=== PATIENT | male | born 1950 | race Caucasian/White ===

== ENCOUNTER → 2018-11-27 10:07 | Outpatient (CLI) | payer MEDICARE, SELFPAY ==
--- NOTE | 2018-11-27 10:26 | RAD_ITS ---
STUDY: X-RAY - PELVIS REASON FOR EXAM: Male, 68 years old. Bilateral hip pain. Arthritis. TECHNIQUE: One view of the pelvis was obtained. COMPARISON: None. FINDINGS: There is a non-specific bowel gas pattern. Normal visualized soft tissue structures. Normal bilateral iliac wings, sacroiliac joints and visualized sacrum. Normal visualized bilateral superior and inferior pubic rami. Normal pubic symphysis. Normal ischial tuberosities. Normal visualized right femoral head. There is osteoarthritic spur formation of the right acetabular rim. Normal right hip joint. Normal visualized left femoral head. There is osteoarthritic spur formation of the left acetabular rim. Normal left hip joint. RAD/Pelvis 1 or 2 Views IMPRESSION: Normal x-ray examination of the pelvis. Mild degenerative arthrosis of both hips. Electronically Signed: Alber Barbour MD at 5:39 EDT , Service support ,
--- NOTE | 2018-11-27 10:26 | RAD_ITS ---
STUDY: X-RAY - RIGHT SHOULDER REASON FOR EXAM: Male, 68 years old. Pain. No recent injury. TECHNIQUE: 4 view(s) of the shoulder. COMPARISON: None. FINDINGS: Normal glenohumeral articulation. Normal acromioclavicular joint. Normal acromion. There are 3 metallic anchors in the humeral head, probably related to prior rotator cuff repair. Hardware appears to be intact with no evidence for loosening. The soft tissue structures are unremarkable. Normal visualized pulmonary apex. RAD/Shoulder min 2 Views IMPRESSION: Postsurgical changes. No demonstrated fracture, subluxation, or significant degenerative changes. Electronically Signed: Alber Barbour MD at 5:41 EDT , Service support ,
[2018-11-27 12:37] LABS: Erythrocyte Sedimentation Rate 8 mm/hr (0-20)
[2018-11-27 12:38] LABS: Absolute Lymphocyte Count 1.55 X10^3/ul (0.83-4.51); Absolute Neutrophil Count 4.2 X10^3/uL (2.0-7.7); Basophil# 0.04 X10^3/uL; Basophil% 0.6 % (0-1); Eosinophil# 0.29 X10^3/uL; Eosinophils% 4.4 % (0-5); Hematocrit 44.2 % (40-54); Hemoglobin 15.3 g/dl (13.0-16.5); Lymphocyte # 1.55 X10^3/ul (4.0); Lymphocyte % 23.6 % (19-41); Mean Corp Hgb Conc 34.6 g/gl (32-36); Mean Corpuscular Volume 89.5 fL (80-94); Mean Platelet Vol. 9.5 fl (6.2-12.0); Monocyte# 0.45 X10^3/uL; Monocyte% 6.8 % (0-10); Neutrophil # 4.22 X10^3/uL (2.7-7.7); Neutrophil % 64.1 % (47-70); Platelet Count 234 K/mm3 (150-450); RBC Distribution Width CV 12.6 % (11.6-14.6); RBC Distribution Width SD 40.9 fl (35.1-43.9); Red Blood Count 4.94 M/mm3 (4.6-6.2); White Blood Count 6.6 K/mm3 (4.4-11.0)
[2018-11-27 12:41] LABS: POSITIVE COUNT NO; POSITIVE DIFFERENTIAL NO; POSITIVE MORPHOLOGY NO
[2018-11-27 12:49] LABS: ALB/GLOB Ratio 1.1 RATIO (0.9-2.4); AST(SGOT) 22 U/L (15-37); Alanine Aminotransfer ALT/SGPT 40 U/L (16-61); Albumin, Serum 3.9 g/dL (3.2-5.0); Alkaline Phosphatase 67 U/L (45-117); Anion Gap 6 (5-15); BUN 17 mg/dL (7-18); BUN/Creat Ratio 18.6 RATIO (10-20); CRP < 2.90 mg/L (0.0-3.0); Calcium,Total 9.6 mg/dL (8.5-10.1); Chloride 108 mmol/L (98-107); Creatinine, Serum 0.92 mg/dL (0.70-1.30); EST Glomerular Filtration Rate 88 mL/min (>60); Est Glom Filt Rate - Afr Amer 106 mL/min (>60); Globulin 3.5 g/dL (2.2-4.2); Glucose 119 mg/dL (74-106); Potassium 4.4 mmol/L (3.5-5.1); Protein, Total 7.4 g/dL (6.4-8.2); Rheumatoid Factor < 10.0 IU/mL (<15); Sodium Level 140 mmol/L (136-145)
[2018-11-29 12:05] LABS: ANTINUCLEAR ANTIBODIES DIRECT Negative (Negative)
[2018-12-01 13:50] LABS: HEPATITIS B SURFACE AG Negative (Negative); HLA B27 Negative (.); Hep B Surface Antibodies Non Reactive (.); Hep C Antibodies <0.1 s/co ratio (0.0-0.9)
[2018-12-01 13:51] LABS: CCP IgG Antibodies 6 units (0-19)
== END ==
PROVIDERS: Family Provider Family Medicine; PCP Family Medicine; Referring Provider Internal Medicine Rheumatology; Visit Provider Internal Medicine Rheumatology
DX: M06.4 Inflammatory polyarthropathy (principal); M17.0 Bilateral primary osteoarthritis of knee; M21.40 Flat foot [pes planus] (acquired), unspecified foot; K21.9 Gastro-esophageal reflux disease without esophagitis; R51 Headache; E78.5 Hyperlipidemia, unspecified; M51.37 Other intervertebral disc degeneration, lumbosacral region; M47.897 Other spondylosis, lumbosacral region; L30.9 Dermatitis, unspecified; J30.9 Allergic rhinitis, unspecified
CPT/HCPCS: 36415; 72170; 73030; 80053; 81374; 85025; 85652; 86038; 86140; 86200; 86431; 86706; 86803; 87340

== ENCOUNTER → 2019-10-02 16:58 | Outpatient (CLI) | payer MEDICARE, SELFPAY ==
--- NOTE | 2019-10-02 17:10 | MRI_ITS ---
STUDY: MRI LEFT MIDFOOT REASON FOR EXAM: Chronic pain for several years in the fourth metatarsal area, no specific injury. TECHNIQUE: Standardized fat and water weighted pulse sequences were obtained in all 3 orthogonal planes. COMPARISON: None. FINDINGS: Normal talonavicular articulation. Normal calcaneocuboid articulation. Normal navicular-cuneiform articulations. Normal intercuneiform articulations. Normal first tarsometatarsal articulation. Normal Lisfranc ligament. Normal second and third tarsometatarsal articulations. Normal cuboid fourth and cuboid fifth tarsometatarsal articulation. Normal first through fifth metatarsi. There is arthrosis of the first metatarsophalangeal joint with small marginal osteophytes and chondral thinning (T1 sagittal images 23, 24). There is mild cystic change of the fibular sesamoid (inversion recovery sagittal image 21) suggestive of mild sesamoiditis. Normal tibial sesamoid. Normal tibialis anterior tendon. Normal extensor hallucis longus tendon. Normal extensor digitorum longus tendons. There is mild thickening and increased intrasubstance signal of the peroneus longus tendon proximal to the os peroneum (T2 series 6 images 4-6) without discrete tendon tear. There is no bone edema of the os peroneum. Normal visualized distal peroneus brevis tendon and distal insertion. Normal intrinsic muscles of the mid and forefoot region. Normal extensor digitorum brevis muscle. There is soft tissue fullness at the plantar aspect of the third webspace (T1 series 5 image 33) measuring 0.3 cm in transverse dimension. There is a lobulated ganglion cyst dorsal to the distal talus (inversion recovery sagittal images 21-23) measuring 1.7 cm in length with a small extension into the dorsal aspect of the sinus tarsi (inversion recovery sagittal image 20). 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 Small intermetatarsal neuroma of the third webspace Arthrosis of the first metatarsophalangeal joint. Mild fibular sesamoiditis. Ganglion cyst dorsal to the distal talus and extending into the sinus tarsi. Electronically Signed: Alexander Fernandes MD at 9:17 EST Tel , Service support ,
== END ==
PROVIDERS: PCP Family Medicine; Referring Provider Podiatrist; Visit Provider Podiatrist
DX: S93.692D Other sprain of left foot, subsequent encounter (principal); M76.72 Peroneal tendinitis, left leg; M79.672 Pain in left foot; M19.272 Secondary osteoarthritis, left ankle and foot
CPT/HCPCS: 73718

== ENCOUNTER → 2019-10-24 | Outpatient (CLI) | payer MEDICARE, SELFPAY ==
[2015-08-16 15:21] VITALS: BMI 33.7
== END | disposition home or self-care (01) ==
LOC: LABSPEC 17:20
PROVIDERS: PCP Family Medicine; Referring Provider Otolaryngology; Visit Provider Otolaryngology
DX: J32.9 Chronic sinusitis, unspecified (principal)
CPT/HCPCS: 87070; 87205

== ENCOUNTER → 2021-07-07 14:13 | Outpatient (CLI) | payer MEDICARE, SELFPAY ==
--- NOTE | 2021-07-07 14:20 | CT_ITS ---
INDICATION: SINUSITIS. History of headache, pain and pressure on the LEFT. Nasal congestion. History of seminal plasty. Deviated septum repair. EXAMINATION: CT SINUSES - CT Sinuses W/O Contrast Injection TECHNIQUE: Helically acquired images were obtained of the paranasal sinuses. A radiation dose optimization technique was used for this scan. IV Contrast dosage and agent: No contrast administered. Radiation Dose (provided by facility) CTDIvol (33.1 ) mGy, DLP ( 730.55) mGy-cm COMPARISON: 11/21/2015 FINDINGS: POSTOPERATIVE CHANGES: Postoperative changes of bilateral internal ethmoidectomy defects greater on the RIGHT than LEFT. Partial RIGHT middle turbinectomy defect is noted Paranasal sinuses- MAXILLARY SINUSES: 1. Polypoid mucosal thickening noted in the alveolar recess of the RIGHT maxillary antrum. Soft tissue within the region of the mucosal thickening appears to be continuous with the periabdominal erosion of a RIGHT maxillary molar. Findings are stable. 2. No significant mucosal thickening on the LEFT. 3. 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 ETHMOID SINUSES: Mild chronic appearing mucosal thickening in ethmoid complexes. There are findings suspicious bilateral internal ethmoidectomy defects greater on the RIGHT than LEFT. No evidence of ethmoid sinus opacification. FRONTAL SINUSES: Mild mucosal thickening within the frontal recess on the LEFT. Frontal sinuses are hypoplastic. SPHENOID SINUSES: Sphenoid sinuses are clear, sphenoid ostia are patent. Nasal passages- NASAL SEPTUM: There is mild leftward deviation of nasal septum. No septal spurs noted. TURBINATES: Prominent inferior turbinate hypertrophy bilaterally, mild middle turbinate hypertrophy also noted.. CRIBRIFORM PLATE AND FOVEA ETHMOIDALIS: Normal Facial skeleton- FACIAL SKELETON AND ORBITS: Within normal limits. CT/Sinus/Facial Bone IMPRESSION: 1. Postop changes including sequelae of internal ethmoidectomy defects bilaterally greater on the RIGHT than LEFT.. Partial middle turbinectomy defect is also noted on the RIGHT without change. 2. Mucosal thickening present within the alveolar recess of the RIGHT maxillary antrum. This appears to communicate with a prominent periodontal erosion associated with a RIGHT maxillary molar. There has been negligible change. 3. Narrow but patent the bilateral OMCs, and a patent accessory ostia associated with both maxillary antra. 4. Chronic appearing mucosal thickening in the ethmoid complexes and the LEFT frontal recess without evidence of aline sinus opacification or obstruction of drainage pathway. 5. Incidental note of hypoplastic frontal sinuses. 6. Leftward deviation of nasal septum without change. No bony spurs noted. 7. Interval development of significant inferior turbinate hypertrophy bilaterally, there also is mild middle turbinate hypertrophy. Electronically Signed: Reid Aguirre MD at 15:06 EST Tel , Service support ,
== END ==
LOC: CT 14:19
PROVIDERS: PCP Family Medicine; Referring Provider Otolaryngology; Visit Provider Otolaryngology
DX: J32.9 Chronic sinusitis, unspecified (principal)
CPT/HCPCS: 70486

== ENCOUNTER → 2023-06-02 | Outpatient (CLI) | payer MEDICARE, SELFPAY ==
--- NOTE | 2023-06-02 08:46 | VDLE_ITS ---
Reason For Study: Hx EVLA GSV, SSV and ASV RIGHT LEFT CFV is compressible, spontaneous, phasic, CFV is compressible, spontaneous, phasic, competent and demonstrates normal competent, and demonstrates normal augmentation. augmentation. FV is compressible, spontaneous, phasic, competent and demonstrates normal augmentation. POP V is compressible, spontaneous, phasic, competent and demonstrates normal augmentation. T/P Trunk is compressible. PTV is compressible. RT PerV is compressible. GSV and SSV junction to mid calf is absent s/p EVLA. Remaining SSV measures 0.22 x 0.24 cm and is Competent. ASV mid calf from SSV is INCOMPETENT for greater than 0.5 seconds and measures 0.37 x 0.38 cm. Procedure This is a venous duplex using B-mode, color flow and spectral Doppler. Exam performed in department. VL/Venous Duplex US, Unilateral Interpretation Summary Deep veins of the right lower extremity are patent and compressible segmentally . There is no evidence of right lower extremity deep vein thrombosis. Valvular competence александр ears intact within the proximal deep venous system on the right . The right great saphenous vein a nd small saphenous vein are absent down to mid-calf, consistent with a prior endothermal venous ab lation procedure. An accessory saphenous vein emanating from the right small saphenous vein in the m id-calf is incompetent. Ordering Physician: Say Suazo Referring Physician: Abad Cotter MD Performed By: Alie Boyd RVT
== END | disposition home or self-care (01) ==
PROVIDERS: PCP Family Medicine; Referring Provider Surgery; Visit Provider Surgery
DX: M71.21 Synovial cyst of popliteal space [Baker], right knee (principal); I83.11 Varicose veins of right lower extremity with inflammation
CPT/HCPCS: 93971

== ENCOUNTER → 2024-06-01 | Outpatient (CLI) | payer MEDICARE, SELFPAY ==
--- NOTE | 2024-06-01 07:52 | CT_ITS ---
EXAM: CT MAXILLOFACIAL WITHOUT INTRAVENOUS CONTRAST CLINICAL INDICATION: CHRONIC SINUSITIS TECHNIQUE: Helically acquired images were obtained of the face without intravenous contrast. This CT exam was performed using one or more of the following dose reduction techniques: automated exposure control, adjustment of the mA and/or kV according to patient size, and/or use of iterative reconstruction technique. COMPARISON: CT sinus, 07/07/2021 FINDINGS: BONES/JOINTS: Mild bidirectional nasal septal deviation without significant spurring. Status post right middle turbinoplasty. Degenerative changes in the cervical spine. SOFT TISSUES: No significant abnormality. No focal subcutaneous swelling. No discrete fluid collections. VASCULATURE: Vascular calcifications. ORBITS: No acute findings. SINUSES: Status post right partial ethmoidectomy. Mild mucosal thickening in the residual ethmoid air cells. Trace mucosal thickening in the bilateral maxillary sinuses, right greater than left. The ostiomeatal units are patent. The frontal sinuses are hypoplastic with minimal mucosal thickening. The frontal recesses are clear. MASTOID AIR CELLS: Normal as visualized. Clear. DENTAL: No significant findings. No periodontal osseous erosion. CT/Sinus/Facial Bone IMPRESSION: 1. Status post right middle turbinoplasty. 2. Status post right partial ethmoidectomy. Mild mucosal thickening in the residual ethmoid air cells. 3. No sinus outflow pathway obstruction. Electronically Signed: Alfredo Madrid DO at 21:06 EDT ,
== END | disposition home or self-care (01) ==
PROVIDERS: PCP Family Medicine; Referring Provider Otolaryngology; Visit Provider Otolaryngology
DX: J32.8 Other chronic sinusitis (principal); J32.4 Chronic pansinusitis
CPT/HCPCS: 70486

== ENCOUNTER → 2024-11-12 | Outpatient (CLI) | payer MEDICARE, SELFPAY ==
--- NOTE | 2024-11-12 08:59 | EKG12_ITS ---
Test Reason : PRE OP Blood Pressure : */* mmHG Vent. Rate : 63 BPM Atrial Rate : 63 BPM P-R Int : 158 ms QRS Dur : 88 ms QT Int : 372 ms P-R-T Axes : 43 -9 45 degrees QTcB Int : 380 ms Normal sinus rhythm Septal infarct , age undetermined Abnormal ECG Confirmed by ANJALI DAVID, KWASI ([id number]), research editor KIM PLEITEZ ([id number]) on 11/12/2024 11:42:42 AM Referred By: Broderick Merino Confirmed By: KWASI ALBA MD
[2024-11-12 10:40] LABS: Absolute Lymphocyte Count 1.74 X10^3/uL (0.83-4.51); Absolute Neutrophil Count 4.6 X10^3/uL (2.0-7.7); Basophil# 0.05 X10^3/uL; Basophil% 0.7 % (0-1); Eosinophil# 0.27 X10^3/uL; Eosinophils% 3.8 % (0-5); Hematocrit 41.3 % (40-54); Hemoglobin 14.4 g/dL (13.0-16.5); Lymphocyte # 1.74 X10^3/ul (0.83-4.51); Lymphocyte % 24.3 % (19-41); Mean Corp Hgb Conc 34.9 g/dL (32-36); Mean Corpuscular Hgb 31.4 pg (27.0-32.0); Mean Corpuscular Volume 90.2 fL (80-94); Mean Platelet Vol. 9.3 fl (6.2-12.0); NRBC Flagged by Analyzer 0 % (0-5); Neutrophil # 4.57 X10^3/uL (2.7-7.7); Neutrophil % 63.8 % (47-70); Platelet Count 219 K/mm3 (150-450); RBC Distribution Width CV 12.4 % (11.6-14.6); RBC Distribution Width SD 40.6 fl (35.1-43.9); Red Blood Count 4.58 M/mm3 (4.6-6.2); White Blood Count 7.2 K/mm3 (4.4-11.0)
[2024-11-12 11:22] LABS: Anion Gap 13 (5-15); BUN 16 mg/dL (4-19); Calcium,Total 10.1 mg/dL (7.6-11.0); Carbon Dioxide 21.8 mmol/L (21.0-32.0); Chloride 102 mmol/L (98-108); Creatinine, Serum 0.96 mg/dL (0.70-1.20); EST Glomerular Filtration Rate 84 (>60); Glucose 133 mg/dL (70-99); Potassium 4.4 mmol/L (3.3-5.1); Sodium Level 136 mmol/L (133-145)
== END | disposition home or self-care (01) ==
PROVIDERS: PCP Family Medicine; Referring Provider Student in an Organized Health Care Education/Training Program; Visit Provider Student in an Organized Health Care Education/Training Program
DX: Z01.818 Encounter for other preprocedural examination (principal)
CPT/HCPCS: 36415; 80048; 85025; 93005

== ENCOUNTER → 2024-12-31 | Outpatient (CLI) | payer MEDICARE, SELFPAY ==
--- NOTE | 2024-12-31 13:38 | STEWCON_ITS ---
Reason For Study Reason For Study: abnormal EKG Stress Results Protocol: Stress Echocardiogram Yogn Protocol with Definity Maximum Predicted HR: 147 bpm Target HR: 125 bpm % Maximum Predicted HR: 105 % DurationHeart Rate Stage (mm:ss) (bpm) BP Comment Baseline 86 150/89Patient denies chest pain Stage 1 3:00 123 166/98Patient denies chest pain Stage 2 3:00 155 174/100Patient complains of shortness of breath. Denies chest pain. 2ml total Definity used per protocol. Patient denies chest pain or shortness of Recovery 84 156/80breath. Stress Duration: 6:00 mm:ss Maximum Stress HR: 155 bpm Baseline Echocardiogram Findings Stress Echo Wall motion Data Resting WM Intermediate WM Stress WM ECHO/Stress Test Echo W/Contrast Interpretation Summary Exercise stress echo. 74-year-old man with a history of abnormal EKG. The resting electrocardiogram demonstrates normal sinus rhythm with a rate of 7 5 bpm normal intervals are noted resting blood pressure is 150/89 mmHg. The patient exercised according to regular Yong protocol for total duration of 6 minutes with a maximum heart rate of 160 bpm 108% of maximum predicted heart rate and a workload of 7 metabolic equivalents. At rest there were no ST or T wave changes noted suggest ischemia and at peak exer cise 1.[address] depression were noted in lead II, 1.[address] depression were noted in lead II I and aVF not suggestive of ischemia. The peak blood pressure was 174/100 mmHg which was a mildly hypertensive response t o exercise. Test was terminated due to shortness of breath. No chest pain was noted. Stress echocardiogram. The resting echocardiogram demonstrated preserved left ventricular systolic fun ction estimated at 65%. At peak exercise there was thickening of all ham[place] except for the mid anterior wall with reduced thickening and contractility suggesting anterior ischemia present. Images were obtained with Definity enhancement. Conclusion: Exercise stress echocardiogram with probable mild mid anterior ischemia at a mo derate workload. Ordering Physician: Briana Harris Referring Physician: Briana Harris Performed By: Kathrine Angel RDCS
== END | disposition home or self-care (01) ==
LOC: CVS 13:33
PROVIDERS: PCP Family Medicine; Referring Provider Nurse Practitioner Primary Care; Visit Provider Nurse Practitioner Primary Care
DX: R94.31 Abnormal electrocardiogram [ECG] [EKG] (principal); R01.1 Cardiac murmur, unspecified
CPT/HCPCS: 93017; 93350; Q9957; A4216; C8928

== ENCOUNTER → 2025-01-10 | Outpatient (CLI) | payer MEDICARE, SELFPAY ==
--- NOTE | 2025-01-10 08:00 | CT_ITS ---
PROCEDURE: SOFT TISSUE NECK WITH CONTRAST 01/10/2025 REASON FOR EXAM: RETROPHARYNGEAL ABSCESS, GERD TECHNIQUE: CT of the soft tissues of the neck from the orbits to the upper mediastinum with intravenous contrast. CONTRAST: 100 cc Isovue 370 One or more dose reduction techniques were used (e.g., Automated exposure control, adjustment of the mA and/or kV according to patient size, use of iterative reconstruction technique). RADIATION DOSE SUMMARY: CTDlvol: ? MGy DLP: ? MGycm FINDINGS: Normal orbits. Normal nasopharynx. Normal parotid glands. Normal oral cavity. Normal submandibular glands. Minor asymmetry of the vallecula which may be secondary to prominent lymphoid tissue. Symmetric vocal folds. Normal thyroid. No subglottic masses. No prevertebral or retropharyngeal abscess. Lung apices are clear CT/Soft Tissue Neck WITH Contrast IMPRESSION: No acute abnormality Reading [facility]
== END | disposition home or self-care (01) ==
LOC: CT 07:56
PROVIDERS: PCP Family Medicine; Referring Provider Otolaryngology; Visit Provider Otolaryngology
DX: J39.0 Retropharyngeal and parapharyngeal abscess (principal); K21.9 Gastro-esophageal reflux disease without esophagitis
CPT/HCPCS: 70491; Q9967

== ENCOUNTER → 2025-03-13 | Outpatient (CLI) | payer MEDICARE, SELFPAY ==
--- NOTE | 2025-03-13 10:35 | RAD_ITS ---
PROCEDURE: CHEST PA AND LATERAL 03/13/2025 REASON FOR EXAM: PREOP TECHNIQUE: CHEST PA AND LATERAL COMPARISON: none FINDINGS: No focal consolidation. Bibasilar subsegmental atelectasis. No pleural effusion or pneumothorax. Cardiac silhouette is within normal limits. No acute fractures. RAD/Chest PA and Lateral IMPRESSION: No focal consolidation. Reading Location: [facility]
[2025-03-13 12:03] LABS: Hematocrit 43.4 % (40-54); Hemoglobin 14.6 g/dL (13.0-16.5); Immature Granulocytes Count 0.060 X10^3/uL (0.0-0.0); Mean Corp Hgb Conc 33.6 g/dL (32-36); Mean Corpuscular Volume 91.2 fL (80-94); Mean Platelet Vol. 9.6 fl (6.2-12.0); NRBC Flagged by Analyzer 0 % (0-5); Platelet Count 231 K/mm3 (150-450); RBC Distribution Width CV 12.3 % (11.6-14.6); RBC Distribution Width SD 41.1 fl (35.1-43.9); Red Blood Count 4.76 M/mm3 (4.6-6.2); White Blood Count 7.2 K/mm3 (4.4-11.0)
[2025-03-13 13:27] LABS: Anion Gap 11 (5-15); BUN 18 mg/dL (4-19); BUN/Creat Ratio 21.0 RATIO (10-20); Calcium,Total 10.4 mg/dL (7.6-11.0); Carbon Dioxide 25.1 mmol/L (21.0-32.0); Chloride 103 mmol/L (98-108); Glucose 121 mg/dL (70-99); Potassium 4.6 mmol/L (3.3-5.1)
--- OUTSIDE RECORDS SUMMARY | 2025-03-13 19:21 | XMS RPT_ITS | CCD ---
Author Organization [facility] Care Team Providers Care Press Manager Name Role Phone Selena Gonsalves MD Unavailable Preeti Marquis MD Primary Care Provider Preeti Marquis MD Primary Care Provider Preeti Marquis MD Primary Care Provider Preeti Marquis MD Primary Care Provider Podlogar MAT MAKING MACHINE TENDER.Briana RESENDEZ Unavailable Ronn MAT MAKING MACHINE TENDER.Betty RESENDEZ Unavailable Dr. Gary Marquis MD Primary Care Provider Dr. Broderick Merino DO Attending Provider Dr. Broderick Merino DO Referring Provider Dr. Howard Liz MD Attending Provider Podlogar APPLICATIONS SUPPORT SPECIALIST-CBriana Attending Provider Podlogar APPLICATIONS SUPPORT SPECIALIST-CBriana Referring Provider PODLOGAR, BRIANA Attending Unavailable PREETI MARQUIS Referring Unavailab le PREETI MARQUIS Primary Care Unavailab le PODLOGARBRIANA Referring Unavailable PREETI MARQUIS Primary Care Unavailab le PREETI MARQUIS Referring Unavailab le PREETI MARQUIS Primary Care Unavailab le PODLOGAR, BRIANA Attending Unavailable PREETI MARQUIS Primary Care Unavailab le PODLOGAR, BRIANA Attending Unavailable SELF Referring Unavailable PREETI MARQUIS Primary Care Unavailab le [place] MAT MAKING MACHINE TENDER.CROWNING INSPECTOR, Betty Unavailable Tania DAVID, Dr. Melgoza Attending Provider Tania DAVID, Dr. Melgoza Referring Provider LEBRON MILLER Attending Unavailable PODLOGAR, BRIANA Referring Unavailable BURSLEY, CHRISTOPHER B Primary Care Unavailab le Tania, Preeti Attending Unavailabl e Wartmann, Christwesleyer Referring Unavailabl e Bursley, Gary Primary Care Unavailable Spittle, Broderick Attending Unavailable Spittle, Broderick Referring Unavailable Bursley, Gary Primary Care Unavailable Podlogar, Briana Attending Unavailable Podlogar, Briana Referring Unavailable Bursley, Gary Primary Care Unavailable Wartmann, Preeti Attending Unavailabl e Wartmann, Preeti Referring Unavailabl e Bursley, Gary Primary Care Unavailable Agusto, Howard Attending Unavailable Bursley, Gary Referring Unavailable Bursley, Gary Primary Care Unavailable Agusto, Howard Attending Unavailable Spittle, Broderick Referring Unavailable Bursley, Gary Primary Care Unavailable Agusto, [place] Attending Unavailable Bursley, Gary Primary Care Unavailable Agusto, Howard Attending Unavailable Bursley, Gary Primary Care Unavailable Benitez DAVID, Dr. Vega Primary Care Provider Agusto DAVID, Dr. Lawrence Attending Provider [phone] Benitez DAVID, Dr. Vega Referring Provider Allergies Allergy Classification Reported Allergen(s) Allergy Type Date of Onset Reaction(s) Facility NSAIDs (2 sources) Piroxicam Drug Allergy 06-30-20 07 GI Upset, Rash [facility] Work Phone: Pollen (1 source) Grass pollen Substance Allergy 09-26-19 24 Other: See Comments [facility] (1 source) House dust mite; Translations: [DUST MITES] allergy to substance 02-28-20 [facility] Work Phone: (20 sources) Ibuprofen; Translations: [IBUPROFEN] Drug Allergy 08-21-19 11 Rash [facility] Work Phone: (1 source) Ibuprofen Drug Allergy 02-28-20 [facility] Work Phone: (1 source) Kingdom Animalia; Translations: [ANIMALS] allergy to substance 02-28-20 [facility] Work Phone: (1 source) Mold Extract; Translations: [MOLD] Drug Allergy 02-28-20 [facility] Work Phone: (1 source) PLANT POLLENS drug allergy 02-28-20 [facility] Work Phone: (6 sources) Griseofulvin Drug Allergy 06-11-20 05 Unknown [facility] Work Phone: (20 sources) Piroxicam; Translations: [PIROXICAM] Drug Allergy 06-30-20 07 GI Upset [facility] Work Phone: (15 sources) Environmental [Other] Propensity to adverse reactions 06-11-20 05 Unknown [facility] (20 sources) Grass pollen; Translations: [GRASS POLLEN] Drug Allergy 09-26-19 24 Other: See Comments [facility] Work Phone: (1 source) Griseofulvin Drug Allergy 02-01-20 25 [facility] (1 source) Ibuprofen Drug Allergy 02-01-20 25 [facility] (1 source) Piroxicam Drug Allergy 02-23-20 25 [facility] Medications Current Medications Medication Drug Class(es) Dates Sig (Normalized) Sig (Original) acetaminophen 500 mg oral tablet (20 sources) Start: 01-31-2025 take 2 tablets by mouth once daily Acetaminophen 500 mg tablet Active 1000 mg PO DAILY January 31, 2025 12:00am Start: 02-28-2020 ACETAMINOPHEN 500 MG TABS as directed as needed ACETAMINOPHEN [id number] Rosemary Bazan LPN take 2 capsules by m outh once daily Acetaminophen 500 mg cap Take 1,000 mg by mouth once daily. Active Comment on above: Take 1,000 mg by dexter th once daily. atorvastatin 10 mg oral tablet (20 sources) HMG-CoA Reductase Inhibitor Start: End: take 1 tablet by mouth at bedtime Atorvastatin 10 mg tablet Active 10 mg PO AT BEDTIME January 31, 2025 2:13pm Start: 08-16-2015 take 1 mg by mouth at bedtime Atorvastatin Active MG PO AT BEDTIME August 16, 2015 1:00am Comment on above: [facility]ib 200 mg oral capsule (20 sources) Nonsteroidal Anti-inflammatory Drug Start: 01-31-2025 End: 03-13-2025 take 1 capsule by mouth once daily Celecoxib 200 mg capsule Active 200 mg PO daily March 13, 2025 9:38am Start: 12-06-2022 take 1 capsule by mo [facility] once daily as needed for pain celecoxib (CELEBREX) 200 mg capsule Indications: DDD (degenerative disc disease), lumbar Take 1 capsule by mouth once daily as needed for pain. 90 capsule 12/06/2022 Active Start: 09-15-2022 End: 12-04-2022 take 1 capsule by mouth once daily as needed for pain celecoxib (CELEBREX) 200 mg capsule Indications: DDD (degenerative disc disease), lumbar Take 1 capsule by mouth once daily as needed for pain. 90 capsule 0 09/15/2022 12/04/2022 Discontinued Start: 08-17-2021 End: 07-04-2022 take 1 capsule by mouth once daily celecoxib (CELEBREX) 200 mg capsule Indications: DDD (degenerative disc disease), lumbar Take 1 capsule by mouth once daily. 90 capsule 0 07/05/2022 Active Start: 02-28-2020 CELEBREX 200 M G CAPS 1 capsule daily CELECOXIB [id number] Rosemary Bazan LPN Start: 08-16-2015 End: 01-31-2025 take 1 capsule by mouth once daily Celecoxib 100 MG capsule Discontinued 100 mg PO DAILY August 16, 2015 1:00am January 31, 2025 2:15pm Comment on above: Take 1 capsule by mo [facility] once daily. Take 1 capsule by mo [facility] once daily as needed for pain. diclofenac sodium 0.01 mg/mg topical gel (20 sources) Nonsteroidal Anti-inflammatory Drug Start: apply 2 g topically three times daily as needed Diclofenac Sodium 1 % gel Active 2 g TOPICAL THREE TIMES A DAY as needed January 31, 2025 12:00am Start: 03-09-2024 End: 03-26-2024 apply 300 g topically three times daily as needed diclofenac (VOLTAREN) 1 % topical gel Indications: Primary osteoarthritis of both knees Apply moderate amount to painful areas on hands (2g) & knees (4g) up to three times daily as needed. Don't exceed a total of 32g daily. 300 g 5 03/26/2024 Active Start: 07-09-2023 End: 03-07-2024 apply 300 g topically three times daily as needed diclofenac (VOLTAREN) 1 % topical gel Apply moderate amount to painful areas on hands (2g) & knees (4g) up to three times daily as needed. Don't exceed a total of 32g daily. 300 g 0 01/13/2024 03/07/2024 Discontinued Start: 05-07-2023 apply 300 g topicall y three times daily as needed diclofenac (VOLTAREN) 1 % topical gel Apply moderate amount to painful areas on hands (2g) & knees (4g) up to three times daily as needed. Don't exceed a total of 32g daily. 300 g 0 05/07/2023 Active Start: 12-06-2022 End: 05-05-2023 apply 300 g topically three times daily as needed diclofenac (VOLTAREN) 1 % topical gel Apply moderate amount to painful areas on hands (2g) & knees (4g) up to three times daily as needed. Don't exceed a total of 32g daily. 300 g 03/15/2023 05/05/2023 Discontinued Start: 09-15-2022 End: 12-04-2022 apply 300 g topically three times daily as needed diclofenac (VOLTAREN) 1 % topical gel Apply moderate amount to painful areas on hands (2g) & knees (4g) up to three times daily as needed. Don't exceed a total of 32g daily. 300 g 0 09/15/2022 12/04/2022 Discontinued Start: 10-29-2021 End: 04-26-2022 apply 300 g topically three times daily as needed diclofenac (VOLTAREN) 1 % topical gel Apply moderate amount to painful areas on hands (2g) & knees (4g) up to three times daily as needed. Don't exceed a total of 32g daily. 300 g 1 04/27/2022 Active Comment on above: Apply moderate amoun t to painful areas on hands (2g) & knees (4g) up to three times daily as needed. Don't exceed a total of 32g daily. fexofenadine hydrochloride 180 mg oral tablet (20 sources) Histamine-1 Receptor Antagonist Start: End: take 1 tablet by mouth once daily as needed Fexofenadine 180 mg tablet Active 180 mg PO daily as needed March 13, 2025 9:39am fexofenadine HCl (MUCINEX ALLERGY ORAL) Take by mouth once daily. Active fexofenadine HCl (MUCINEX ALLERGY ORAL) Take by mouth. Active fexofenadine HCl (MUCINEX ALLERGY ORAL) Take by mouth. 0 Active Comment on above: Take by mouth. gabapentin 100 mg oral capsule (20 sources) Anti-epileptic Agent Start: 01-31-2025 take 2 capsules by mouth three times daily Gabapentin 100 mg capsule Active 200 mg PO THREE TIMES A DAY January 31, 2025 2:14pm Start: 05-12-2023 take 2 capsules by m outh three times daily gabapentin (NEURONTIN) 100 mg capsule Take 200 mg by mouth three times a day. 05/12/2023 Active Start: 08-16-2015 End: 01-31-2025 take 1 capsule by mouth three times daily at mealtime Gabapentin 100 MG capsule Discontinued 100 mg PO 3 TIMES DAILY WITH MEALS August 16, 2015 1:00am January 31, 2025 2:19pm Comment on above: Take 100 mg by mouth three times a day. 12 hr guaiFENesin 600 mg extended release oral tablet (2 sources) Start: 03-13-2025 take 1 tablet by mouth once daily, then take 1 tablet by mouth every twelve hours Guaifenesin (Mucinex) 600 mg tablet extended release 12hr Active 600 mg PO DAILY March 13, 2025 12:00am Start: 02-28-2020 MUCINEX 600 MG [id number] 1 tablet daily GUAIFENESIN [id number] Rosemary Bazan LPN Hydrocortisone (20 sources) Corticosteroid Start: 01-31-2025 Hydrocortisone Acetate 1 % cream Active 1 NMA RC TWICE A DAY as needed January 31, 2025 12:00am Start: 02-05-2021 End: 04-26-2022 hydrocortisone (ANUSOL-HC) 2 .5 % rectal cream 1 application by RECTAL route twice daily as needed. 28 g 2 04/27/2022 Active Start: 02-28-2020 HYDROCORTISONE 1 % CREA daily as directed HYDROCORTISONE [id number] Rosemarydeep Bazan LPN Comment on above: 1 application by REC RICHARD route twice daily as needed. Multivitamin (Daily Multiple Vitamin) 1 EACH tablet (5 sources) Start: 6 take 1 tablet by mouth once daily Multivitamin (Daily Multiple Vitamin) 1 EACH tablet Active 1 NMA PO DAILY August 16, 2015 1:00am Start: 08-16-2015 take 1 tablet by dexter th once daily Multivitamin (Daily Multiple Vitamin) 1 EACH tablet Active 1 EACH PO DAILY August 16, 2015 1:00am MULTIVITAMIN TAB (20 sources) Start: 06-11-2005 MULTIVITAMIN T AB Take one(1) tablet daily. 0 06/11/2005 Active Comment on above: Take one(1) tablet d aily. omeprazole 40 mg delayed release oral capsule (20 sources) Proton Pump Inhibitor Start: 01-31-2025 take 1 capsule by mouth once daily Omeprazole 40 mg capsule,delayed release(DR/EC) Active 40 mg PO daily January 31, 2025 12:00am take 1 capsule by mouth once pedro ly omeprazole (PRILOSEC) 40 mg capsule Take 40 mg by mouth once daily. Active Comment on above: Take 40 mg by mouth once daily. Turmeric Root Extract 500 mg capsule (1 source) Start: 01-31-2025 take 1 capsule by mouth twice daily Turmeric Root Extract 500 mg capsule Active 500 mg PO TWICE A DAY January 31, 2025 12:00am turmeric/turmeric ext/pepr ext (TURMERIC-TURMERIC EXT-PEPPER) 500-3 mg cap (20 sources) take 1 capsule by mouth twice daily turmeric/turmeric ext/pepr ext (TURMERIC-TURMERIC EXT-PEPPER) 500-3 mg cap Take 1 capsule by mouth twice daily. Active take 1 capsule by mouth twice da rosita turmeric/turmeric ext/pepr ext (TURMERIC-TURMERIC EXT-PEPPER) 500-3 mg cap Take 1 capsule by mouth twice daily. 0 Active Comment on above: Take 1 capsule by mo uth twice daily. Completed/Discontinued Medications Medication Drug Class(es) Dates Sig (Normalized) Sig (Original) 1 ml abatacept 125 mg/ml prefilled syringe (5 sources) Selective T Cell Costimulation Modulator Start: 08-16-2015 End: 01-31-2025 take 125 mg by mouth once daily Abatacept (Orencia) 125 MG/ML syringe Discontinued 1 {tbl} PO DAILY August 16, 2015 1:00am January 31, 2025 2:18pm acetaminophen 325 mg / oxyCODONE hydrochloride 5 mg oral tablet (5 sources) Opioid Agonist Start: 08-16-2015 End: 01-31-2025 Oxycodone-Acetamin ophen 1 TABLET tablet Discontinued 1 - 2 {tbl} PO EVERY 4 HOURS NEEDED as needed for Pain August 16, 2015 1:00am January 31, 2025 2:18pm Start: 08-16-2015 take 1 tablet by dexter every four hours as needed Oxycodone-Acetaminophen Active 1 - 2 TABLET PO EVERY 4 HOURS NEEDED August 16, 2015 1:00am amoxicillin 500 mg oral tablet (2 sources) Penicillin-class Antibacterial Start: 09-07-2021 End: 03-16-2022 take 1 tablet by mouth three times daily Amoxicillin 500 mg tablet take 1 tablet by mouth three times a day until finished 0 09/07/2021 03/16/2022 Discontinued Comment on above: take 1 tablet by dexter three times a day until finished benzonatate 100 mg oral capsule (8 sources) Non-narcotic Antitussive Start: 03-22-2023 End: 09-26-2023 take 1 capsule by mouth every eight hours as needed benzonatate (TESSALON PERLES) 100 mg capsule Take 1 capsule by mouth three times daily as needed for cough. 18 capsule 0 03/22/2023 09/26/2023 Discontinued (Course of therapy completed) Comment on above: Take 1 capsule by [facility] three times daily as needed for cough. diphenhydrAMINE hydrochloride 25 mg oral tablet (1 source) Histamine-1 Receptor Antagonist Start: 02-28-2020 DIPHENHYDRAMINE HCL 25 MG TABS as directed as needed DIPHENHYDRAMINE HCL [id number] Rosemary Bazan SPIRAL GEAR GENERATOR MULTIPLE VITAMINS-MINERALS (1 source) Start: 02-28-2020 MULTIVITAMIN ADULT TABS 1 tablet daily MULTIPLE VITAMINS-MINERALS [id number] Rosemary Bazan LPN polyethylene glycol 3350 398274 mg / potassium chloride 2970 mg / sodium bicarbonate 6740 mg / sodium chloride 5860 mg / sodium sulfate 93490 mg powder for oral solution (7 sources) Osmotic Laxative Start: 09-15-2021 End: 03-15-2023 peg 3350-Electrolytes (GOLYTELY) 236-22.74-6.74 -5.86 gram suspension Indications: Screening for colon cancer Refer to printed prep instructions from your provider. 4000 mL 0 09/15/2021 03/15/2023 Discontinued (Course of therapy completed) Comment on above: Refer to printed pre p instructions from your provider. Turmeric extract (1 source) Start: 02-28-2020 TURMERIC 500 MG TABS 1 tablet twice daily TURMERIC [id number] Rosemary Bazan LPN Problems Active Problems Problem Classification Problem Date Documented Date Episodic/Chronic Administrative/socia l admission (1 source) Advance directive discussed with patient; Translations: [Other specified counseling] Episodic Allergic reactions (20 sources) Eczema; Translations: [Dermatitis, unspecified] Onset: 09-16-2005 Resolved: 02-03-2015 08-30-2016 Episodic Diabetes mellitus without complication (20 sources) Hyperglycemia; Translations: [Hyperglycemia, unspecified] Onset: 02-03-2015 Resolved: 09-05-2019 Episodic Disorders of lipid metabolism (20 sources) Hyperlipidemia; Translations: [Other hyperlipidemia] Onset: 08-31-2017 08-31-2017 Chronic Esophageal disorders (20 sources) Gastroesophageal reflux disease; Translations: [Gastro-esophageal reflux disease without esophagitis] Onset: 09-08-2007 11-06-2007 Chronic Heart valve disorders (3 sources) Systolic murmur; Translations: [Cardiac murmur, unspecified] Onset: 11-14-2024 11-14-2024 Episodic Occlusion or stenosis of precerebral arteries (2 sources) Bilateral stenosis of carotid arteries; Translations: [Occlusion and stenosis of bilateral carotid arteries] 09-26-2023 Chronic Osteoarthritis (20 sources) Primary osteoarthritis, left hand; Translations: [Primary osteoarthritis, right hand] Onset: 09-09-2008 Resolved: 08-05-2015 03-05-2020 Chronic Other connective tissue disease (1 source) Flexor tenosynovitis of finger; Translations: [Synovitis and tenosynovitis, unspecified] Onset: 03-05-2020 03-05-2020 Episodic Other connective tissue disease (3 sources) Pain in right foot; Translations: [Pain in right foot] 05-24-2023 Episodic Other endocrine disorders (1 source) Male hypogonadism; Translations: [Testicular hypofunction] 02-22-2025 Chronic Other lower respiratory disease (1 source) Cough; Translations: [Acute cough] 03-22-2023 Episodic Other male genital disorders (20 sources) Male erectile dysfunction, unspecified; Translations: [Impotence of organic origin] 08-30-2016 Chronic Other nervous system disorders (20 sources) Carpal tunnel syndrome; Translations: [Carpal tunnel syndrome, unspecified upper limb] Onset: 03-26-2009 03-26-2009 Chronic Other nutritional; endocrine; and metabolic disorders (13 sources) Obese class I; Translations: [Obesity, unspecified] Onset: 03-26-2024 03-26-2024 Chronic Other nutritional; endocrine; and metabolic disorders (1 source) Obesity, unspecified; Translations: [Obesity, Class I, BMI 30-34.9] Onset: 03-26-2024 Chronic Other screening for suspected conditions (not mental disorders or infectious disease) (20 sources) Liver function tests abnormal; Translations: [Abnormal results of liver function studies] Onset: 10-15-2005 Resolved: 02-03-2015 08-02-2006 Episodic Other upper respiratory disease (20 sources) Chronic rhinitis; Translations: [Chronic rhinitis] 01-18-2006 Chronic Other upper respiratory disease (1 source) Retropharyngeal and parapharyngeal abscess; Translations: [Retropharyngeal and parapharyngeal abscess] Onset: 01-15-2025 Episodic Other upper respiratory infections (17 sources) Recurrent sinusitis; Translations: [Chronic sinusitis, unspecified] Onset: 07-25-2009 Resolved: 02-03-2015 02-03-2015 Chronic Residual codes; unclassified (2 sources) Pain; Translations: [Pain, unspecified] 05-09-2023 Episodic Screening and history of mental health and substance abuse codes (6 sources) Patient encounter status; Translations: [Encounter for screening for depression] Onset: 03-26-2024 03-26-2024 Episodic Spondylosis; intervertebral disc disorders; other back problems (20 sources) Degeneration of lumbar intervertebral disc; Translations: [Other intervertebral disc degeneration, lumbar region] Onset: 08-05-2015 08-05-2015 Chronic Spondylosis; intervertebral disc disorders; other back problems (20 sources) Chronic low back pain; Translations: [Chronic lower back pain] 08-30-2016 Episodic Unclassified (20 sources) Hypogonadism; Translations: [Hypogonadism] Onset: 01-08-2010 01-08-2010 Unclassified (1 source) Degeneration of intervertebral disc of lumbar region, unspecified whether pain present; Translations: [Degeneration of intervertebral disc of lumbar region, unspecified whether pain present] Onset: 08-05-2015 Past or Other Problems Problem Classification Problem Date Documented Da te Episodic/Chronic Abdominal pain (16 sources) Epigastric pain; Translations: [Epigastric pain] Onset: 09-08-2007 Resolved: 02-03-2015 02-03-2015 Episodic Allergic reactions (20 sources) Atopic dermatitis; Translations: [Other atopic dermatitis] Onset: 08-10-2007 Resolved: 02-03-2015 05-25-2013 Chronic Gastrointestinal hemorrhage (16 sources) Hematochezia; Translations: [Melena] Onset: 01-18-2006 Resolved: 02-03-2015 02-03-2015 Episodic Hemorrhoids (17 sources) External hemorrhoids; Translations: [Residual hemorrhoidal skin tags] Onset: 12-23-2008 Resolved: 02-03-2015 Episodic Other circulatory disease (16 sources) Telangiectasia disorder; Translations: [Nevus, non-neoplastic] Onset: 08-31-2010 Resolved: 02-03-2015 02-03-2015 Episodic Other connective tissue disease (16 sources) Calcaneal spur; Translations: [Calcaneal spur, unspecified foot] Onset: 05-19-2007 Resolved: 02-03-2015 02-03-2015 Episodic Other connective tissue disease (16 sources) Pain in limb; Translations: [Pain in unspecified limb] Onset: 04-19-2008 Resolved: 02-03-2015 02-03-2015 Episodic Other connective tissue disease (16 sources) Enthesopathy; Translations: [Enthesopathy, unspecified] Onset: 11-08-2011 Resolved: 02-03-2015 02-03-2015 Episodic Other connective tissue disease (16 sources) Foot pain; Translations: [Pain in unspecified foot] Onset: 11-08-2011 Resolved: 02-03-2015 02-03-2015 Episodic Other inflammatory condition of skin (16 sources) Psoriasis; Translations: [Other psoriasis] Onset: 04-04-2007 Resolved: 05-25-2013 05-25-2013 Chronic Other inflammatory condition of skin (16 sources) Parapsoriasis; 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, unspecified] Onset: 04-04-2007 Resolved: 11-30-2010 11-30-2010 Chronic Other inflammatory condition of skin (16 sources) Rosacea; Translations: [Rosacea, unspecified] Onset: 08-31-2010 Resolved: 02-03-2015 02-03-2015 Chronic Other inflammatory condition of skin (16 sources) Granulomatous rosacea; Translations: [Other rosacea] Onset: 08-31-2010 Resolved: 11-30-2010 11-30-2010 Chronic Other inflammatory condition of skin (16 sources) Seborrheic psoriasis; Translations: [Other psoriasis] Onset: 05-25-2013 Resolved: 02-03-2015 02-03-2015 Chronic Other inflammatory condition of skin (20 sources) Seborrheic dermatitis; Translations: [Seborrheic dermatitis, unspecified] Onset: 09-16-2005 Resolved: 02-03-2015 05-25-2013 Episodic Other inflammatory condition of skin (16 sources) Pruritus of skin; Translations: [Pruritus, unspecified] Onset: 08-10-2007 Resolved: 05-25-2013 05-25-2013 Episodic Other injuries and conditions due to external causes (16 sources) Excoriation of skin; Translations: [Other injury of unspecified body region, initial encounter] Onset: 08-31-2010 Resolved: 02-03-2015 02-03-2015 Episodic Other male genital disorders (16 sources) Secondary erectile dysfunction; Translations: [Male erectile dysfunction, unspecified] Onset: 07-02-2005 Resolved: 09-05-2019 09-05-2019 Chronic Other male genital disorders (16 sources) Disorder of penis; Translations: [Other specified disorders of penis] Onset: 08-03-2005 Resolved: 02-03-2015 02-03-2015 Chronic Other male genital disorders (16 sources) Disorder of prostate; Translations: [Disorder of prostate, unspecified] Onset: 08-02-2006 Resolved: 02-03-2015 02-03-2015 Episodic Other nervous system disorders (16 sources) Meralgia paresthetica; Translations: [Meralgia paresthetica, unspecified lower limb] Onset: 03-23-2012 Resolved: 02-03-2015 02-03-2015 Chronic Other nervous system disorders (16 sources) Skin sensation disturbance; Translations: [Unspecified disturbances of skin sensation] Onset: 12-26-2007 Resolved: 05-25-2013 05-25-2013 Episodic Other non-traumatic joint disorders (16 sources) Multiple joint pain; Translations: [Pain in unspecified joint] Onset: 12-23-2008 Resolved: 02-03-2015 02-03-2015 Episodic Other nutritional; endocrine; and metabolic disorders (16 sources) Obesity; Translations: [Obesity, unspecified] Onset: 05-10-2008 Resolved: 02-03-2015 02-03-2015 Chronic Other skin disorders (16 sources) Disorder of sebaceous gland; Translations: [Other specified follicular disorders] Onset: 09-16-2005 Resolved: 11-30-2010 11-30-2010 Episodic Other skin disorders (16 sources) Actinic keratosis; Translations: [Actinic keratosis] Onset: 04-04-2007 Resolved: 11-30-2010 11-30-2010 Episodic Other skin disorders (20 sources) Disorder of skin pigmentation; Translations: [Disorder of pigmentation, unspecified] Onset: 04-04-2007 Resolved: 05-25-2013 11-30-2010 Episodic Other skin disorders (16 sources) Inflamed seborrheic keratosis; Translations: [Inflamed seborrheic keratosis] Onset: 04-04-2007 Resolved: 11-30-2010 11-30-2010 Episodic Other skin disorders (16 sources) Folliculitis; Translations: [Follicular disorder, unspecified] Onset: 08-31-2010 Resolved: 02-03-2015 02-03-2015 Episodic Other skin disorders (20 sources) Disorder of skin appendage; Translations: [Other hair color and hair shaft abnormalities] Onset: 11-30-2010 Resolved: 05-25-2013 11-30-2010 Episodic Other skin disorders (16 sources) Solar lentigo; Translations: [Other melanin hyperpigmentation] Onset: 11-30-2010 Resolved: 02-03-2015 02-03-2015 Episodic Other skin disorders (16 sources) Vesicular eczema; Translations: [Dyshidrosis [pompholyx]] Onset: 12-29-2011 Resolved: 02-03-2015 02-03-2015 Episodic Other skin disorders (16 sources) Acne; Translations: [Other acne] Onset: 05-25-2013 Resolved: 02-03-2015 02-03-2015 Episodic Other skin disorders (16 sources) Seborrheic keratosis; Translations: [Other seborrheic keratosis] Onset: 05-25-2013 Resolved: 02-03-2015 02-03-2015 Episodic Residual codes; unclassified (20 sources) Family history of diabetes mellitus; Translations: [Family history of diabetes mellitus] Onset: 11-06-2007 11-06-2007 Episodic Unclassified (1 source) Problem Results Test Name Value Interpretation Reference Range Facility [facility] 01-24-2025 CNOV Office Visit (CINDINDO ) FRANK MCKEON ([id number]) 1950 M Date Time Provider Department 01/24/25 11:30 AM LEBRON MILLER During your visit today, we recorded the following information about you: Pulse Blood pressure Weight Height 71/minute 174/92 89.3 kg 1.727 m Lebron Miller MD 01/24/2025 12:33 PM Signed Referring Provider: Briana Harris APRN.C* Date: January 24, 2025 Chief Complaint: New Cardiac Patient (Abnormal stress/echo) HISTORY OF PRESENT ILLNESS: Frank Mckeon presents for New Cardiac Patient (Abnormal stress/echo). 74-year-old gentleman with history of dyslipidemia, prior tobacco abuse, and abnormal electrocardiogram, and a positive stress echo referred for cardiac evaluation and clearance prior to planned left shoulder surgery. Without antecedent cardiac history he was found to have an abnormal electrocardiogram prompting a stress echo. At that time he demonstrated -[address] segment depression, no anginal cyst symptoms and failure of the anterior wall to thicken coupled with anterior hypokinesis poststress. Looking closely at his risk factors he smoked 1/2-1 pack of cigarettes a day for approximately 17 years having stopped in 1988. He has been on a statin for elevated lipids with September values LDL 103 HDL 47, triglycerides 80. He has dyspnea on exertion but denies chest discomfort 1 might interpret his angina. The baseline EKG abnormalities consists of A pretransitional Q wave and delayed R wave progression. ALLERGIES Allergen Reactions Ibuprofen Rash lips swell and rash all over body Grass Pollen Other: See Comments Allergy symptoms Feldene [Piroxicam] GI Upset PAST MEDICAL HISTORY: PAST MEDICAL HISTORY Diagnosis Date Abdominal pain, epigastric Abnormal stress test Arthritis Chronic lower back pain Has had epidural injections Chronic rhinitis DDD (degenerative disc disease), lumbar Dr. Nam Eczema Encounter for screening for stenosis of carotid artery 09/21/2021 Bilaterally 20-39% stenosis. Encounter for screening for stenosis of carotid artery 10/01/2022 Bilaterally 20-39% stenosis. Encounter for screening for stenosis of carotid artery 10/06/2023 Bilaterally 20-39% stenosis. Erectile dysfunction Esophageal reflux External hemorrhoids History of stress test 09/18/2018 EF 61%. Normal scan Hypogonadism in male Osteoarthritis generalized, Dr. Toribio Other and unspecified hyperlipidemia PMH - PAST MEDICAL HISTORY OF gall bladder malfunction Prediabetes Trigger middle finger of right hand 02/2020 Varicose veins of right lower extremity Dr. Suazo PAST SURGICAL HISTORY Procedure Laterality Date ABDOMINAL SURGERY HX APPENDECTOMY APPENDECTOMY HX ARTHROSCOPY KNEE DIAGNOSTIC W/WO SYNOVIAL BX SPX 05/19/2004 Arthroscopy, knee right x2 CATARACT EXTRACTION HX Bilateral 01/2016 COLONOSCOPY 09/24/2021 repeat in 10 years COLONOSCOPY FLX DX W/COLLJ SPEC WHEN PFRMD 09/08/2001 Colonoscopy COLONOSCOPY FLX DX W/COLLJ SPEC WHEN PFRMD 08/19/2011 Colonoscopy EGD TRANSORAL BIOPSY SINGLE/MULTIPLE 09/08/2007 EYE SURGERY HX HERNIA REPAIR HX LAPS SURG CHOLECYSTECTOMY W/CHOLANGIOGRAPHY 01/11/2008 OPEN REPAIR OF ROTATOR CUFF ACUTE Right 08/21/2012 Rotator cuff repair - right - bone spur and torn bicep tendon - Dr Denis PAST SURGICAL HISTORY OF Sinus surgery December 2006. PAST SURGICAL HISTORY OF Left quadriceps repair PAST SURGICAL HISTORY OF Bilateral 10/2015 sinuplasty PAST SURGICAL HISTORY OF Right 06/2019 laser surgery for varicose veins TONSILLECTOMY HX TONSILLECTOMY PRIMARY/SECONDARY VASCULAR SURGERY PROCEDURE FAMILY HISTORY Problem Relation Age of Onset Heart Mother Arthritis Mother Diabetes Mother other (PVD) Mother Alzheimer's Disease Father Prostate Cancer Father Diabetes Father other (Parkinsons Dz) Father other (Bladder Cancer) Father Diabetes Maternal Grandmother Heart Maternal Grandmother Stroke Paternal Grandmother SOCIAL HISTORY: Tobacco Use: Types: Cigarettes Alcohol Use: Approximately 8.4 oz/week [which includes 14 Standard drinks or equivalent per week] (daily - max 2 per day ) Drug Use: No Employer And Job Title: No employer specified (Retired) Years Of Education Completed: Not specified Marital Status: to goran MEDICATIONS: Current Outpatient Medications Medication Sig atorvastatin (LIPITOR) 10 mg tablet Take 1 tablet by mouth once daily. diclofenac (VOLTAREN) 1 % topical gel Apply moderate amount to painful areas on hands (2g) AND knees (4g) up to three times daily as needed. Don't exceed a total of 32g daily. gabapentin (NEURONTIN) 100 mg capsule Take 200 mg by mouth three times a day. omeprazole (PRILOSEC) 40 mg capsule Take 40 mg by mouth once daily. celecoxib (CELEBREX) 200 mg capsule Take 1 capsule by mouth once daily as needed for brandon (more content not included)... Normal [facility] ECG COMPLETEon 01-24-2025 ECG COMPLETE Ventricular Rate : 7 1 BPM Atrial Rate : 71 BPM P-R Interval : 154 ms QRS Duration : 84 ms Q-T Interval : 368 ms QTC Calculation(Bazett) : 399 ms Calculated P Martin : 73 degrees Calculated R Martin : 63 degrees Calculated T Martin : 34 degrees Normal sinus rhythm with sinus arrhythmia Confirmed by HANNAH BARNES DO ([id number]) on 02/03/2025 7:04:17 AM NAME : FRANK MCKEON PID : [id number] : 1950 Gender : Male Race : ORD : [id number] Procedure Date : Jan 24 2025 11:41:12 Edit Date : Feb 03 2025 07:04:19 Diagnosis: Normal sinus rhythm with sinus arrhythmia Confirmed by HANNAH BARNES DO ([id number]) on 02/03/2025 7:04:17 AM Test Reason : HCS Location : 2 : [place] Overread By : HANNAH BARNES DO Edited By : HANNAH BARNES DO Referred By : BRIANA HARRIS Acquired by : , [facility] Soft Tissue Neck WITH Contra ston 01-10-2025 Soft Tissue Neck WITH Contrast [facility] Services [address] [place], [place] [address] Soft Tissue Neck WITH Contrast MR#: [id number] Acct: [id number] Name: FRANK MCKEON Rep #: [id number] : 1950 M 74 From: John Marc MD PCP: Dr. Gary Marquis MD Status: REG CLI Study: Soft Tissue Neck WITH Contrast Date of Exam: 0 01/10/25 Exam# [id number] Ordering Dr: Preeti Marin MD PROCEDURE: SOFT TISSUE NECK WITH CONTRAST 01/10/2025 REASON FOR EXAM: RETROPHARYNGEAL ABSCESS, GERD TECHNIQUE: CT of the soft tissues of the neck from the orbits to the upper mediastinum with intravenous contrast. CONTRAST: 100 cc Isovue 370 One or more dose reduction techniques were used (e.g., Automated exposure control, adjustment of the mA and/or kV according to patient size, use of iterative reconstruction technique). RADIATION DOSE SUMMARY: CTDlvol: ? MGy DLP: ? MGycm FINDINGS: Normal orbits. Normal nasopharynx. Normal parotid glands. Normal oral cavity. Normal submandibular glands. Minor asymmetry of the vallecula which may be secondary to prominent lymphoid tissue. Symmetric vocal folds. Normal thyroid. No subglottic masses. No prevertebral or retropharyngeal abscess. Lung apices are clear CT/Soft Tissue Neck WITH Contrast IMPRESSION: No acute abnormality Reading [facility] CC: Dr. Gary Marquis MD; Dr. 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 He states he will request [facility] to send Briana the results. Patient would like Briana to review results once received, and advise him. Janine Rivas, Lynn Singh RN 01/09/2025 3:51 PM Signed Patient calling in again on status of stress test report from [facility]. States he just spoke with someone from [facility] medical records and they were faxing over. Per Obdulia in Briana Harris's office, no fax received yet. [facility] Pt wants to be notified when we have the report for Briana to review. Informed him that we are having phone issues and that we will send him a [employer] msg. Pt verbalizes understanding. Obdulia Murphy LPN 01/09/2025 4:16 PM Signed Stress test printed from [facility] and given to ordering provider for review. RADHA Richardson Julie, APRN.CNP 01/09/2025 4:23 PM Signed Stress test shows probable mild mid anterior ischemia with moderate workload. Will need to follow-up with cardiology for further evaluation and cardiac clearance. TRAMAINE Saravia Sherrie, RN 01/10/2025 3:37 PM Signed Patient calling with the followin) States he was able to get a Cardiology appt made with [facility] for 02/20/[address] Tellez. 2) [facility] requesting Stress test results (and any other pertinent info) be faxed to them. (Stress Test not seen in pt record-if office would please fax to heart group). ADI Bull Michelle, LPN 01/15/2025 8:00 AM Signed Stress test, EKG and recent labs faxed to the [facility] for upcoming appointment. Obdulia Murphy LPN Allergies As of Date: 01/09/2025 Noted Allergy Reaction IBUPROFEN 08/21/2010 2 - Rash Comments: lips swell and rash all over body GRASS POLLEN 09/26/2023 14 - Other: See Comments Comments: Allergy symptoms FELDENE (PIROXICAM) 06/30/2007 8 - GI Upset Date Reviewed: 12/10/2024 Reviewed by: Obdulia Murphy LPN - Fully Assessed Reason for Visit: Results [95] Patient request for Briana to review Stress test done at [facility] [Other] Primary Visit Diagnosis:Abnormal stress test [R94.39] Order(s):CONSULT TO CARDIOLOGY [9004] Order #: [id number]: 1 FUTURE Prescriptions as of 01/15/2025 - atorvastatin (LIPITOR) 10 mg tablet Take 1 tablet by mouth once daily. - diclofenac (VOLTAREN) 1 % topical gel Apply moderate amount to painful areas on hands (2g) AND knees (4g) up to three times daily as needed. Don't exceed a total of 32g daily. - gabapentin (NEURONTIN) 100 mg capsule Take 100 mg by mouth three times a day. - omeprazole (PRILOSEC) 40 mg capsule Take 40 mg by mouth once daily. - celecoxib (CELEBREX) 200 mg capsule Take 1 capsule by mouth once daily as needed for pain. - hydrocortisone (ANUSOL-HC) 2.5 % rectal cream 1 application by RECTAL route twice daily as needed. - turmeric/turmeric ext/pepr ext (TURMERIC-TURMERIC EXT-PEPPER) 500-3 mg cap Take 1 capsule by mouth twice daily. - Acetaminophen 500 mg cap Take 1,000 mg by mouth once daily. - fexofenadine HCl (MUCINEX ALLERGY ORAL) Take by mouth. - MULTIVITAMIN TAB Take one(1) tablet daily. Problem List As Of Date 01/09/2025 Noted Resolved Other hyperlipidemia [E78.49] CHRONIC RHINITIS [J31.0] ERECTILE DYSFUNCTION [N52.9] 07/02/2005 09/05/2019 Other specified disorder of penis [N48.89] 08/03/2005 02/03/2015 Contact dermatitis and other eczema, due to uns*09/16/2005 05/25/2013 Seborrheic dermatitis, unspecified [L21.9] 09/16/2005 05/25/2013 Xerosis/SEBACEOUS GLAND DIS NEC [L73.8] 09/16/2005 11/30/2010 HYPERGLYCEMIA [R79.89] 10/15/2005 02/03/2015 HEMATOCHEZIA [K92.1] 01/18/2006 02/03/2015 Unspecified disorder of prostate [N42.9] 08/02/2006 02/03/2015 ABNORMAL LIVER FUNCTION STUDY [R94.5] 08/02/2006 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] 04/04/2007 11/30/2010 SOLAR LENTIGINES///DYSCHROMIA OTHER [L81.9] 04/04/2007 11/30/2010 SEBORRHEIC KERATOSIS: IRRITATED//INFLAMED [L82.*04/04/2007 11/30/2010 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 radiation*04/04/2007 11/30/2010 Other psoriasis [L40.8] 04/04/2007 05/25/2013 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 Normal [facility] Stress Test Echo W/Contrasto n 12-31-2024 Stress Test Echo W/Contrast [facility] [address] [place] [address] Stress Test Echo W/Contrast MR#: [id number] Acct: [id number] Name: FRANK MCKEON Rep #: [id number] : 1950 74 From: Howard Liz MD Primary Care: Dr. Gary Marquis MD Status: REG CLI Ordering Dr: Briana Harris NP APPLICATIONS SUPPORT SPECIALIST-C Sex: M C Reason For Study Reason For Study: abnormal EKG Stress Results Protocol: Stress Echocardiogram Yong Protocol with Definity Maximum Predicted HR: 147 bpm Target HR: 125 bpm % Maximum Predicted HR: 105 % DurationHeart Rate Stage (mm:ss) (bpm) BP Comment Baseline 86 150/89Patient denies chest pain Stage 1 3:00 123 166/98Patient denies chest pain Stage 2 3:00 155 174/100Patient complains of shortness of breath. Denies chest pain. 2ml total Definity used per protocol. Patient denies chest pain or shortness of Recovery 84 156/80breath. Stress Duration: 6:00 mm:ss Maximum Stress HR: 155 bpm Baseline Echocardiogram Findings Stress Echo Wall motion Data Resting WM Intermediate WM Stress WM ECHO/Stress Test Echo W/Contrast Interpretation Summary Exercise stress echo. 74-year-old man with a history of abnormal EKG. The resting electrocardiogram demonstrates normal sinus rhythm with a rate of 75 bpm normal intervals are noted resting blood pressure is 150/89 mmHg. The patient exercised according to regular Yong protocol for total duration of 6 minutes with a maximum heart rate of 160 bpm 108% of maximum predicted heart rate and a workload of 7 metabolic equivalents. At rest there were no ST or T wave changes noted suggest ischemia and at peak exercise 1.[address] depression were noted in lead II, 1.[address] depression were noted in lead III and aVF not suggestive of ischemia. The peak blood pressure was 174/100 mmHg which was a mildly hypertensive response to exercise. Test was terminated due to shortness of breath. No chest pain was noted. Stress echocardiogram. The resting echocardiogram demonstrated preserved left ventricular systolic function estimated at 65%. At peak exercise there was thickening of all hamilton except for the mid anterior wall with reduced thickening and contractility suggesting anterior ischemia present. Images were obtained with Definity enhancement. Conclusion: Exercise stress echocardiogram with probable mild mid anterior ischemia at a moderate workload. Ordering Physician: Briana Harris Referring Physician: Briana Harris Performed By: Kathrine Angel, ADRIÁN 12/31/24 1530 Date Howard Lzi MD CC: APPLICATIONS SUPPORT SPECIALIST-C Briana Harris; Dr. Gary Marquis MD Date Dictated: 12/31/24 1409 Date Transcribed: 12/31/24 153 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: Signed Normal [facility] Stress echocardiogram study reportOrdered By: Howard Liz on 12-31-2024 Stress cardiac echo study report [facility] [address] [place] [address] Stress Test Echo W/Contrast MR#: [id number] Acct: [id number] Name: FRANK MCKEON Rep #: [id number] : 1950 74 From: Howard Liz MD Primary Care: Dr. Gary Marquis MD Status: REG CLI Ordering Dr: Briana Harris APPLICATIONS SUPPORT SPECIALIST APPLICATIONS SUPPORT SPECIALIST-C Sex: M C Reason For Study Reason For Study: abnormal EKG Stress Results Protocol: Stress Echocardiogram Yong Protocol with Definity Maximum Predicted HR: 147 bpm Target HR: 125 bpm %Maximum Predicted HR: 105 % DurationHeart Rate Stage (mm:ss) (bpm) BP Comment Baseline 86 150/89Patient denies chest pain Stage 1 3:00 123 166/98Patient denies chest pain Stage 2 3:00 155 174/100Patient complains of shortness of breath. Denies chest pain. 2ml total Definity used per protocol. Patient denies chest pain or shortness of Recovery 84 156/80breath. Stress Duration: 6:00 mm:ss Maximum Stress HR: 155 bpm Baseline Echocardiogram Findings Stress Echo Wall motion Data Resting WM Intermediate WM Stress WM ECHO/Stress Test Echo W/Contrast Interpretation Summary Exercise stress echo. 74-year-old man with a history of abnormal EKG. The resting electrocardiogram demonstrates normal sinus rhythm with a rate of 75bpm normal intervals are noted resting blood pressure is 150/89 mmHg. The patient exercised according to regular Yong protocol for total duration of 6 minutes with a maximum heart rate of 160 bpm 108% of maximum predicted heart rate and a workload of 7 metabolic equivalents. At rest there were no ST or T wave changes noted suggest ischemia and at peak exercise 1.[address] depression were noted in lead II, 1.[address] depression were noted in lead IIIand aVF not suggestive of ischemia. The peak blood pressure was 174/100 mmHg which was a mildly hypertensive response toexercise. Test was terminated due to shortness of breath. No chest pain was noted. Stress echocardiogram. The resting echocardiogram demonstrated preserved left ventricular systolic function estimated at 65%. At peak exercise there was thickening of all hamilton except for the mid anterior wall with reduced thickening and contractility suggesting anterior ischemia present. Images were obtained with Definity enhancement. Conclusion: Exercise stress echocardiogram with probable mild mid anterior ischemia at a moderate workload. Ordering Physician: Briana Harris Referring Physician: Briana Harris Performed By: Kathrine Angel, AIXA 12/31/24 1530 Date _ Howard Liz MD CC: APPLICATIONS SUPPORT SPECIALIST-C Briana Sheikhlogibeth; Dr. Gary Marquis MD ~ Date Dictated: 12/31/24 1409 Date Transcribed: 12/31/24 1530 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: Signed [facility] Work Phone: Radha 12-11-2024 [facility] Telephone ([place]) FRANK MCKEON ([id number]) 1950 M Date Time Provider Department 12/11/24 BRIANA HARRIS During your visit today, we recorded the following information about you: Briana Harris APRN.MAL 12/11/2024 8:17 AM Signed Let patient know I just received email approving appeal for the stress ECHO. I know he said he has already received approval so he may reschedule testing if he has not already. Briana Harris APRN.JULI BENJAMIN 12/11/2024 10:37 AM Signed Spoke with patient at this time and notified of below. Verbalized understanding. He will contact scheduling today to make appt. Juli So LPN Allergies As of Date: 12/11/2024 Noted Allergy Reaction IBUPROFEN 08/21/2010 2 - Rash Comments: lips swell and rash all over body GRASS POLLEN 09/26/2023 14 - Other: See Comments Comments: Allergy symptoms FELDENE (PIROXICAM) 06/30/2007 8 - GI Upset Date Reviewed: 12/10/2024 Reviewed by: Obdulia Murphy LPN - Fully Assessed Reason for Visit: Insurance Authorization [[id number]] Cmt: Stress Echo Prescriptions as of 12/11/2024 - atorvastatin (LIPITOR) 10 mg tablet Take 1 tablet by mouth once daily. - diclofenac (VOLTAREN) 1 % topical gel Apply moderate amount to painful areas on hands (2g) AND knees (4g) up to three times daily as needed. Don't exceed a total of 32g daily. - gabapentin (NEURONTIN) 100 mg capsule Take 100 mg by mouth three times a day. - omeprazole (PRILOSEC) 40 mg capsule Take 40 mg by mouth once daily. - celecoxib (CELEBREX) 200 mg capsule Take 1 capsule by mouth once daily as needed for pain. - hydrocortisone (ANUSOL-HC) 2.5 % rectal cream 1 application by RECTAL route twice daily as needed. - turmeric/turmeric ext/pepr ext (TURMERIC-TURMERIC EXT-PEPPER) 500-3 mg cap Take 1 capsule by mouth twice daily. - Acetaminophen 500 mg cap Take 1,000 mg by mouth once daily. - fexofenadine HCl (MUCINEX ALLERGY ORAL) Take by mouth. - MULTIVITAMIN TAB Take one(1) tablet daily. Problem List As Of Date 12/11/2024 Noted Resolved Other hyperlipidemia [E78.49] CHRONIC RHINITIS [J31.0] ERECTILE DYSFUNCTION [N52.9] 07/02/2005 09/05/2019 Other specified disorder of penis [N48.89] 08/03/2005 02/03/2015 Contact dermatitis and other eczema, due to uns*09/16/2005 05/25/2013 Seborrheic dermatitis, unspecified [L21.9] 09/16/2005 05/25/2013 Xerosis/SEBACEOUS GLAND DIS NEC [L73.8] 09/16/2005 11/30/2010 HYPERGLYCEMIA [R79.89] 10/15/2005 02/03/2015 HEMATOCHEZIA [K92.1] 01/18/2006 02/03/2015 Unspecified disorder of prostate [N42.9] 08/02/2006 02/03/2015 ABNORMAL LIVER FUNCTION STUDY [R94.5] 08/02/2006 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] 04/04/2007 11/30/2010 SOLAR LENTIGINES///DYSCHROMIA OTHER [L81.9] 04/04/2007 11/30/2010 SEBORRHEIC KERATOSIS: IRRITATED//INFLAMED [L82.*04/04/2007 11/30/2010 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 radiation*04/04/2007 11/30/2010 Other psoriasis [L40.8] 04/04/2007 05/25/2013 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] 04/04/2007 11/30/2010 Calcaneal spur [M77.30] 05/19/2007 02/03/2015 Other atopic dermatitis and related conditions *08/10/2007 05/25/2013 Unspecified pruritic disorder [L29.9] 08/10/2007 05/25/2013 Abdominal pain, epigastric [R10.13] 09/08/2007 02/03/2015 ESOPHAGEAL REFLUX [K21.9] 09/08/2007 FAMILY HX DIABETES MELLITUS [Z83.3] 11/06/2007 Disturbance of skin sensation [R20.9] 12/26/2007 05/25/2013 Pain in limb [M79.609] 04/19/2008 02/03/2015 OVERWEIGHT [E66.9] 05/10/2008 02/03/2015 GENERAL OSTEOARTHROSIS [M15.9] 09/09/2008 Pain in joint, multiple sites [M25.50] 12/23/2008 02/03/2015 Unspecified hemorrhoids without mention of comp*12/23/2008 02/03/2015 CARPAL TUNNEL SYNDROME [G56.00] 03/26/2009 Recurrent sinusitis [J32.9] 07/25/2009 02/03/2015 Hypogonadism 01/08/2010 Acne rosacea [L71.9] 08/31/2010 02/03/2015 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] 08/31/2010 11/30/2010 Folliculitis [L73.9] 08/31/2010 02/03/2015 Excoriation [T14.8XXA] 08/31/2010 02/03/2015 Telangiectasia [I78.1] 08/31/2010 02/03/2015 FOLLICULITIS///HAIR DISEASES NEC [L67.8, L73.8] 11/30/2010 11/30/2010 Solar Lentigines [L81.4] 11/30/2010 02/03/2015 Actinic skin damage [L57.8] 11/30/2010 02/03/2015 Enthesopathy of unspecified site [M77.9] 11/08/2011 02/03/2015 Foot pain [M79.673] 11/08/2011 02/03/2015 SOLAR LENTIGINES///DYSCHROMIA OTHER [L81.9] 12/29/2011 05/25/2013 FOLLICULITIS///HAIR DISEASES NEC [L67.8, L73.8] 12/29/2011 05/25/2013 Pompholyx eczema [L30.1] 12/29/2011 02/03/2015 Eczematous dermatitis [L30.9] 12/29/2011 02/03/2015 Meralgia paresthetica [G57.10] 03/23/2012 02/03/2015 DJD (degenerative joint disease) [M19.90] 04/25/2012 08/05/2015 Other acne [L70.8] 05/25/2013 02/03/2015 Seborrheic Keratoses [L82.1] 05/25/2013 02/03/2015 Other seborrheic dermatitis [L21.8] 05/25/2013 02/03/2015 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 [facility] CNOVon 12-10-2024 CNOV Office Visit ([place] ) FRANK MCKEON ([id number]) 1950 M Date Time Provider Department 12/10/24 9:20 AM BRIANA HARRIS During your visit today, we recorded the following information about you: Pulse Respiration Blood pressure Weight 83/minute 18/minute 145/82 87.6 kg Height 1.67 m Briana Harris APRN.CNP 12/10/2024 10:36 AM Signed 12/06/2024 Patient presents with: Yearly Exam SUBJECTIVE: This is a 74 year old that is here today for Above Complaints. When on his way to [facility] developed a sore throat which progressed to infection for which he needed to be hospitalized for. Since his return he did follow-up with ENT and he reports he has a follow-up CT scheduled HYPERLIPIDEMIA: Patient is taking medications: Yes. Patient is watching diet: Yes. Patient denies myalgias: Yes. Patient denies gi upset: Yes OA: takes Celebrex daily for hx of OA of knees. GERD: taking Omeprazole as prescribed. Works well to control his coughing Prediabetes: reports he outs a lot. Denies visual changes, polyuri or polydipsia Seeing Dr. Nam, pain management, for back pain. Has been epidural injections. Taking Gabapentin as prescribed without side effects Awaiting stress testing to clear for left shoulder surgery. PAST MEDICAL HISTORY Diagnosis Date Abdominal pain, epigastric Arthritis Chronic lower back pain Has had epidural injections Chronic rhinitis DDD (degenerative disc disease), lumbar Dr. Nam Eczema Erectile dysfunction Esophageal reflux External hemorrhoids Hypogonadism in male Osteoarthritis generalized, Dr. Toribio Other and unspecified hyperlipidemia PMH - PAST MEDICAL HISTORY OF gall bladder malfunction Prediabetes Trigger middle finger of right hand 02/2020 Varicose veins of right lower extremity Dr. Suazo ALLERGIES Ibuprofen, Grass Pollen, and Feldene [Piroxicam] MEDICATIONS Current Outpatient Medications Medication Sig atorvastatin (LIPITOR) 10 mg tablet Take 1 tablet by mouth once daily. diclofenac (VOLTAREN) 1 % topical gel Apply moderate amount to painful areas on hands (2g) AND knees (4g) up to three times daily as needed. Don't exceed a total of 32g daily. gabapentin (NEURONTIN) 100 mg capsule Take 100 mg by mouth three times a day. (Patient taking differently: Take 200 mg by mouth three times a day.) omeprazole (PRILOSEC) 40 mg capsule Take 40 mg by mouth once daily. celecoxib (CELEBREX) 200 mg capsule Take 1 capsule by mouth once daily as needed for pain. hydrocortisone (ANUSOL-HC) 2.5 % rectal cream 1 application by RECTAL route twice daily as needed. turmeric/turmeric ext/pepr ext (TURMERIC-TURMERIC EXT-PEPPER) 500-3 mg cap Take 1 capsule by mouth twice daily. Acetaminophen 500 mg cap Take 1,000 mg by mouth once daily. fexofenadine HCl (MUCINEX ALLERGY ORAL) Take by mouth. MULTIVITAMIN TAB Take one(1) tablet daily. No current facility-administered medications for this visit. Medications and allergies reviewed by this provider. SOCIAL HISTORY Social History Tobacco Use Smoking status: Former Current packs/day: 0.00 Average packs/day: 1 pack/day for 17.0 years (17.0 ttl pk-yrs) Types: Cigarettes Start date: 08/15/1969 Quit date: 08/15/1986 Years since quittin.3 Smokeless tobacco: Never Tobacco comments: Quit 1986.No one in the household smokes. Vaping Use Vaping status: Never Used Substance Use Topics Alcohol use: Yes Alcohol/week: 14.0 standard drinks of alcohol Types: 14 Standard drinks or equivalent per week Comment: daily - max 2 per day Drug use: No REVIEW OF SYSTEMS GENERAL: No weight loss, malaise or fevers HEENT: Negative for frequent or significant headaches, No changes in hearing or vision, no nose bleeds or other nasal problems NECK: Negative for lumps, goiter, pain and significant neck swelling RESPIRATORY: Negative for cough, hemoptysis, wheezing, COPD, dyspnea or shortness of breath CARDIOVASCULAR: Negative for chest pain, hypertension, CHF or palpitations GI: No nausea, vomiting, or diarrhea : No history of dysuria, frequency or incontinence MUSCULOSKELETAL: Hx of left shoulder pain, knee pain and back pain- under control with medications SKIN: Negative for lesions, rash, and itching PSYCH: Negative for sleep disturbance, mood disorder and recent psychosocial stressors HEMATOLOGY/LYMPHOLOGY: Negative for prolonged bleeding, bruising easily or swollen nodes ENDOCRINE: Negative for cold or heat intolerance, polyuria, polydipsia and goiter NEURO: No history of headaches, syncope, paralysis, seizures or tremors All other reviewed and negative other than HPI. OBJECTIVE: BP 145/82 Pulse 83 Resp 18 Ht 167 cm (5' 5.75) Wt 87.6 kg (193 lb 3.2 oz) SpO2 98% BMI 31.42 kg/m? . Vital signs reviewed by this provider. APPEARANCE Well appearing, alert, in no acute distr (more content not included)... [facility] 12-05-2024 MAL Telephone ([place]) FRANK MCKEON ([id number]) 1950 M Date Time Provider Department 12/05/24 AGUILARLOGBRIANA KAM During your visit today, we recorded the following information about you: Joelle Lagunas LPN 12/05/2024 9:14 AM Signed Patient calling he had gotten word from his [employer] insurance that the stress test scheduled at [facility] for 12/06 was denied, he was told no diagnosis for why scheduled. [facility] called him and cancelled the stress test, said next available was on December 21, his surgery is scheduled for 12/12/2024. Patient said his insurance was faxing denial to the office. Not sure if appeal can be done? Please advise Briana Harris APRN.MAL 12/05/2024 9:19 AM Signed Can we get his EKG that was completed at [facility]? Briana Harris APRN.Obdulia Ochoa LPN 12/05/2024 1:05 PM Signed EKG placed in inbox for review. RADHA Richardson Julie, APRN.CNP 12/05/2024 1:19 PM Signed Have we received denial letter? Briana Harris APRN.Obdulia Ochoa LPN 12/05/2024 2:03 PM Signed Nothing received at this time. RADHA Richardson Julie, APRN.CNP 12/05/2024 3:34 PM Signed Please fax last office note and EKGs I have in my out box to [phone]. Please let patient know I filed and expedited appeal. Briana Harris APRN.Obdulia Ochoa LPN 12/05/2024 5:11 PM Signed Paperwork faxed to [phone]. Patient telephoned and made aware. Obdulia Murphy LPN Allergies As of Date: 12/05/2024 Noted Allergy Reaction IBUPROFEN 08/21/2010 2 - Rash Comments: lips swell and rash all over body GRASS POLLEN 09/26/2023 14 - Other: See Comments Comments: Allergy symptoms FELDENE (PIROXICAM) 06/30/2007 8 - GI Upset Date Reviewed: 11/14/2024 Reviewed by: Obdulia Murphy LPN - Fully Assessed Reason for Visit: stress test scheduled at [facility] was denied [Other] Prescriptions as of 12/05/2024 - atorvastatin (LIPITOR) 10 mg tablet Take 1 tablet by mouth once daily. - diclofenac (VOLTAREN) 1 % topical gel Apply moderate amount to painful areas on hands (2g) AND knees (4g) up to three times daily as needed. Don't exceed a total of 32g daily. - gabapentin (NEURONTIN) 100 mg capsule Take 100 mg by mouth three times a day. - omeprazole (PRILOSEC) 40 mg capsule Take 40 mg by mouth once daily. - celecoxib (CELEBREX) 200 mg capsule Take 1 capsule by mouth once daily as needed for pain. - hydrocortisone (ANUSOL-HC) 2.5 % rectal cream 1 application by RECTAL route twice daily as needed. - turmeric/turmeric ext/pepr ext (TURMERIC-TURMERIC EXT-PEPPER) 500-3 mg cap Take 1 capsule by mouth twice daily. - Acetaminophen 500 mg cap Take 1,000 mg by mouth once daily. - fexofenadine HCl (MUCINEX ALLERGY ORAL) Take by mouth. - MULTIVITAMIN TAB Take one(1) tablet daily. Problem List As Of Date 12/05/2024 Noted Resolved Other hyperlipidemia [E78.49] CHRONIC RHINITIS [J31.0] ERECTILE DYSFUNCTION [N52.9] 07/02/2005 09/05/2019 Other specified disorder of penis [N48.89] 08/03/2005 02/03/2015 Contact dermatitis and other eczema, due to uns*09/16/2005 05/25/2013 Seborrheic dermatitis, unspecified [L21.9] 09/16/2005 05/25/2013 Xerosis/SEBACEOUS GLAND DIS NEC [L73.8] 09/16/2005 11/30/2010 HYPERGLYCEMIA [R79.89] 10/15/2005 02/03/2015 HEMATOCHEZIA [K92.1] 01/18/2006 02/03/2015 Unspecified disorder of prostate [N42.9] 08/02/2006 02/03/2015 ABNORMAL LIVER FUNCTION STUDY [R94.5] 08/02/2006 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] 04/04/2007 11/30/2010 SOLAR LENTIGINES///DYSCHROMIA OTHER [L81.9] 04/04/2007 11/30/2010 SEBORRHEIC KERATOSIS: IRRITATED//INFLAMED [L82.*04/04/2007 11/30/2010 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 radiation*04/04/2007 11/30/2010 Other psoriasis [L40.8] 04/04/2007 05/25/2013 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] 04/04/2007 11/30/2010 Calcaneal spur [M77.30] 05/19/2007 02/03/2015 Other atopic dermatitis and related conditions *08/10/2007 05/25/2013 Unspecified pruritic disorder [L29.9] 08/10/2007 05/25/2013 Abdominal pain, epigastric [R10.13] 09/08/2007 02/03/2015 ESOPHAGEAL REFLUX [K21.9] 09/08/2007 FAMILY HX DIABETES MELLITUS [Z83.3] 11/06/2007 Disturbance of skin sensation [R20.9] 12/26/2007 05/25/2013 Pain in limb [M79.609] 04/19/2008 02/03/2015 OVERWEIGHT [E66.9] 05/10/2008 02/03/2015 GENERAL OSTEOARTHROSIS [M15.9] 09/09/2008 Pain in joint, multiple sites [M25.50] 12/23/2008 02/03/2015 Unspecified hemorrhoids without mention of comp*12/23/2008 02/03/2015 CARPAL TUNNEL SYNDROME [G56.00] 03/26/2009 Recurrent sinusitis [J32.9] 07/25/2009 02/03/2015 Hypogonadism 01/08/2010 Acne rosacea [L71.9] 08/31/2010 02/03/2015 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 [facility] CNPBarb 12-03-2024 CNPN Telephone (FAMPWS) FRANK MCKEON ([id number]) 1950 M Date Time Provider Department 12/03/24 PREETI MARQUIS During your visit today, we recorded the following information about you: Brian Orozco RN 12/03/2024 2:33 PM Signed Pt reports he flew to [facility] the day he had an appt with Hoist Operator, 11/14/24, then flew to [place], and ended up in [facility] on November 17,,AND , with a bacterial infection in his blood- from an abscess in his throat. He is better now. His leukocytes are normal now. His CRP is 33 and [facility] recommend he get a blood test when returns to [place] on 12/05/24. Pt will arrive to [place] that afternoon. Pt is currently in [place], and the phone connection was difficult communicating as words faded in and out. Pt is scheduled for a stress echo at [facility] on 12/06/24 and will need to be NPO for 6 hours prior to this test. Reports his appt with Briana is 12/10/24, and his surgery is scheduled for 12/12/24. Pt is wondering if Briana will order the CRP and when should he complete it. Pt has copies of [facility]'s records written in [place], he is bringing home with him. Pt can be reached on his mobile: [phone] Briana Harris APRN.MAL 12/03/2024 2:39 PM Signed A CRP is a non-specific inflammatory marker. If he had an infection this is likely why it was elevated. I don't think we need to repeat it, however I prefer to look at the hospital paperwork before making any decisions. Briana Harris APRN.Lidia Bowman, ADI 12/03/2024 4:44 PM Signed Called and left a voicemail for the Patient to call back and ask for a nurse to receive the providers message. ADI Hannah Amanda, ADI 12/03/2024 5:11 PM Signed Pt called and is notified of providers message and instructions. Pt voices understanding. He states he will make a copy of the files and bring it to provider office later in the week once they get home. ADI Hannah Christopher B, MD 12/04/2024 7:46 AM Signed Reviewed. Allergies As of Date: 12/03/2024 Noted Allergy Reaction IBUPROFEN 08/21/2010 2 - Rash Comments: lips swell and rash all over body GRASS POLLEN 09/26/2023 14 - Other: See Comments Comments: Allergy symptoms FELDENE (PIROXICAM) 06/30/2007 8 - GI Upset Date Reviewed: 11/14/2024 Reviewed by: Obdulia Murphy LPN - Fully Assessed Reason for Visit: [facility] visit [Other] Prescriptions as of 12/04/2024 - atorvastatin (LIPITOR) 10 mg tablet Take 1 tablet by mouth once daily. - diclofenac (VOLTAREN) 1 % topical gel Apply moderate amount to painful areas on hands (2g) AND knees (4g) up to three times daily as needed. Don't exceed a total of 32g daily. - gabapentin (NEURONTIN) 100 mg capsule Take 100 mg by mouth three times a day. - omeprazole (PRILOSEC) 40 mg capsule Take 40 mg by mouth once daily. - celecoxib (CELEBREX) 200 mg capsule Take 1 capsule by mouth once daily as needed for pain. - hydrocortisone (ANUSOL-HC) 2.5 % rectal cream 1 application by RECTAL route twice daily as needed. - turmeric/turmeric ext/pepr ext (TURMERIC-TURMERIC EXT-PEPPER) 500-3 mg cap Take 1 capsule by mouth twice daily. - Acetaminophen 500 mg cap Take 1,000 mg by mouth once daily. - fexofenadine HCl (MUCINEX ALLERGY ORAL) Take by mouth. - MULTIVITAMIN TAB Take one(1) tablet daily. Problem List As Of Date 12/03/2024 Noted Resolved Other hyperlipidemia [E78.49] CHRONIC RHINITIS [J31.0] ERECTILE DYSFUNCTION [N52.9] 07/02/2005 09/05/2019 Other specified disorder of penis [N48.89] 08/03/2005 02/03/2015 Contact dermatitis and other eczema, due to uns*09/16/2005 05/25/2013 Seborrheic dermatitis, unspecified [L21.9] 09/16/2005 05/25/2013 Xerosis/SEBACEOUS GLAND DIS NEC [L73.8] 09/16/2005 11/30/2010 HYPERGLYCEMIA [R79.89] 10/15/2005 02/03/2015 HEMATOCHEZIA [K92.1] 01/18/2006 02/03/2015 Unspecified disorder of prostate [N42.9] 08/02/2006 02/03/2015 ABNORMAL LIVER FUNCTION STUDY [R94.5] 08/02/2006 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] 04/04/2007 11/30/2010 SOLAR LENTIGINES///DYSCHROMIA OTHER [L81.9] 04/04/2007 11/30/2010 SEBORRHEIC KERATOSIS: IRRITATED//INFLAMED [L82.*04/04/2007 11/30/2010 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 radiation*04/04/2007 11/30/2010 Other psoriasis [L40.8] 04/04/2007 05/25/2013 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 [facility] Radha 11-22-2024 CNPN Telephone (FAMPWS) FRANK MCKEON ([id number]) 1950 M Date Time Provider Department 11/22/24 PREETI MARQUIS During your visit today, we recorded the following information about you: Malena Watson RN 11/22/2024 12:24 PM Signed [facility] calls to request pre-certification be submitted for Stress ECHO with Dobutamine that patient plans to have completed with them. Submitted information to pre-access and Julianne as requested. ADI Hinojosa Stephanie, RN 12/04/2024 12:19 PM Signed Patient calls and states that ECHO was cancelled at [facility] because insurance did not approve procedure. Referral is still pending on procedure. Forwarded referral to [facility]. Leeann Ceja RN Allergies As of Date: 11/22/2024 Noted Allergy Reaction IBUPROFEN 08/21/2010 2 - Rash Comments: lips swell and rash all over body GRASS POLLEN 09/26/2023 14 - Other: See Comments Comments: Allergy symptoms FELDENE (PIROXICAM) 06/30/2007 8 - GI Upset Date Reviewed: 11/14/2024 Reviewed by: Obdulia Murphy LPN - Fully Assessed Reason for Visit: Pre-Certification [Other] Prescriptions as of 12/04/2024 - atorvastatin (LIPITOR) 10 mg tablet Take 1 tablet by mouth once daily. - diclofenac (VOLTAREN) 1 % topical gel Apply moderate amount to painful areas on hands (2g) AND knees (4g) up to three times daily as needed. Don't exceed a total of 32g daily. - gabapentin (NEURONTIN) 100 mg capsule Take 100 mg by mouth three times a day. - omeprazole (PRILOSEC) 40 mg capsule Take 40 mg by mouth once daily. - celecoxib (CELEBREX) 200 mg capsule Take 1 capsule by mouth once daily as needed for pain. - hydrocortisone (ANUSOL-HC) 2.5 % rectal cream 1 application by RECTAL route twice daily as needed. - turmeric/turmeric ext/pepr ext (TURMERIC-TURMERIC EXT-PEPPER) 500-3 mg cap Take 1 capsule by mouth twice daily. - Acetaminophen 500 mg cap Take 1,000 mg by mouth once daily. - fexofenadine HCl (MUCINEX ALLERGY ORAL) Take by mouth. - MULTIVITAMIN TAB Take one(1) tablet daily. Problem List As Of Date 11/22/2024 Noted Resolved Other hyperlipidemia [E78.49] CHRONIC RHINITIS [J31.0] ERECTILE DYSFUNCTION [N52.9] 07/02/2005 09/05/2019 Other specified disorder of penis [N48.89] 08/03/2005 02/03/2015 Contact dermatitis and other eczema, due to uns*09/16/2005 05/25/2013 Seborrheic dermatitis, unspecified [L21.9] 09/16/2005 05/25/2013 Xerosis/SEBACEOUS GLAND DIS NEC [L73.8] 09/16/2005 11/30/2010 HYPERGLYCEMIA [R79.89] 10/15/2005 02/03/2015 HEMATOCHEZIA [K92.1] 01/18/2006 02/03/2015 Unspecified disorder of prostate [N42.9] 08/02/2006 02/03/2015 ABNORMAL LIVER FUNCTION STUDY [R94.5] 08/02/2006 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] 04/04/2007 11/30/2010 SOLAR LENTIGINES///DYSCHROMIA OTHER [L81.9] 04/04/2007 11/30/2010 SEBORRHEIC KERATOSIS: IRRITATED//INFLAMED [L82.*04/04/2007 11/30/2010 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 radiation*04/04/2007 11/30/2010 Other psoriasis [L40.8] 04/04/2007 05/25/2013 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] 04/04/2007 11/30/2010 Calcaneal spur [M77.30] 05/19/2007 02/03/2015 Other atopic dermatitis and related conditions *08/10/2007 05/25/2013 Unspecified pruritic disorder [L29.9] 08/10/2007 05/25/2013 Abdominal pain, epigastric [R10.13] 09/08/2007 02/03/2015 ESOPHAGEAL REFLUX [K21.9] 09/08/2007 FAMILY HX DIABETES MELLITUS [Z83.3] 11/06/2007 Disturbance of skin sensation [R20.9] 12/26/2007 05/25/2013 Pain in limb [M79.609] 04/19/2008 02/03/2015 OVERWEIGHT [E66.9] 05/10/2008 02/03/2015 GENERAL OSTEOARTHROSIS [M15.9] 09/09/2008 Pain in joint, multiple sites [M25.50] 12/23/2008 02/03/2015 Unspecified hemorrhoids without mention of comp*12/23/2008 02/03/2015 CARPAL TUNNEL SYNDROME [G56.00] 03/26/2009 Recurrent sinusitis [J32.9] 07/25/2009 02/03/2015 Hypogonadism 01/08/2010 Acne rosacea [L71.9] 08/31/2010 02/03/2015 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] 08/31/2010 11/30/2010 Folliculitis [L73.9] 08/31/2010 02/03/2015 Excoriation [T14.8XXA] 08/31/2010 02/03/2015 Telangiectasia [I78.1] 08/31/2010 02/03/2015 FOLLICULITIS///HAIR DISEASES NEC [L67.8, L73.8] 11/30/2010 11/30/2010 Solar Lentigines [L81.4] 11/30/2010 02/03/2015 Actinic skin damage [L57.8] 11/30/2010 02/03/2015 Enthesopathy of unspecified site [M77.9] 11/08/2011 02/03/2015 Foot pain [M79.673] 11/08/2011 02/03/2015 SOLAR LENTIGINES///DYSCHROMIA OTHER [L81.9] 12/29/2011 05/25/2013 FOLLICULITIS///HAIR DISEASES NEC [L67.8, L73.8] 12/29/2011 05/25/2013 Pompholyx eczema [L30.1] 12/29/2011 02/03/2015 Eczematous dermatitis [L30.9] 12/29/2011 02/03/2015 Meralgia paresthetica [G57.10] 03/23/2012 02/03/2015 DJD (degenerative joint disease) [M19.90] 04/25/2012 08/05/2015 Other acne [L70.8] 05/25/2013 02/03/2015 Seborrheic Keratoses [L82.1] 05/25/2013 02/03/2015 Other seborrheic dermatitis [L21.8] 05/25/2013 02/03/2015 (more content not included)... [facility] CNOVon 11-14-2024 CNOV Office Visit (FAMWS ) FRANK MCKEON ([id number]) 1950 M Date Time Provider Department 11/14/24 8:20 AM BRIANA HARRIS During your visit today, we recorded the following information about you: Pulse Respiration Blood pressure Weight 70/minute 16/minute 132/80 91.3 kg Briana Harris APRN.CROWNING INSPECTOR 12/05/2024 3:10 PM Addendum CC: Patient presents with: Pre-Op Exam: Left shoulder 12/12 [facility] Frank Mckeon is a 73 year old male who presents today for pre-op evaluation. Surgical Procedure: left shoulder arthroscopic rotator cuff repair, distal clavicle excision, subacromial decompression, mini open bicep tenodesis Date of Procedure: 12/12/2024 Surgeon: Dr. Broderick LLOYD date: completed on 11/12/2024 [place] on cruise today and will be gone for three weeks Diabetes No Hypertension requiring medication No Congestive Heart Failure No Current Smoker within 1 Year No COPD/asthma No PEG No Dialysis No Acute renal failure No Steroid use for chronic condition No Disseminated cancer No Patient's with estimated risk of 1 percent or higher may need additional cardiac testing unless METS > or = to 4 METS: Walk indoors, such as around the house (1.75 METs): YES Do light work around the house, such as dusting or washing dishes (2.70 METs): YES Take care of self; that is eating, dressing, bathing, using the toilet (2.75 METs): YES Walk a block or two on level ground (2.75 METs): YES Do moderate work around the house such as vacuuming, sweeping floors, or carrying in groceries (3.50 METs): YES Do yardwork, such as raking leaves, weeding,or pushing a power mower (4.50 METs): limited due to chronic back pain Climb a flight of stairs or walk up a hill (5.50 METs): YES Participate in moderate recreational activities, such as golf, bowling, dancing, doubles tennis, or throwing a baseball or football (6.00 METs): unable due to chronic back pain Participate in strenuous sport, such as swimming, singles tennis, football, basketball, or skiing (7.50 METs): unable to due to chronic back pain Do heavy work around the house, such as scrubbing floors, lifting or moving heavy furniture (8.00 METs): limited due to chronic back pain Run a short distance (8.00 METs): unable due to chronic back pain Patient denies any chest pain or undue shortness of breath with the above physical activity. REVIEW OF SYSTEMS GENERAL: No weight loss, malaise or fevers RESPIRATORY: Negative for cough, hemoptysis, wheezing, COPD, dyspnea or shortness of breath CARDIOVASCULAR: Negative for chest pain, leg swelling, hypertension, CHF or palpitations SKIN: Negative for lesions, rash, and itching PAST MEDICAL HISTORY Diagnosis Date Abdominal pain, epigastric Arthritis Chronic lower back pain Has had epidural injections Chronic rhinitis DDD (degenerative disc disease), lumbar Dr. Nam Eczema Erectile dysfunction Esophageal reflux External hemorrhoids Hypogonadism in male Osteoarthritis generalized, Dr. Toribio Other and unspecified hyperlipidemia PMH - PAST MEDICAL HISTORY OF gall bladder malfunction Prediabetes Trigger middle finger of right hand 02/2020 Varicose veins of right lower extremity Dr. Suazo PAST SURGICAL HISTORY Procedure Laterality Date ABDOMINAL SURGERY HX APPENDECTOMY APPENDECTOMY HX ARTHROSCOPY KNEE DIAGNOSTIC W/WO SYNOVIAL BX SPX 05/19/2004 Arthroscopy, knee right x2 CATARACT EXTRACTION HX Bilateral 01/2016 COLONOSCOPY 09/24/2021 repeat in 10 years COLONOSCOPY FLX DX W/COLLJ SPEC WHEN PFRMD 09/08/2001 Colonoscopy COLONOSCOPY FLX DX W/COLLJ SPEC WHEN PFRMD 08/19/2011 Colonoscopy EGD TRANSORAL BIOPSY SINGLE/MULTIPLE 09/08/2007 EYE SURGERY HX HERNIA REPAIR HX LAPS SURG CHOLECYSTECTOMY W/CHOLANGIOGRAPHY 01/11/2008 OPEN REPAIR OF ROTATOR CUFF ACUTE Right 08/21/2012 Rotator cuff repair - right - bone spur and torn bicep tendon - Dr Denis PAST SURGICAL HISTORY OF Sinus surgery December 2006. PAST SURGICAL HISTORY OF Left quadriceps repair PAST SURGICAL HISTORY OF Bilateral 10/2015 sinuplasty PAST SURGICAL HISTORY OF Right 06/2019 laser surgery for varicose veins TONSILLECTOMY HX TONSILLECTOMY PRIMARY/SECONDARY VASCULAR SURGERY PROCEDURE ALLERGIES Ibuprofen, Grass Pollen, and Feldene [Piroxicam] MEDICATIONS atorvastatin (LIPITOR) 10 mg tablet Take 1 tablet by mouth once daily. diclofenac (VOLTAREN) 1 % topical gel Apply moderate amount to painful areas on hands (2g) AND knees (4g) up to three times daily as needed. Don't exceed a total of 32g daily. gabapentin (NEURONTIN) 100 mg capsule Take 100 mg by mouth three times a day. omeprazole (PRILOSEC) 40 mg capsule Take 40 mg by mouth once daily. celecoxib (CELEBREX) 200 mg capsule Take 1 capsule by mouth once daily as needed for pain. hydrocortisone (ANUSOL-HC) (more content not included)... [facility] ([id number]) 1950 M Date Time Provider Department 11/14/24 BRIANA HARRIS During your visit today, we recorded the following information about you: Briana Harris APRN.[facility] 11/14/2024 8:43 AM Signed Please let patient know I spoke with Dr. Marquis and he will need further testing. I have ordered this and he may schedule Briana Harris APRN.Obdulia Ochoa LPN 11/14/2024 12:18 PM Signed Telephone call placed to patient. Message left to call office back for update. RADHA Richardson Stephanie, RN 11/14/2024 12:21 PM Signed Patient calls back and notified of below. Patient voices understanding. Patient transferred to scheduled to scheduled testing. ADI [place] Sherrie, RN 11/14/2024 3:29 PM Signed Patient calling in and states he has communicated with [facility] and is requesting his order for Stress Echo Dobutamine be faxed to them, as he would like to have test completed there. Order and facesheet faxed as requested to [facility]- Central Scheduling Dept. Patient aware that [facility] will contact him with next steps, or he may contact them if he does not receive call from them in next 24 hours. Janine Rivas RN Allergies As of Date: 11/14/2024 Noted Allergy Reaction IBUPROFEN 08/21/2010 2 - Rash Comments: lips swell and rash all over body GRASS POLLEN 09/26/2023 14 - Other: See Comments Comments: Allergy symptoms FELDENE (PIROXICAM) 06/30/2007 8 - GI Upset Date Reviewed: 11/14/2024 Reviewed by: Obdulia Murphy LPN - Fully Assessed Prescriptions as of 11/14/2024 - atorvastatin (LIPITOR) 10 mg tablet Take 1 tablet by mouth once daily. - diclofenac (VOLTAREN) 1 % topical gel Apply moderate amount to painful areas on hands (2g) AND knees (4g) up to three times daily as needed. Don't exceed a total of 32g daily. - gabapentin (NEURONTIN) 100 mg capsule Take 100 mg by mouth three times a day. - omeprazole (PRILOSEC) 40 mg capsule Take 40 mg by mouth once daily. - celecoxib (CELEBREX) 200 mg capsule Take 1 capsule by mouth once daily as needed for pain. - hydrocortisone (ANUSOL-HC) 2.5 % rectal cream 1 application by RECTAL route twice daily as needed. - turmeric/turmeric ext/pepr ext (TURMERIC-TURMERIC EXT-PEPPER) 500-3 mg cap Take 1 capsule by mouth twice daily. - Acetaminophen 500 mg cap Take 1,000 mg by mouth once daily. - fexofenadine HCl (MUCINEX ALLERGY ORAL) Take by mouth. - MULTIVITAMIN TAB Take one(1) tablet daily. Problem List As Of Date 11/14/2024 Noted Resolved Other hyperlipidemia [E78.49] CHRONIC RHINITIS [J31.0] ERECTILE DYSFUNCTION [N52.9] 07/02/2005 09/05/2019 Other specified disorder of penis [N48.89] 08/03/2005 02/03/2015 Contact dermatitis and other eczema, due to uns*09/16/2005 05/25/2013 Seborrheic dermatitis, unspecified [L21.9] 09/16/2005 05/25/2013 Xerosis/SEBACEOUS GLAND DIS NEC [L73.8] 09/16/2005 11/30/2010 HYPERGLYCEMIA [R79.89] 10/15/2005 02/03/2015 HEMATOCHEZIA [K92.1] 01/18/2006 02/03/2015 Unspecified disorder of prostate [N42.9] 08/02/2006 02/03/2015 ABNORMAL LIVER FUNCTION STUDY [R94.5] 08/02/2006 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] 04/04/2007 11/30/2010 SOLAR LENTIGINES///DYSCHROMIA OTHER [L81.9] 04/04/2007 11/30/2010 SEBORRHEIC KERATOSIS: IRRITATED//INFLAMED [L82.*04/04/2007 11/30/2010 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 radiation*04/04/2007 11/30/2010 Other psoriasis [L40.8] 04/04/2007 05/25/2013 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] 04/04/2007 11/30/2010 Calcaneal spur [M77.30] 05/19/2007 02/03/2015 Other atopic dermatitis and related conditions *08/10/2007 05/25/2013 Unspecified pruritic disorder [L29.9] 08/10/2007 05/25/2013 Abdominal pain, epigastric [R10.13] 09/08/2007 02/03/2015 ESOPHAGEAL REFLUX [K21.9] 09/08/2007 FAMILY HX DIABETES MELLITUS [Z83.3] 11/06/2007 Disturbance of skin sensation [R20.9] 12/26/2007 05/25/2013 Pain in limb [M79.609] 04/19/2008 02/03/2015 OVERWEIGHT [E66.9] 05/10/2008 02/03/2015 GENERAL OSTEOARTHROSIS [M15.9] 09/09/2008 Pain in joint, multiple sites [M25.50] 12/23/2008 02/03/2015 Unspecified hemorrhoids without mention of comp*12/23/2008 02/03/2015 CARPAL TUNNEL SYNDROME [G56.00] 03/26/2009 Recurrent sinusitis [J32.9] 07/25/2009 02/03/2015 Hypogonadism 01/08/2010 Acne rosacea [L71.9] 08/31/2010 02/03/2015 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 Normal [facility] 12 Lead EKGon 11-12-2024 12 Lead EKG [facility] Cardiovascular Services [address] [place] [address] 12 Lead EKG 11/12/24 0905 MR#: [id number] Acct: [id number] Name: FRANK MCKEON Rep #: [id number] : 1950 73 From: Howard Liz MD Attending Dr: Dr. Broderick Merino DO Status: REG CLI Ordering Dr: Broderick Merino DO Date: 11/12/24 Location: [facility] Sex: M C Admitted: Test Reason : PRE OP Blood Pressure : */* mmHG Vent. Rate : 63 BPM Atrial Rate : 63 BPM P-R Int : 158 ms QRS Dur : 88 ms QT Int : 372 ms P-R-T Axes : 43 -9 45 degrees QTcB Int : 380 ms Normal sinus rhythm Septal infarct , age undetermined Abnormal ECG Confirmed by HOWARD LIZ MD ([id number]), communications editor KIM PLEITEZ ([id number]) on 11/12/2024 11:42:42 AM Referred By: Broderick Merino Confirmed By: HOWARD LIZ MD 11/12/24 1142 Date Howard Liz MD CC: Dr. Gary Marquis MD; Dr. Broderick Merino DO Signed Normal [facility] Absolute lymphocyte countOrd ered By: Broderick Merino on 11-12-2024 Lymphocytes Auto (Unsp spec) [#/Vol] 1.74 10*3/uL 0.83-4.51 [facility] Absolute neutrophil countOrd ered By: Broderick Merino on 11-12-2024 Neutrophils (Bld) [#/Vol] 4.6 10*3/uL 2.0-7.7 [facility] Anion gap in Serum or Plasma Ordered By: Broderick Merino on 11-12-2024 Anion gap [Moles/Vol] 13 mmol/L 5-15 [facility] Automated lymphocyte count a s percentage of total leukocytesOrdered By: Broderick Merino on 11-12-2024 Lymphocytes/100 WBC Auto (Unsp spec) 24.3 % 19-41 [facility] BUN/creatinine ratioOrdered By: Broderick Merino on 11-12-2024 Urea nitrogen/Creatinine [Mass ratio] 17.0 mg/mg 10-20 [facility] Basic Metabolic Profile (BMP )on 11-12-2024 BUN/CRE 17.0 RATIO Normal -20 [facility] Comment on above: Performed By: #### L 100.0100, L500.2500 #### [facility] [address] [place], [address] Calcium [Mass/Vol] 10.1 mg/dL Normal 7.6-11.0 [facility] Comment on above: Performed By: #### L 100.0100, L500.2500 #### [facility] [address] [place], [address] Chloride [Moles/Vol] 102 mmol/L Normal 98-108 [facility] Comment on above: Performed By: #### L 100.0100, L500.2500 #### [facility] [address] [place], [address] CO2 [Moles/Vol] 21.8 mmol/L Normal 21.0-32.0 [facility] Comment on above: Performed By: #### L 100.0100, L500.2500 #### [facility] [address] [place], [address] Creatinine [Mass/Vol] 0.96 mg/dL Normal 0.70-1.20 [facility] Comment on above: Performed By: #### L 100.0100, L500.2500 #### [facility] [address] [place], [address] GAP 13 Normal 5-15 [facility] Comment on above: Performed By: #### L 100.0100, L500.2500 #### [facility] [address] [place], [address] GFR/1.73 sq M.predicted among non-blacks MDRD (S/P/Bld) [Vol rate/Area] 84 mL/min/{1.73_m2} Normal >60 [facility] Comment on above: Result Comment: mL/m in/1.73m2 CKD-EPI Creatinine Equation (2020) Performed By: #### L 100.0100, L500.2500 #### [facility] [address] [place], [address] Glucose [Mass/Vol] 133 mg/dL High 70-99 [facility] Comment on above: Performed By: #### L 100.0100, L500.2500 #### [facility] [address] [place], [address] Potassium [Moles/Vol] 4.4 mmol/L Normal 3.3-5.1 [facility] Comment on above: Performed By: #### L 100.0100, L500.2500 #### [facility] [address] [place], [address] Sodium [Moles/Vol] 136 mmol/L Normal 133-145 [facility] Comment on above: Performed By: #### L 100.0100, L500.2500 #### [facility] [address] [place], [address] Urea nitrogen [Mass/Vol] 16 mg/dL Normal 4-19 [facility] Comment on above: Performed By: #### L 100.0100, L500.2500 #### [facility] [address] [place], [address] Basophil percentageOrdered B y: Broderick Fengalen on 11-12-2024 Basophils/100 WBC (Bld) 0.7 % 0-1 [facility] CBC W/Diff, Automatedon 10-15 Absolute Lymph 1.74 X10 3/uL Normal 0.83-4.51 [facility] Comment on above: Performed By: #### L 100.0100, L500.2500 #### [facility] [address] [place], [address] Absolute Neut 4.6 X10 3/uL Normal 2.0-7.7 [facility] Comment on above: Performed By: #### L 100.0100, L500.2500 #### [facility] [address] [place], [address] Basophils/100 WBC (Bld) 0.7 % Normal 0-1 [facility] Comment on above: Performed By: #### L 100.0100, L500.2500 #### [facility] [address] [place], [address] Eosinophils/100 WBC (Bld) 3.8 % Normal 0-5 [facility] Comment on above: Performed By: #### L 100.0100, L500.2500 #### [facility] [address] [place], [address] Erythrocyte distribution width (RBC) [Ratio] 12.4 % Normal 11.6-14.6 [facility] Comment on above: Performed By: #### L 100.0100, L500.2500 #### [facility] [address] [place], [address] Hematocrit (Bld) [Volume fraction] 41.3 % Normal 40-54 [facility] Comment on above: Performed By: #### L 100.0100, L500.2500 #### [facility] [address] [place], [address] Hemoglobin (Bld) [Mass/Vol] 14.4 g/dL Normal 13.0-16.5 [facility] Comment on above: Performed By: #### L 100.0100, L500.2500 #### [facility] [address] [place], [address] IG% 0.400 Normal 0.0-0.9 [facility] Comment on above: Result Comment: IG% - Immature Granulocytes (promyelocytes, myelocytes and metamyelocytes) > 1% indicates that a LEFT SHIFT is Present. Performed By: #### L 100.0100, L500.2500 #### [facility] [address] [place], [address] Lymphocytes/100 WBC (Bld) 24.3 % Normal 19-41 [facility] Comment on above: Performed By: #### L 100.0100, L500.2500 #### [facility] [address] [place], [address] MCH (RBC) [Entitic mass] 31.4 pg Normal 27.0-32.0 [facility] Comment on above: Performed By: #### L 100.0100, L500.2500 #### [facility] [address] [place], [address] MCHC (RBC) [Mass/Vol] 34.9 g/dL Normal 32-36 [facility] Comment on above: Performed By: #### L 100.0100, L500.2500 #### [facility] [address] [place], [address] MCV (RBC) [Entitic vol] 90.2 fL Normal 80-94 [facility] Comment on above: Performed By: #### L 100.0100, L500.2500 #### [facility] [address] [place], [address] Monocytes/100 WBC (Bld) 7.0 % Normal 0-10 [facility] Comment on above: Performed By: #### L 100.0100, L500.2500 #### [facility] [address] [place], [address] Neutrophils/100 WBC (Bld) 63.8 % Normal 47-70 [facility] Comment on above: Performed By: #### L 100.0100, L500.2500 #### [facility] [address] [place], [address] Nucleated RBC (Bld) [#/Vol] 0 10*3/uL Normal 0-5 [facility] Comment on above: Performed By: #### L 100.0100, L500.2500 #### [facility] [address] [place], [address] Platelet mean volume (Bld) [Entitic vol] 9.3 fL Normal 6.2-12.0 [facility] Comment on above: Performed By: #### L 100.0100, L500.2500 #### [facility] [address] [place], [address] Platelets (Bld) [#/Vol] 219 10*3/uL Normal 150-450 [facility] Comment on above: Performed By: #### L 100.0100, L500.2500 #### [facility] [address] [place], [address] RBC (Bld) [#/Vol] 4.58 10*6/uL Low 4.6-6.2 [facility] Comment on above: Performed By: #### L 100.0100, L500.2500 #### [facility] [address] [place], [address] RDW SD 40.6 fl Normal 35.1-43.9 [facility] Comment on above: Performed By: #### L 100.0100, L500.2500 #### [facility] [address] [place], [address] WBC (Bld) [#/Vol] 7.2 10*3/uL Normal 4.4-11.0 [facility] Comment on above: Performed By: #### L 100.0100, L500.2500 #### [facility] [address] [place], [address] Carbon dioxide, total [Moles /volume] in Central venous bloodOrdered By: Broderick Merino on 11-12-2024 CO2 [Moles/Vol] 21.8 mmol/L 21.0-32.0 [facility] Chloride assayOrdered By: Layla Merino on 11-12-2024 Chloride [Moles/Vol] 102 mmol/L 98-108 [facility] Electrocardiogram reportOrde red By: Howard Liz on 11-12-2024 EKG study [facility] Cardiovascular Services [address] [place] [address] 12 Lead EKG 11/12/24 0905 MR#: [id number] Acct: [id number] Name: FRANK MCKEON Rep #:[id number] : 1950 73 From: Howard Liz MD Attending Dr: Dr. Broderick Merino DO Status: REG CLI Ordering Dr: Broderick Merino DO Date: 11/12/24 Location: [facility] Sex: M C Admitted: Test Reason : PRE OP Blood Pressure : */* mmHG Vent. Rate : 63 BPM Atrial Rate : 63 BPM P-R Int : 158 ms QRS Dur : 88 ms QT Int : 372 ms P-R-T Axes : 43 -9 45 degrees QTcB Int : 380 ms Normal sinus rhythm Septal infarct , age undetermined Abnormal ECG Confirmed by AGUSTO DAVID, HOWARD ([id number]), communications editor KIM PLEITEZ ([id number]) on 11/12/2024 11:42:42 AM Referred By: Broderick Merino Confirmed By: HOWARD LIZ MD 11/12/24 1142 Date _ Howard Liz MD CC: Dr. Gary Marquis MD; Dr. Broderick Merino, DO ~ Signed [facility] Work Phone: Eosinophil percentageOrdered By: Broderick Merino on 11-12-2024 Eosinophils/100 WBC (Bld) 3.8 % 0-5 [facility] Erythrocyte distribution wid th (RBC) [Ratio]Ordered By: Broderick Merino on 11-12-2024 Erythrocyte distribution width (RBC) [Entitic vol] 40.6 fL 35.1-43.9 [facility] Erythrocyte distribution wid th ratioOrdered By: Broderick Merino on 11-12-2024 Erythrocyte distribution width (RBC) [Ratio] 12.4 % 11.6-14.6 [facility] Erythrocyte distribution wid th standard deviationOrdered By: Broderick Merino on 11-12-2024 Erythrocyte distribution width (RBC) [Ratio] 40.6 fl 35.1-43.9 [facility] GFR/1.73 sq M.predicted saira g non-blacks MDRD (S/P/Bld) [Vol rate/Area]Ordered By: Broderick Merino on 11-12-2024 Estimated GFR (MDRD) Non-Af Amer 84 >60 [facility] Comment on above: mL/min/1.73m2 CKD-EP I Creatinine Equation (2020) Glomerular filtration rate ( GFR) estimation/1.73 sq m using serum, plasma, or whole bOrdered By: Broderick Merino on 11-12-2024 GFR/1.73 sq M.predicted among non-blacks MDRD (S/P/Bld) [Vol rate/Area] 84 mL/min/{1.73_m2} >60 [facility] Comment on above: mL/min/1.73m2 CKD-EP I Creatinine Equation (2020) Hematocrit Auto (Bld) [Volum e fraction]Ordered By: Broderick Merino on 11-12-2024 Hematocrit (Bld) [Volume fraction] 41.3 % 40-54 [facility] Hemoglobin measurementOrdere d By: Broderick Merino on 11-12-2024 Hemoglobin (Bld) [Mass/Vol] 14.4 g/dL 13.0-16.5 [facility] Immature granulocytes/100 WB C Auto (Bld)Ordered By: Broderick Merino on 11-12-2024 Immature granulocytes/100 WBC (Bld) 0.400 % 0.0-0.9 [facility] Comment on above: IG% - Immature Granu locytes (promyelocytes, myelocytes and metamyelocytes) > 1% indicates that a LEFT SHIFT is Present. Lymphocytes Auto (Unsp spec) [#/Vol]Ordered By: Broderick Merino on 11-12-2024 Lymphocytes (Bld) [#/Vol] 1.74 10*3/uL 0.83-4.51 [facility] Lymphocytes/100 WBC Auto (Un sp spec)Ordered By: Broderick Merino on 11-12-2024 Lymphocytes/100 WBC (Bld) 24.3 % 19-41 [facility] MCV (mean corpuscular volume ) determinationOrdered By: Broderick Merino on 11-12-2024 MCV (RBC) [Entitic vol] 90.2 fL 80-94 [facility] Mean corpuscular hemoglobin (MCH) determinationOrdered By: Broderick Merino on 11-12-2024 MCH (RBC) [Entitic mass] 31.4 pg 27.0-32.0 [facility] Mean corpuscular hemoglobin concentration (MCHC) determinationOrdered By: Broderick Merino on 11-12-2024 MCHC (RBC) [Mass/Vol] 34.9 g/dL 32-36 [facility] Mean platelet volume determi nationOrdered By: Broderick Merino on 11-12-2024 Platelet mean volume (Bld) [Entitic vol] 9.3 fL 6.2-12.0 [facility] Monocyte percentageOrdered B y: Broderick Merino on 11-12-2024 Monocytes/100 WBC (Bld) 7.0 % 0-10 [facility] Neutrophil percentageOrdered By: Broderick Merino on 11-12-2024 Neutrophils/100 WBC (Bld) 63.8 % 47-70 [facility] Nucleated red blood cell per centageOrdered By: Broderick Merino on 11-12-2024 Nucleated RBC/100 WBC (Bld) [Ratio] 0 % 0-5 [facility] Platelet countOrdered By: Layla Merino on 11-12-2024 Platelets (Bld) [#/Vol] 219 10*3/uL 150-450 [facility] Potassium (Unsp spec) [Mass/ Vol]Ordered By: Broderick Merino on 11-12-2024 Potassium [Moles/Vol] 4.4 mmol/L 3.3-5.1 [facility] Potassium measurement (mass/ volume)Ordered By: Broderick Merino on 11-12-2024 Potassium (Unsp spec) [Mass/Vol] 4.4 mmol/L 3.3-5.1 [facility] RBC Auto (Bld) [#/Vol]Ordere d By: Broderick Merino on 11-12-2024 RBC (Bld) [#/Vol] 4.58 10*6/uL Low 4.6-6.2 [facility] Serum creatinine measurement (mass/volume)Ordered By: Broderick Merino on 11-12-2024 Creatinine [Mass/Vol] 0.96 mg/dL 0.70-1.20 [facility] Serum glucose measurement (m ass/volume)Ordered By: Broderick Merino on 11-12-2024 Glucose [Mass/Vol] 133 mg/dL High 70-99 [facility] Serum or plasma calcium galen urement (mass/volume)Ordered By: Broderick Merino on 11-12-2024 Calcium [Mass/Vol] 10.1 mg/dL 7.6-11.0 [facility] Serum or plasma urea nitroge n measurement (mass/volume)Ordered By: Brodercik Merino on 11-12-2024 Urea nitrogen [Mass/Vol] 16 mg/dL 4-19 [facility] Sodium levelOrdered By: Caesar Merino on 11-12-2024 Sodium [Moles/Vol] 136 mmol/L 133-145 [facility] White blood cell (WBC) count Ordered By: Broderick Merino on 11-12-2024 WBC (Bld) [#/Vol] 7.2 10*3/uL 4.4-11.0 [facility] CBC W Auto Differential pane l (Bld)on 09-22-2024 Basophils (Bld) [#/Vol] 0.06 10*3/uL Normal <0.11 [facility] Comment on above: Order Comment: Speci men Type: BLOOD SPECIMENOrdering Facility: [facility] Address: [address] [place] [address] Performed By: #### 5 7021-8 ####[facility] LABCLIA [id number] [place] [address] [place] Basophils/100 WBC (Bld) 1.0 % Normal [facility] Comment on above: Order Comment: Speci men Type: BLOOD SPECIMENOrdering Facility: [facility] Address: [address] [place] [address] Performed By: #### 5 7021-8 ####[facility]CLIA [id number] [place] [address] [place] Differential cell count method Nom (Bld) Auto Normal [facility] Comment on above: Order Comment: Speci men Type: BLOOD SPECIMENOrdering Facility: [facility] Address: [address] [place] [address] Performed By: #### 5 7021-8 ####[facility]CLIA [id number] [place] [address] [place] Eosinophils (Bld) [#/Vol] 0.49 10*3/uL High <0.46 [facility] Comment on above: Order Comment: Speci men Type: BLOOD SPECIMENOrdering Facility: [facility] Address: [address] [place] [address] Performed By: #### 5 7021-8 ####[facility] LABCLIA [id number] [place] [address] [place] Eosinophils/100 WBC (Bld) 8.2 % Normal [facility] Comment on above: Order Comment: Speci men Type: BLOOD SPECIMENOrdering Facility: [facility] Address: [address] [place] [address] Performed By: #### 5 7021-8 ####[facility]CL[facility] [id number] [place] [address] [place] Erythrocyte distribution width (RBC) [Ratio] 12.8 % Normal 11.5-15.0 [facility] Comment on above: Order Comment: Speci men Type: BLOOD SPECIMENOrdering Facility: [facility] Address: [address] [place] [address] Performed By: #### 5 7021-8 ####[facility]CLIA [id number] [place] [address] [place] Hematocrit (Bld) [Volume fraction] 45.2 % Normal 39.0-51.0 [facility] Comment on above: Order Comment: Speci men Type: BLOOD SPECIMENOrdering Facility: [facility] Address: [address] [place] [address] Performed By: #### 5 7021-8 ####[facility] LABIA [id number] [place] [address] [place] Hemoglobin (Bld) [Mass/Vol] 14.9 g/dL Normal 13.0-17.0 [facility] Comment on above: Order Comment: Speci men Type: BLOOD SPECIMENOrdering Facility: [facility] Address: [address] [place] [address] Performed By: #### 5 7021-8 ####[facility] LABIA [id number] [place] [address] [place] Immature granulocytes (Bld) [#/Vol] 10*3/uL Normal <0.10 [facility] Comment on above: Order Comment: Speci men Type: BLOOD SPECIMENOrdering Facility: [facility] Address: [address] [place] [address] Performed By: #### 5 7021-8 ####[facility] LABCLIA [id number] [place] [address] [place] Immature granulocytes/100 WBC (Bld) 0.3 % Normal [facility] Comment on above: Order Comment: Speci men Type: BLOOD SPECIMENOrdering Facility: [facility] Address: [address] [place] [address] Performed By: #### 5 7021-8 ####[facility] LABCLIA [id number] [id number] [address] [place] Lymphocytes (Bld) [#/Vol] 1.64 10*3/uL Normal 1.00-4.00 [facility] Comment on above: Order Comment: Speci men Type: BLOOD SPECIMENOrdering Facility: [facility] Address: [address] [place] [address] Performed By: #### 5 7021-8 ####[facility] LABCLIA [id number] [place] [address] [place] Lymphocytes/100 WBC (Bld) 27.4 % Normal [facility] Comment on above: Order Comment: Speci men Type: BLOOD SPECIMENOrdering Facility: [facility] Address: [address] [place] [address] Performed By: #### 5 7021-8 ####[facility] LABCLIA [id number] [place] [address] [place] MCH (RBC) [Entitic mass] 30.7 pg Normal 26.0-34.0 [facility] Comment on above: Order Comment: Speci men Type: BLOOD SPECIMENOrdering Facility: [facility] Address: [address] [place] [address] Performed By: #### 5 7021-8 ####[facility] LABCLIA [id number] [place] [address] [place] MCHC (RBC) [Mass/Vol] 33.0 g/dL Normal 30.5-36.0 [facility] Comment on above: Order Comment: Speci men Type: BLOOD SPECIMENOrdering Facility: [facility] Address: [address] [place] [address] Performed By: #### 5 7021-8 ####[facility] LABCLIA [id number] [place] [address] [place] MCV (RBC) [Entitic vol] 93.2 fL Normal 80.0-100.0 [facility] Comment on above: Order Comment: Speci men Type: BLOOD SPECIMENOrdering Facility: [facility] Address: [address] [place] [address] Performed By: #### 5 7021-8 ####[facility] LABCLIA [id number] [place] [address] [place] Monocytes (Bld) [#/Vol] 0.48 10*3/uL Normal <0.87 [facility] Comment on above: Order Comment: Speci men Type: BLOOD SPECIMENOrdering Facility: [facility] Address: [address] [place] [address] Performed By: #### 5 7021-8 ####[facility] LABCLIA [id number] [place] [address] [place] Monocytes/100 WBC (Bld) 8.0 % Normal [facility] Comment on above: Order Comment: Speci men Type: BLOOD SPECIMENOrdering Facility: [facility] Address: [address] [place] [address] Performed By: #### 5 7021-8 ####[facility] LABCLIA [id number] [place] [address] [place] Neutrophils (Bld) [#/Vol] 3.29 10*3/uL Normal 1.45-7.50 [facility] Comment on above: Order Comment: Speci men Type: BLOOD SPECIMENOrdering Facility: [facility] Address: [address] [place] [address] Performed By: #### 5 7021-8 ####[facility] LABCLIA [id number] [place] [address] [place] Neutrophils/100 WBC (Bld) 55.1 % Normal [facility] Comment on above: Order Comment: Speci men Type: BLOOD SPECIMENOrdering Facility: [facility] Address: [address] [place] [address] Performed By: #### 5 7021-8 ####[facility] LABCLIA [id number] [place] [address] [place] Nucleated RBC (Bld) [#/Vol] 10*3/uL Normal <0.01 [facility] Comment on above: Order Comment: Speci men Type: BLOOD SPECIMENOrdering Facility: [facility] Address: [address] [place] [address] Performed By: #### 5 7021-8 ####[facility] LABIA [id number] [place] [address] [place] Nucleated RBC/100 WBC (Bld) [Ratio] 0.0 /100 WBC Normal [facility] Comment on above: Order Comment: Speci men Type: BLOOD SPECIMENOrdering Facility: [facility] Address: [address] [place] [address] Performed By: #### 5 7021-8 ####[facility] LABCLIA [id number] [place] [address] [place] Platelet mean volume (Bld) [Entitic vol] 10.1 fL Normal 9.0-12.7 [facility] Comment on above: Order Comment: Speci men Type: BLOOD SPECIMENOrdering Facility: [facility] Address: [address] [place] [address] Performed By: #### 5 7021-8 ####[facility] LABIA [id number] [place] [address] [place] Platelets (Bld) [#/Vol] 247 10*3/uL Normal 150-400 [facility] Comment on above: Order Comment: Speci men Type: BLOOD SPECIMENOrdering Facility: [facility] Address: [address] [place] [address] Performed By: #### 5 7021-8 ####[facility] LABCLIA [id number] [place] [address] [place] RBC (Bld) [#/Vol] 4.85 10*6/uL Normal 4.20-6.00 [facility] Comment on above: Order Comment: Speci men Type: BLOOD SPECIMENOrdering Facility: [facility] Address: [address] [place] [address] Performed By: #### 5 7021-8 ####[facility] LABCLIA [id number] [address] [address] [place] WBC (Bld) [#/Vol] 5.98 10*3/uL Normal 3.70-11.00 [facility] Comment on above: Order Comment: Speci men Type: BLOOD SPECIMENOrdering Facility: [facility] Address: [address] [place], [place] [address] Performed By: #### 5 7021-8 ####[facility] LABCLIA [id number] [place] [id number] [place] [facility] Comprehensive metabolic 2000 panelon 09-22-2024 Albumin [Mass/Vol] 4.5 g/dL Normal 3.9-4.9 [facility] Comment on above: Order Comment: Speci men Type: BLOOD SPECIMENOrdering Facility: [facility] Address: [address] [place], [place] [address] Performed By: #### 2 4323-8, 53718-1 ####[facility] LABCLIA [id number] [place] [address] [place] ALP [Catalytic activity/Vol] 58 U/L Normal 38-113 [facility] Comment on above: Order Comment: Speci men Type: BLOOD SPECIMENOrdering Facility: [facility] Address: [address] [place] [address] Performed By: #### 2 4323-8, 88960-1 ####[facility] LABCLIA [id number] [place] [id number] [place] ALT [Catalytic activity/Vol] 21 U/L Normal 10-54 [facility] Comment on above: Order Comment: Speci men Type: BLOOD SPECIMENOrdering Facility: [facility] Address: [address] [place] [address] Performed By: #### 2 4323-8, 95429-5 ####[facility] LABCLIA [id number] [place] [address] [place] Anion gap [Moles/Vol] 11 mmol/L Normal 8-15 [facility] Comment on above: Order Comment: Speci men Type: BLOOD SPECIMENOrdering Facility: [facility] Address: [address] [place] [address] Performed By: #### 2 4323-8, 68224-5 ####[facility] LABCLIA [id number] [place] [address] [place] AST [Catalytic activity/Vol] 20 U/L Normal 14-40 [facility] Comment on above: Order Comment: Speci men Type: BLOOD SPECIMENOrdering Facility: [facility] Address: [address] [place] [address] Performed By: #### 2 4323-8, 37960-3 ####[facility] LABCLIA [id number] [place] [address] [place] Bilirubin [Mass/Vol] 0.6 mg/dL Normal 0.2-1.3 [facility] Comment on above: Order Comment: Speci men Type: BLOOD SPECIMENOrdering Facility: [facility] Address: [address] [place] [address] Performed By: #### 2 4323-8, 61851-4 ####[facility] LABCLIA [id number] [place] [address] [place] Calcium [Mass/Vol] 9.8 mg/dL Normal 8.5-10.2 [facility] Comment on above: Order Comment: Speci men Type: BLOOD SPECIMENOrdering Facility: [facility] Address: [address] [place] [address] Performed By: #### 2 4323-8, 51516-5 ####[facility] LABCLIA [id number] [place] [address] [place] Chloride [Moles/Vol] 105 mmol/L Normal 98-107 [facility] Comment on above: Order Comment: Speci men Type: BLOOD SPECIMENOrdering Facility: [facility] Address: [address] [place] [address] Performed By: #### 2 4323-8, 24935-1 ####[facility] LABIA [id number] [place] [address] [place] CO2 [Moles/Vol] 25 mmol/L Normal 22-30 [facility] Comment on above: Order Comment: Speci men Type: BLOOD SPECIMENOrdering Facility: [facility] Address: [address] [place] [address] Performed By: #### 2 4323-8, 99283-4 ####[facility] LABIA [id number] [address] STATES OF [facility] Creatinine [Mass/Vol] 0.89 mg/dL Normal 0.73-1.22 [facility] Comment on above: Order Comment: Speci men Type: BLOOD SPECIMENOrdering Facility: [facility] Address: [address] [place] [address] Performed By: #### 2 4323-8, 92881-3 ####[facility] LABIA [id number] [place] [address] [place] [facility] Creatinine and Glomerular filtration rate.predicted panel (S/P/Bld) 91 mL/min/1.73m??? Normal >=60 [facility] Comment on above: Order Comment: Speci men Type: BLOOD SPECIMENOrdering Facility: [facility] Address: [address] [place] [address] Result Comment: Katy mated Glomerular Filtration Rate (eGFR) is calculated using the 2020 CKD-EPI creatinine equation. This equation utilizes serum creatinine, sex, and age as parameters. The creatinine assay has traceable calibration to isotope dilution-mass spectrometry. Refer to KDIGO guidelines for clinical interpretation. In patients with unstable renal function, e.g. those with acute kidney injury, the eGFR may not accurately reflect actual GFR. Performed By: #### 2 4323-8, 07945-0 ####[facility] LABCLIA [id number] [address] [address] [place] Glucose [Mass/Vol] 116 mg/dL High 74-99 [facility] Comment on above: Order Comment: Speci men Type: BLOOD SPECIMENOrdering Facility: [facility] Address: [address] [place] [address] Result Comment: The [place] Diabetes Association (ADA) provides guidance for cutoff values for fasting glucose and random glucose. The ADA defines fasting as no caloric intake for at least 8 hours. Fasting plasma glucose results between 100 to 125 mg/dL indicate increased risk for diabetes (prediabetes). Fasting plasma glucose results greater than or equal to 126 mg/dL meet the criteria for diagnosis of diabetes. In the absence of unequivocal hyperglycemia, results should be confirmed by repeat testing. In a patient with classic symptoms of hyperglycemia or hyperglycemic crisis, random plasma glucose results greater than or equal to 200 mg/dL meet the criteria for diagnosis of diabetes. Reference: Standards of Medical Care in Diabetes 2016, [place] Diabetes Association. Diabetes Care. 2016.39(Suppl 1). Performed By: #### 2 4323-8, 22155-3 ####[facility] LABCLIA [id number] [address] [address] [place] Potassium [Moles/Vol] 4.6 mmol/L Normal 3.7-5.1 [facility] Comment on above: Order Comment: Speci men Type: BLOOD SPECIMENOrdering Facility: [facility] Address: [address] [place] [address] Performed By: #### 2 4323-8, 36849-2 ####[facility] LABIA [id number] [address] [address] [place] Protein [Mass/Vol] 7.0 g/dL Normal 6.3-8.0 [facility] Comment on above: Order Comment: Speci men Type: BLOOD SPECIMENOrdering Facility: [facility] Address: [address] [place] [address] Performed By: #### 2 4323-8, 33222-4 ####[facility] LABCLIA [id number] [place] [address] [place] Sodium [Moles/Vol] 141 mmol/L Normal 136-144 [facility] Comment on above: Order Comment: Speci men Type: BLOOD SPECIMENOrdering Facility: [facility] Address: [address] [place] [address] Performed By: #### 2 4323-8, 31393-3 ####[facility] LABIA [id number] [place] [address] [place] Urea nitrogen [Mass/Vol] 17 mg/dL Normal 9-24 [facility] Comment on above: Order Comment: Speci men Type: BLOOD SPECIMENOrdering Facility: [facility] Address: [address] [place] [address] Performed By: #### 2 4323-8, 73586-4 ####[facility] LABIA [id number] [place] [address] [place] HbA1c (Bld)on 09-22-2024 Average glucose Estimated from glycated hemoglobin (Bld) [Mass/Vol] 111 mg/dL Normal [facility] Comment on above: Order Comment: Speci men Type: BLOOD SPECIMENOrdering Facility: [facility] Address: [address] [place] [address] Result Comment: eAG: (Estimated average glucose) is a calculated value from HgbA1c and is provider relations representative of the average blood glucose level in the last 2-3 month period. Performed By: #### 5 5454-3 ####[facility] LABIA [id number] [place] [address] [place] HbA1c (Bld) [Mass fraction] 5.5 % Normal 4.3-5.6 [facility] Comment on above: Order Comment: Speci men Type: BLOOD SPECIMENOrdering Facility: [facility] Address: [address] [place] [address] Result Comment: Amer [place] Diabetes Association guidelines indicate that patients with HgbA1c in the range 5.7-6.4% are at increased risk for development of diabetes, and intervention by lifestyle modification may be beneficial. HgbA1c greater or equal to 6.5% is considered diagnostic of diabetes. Performed By: #### 5 5454-3 ####[facility] LABCLIA [id number] [place] [address] [place] Lipid 1996 panelon 5 Cholesterol [Mass/Vol] 166 mg/dL Normal <200 [facility] Comment on above: Order Comment: Kathi men Type: BLOOD SPECIMENOrdering Facility: [facility] Address: [address] [place] [address] Result Comment: <200 mg/dL, Desirable 200-239 mg/dL, Borderline high >239 mg/dL, High Performed By: #### 2 4323-8, 93403-2 ####[facility] LABCLIA [id number] [address] [place] Cholesterol in HDL [Mass/Vol] 47 mg/dL Normal >39 [facility] Comment on above: Order Comment: Kathi men Type: BLOOD SPECIMENOrdering Facility: [facility] Address: [address] [place] [address] Result Comment: 40-5 9 mg/dL, Acceptable >59 mg/dL, High: Negative risk factor for coronary heart disease <40 mg/dL, Low: Positive risk factor for coronary heart disease Performed By: #### 2 4323-8, 83561-3 ####[facility] LABCLIA [id number] [address] [place] Cholesterol in LDL [Mass/Vol] 103 mg/dL High <100 [facility] Comment on above: Order Comment: Speci men Type: BLOOD SPECIMENOrdering Facility: [facility] Address: [address] [place] [address] Result Comment: <100 mg/dL, Optimal 100-129 mg/dL, Near optimal/above optimal 130-159 mg/dL, Borderline high 160-189 mg/dL, High >189 mg/dL, Very high Secondary prevention optimal LDL Cholesterol levels are recommended to be < 70 mg/dL Performed By: #### 2 4323-8, 00511-6 ####[facility] LABCLIA [id number] [place] [address] [place] Cholesterol in LDL/Cholesterol in HDL [Mass ratio] 2.19 {ratio} Normal <2.54 [facility] Comment on above: Order Comment: Speci men Type: BLOOD SPECIMENOrdering Facility: [facility] Address: [address] [place] [address] Result Comment: Refe mgadace: 1. National Cholesterol Education Program ATP III Guideline At-A-Glance Quick Desk Reference: National Heart, Lung, and Blood [place]. National Institutes of Health. 2001: NIH Publication No. 01-3305. 2. An International Atherosclerosis Society position paper: global recommendations for the management of dyslipidemia: executive summary, Atherosclerosis. 2014: 232(2):410-413. Performed By: #### 2 4323-8, 72760-7 ####[facility] LABCLIA [id number] [place] [address] [place] Cholesterol in VLDL [Mass/Vol] 16 mg/dL Normal <30 [facility] Comment on above: Order Comment: Marileei men Type: BLOOD SPECIMENOrdering Facility: [facility] Address: [address] [place] [address] Performed By: #### 2 4323-8, 90475-0 ####[facility] LABCLIA [id number] [place] [address] [place] Cholesterol non HDL [Mass/Vol] 119 mg/dL Normal <130 [facility] Comment on above: Order Comment: Marileei men Type: BLOOD SPECIMENOrdering Facility: [facility] Address: [address] [place] [address] Result Comment: <130 mg/dL, Optimal 130-159 mg/dL, Near optimal/above optimal 160-189 mg/dL, Borderline high 190-219 mg/dL, High >219 mg/dL, Very high Secondary prevention optimal non HDL Cholesterol levels are recommended to be <100 mg/dL Performed By: #### 2 4323-8, 63913-1 ####[facility] LABCLIA [id number] [place] [address] [place] Cholesterol.total/Cho lesterol in HDL [Mass ratio] 3.53 {ratio} Normal <5.10 [facility] Comment on above: Order Comment: Speci men Type: BLOOD SPECIMENOrdering Facility: [facility] Address: [address] [place] [address] Performed By: #### 2 4323-8, ####[facility] LABCLIA [id number] [place] [address] [place] FASTING TIME 12 hrs Normal [facility] Comment on above: Order Comment: Speci men Type: BLOOD SPECIMENOrdering Facility: [facility] Address: [address] [place] [address] Performed By: #### 2 4323-8, ####[facility] LABCLIA [id number] [place] [address] [place] Triglyceride [Mass/Vol] 80 mg/dL Normal <150 [facility] Comment on above: Order Comment: Speci men Type: BLOOD SPECIMENOrdering Facility: [facility] Address: [address] [place] [address] Result Comment: <150 mg/dL, Normal 150-199 mg/dL, Borderline high 200-499 mg/dL, High >499 mg/dL, Very high Performed By: #### 2 4323-8, ####[facility] LABCLIA [id number] [address] [address] [place] Sinus/Facial Boneon 06-01-20 Sinus/Facial Bone [facility] Imaging Services [address] [place] [address] Sinus/Facial Bone MR#: [id number] Acct: [id number] Name: FRANK MCKEON Rep #: [id number] : 1950 M 73 From: Alfredo escobar DO PCP: Dr. Gary Marquis MD Status: REG CLI Study: Sinus/Facial Bone Date of Exam: 06/01/24 Exam# [id number] Ordering Dr: Preeti Marin MD [id number] EXAM: CT MAXILLOFACIAL WITHOUT INTRAVENOUS CONTRAST CLINICAL INDICATION: CHRONIC SINUSITIS TECHNIQUE: Helically acquired images were obtained of the face without intravenous contrast. This CT exam was performed using one or more of the following dose reduction techniques: automated exposure control, adjustment of the mA and/or kV according to patient size, and/or use of iterative reconstruction technique. COMPARISON: CT sinus, 07/07/2021 FINDINGS: BONES/JOINTS: Mild bidirectional nasal septal deviation without significant spurring. Status post right middle turbinoplasty. Degenerative changes in the cervical spine. SOFT TISSUES: No significant abnormality. No focal subcutaneous swelling. No discrete fluid collections. VASCULATURE: Vascular calcifications. ORBITS: No acute findings. SINUSES: Status post right partial ethmoidectomy. Mild mucosal thickening in the residual ethmoid air cells. Trace mucosal thickening in the bilateral maxillary sinuses, right greater than left. The ostiomeatal units are patent. The frontal sinuses are hypoplastic with minimal mucosal thickening. The frontal recesses are clear. MASTOID AIR CELLS: Normal as visualized. Clear. DENTAL: No significant findings. No periodontal osseous erosion. CT/Sinus/Facial Bone IMPRESSION: 1. Status post right middle turbinoplasty. 2. Status post right partial ethmoidectomy. Mild mucosal thickening in the residual ethmoid air cells. 3. No sinus outflow pathway obstruction. Electronically Signed: Alfredo Madrid DO at 21:06 EDT , CC: Dr. Gary Marquis MD; Dr. Preeti Marin MD 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: Signed Normal [facility] HIP, UNI W/ Pelvis 2-3 Views on 04-19-2024 HIP, UNI W/ Pelvis 2-3 Views [facility] [address] [place] [address] HIP, UNI W/ Pelvis 2-3 Views MR#: [id number] Acct: [id number] Name: FRANK MCKEON Rep #: [id number] : 1950 M 73 From: Lonnie hammer MD PCP: Dr. Gary Marquis MD Status: DEP AMB Study: HIP, UNI W/ Pelvis 2-3 Views Date of Exam: 01/05 Exam# [id number] Ordering Dr: Moody Patricia MD [id number] STUDY: X-RAY - PELVIS AND RIGHT HIP REASON FOR EXAM: Male, 73 years old. RIGHT GROIN PAIN TECHNIQUE: 3 views of the pelvis and hip. COMPARISON: None. FINDINGS: There is a non-specific bowel gas pattern. Normal visualized soft tissue structures. Normal bilateral iliac wings, sacroiliac joints and visualized sacrum. Normal bilateral superior and inferior pubic rami. There are degenerative changes of the pubic symphysis with articular narrowing and sclerosis. Normal bilateral ischial tuberosities. Normal visualized femoral head. There is osteoarthritic spur formation of the acetabular rim. There is moderate articular joint space narrowing of the hip. Degenerative changes of the visualized lower lumbar spine. RAD/HIP, UNI W/ Pelvis 2-3 Views IMPRESSION: Moderate degree of osteoarthritis of the hip joints bilaterally slightly more prominent on the right side. Electronically Signed: Lonnie Fisher MD at 8:07 EDT , CC: Dr. Gary Marquis MD; Dr. Moody Patricia MD 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: Signed [facility] CNOVon 03-26-2024 CNOV Office Visit (FAMPWS ) MIKEFRANK L ([id number]) 1950 M Date Time Provider Department 03/26/24 9:00 AM BRIANA HARIRS During your visit today, we recorded the following information about you: Pulse Respiration Blood pressure Weight 64/minute 18/minute 134/82 90.9 kg Briana Harris APRN.CROWNING INSPECTOR 03/26/2024 9:17 AM Signed 03/20/2024 Patient presents with: F/U 6 months SUBJECTIVE: This is a 73 year old that is here today for Above Complaints. Since last office appointment has been in good health without ER visits or hospitalizations. HYPERLIPIDEMIA: Patient is taking medications: Yes. Patient is watching diet: reports he eats out a lot . Patient denies myalgias: Yes. Patient denies gi upset: Yes OA: Celebrex daily for OA in knees. Uses Voltaren on knees daily. Is following with ortho and they are ordering his Celebrex GERD: taking Omeprazole as prescribed. Works well to control his coughing Prediabetes: reports he outs a lot. Denies visual changes, polyuri or polydipsia Seeing Dr. Nam, pain management, for back pain. Has been epidural injections. Taking Gabapentin as prescribed without side effects PAST MEDICAL HISTORY No date: Abdominal pain, epigastric No date: Arthritis No date: Chronic lower back pain Comment: Has had epidural injections No date: Chronic rhinitis No date: DDD (degenerative disc disease), lumbar Comment: Dr. Cyril No date: Eczema No date: Erectile dysfunction No date: Esophageal reflux No date: External hemorrhoids No date: Hypogonadism in male No date: Osteoarthritis Comment: generalized, Dr. Toribio No date: Other and unspecified hyperlipidemia No date: PMH - PAST MEDICAL HISTORY OF Comment: gall bladder malfunction No date: Prediabetes 02/2020: Trigger middle finger of right hand No date: Varicose veins of right lower extremity Comment: Dr. Suazo ALLERGIES Ibuprofen, Grass Pollen, and Feldene [Piroxicam] MEDICATIONS Current Outpatient Medications Medication Sig diclofenac (VOLTAREN) 1 % topical gel Apply moderate amount to painful areas on hands (2g) AND knees (4g) up to three times daily as needed. Don't exceed a total of 32g daily. atorvastatin (LIPITOR) 10 mg tablet Take 1 tablet by mouth once daily. gabapentin (NEURONTIN) 100 mg capsule Take 100 mg by mouth three times a day. omeprazole (PRILOSEC) 40 mg capsule Take 40 mg by mouth once daily. celecoxib (CELEBREX) 200 mg capsule Take 1 capsule by mouth once daily as needed for pain. hydrocortisone (ANUSOL-HC) 2.5 % rectal cream 1 application by RECTAL route twice daily as needed. turmeric/turmeric ext/pepr ext (TURMERIC-TURMERIC EXT-PEPPER) 500-3 mg cap Take 1 capsule by mouth twice daily. Acetaminophen 500 mg cap Take 1,000 mg by mouth once daily. fexofenadine HCl (MUCINEX ALLERGY ORAL) Take by mouth. MULTIVITAMIN TAB Take one(1) tablet daily. No current facility-administered medications for this visit. Medications and allergies reviewed by this provider. SOCIAL HISTORY Social History Tobacco Use Smoking status: Former Packs/day: 1.00 Years: 17.00 Additional pack years: 0.00 Total pack years: 17.00 Types: Cigarettes Quit date: 08/15/1986 Years since quittin.6 Smokeless tobacco: Never Tobacco comments: Quit 1986.No one in the household smokes. Vaping Use Vaping Use: Never used Substance Use Topics Alcohol use: Yes Alcohol/week: 14.0 standard drinks of alcohol Types: 14 Standard drinks or equivalent per week Comment: daily - max 2 per day Drug use: No REVIEW OF SYSTEMS All other reviewed and negative other than HPI. OBJECTIVE: BP 134/82 Pulse 64 Resp 18 Wt 90.9 kg (200 lb 6.4 oz) SpO2 96% BMI 32.44 kg/m? . Vital signs reviewed by this provider. APPEARANCE Well appearing, alert, in no acute distress, well-hydrated, well nourished. EYES conjunctiva and sclera normal. HEART RRR with normal S1 and S2, no murmurs, no gallops, no JVD appreciated LUNG clear to auscultation. No wheezes, rhonchi or rales EXTREMITIES Extremities normal, No deformities, No skin discoloration. Mild edema to RLE. LLE WNL SKIN Skin color, texture, turgor normal, no suspicious rashes or lesions to exposed skin Latest Ref Rng 03/21/2024 Protein, Total 6.3 - 8.0 g/dL 6.8 Albumin 3.9 - 4.9 g/dL 4.3 Calcium 8.5 - 10.2 mg/dL 9.9 Bilirubin, Total 0.2 - 1.3 mg/dL 0.6 Alkaline Phosphatase 38 - 113 U/L 59 AST 14 - 40 U/L 20 ALT 10 - 54 U/L 18 Glucose 74 - 99 mg/dL 135 (H) BUN 9 - 24 mg/dL 16 Creatinine 0.73 - 1.22 mg/dL 1.05 Sodium 136 - 144 mmol/L 139 Potassium 3.7 - 5.1 mmol/L 4.4 Chloride 98 - 107 mmol/L 105 CO2 22 - 30 mmol/L 23 Anion Gap 8 - 15 mmol/L 11 eGFR >=60 mL/min/1.73m? 75 Hemoglobin A1C 4.3 - 5.6 % 5.3 Estimated Average Glucose mg/dL 105 Latest Ref Rng 09/21/2023 WBC 3.70 - 11.00 k/uL 6.97 RBC 4.20 - 6.00 m/uL 5.06 (more content not included)... Normal [facility] Comprehensive metabolic 2000 panelon 03-21-2024 Albumin [Mass/Vol] 4.3 g/dL Normal 3.9-4.9 [facility] [facility] Comment on above: Order Comment: Speci men Type: BLOOD SPECIMENOrdering Facility: [facility] Address: [address] [place], [place] [address] [address] Performed By: #### 2 4323-8 ####[facility] LABCLIA [id number] [place] [address] [place] ALP [Catalytic activity/Vol] 59 U/L Normal 38-113 [facility] Comment on above: Order Comment: Speci men Type: BLOOD SPECIMENOrdering Facility: [facility] Address: [address] [place] [address] Performed By: #### 2 4323-8 ####[facility] LABCLIA [id number] [place] [address] [place] ALT [Catalytic activity/Vol] 18 U/L Normal 10-54 [facility] Comment on above: Order Comment: Speci men Type: BLOOD SPECIMENOrdering Facility: [facility] Address: [address] [place] [address] Performed By: #### 2 4323-8 ####[facility] LABCLIA [id number] [place] [address] [place] Anion gap [Moles/Vol] 11 mmol/L Normal 8-15 [facility] Comment on above: Order Comment: Speci men Type: BLOOD SPECIMENOrdering Facility: [facility] Address: [address] [place] [address] Performed By: #### 2 4323-8 ####[facility] LABCLIA [id number] [place] [address] [place] AST [Catalytic activity/Vol] 20 U/L Normal 14-40 [facility] Comment on above: Order Comment: Speci men Type: BLOOD SPECIMENOrdering Facility: [facility] Address: [address] [place] [address] Performed By: #### 2 4323-8 ####[facility] LABCLIA [id number] [place] [address] [place] Bilirubin [Mass/Vol] 0.6 mg/dL Normal 0.2-1.3 [facility] Comment on above: Order Comment: Speci men Type: BLOOD SPECIMENOrdering Facility: [facility] Address: [address] [id number] Performed By: #### 2 4323-8 ####[facility] LABCLIA [id number] [place] [id number] [place] Calcium [Mass/Vol] 9.9 mg/dL Normal 8.5-10.2 [facility] Comment on above: Order Comment: Speci men Type: BLOOD SPECIMENOrdering Facility: [facility] Address: [address] [place], [place] [address] Performed By: #### 2 4323-8 ####[facility] LABCLIA [id number] [place] [address] [place] Chloride [Moles/Vol] 105 mmol/L Normal 98-107 [facility] Comment on above: Order Comment: Speci men Type: BLOOD SPECIMENOrdering Facility: [facility] Address: [address] [place], [place] [address] Performed By: #### 2 4323-8 ####[facility] LABCLIA [id number] [place] [address] [place] CO2 [Moles/Vol] 23 mmol/L Normal 22-30 [facility] Comment on above: Order Comment: Speci men Type: BLOOD SPECIMENOrdering Facility: [facility] Address: [address] [place], [place] [address] Performed By: #### 2 4323-8 ####[facility] LABCLIA [id number] [place] [id number] [place] Creatinine [Mass/Vol] 1.05 mg/dL Normal 0.73-1.22 [facility] Comment on above: Order Comment: Speci men Type: BLOOD SPECIMENOrdering Facility: [facility] Address: [address] [place], [place] [address] Performed By: #### 2 4323-8 ####[facility] LABCLIA [id number] [place] [id number] [place] Creatinine and Glomerular filtration rate.predicted panel (S/P/Bld) 75 mL/min/1.73m??? Normal >=60 [facility] Comment on above: Order Comment: Kathi knight Type: BLOOD SPECIMENOrdering Facility: [facility] Address: [address] [place] [address] Result Comment: Katy mated Glomerular Filtration Rate (eGFR) is calculated using the 2020 CKD-EPI creatinine equation. This equation utilizes serum creatinine, sex, and age as parameters. The creatinine assay has traceable calibration to isotope dilution-mass spectrometry. Refer to KDIGO guidelines for clinical interpretation. In patients with unstable renal function, e.g. those with acute kidney injury, the eGFR may not accurately reflect actual GFR. Performed By: #### 2 4323-8 ####[facility] LABCLIA [id number] [place] [address] [place] Glucose [Mass/Vol] 135 mg/dL High 74-99 [facility] Comment on above: Order Comment: Kathi knight Type: BLOOD SPECIMENOrdering Facility: [facility] Address: [address] [place] [address] Result Comment: The [place] Diabetes Association (ADA) provides guidance for cutoff values for fasting glucose and random glucose. The ADA defines fasting as no caloric intake for at least 8 hours. Fasting plasma glucose results between 100 to 125 mg/dL indicate increased risk for diabetes (prediabetes). Fasting plasma glucose results greater than or equal to 126 mg/dL meet the criteria for diagnosis of diabetes. In the absence of unequivocal hyperglycemia, results should be confirmed by repeat testing. In a patient with classic symptoms of hyperglycemia or hyperglycemic crisis, random plasma glucose results greater than or equal to 200 mg/dL meet the criteria for diagnosis of diabetes. Reference: Standards of Medical Care in Diabetes 2016, Italian Diabetes Association. Diabetes Care. 2016.39(Suppl 1). Performed By: #### 2 4323-8 ####[facility] LABCLIA [id number] [place] [address] [place] Potassium [Moles/Vol] 4.4 mmol/L Normal 3.7-5.1 [facility] Comment on above: Order Comment: Speci men Type: BLOOD SPECIMENOrdering Facility: [facility] Address: [address] [place] [address] Performed By: #### 2 4323-8 ####[facility] LABCLIA [id number] [place] [address] [place] Protein [Mass/Vol] 6.8 g/dL Normal 6.3-8.0 [facility] Comment on above: Order Comment: Speci men Type: BLOOD SPECIMENOrdering Facility: [facility] Address: [address] [place] [address] Performed By: #### 2 4323-8 ####[facility] LABCLIA [id number] [place] [address] [place] Sodium [Moles/Vol] 139 mmol/L Normal 136-144 [facility] Comment on above: Order Comment: Speci men Type: BLOOD SPECIMENOrdering Facility: [facility] Address: [address] [place] [address] Performed By: #### 2 4323-8 ####[facility] LABCLIA [id number] [place] [address] [place] Urea nitrogen [Mass/Vol] 16 mg/dL Normal 9-24 [facility] Comment on above: Order Comment: Speci men Type: BLOOD SPECIMENOrdering Facility: [facility] Address: [address] [place] [address] Performed By: #### 2 4323-8 ####[facility] LABCLIA [id number] [place] [address] [place] HbA1c (Bld)on 03-21-2024 Average glucose Estimated from glycated hemoglobin (Bld) [Mass/Vol] 105 mg/dL Normal [facility] Comment on above: Order Comment: Speci men Type: BLOOD SPECIMENOrdering Facility: [facility] Address: [address] [place] [address] Result Comment: eAG: (Estimated average glucose) is a calculated value from HgbA1c and is provider relations representative of the average blood glucose level in the last 2-3 month period. Performed By: #### 5 5454-3 ####[facility] [id number] [address] [place] OF [facility] HbA1c (Bld) [Mass fraction] 5.3 % Normal 4.3-5.6 [facility] Comment on above: Order Comment: Speci men Type: BLOOD SPECIMENOrdering Facility: [facility] Address: [address] [place] [address] Result Comment: Amer [place] Diabetes Association guidelines indicate that patients with HgbA1c in the range 5.7-6.4% are at increased risk for development of diabetes, and intervention by lifestyle modification may be beneficial. HgbA1c greater or equal to 6.5% is considered diagnostic of diabetes. 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 Transcribe Date/Time: Mar 22 2023 4:13P Dictated by : KARL BURTON MD This examination was interpreted and the report reviewed and electronically signed by: KARL BURTON MD on Mar 22 2023 4:14PM [facility] DIVISION OF RADIOLOGY * * *Final Report* * * DATE OF EXAM: Mar 22 2023 4:11PM WOX 5291 - XR CHEST 2V FRONTAL/LAT / PROCEDURE REASON: Acute cough * * * * Physician Interpretation * * * * EXAMINATION: CHEST RADIOGRAPH (2 VIEW FRONTAL & LATERAL) CLINICAL HISTORY: Acute cough MQ: XC2_6 EXAM DATE/TIME: 03/22/2023 4:11 PM COMPARISON: No relevant prior studies available. RESULT: Lines, tubes, and devices: None. Lungs and pleura: No consolidation. No lung mass. No pleural effusion. No pneumothorax. Cardiomediastinal silhouette: Normal cardiomediastinal silhouette. Bones and soft tissues: Degenerative changes are present within the thoracic spine. DIVISION OF RADIOLOGY Provider, John Hinojosa - 03/22/2023 * * *Final Report* * * DATE OF EXAM: Mar 22 2023 4:11PM WOX 5291 - XR CHEST 2V FRONTAL/LAT / PROCEDURE REASON: Acute cough * * * * Physician Interpretation * * * * EXAMINATION: CHEST RADIOGRAPH (2 VIEW FRONTAL & LATERAL) CLINICAL HISTORY: Acute cough MQ: XC2_6 EXAM DATE/TIME: 03/22/2023 4:11 PM COMPARISON: No relevant prior studies available. RESULT: Lines, tubes, and devices: None. Lungs and pleura: No consolidation. No lung mass. No pleural effusion. No pneumothorax. Cardiomediastinal silhouette: Normal cardiomediastinal silhouette. Bones and soft tissues: Degenerative changes are present within the thoracic spine. 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: PSCB Transcribe Date/Time: Mar 22 2023 4:13P Dictated by : KARL BURTON MD This examination was interpreted and the report reviewed and electronically signed by: KARL BURTON MD on Mar 22 2023 4:14PM EST [facility] Radiology Study observation (narrative) [facility] XR Chest PA and LateralOrder ed By: Ccf Provider on 03-22-2023 [facility] Clinical Summary: HMSPatient IDon 03-05-2020 SOP [facility] Work Phone: Clinical Lists Update: Prelo ad Extendedon 02-28-2020 Tobacco smoking status NHIS Tobacco smoking status NHIS [facility] Work Phone: Clinical Summary: Outcome Mckeon mmaryon 02-27-2020 QuickDASH Assessment Final Score 25 [facility] Work Phone: QuickDASH Assessment item 1 3 [facility] Work Phone: QuickDASH Assessment item 10 2 [facility] Work Phone: QuickDASH Assessment item 11 3 [facility] Work Phone: QuickDASH Assessment item 2 2 [facility] Work Phone: QuickDASH Assessment item 3 2 [facility] Work Phone: QuickDASH Assessment item 4 2 [facility] Work Phone: QuickDASH Assessment item 5 1 [facility] Work Phone: QuickDASH Assessment item 6 1 [facility] Work Phone: QuickDASH Assessment item 7 1 [facility] Work Phone: QuickDASH Assessment item 8 2 [facility] Work Phone: QuickDASH Assessment item 9 3 [facility] Work Phone: diagnostic criteria for SLE #1 4 [facility] Work Phone: diagnostic criteria for SLE #10 4 [facility] Work Phone: diagnostic criteria for SLE #11 12 [facility] Work Phone: diagnostic criteria for SLE #12 15 [facility] Work Phone: diagnostic criteria for SLE #13 39.8 [facility] Work Phone: diagnostic criteria for SLE #14 50.8 [facility] Work Phone: diagnostic criteria for SLE #15 [phone] [facility] Work Phone: diagnostic criteria for SLE #2 4 [facility] Work Phone: diagnostic criteria for SLE #3 3 [facility] Work Phone: diagnostic criteria for SLE #4 4 [facility] Work Phone: diagnostic criteria for SLE #5 3 [facility] Work Phone: diagnostic criteria for SLE #6 4 [facility] Work Phone: diagnostic criteria for SLE #7 5 [facility] Work Phone: diagnostic criteria for SLE #8 4 [facility] Work Phone: diagnostic criteria for SLE #9 4 [facility] Work Phone: Clinical Summary: Scanned Hi story Summaryon 02-27-2020 adl form etoh alcohol performance beer, wine, liquor [facility] Work Phone: Beta HCG ( test) Ql (U) Never [facility] Work Phone: cause of , father Heart failure [facility] Work Phone: cause of , mother Multiple/aging - age 91 [facility] Work Phone: Cholesterol [Mass/Vol] ArthritisHigh cholesterol [facility] Work Phone: comments about allergies Ibuprofen [facility] Work Phone: consumes three or more drinks of alcohol (beer, wine, liquor) daily or almost daily 1 drink per day [facility] Work Phone: data entered by patient, alcohol (ethanol or ETOH) use Yes [facility] Work Phone: Data entered by patient, allergy list NSAIDsAnimalsDust mitesMoldPlant pollens (Hay Fever)I don't have any Food Allergies [facility] Work Phone: data entered by patient, drug (of abuse) use No [facility] Work Phone: data entered by patient, Employer Name retired [facility] Work Phone: data entered by patient, exercise history No [facility] Work Phone: data entered by patient, father's medical history AlzheimerArthritisDiabetes - non-insulin dependentHeart diseaseHigh blood pressure [facility] Work Phone: Data entered by patient, history of past surgeries AppendectomyCataract surgeryGallbladder surgeryHernia repairKnee surgery otherShoulder surgery otherTonsillectomy [facility] Work Phone: Data entered by patient, medication list ukmwohx-63vf-2-1x/daycelebr [id number]-7-1x/daymulti vitamin-Unknown Twepawpi-6-3l/daymucinex-60 0mg-1-1x/dayacetaminophen-5 00mg-2-1x/day and as neededdiphenhydramine-25mg- 1-1x/day, as neededvoltaren-As noted per area-Unknown Dosage-1x/dayhydrocortisone cream-1%-Unknown Dosage-1x/dayturmeric-500mg -1-2x/day [facility] Work Phone: data entered by patient, mother's medical history ArthritisHigh blood pressureOsteoporosis [facility] Work Phone: data entered by patient, social history, current smoker former smoker [facility] Work Phone: data entered by patient, social history, former smoker 1987 [facility] Work Phone: data entered by patient, social history, marital status [facility] Work Phone: father of patient is alive or [facility] Work Phone: Housing Type: apartment, house, assisted, trailer, none house [facility] Work Phone: housing unit size (asthma environmental history, housing) (from single family to don't know) 3 floors [facility] Work Phone: medical history of patient's brother(s) My brother's health history is unknown [facility] Work Phone: medical history of patient's sister My sister's health history is unknown [facility] Work Phone: mother of patient is alive or [facility] Work Phone: Number of dependent children No [facility] Work Phone: Web entered surgical history comments Repair torn Left Quad; Repair torn right bicep [facility] Work Phone: CNTHERAPYon 05-15-2019 CNTHERAPY OT/PT/Speech Visit ( [facility]) MIKEFRANK ([id number]) 1950 M Date Time Provider Department 05/15/19 2:30 PM DARLENE ESPINOSA (OT) [facility] Date Time Provider Department Center 05/15/2019 2:30 PM [id number] ESPINOSA *[facility] Reason for Visit: OT EVAL [748] OT Discharge [750] Primary Visit Diagnosis:Primary osteoarthritis involving multiple joints [M15.0] Allergies As of Date: 05/15/2019 Noted Allergy Reaction Environmental [Other] 06/11/2005 16 - Unknown Comments: Grass, trees, weeds, ragweed, molds, dust mites, cows, dogs, cats. FELDENE (PIROXICAM) 06/30/2007 8 - GI Upset GRISEOFULVIN 06/11/2005 Comments: Headache IBUPROFEN 08/21/2010 2 - Rash Comments: lips swell and rash all over body Date Reviewed: 05/04/2019 Reviewed by: Elyssa Torres (Grants Analyst) RADHA Rodriguez - Fully Assessed Prescriptions as of 05/15/2019 Sig: TURMERIC 500 MG-BLACK PEPPER * Take 1 capsule by mouth twice* TRIAMCINOLONE ACETONIDE 0.1 %* Apply 1 application to affect* DICLOFENAC 1 % TOPICAL GEL Apply moderate amount to pain* ACETAMINOPHEN 500 MG CAPSULE Take 1,000 mg by mouth once d* MUCINEX ALLERGY ORAL Take by mouth. DICLOFENAC 1 % TOPICAL GEL GABAPENTIN 300 MG CAPSULE Take 1 capsule by mouth once * FLUTICASONE PROPIONATE 50 MCG* Use 2 Sprays in each nostril * CELECOXIB 200 MG CAPSULE Take 1 capsule by mouth once * PERFLUTREN LIPID MICROSPHERES* Inject 1.3 mL intravenously a* Patient not taking: Reported on 05/04/2019 ATORVASTATIN 10 MG TABLET Take 1 tablet by mouth once d* HYDROCORTISONE 2.5 % TOPICAL * 1 application by RECTAL route* Patient not taking: Reported on 05/04/2019 CLINDAMYCIN PHOSPHATE 1 % TOP* Apply qday to bid to follicul* HYDROCORTISONE 2.5 % TOPICAL * Apply to affected areas of ec* MULTIVITAMIN TABLET Take one(1) tablet daily. Progress Notes: ADDIE Sandoval 05/15/2019 3:19 PM Signed Episode Visit Count: 1 Therapist That Will Oversee The Plan Of Care: Ac Colon Start of Care Date: 05/15/19 Onset Date: 05/02/19 Plan of Care Certification Date: 05/15/19 Patient Identified by Name and Date of : Yes [facility] OCCUPATIONAL THERAPY EVALUATION PLAN OF CARE: Assessment: Frank Mckeon presents with the diagnosis of OA . He presents with impairments of AROM pain. He may benefit from skilled occupational therapy services to improve function. Prognosis: Good Good due to: current objective clinical presentation Goals for Episode of Care created on 05/15/19 through 05/15/19 Patient will report a good understanding of diagnosis and OT recommendations for progression of program Patient will demonstrate independence with ongoing home exercise program Planned Interventions, Frequency, and Duration: Current Frequency: Discontinue Therapy Services Duration: 1 visit Planned Treatment Interventions: Therapeutic exercise;Self-prison management PLAN FOR NEXT VISIT: discharge Patient demonstrates good understanding of plan of care and treatment. The above goals and plan of care were discussed and agreed upon by patient/family. SUBJECTIVE: Frank Mckeon is a 68 year old male seen today for hand pain Functional Limitations: none(stiffness and pain with activity) Prior Level of Function: Independent without limitations Patient Goals: to decrease stiffness and maintain function Intake Information: Prescription present Previous Treatment: None Falls Interview: No positive findings with falls interview Relevant History Right or Left Handed: Right Employment: Retired Home Environment Patient Lives With: Spouse Pain: Pain Pain Level: 4 Pain Location: Hand - Right;Hand - Left Description: Stiffness Frequency: Continuous Post Treatment Pain Post Treatment Pain Level: No Change OBJECTIVE MEASURES WITH LEVEL OF FUNCTION: Hand Edema Location: hands Edema Description: Mild Shoulder AROM: WFL Elbow AROM: WFL Wrist AROM: WFL Right Hand AROM: WFL Left Hand AROM: WFL Thumb AROM: WFL Strength: Aircraft Communicator Position 2;Pinch Meter Provocative Testing: Tinel's;Grind test Clinical Presentation: Falguni's nodes Tinel's Sign: Left negative;Right negative Grind test: Right positive;Left positive Hand Strength R Aircraft Communicator Position 2 (lbs): 55 lbs L Aircraft Communicator Position 2 (lbs): 49 lbs R Lateral Pinch (lbs): 15 lbs R Tripod/ 3 Jaw Ian (lbs): 15 lbs R Tip Pinch (lbs): 12 lbs L Lateral Pinch (lbs): 13 lbs L Tripod/ 3 Jaw Ian (lbs): 14 lbs L Tip Pinch (lbs): 12 lbs UE and Cervical Strength R Aircraft Communicator Position 2 (lbs): 55 lbs R Lateral Pinch (lbs): 15 lbs R Tripod/ 3 Jaw Ian (lbs): 15 lbs R Tip Pinch (lbs): 12 lbs L Aircraft Communicator Position 2 (lbs): 49 lbs L Lateral Pinch (lbs): 13 lbs L Tripod/ 3 Jaw Ian (lbs): 14 lbs L Tip Pinch (lbs): 12 lbs Special Tests - Elbow Tinel's Sign: Left negative;Right negative Education: Education Learning Preferences: Demonstration;Explanation Barriers: None Learning/educational needs: Home exercise program;Plan of Care Education Provided: Yes, see treatment interventions for education provided Education Provided To: Patient Education Mode/Type: Demonstration;Explanation/D iscussion;Literature/Printe d Materials Response to Education/Teach Back: States/Identifies;Return Demonstration;Requires Review/Additional Education TREATMENT: Evaluation Evaluation Therapeutic Exercise: 1: digit adduction abduction and tendon gliding 2: thumb flex/ext opposition radial and palmar abduction Skilled Intervention: Patient was educated in proper exercise technique and purpose for exercises. Self-Intermediate Management: 1: educated on diagnosis 2: provided with joint protection techniques and adaptive equipment 3: educated on use of heat with precautions 4: issued coban for individual joint use instructed in wear schedule and precautions 5: educated on use of gloves and soft supports for management of stiffness Skilled Intervention: Skilled judgment in the selection of proper modification for activity of daily living/home management based on clinical presentation, deficits, and needs. Billing: [place]: Evaluation - Low Complexity ( [id number]) Self Care / Home Management (47358): 1:1 time:15 minutes (1 unit: 8-22 mins) Therapeutic Exercise (05999): 1:1 time:15 minutes (1 unit: 8-22 mins) Total time: 45 minutes Darlene Espinosa OT/ELLE Annotated image of OT HAND TENDON GLIDING FINGER EX'S last updated by Darlene Espinosa on 05/15/2019 3:01 PM Annotated image of OT HAND POST-OP EX'S [id number] last updated by Darlene Espinosa on 05/15/2019 3:01 PM [facility] PROGRESSon 05-15-2019 PROGRESS HNO ID: [id number] Author: Darlene (OtKavita Espinosa Service: ? Author Type: Occupational Therapist Type: Progress Notes Filed: 05/15/2019 3:19 PM Note Text: Episode Visit Count: 1 Therapist That Will Oversee The Plan Of Care: Ac Colon Start of Care Date: 05/15/19 Onset Date: 05/02/19 Plan of Care Certification Date: 05/15/19 Patient Identified by Name and Date of : Yes [facility] OCCUPATIONAL THERAPY EVALUATION PLAN OF CARE: Assessment: Frank Mckeon presents with the diagnosis of OA . He presents with impairments of AROM pain. He may benefit from skilled occupational therapy services to improve function. Prognosis: Good Good due to: current objective clinical presentation Goals for Episode of Care created on 05/15/19 through 05/15/19 Patient will report a good understanding of diagnosis and OT recommendations for progression of program Patient will demonstrate independence with ongoing home exercise program Planned Interventions, Frequency, and Duration: Current Frequency: Discontinue Therapy Services Duration: 1 visit Planned Treatment Interventions: Therapeutic exercise;Self-prison management PLAN FOR NEXT VISIT: discharge Patient demonstrates good understanding of plan of care and treatment. The above goals and plan of care were discussed and agreed upon by patient/family. SUBJECTIVE: Frank Mckeon is a 68 year old male seen today for hand pain Functional Limitations: none(stiffness and pain with activity) Prior Level of Function: Independent without limitations Patient Goals: to decrease stiffness and maintain function Intake Information: Prescription present Previous Treatment: None Falls Interview: No positive findings with falls interview Relevant History Right or Left Handed: Right Employment: Retired Home Environment Patient Lives With: Spouse Pain: Pain Pain Level: 4 Pain Location: Hand - Right;Hand - Left Description: Stiffness Frequency: Continuous Post Treatment Pain Post Treatment Pain Level: No Change OBJECTIVE MEASURES WITH LEVEL OF FUNCTION: Hand Edema Location: hands Edema Description: Mild Shoulder AROM: WFL Elbow AROM: WFL Wrist AROM: WFL Right Hand AROM: WFL Left Hand AROM: WFL Thumb AROM: WFL Strength: Aircraft Communicator Position 2;Pinch Meter Provocative Testing: Tinel's;Grind test Clinical Presentation: Falguni's nodes Tinel's Sign: Left negative;Right negative Grind test: Right positive;Left positive Hand Strength R Aircraft Communicator Position 2 (lbs): 55 lbs L Aircraft Communicator Position 2 (lbs): 49 lbs R Lateral Pinch (lbs): 15 lbs R Tripod/ 3 Jaw Ian (lbs): 15 lbs R Tip Pinch (lbs): 12 lbs L Lateral Pinch (lbs): 13 lbs L Tripod/ 3 Jaw Ian (lbs): 14 lbs L Tip Pinch (lbs): 12 lbs UE and Cervical Strength R Aircraft Communicator Position 2 (lbs): 55 lbs R Lateral Pinch (lbs): 15 lbs R Tripod/ 3 Jaw Ian (lbs): 15 lbs R Tip Pinch (lbs): 12 lbs L Aircraft Communicator Position 2 (lbs): 49 lbs L Lateral Pinch (lbs): 13 lbs L Tripod/ 3 Jaw Ian (lbs): 14 lbs L Tip Pinch (lbs): 12 lbs Special Tests - Elbow Tinel's Sign: Left negative;Right negative Education: Education Learning Preferences: Demonstration;Explanation Barriers: None Learning/educational needs: Home exercise program;Plan of Care Education Provided: Yes, see treatment interventions for education provided Education Provided To: Patient Education Mode/Type: Demonstration;Explanation/D iscussion;Literature/Printe d Materials Response to Education/Teach Back: States/Identifies;Return Demonstration;Requires Review/Additional Education TREATMENT: Evaluation Evaluation Therapeutic Exercise: 1: digit adduction abduction and tendon gliding 2: thumb flex/ext opposition radial and palmar abduction Skilled Intervention: Patient was educated in proper exercise technique and purpose for exercises. Self-Intermediate Management: 1: educated on diagnosis 2: provided with joint protection techniques and adaptive equipment 3: educated on use of heat with precautions 4: issued coban for individual joint use instructed in wear schedule and precautions 5: educated on use of gloves and soft supports for management of stiffness Skilled Intervention: Skilled judgment in the selection of proper modification for activity of daily living/home management based on clinical presentation, deficits, and needs. Billing: [place]: Evaluation - Low Complexity ( 82720) Self Care / Home Management (21706): 1:1 time:15 minutes (1 unit: 8-22 mins) Therapeutic Exercise (81798): 1:1 time:15 minutes (1 unit: 8-22 mins) Total time: 45 minutes Darlene Espinosa OT/ELLE [facility] Vital Signs Date Time Vital Sign Value Performing Clinician Facility 03-13-2025 09:34-0400 Body height 172.[address] Gary Marquis MD Work Phone: [facility] 03-13-2025 09:34-0400 Body mass index (BMI) [Ratio] 29.9 kg/m2 Dr. Gary Marquis MD Work Phone: [facility] 03-13-2025 09:34-0400 Body weight 89.[address] Gary Marquis MD Work Phone: [facility] 03-13-2025 09:34-0400 Diastolic blood pressure 82 mm[Hg] Dr. Gary Marquis MD Work Phone: [phone] [address] 03-13-2025 09:34-0400 Heart rate 72 /min Dr. Gary Marquis MD Work Phone: [phone] [place] [address] 03-13-2025 09:34-0400 Respiratory rate 16 /min Dr. Gary Marquis MD Work Phone: [facility] 03-13-2025 09:34-0400 Systolic blood pressure 144 mm[Hg] Dr. Gary Marquis MD Work Phone: [facility] 01-24-2025 11:38-0400 Diastolic blood pressure 92 mm[Hg] Lebron Miller MD Work Phone: [facility] 01-24-2025 11:38-0400 Systolic blood pressure 174 mm[Hg] Lebron Miller MD Work Phone: [facility] 01-24-2025 11:33-0400 Body height 172.7 cm Lebron Miller MD Work Phone: [facility] 01-24-2025 11:33-0400 Body mass index (BMI) [Ratio] 29.93 kg/m2 Lebron Miller MD Work Phone: [facility] 01-24-2025 11:33-0400 Body weight 89.3 kg Lebron Miller MD Work Phone: [facility] 01-24-2025 11:33-0400 Heart rate 71 /min Lebron Miller MD Work Phone: [facility] 11-14-2024 08:12-0400 Body mass index (BMI) [Ratio] 32.57 kg/m2 Briana Podlogar MAT MAKING MACHINE TENDER.CROWNING INSPECTOR Work Phone: [facility] 11-14-2024 08:12-0400 Body weight 91.26 kg Briana Podlogar MAT MAKING MACHINE TENDER.CROWNING INSPECTOR Work Phone: [facility] 11-14-2024 08:12-0400 Diastolic blood pressure 80 mm[Hg] Briana Podlogar MAT MAKING MACHINE TENDER.CROWNING INSPECTOR Work Phone: [facility] 11-14-2024 08:12-0400 Heart rate 70 /min Briana Podlogar MAT MAKING MACHINE TENDER.CROWNING INSPECTOR Work Phone: [facility] 11-14-2024 08:12-0400 Respiratory rate 16 /min Briana Podlogar MAT MAKING MACHINE TENDER.CROWNING INSPECTOR Work Phone: [facility] 11-14-2024 08:12-0400 SaO2% (BldA) [Mass fraction] 96 % Briana Podlogar MAT MAKING MACHINE TENDER.CROWNING INSPECTOR Work Phone: [facility] 11-14-2024 08:12-0400 Systolic blood pressure 132 mm[Hg] Briana Podlogar MAT MAKING MACHINE TENDER.CROWNING INSPECTOR Work Phone: [facility] 03-26-2024 08:51-0400 Body mass index (BMI) [Ratio] 32.44 kg/m2 Briana Podlogar MAT MAKING MACHINE TENDER.CROWNING INSPECTOR Work Phone: [facility] 03-26-2024 08:51-0400 Body weight 90.9 kg Briana Podlogar MAT MAKING MACHINE TENDER.CROWNING INSPECTOR Work Phone: [facility] 03-26-2024 08:51-0400 Diastolic blood pressure 82 mm[Hg] Briana Podlogar MAT MAKING MACHINE TENDER.CROWNING INSPECTOR Work Phone: [facility] 03-26-2024 08:51-0400 Heart rate 64 /min Briana Podlogar MAT MAKING MACHINE TENDER.CROWNING INSPECTOR Work Phone: [facility] 03-26-2024 08:51-0400 Respiratory rate 18 /min Briana Podlogar MAT MAKING MACHINE TENDER.CROWNING INSPECTOR Work Phone: [facility] 03-26-2024 08:51-0400 SaO2% (BldA) [Mass fraction] 96 % Briana Podlogar MAT MAKING MACHINE TENDER.CROWNING INSPECTOR Work Phone: [facility] 03-26-2024 08:51-0400 Systolic blood pressure 134 mm[Hg] Briana Podlogar MAT MAKING MACHINE TENDER.CROWNING INSPECTOR Work Phone: [facility] 09-26-2023 08:50-0500 Body height 167.4 cm Briana Podlogar MAT MAKING MACHINE TENDER.CROWNING INSPECTOR Work Phone: [facility] 09-26-2023 08:50-0500 Body weight 92.63 kg Briana Podlogar MAT MAKING MACHINE TENDER.CROWNING INSPECTOR Work Phone: [facility] 09-26-2023 08:50-0500 Diastolic blood pressure 82 mm[Hg] Briana Podlogar MAT MAKING MACHINE TENDER.CROWNING INSPECTOR Work Phone: [facility] 09-26-2023 08:50-0500 Heart rate 75 /min Briana Podlogar MAT MAKING MACHINE TENDER.CROWNING INSPECTOR Work Phone: [facility] 09-26-2023 08:50-0500 Respiratory rate 18 /min Briana Podlogar MAT MAKING MACHINE TENDER.CROWNING INSPECTOR Work Phone: [facility] 09-26-2023 08:50-0500 SaO2% (BldA) [Mass fraction] 98 % Briana Podlogar MAT MAKING MACHINE TENDER.CROWNING INSPECTOR Work Phone: [facility] 09-26-2023 08:50-0500 Systolic blood pressure 136 mm[Hg] Briana Podlogar MAT MAKING MACHINE TENDER.CROWNING INSPECTOR Work Phone: [facility] 03-15-2023 08:39-0400 Body height 172.7 cm Briana Podlogar MAT MAKING MACHINE TENDER.CROWNING INSPECTOR Work Phone: [facility] 03-15-2023 08:39-0400 Body weight 91.17 kg Briana Podlogar MAT MAKING MACHINE TENDER.CROWNING INSPECTOR Work Phone: [facility] 03-15-2023 08:39-0400 Diastolic blood pressure 78 mm[Hg] Briana Podlogar MAT MAKING MACHINE TENDER.CROWNING INSPECTOR Work Phone: [facility] 03-15-2023 08:39-0400 Heart rate 76 /min Briana Podlogar MAT MAKING MACHINE TENDER.CROWNING INSPECTOR Work Phone: [facility] 03-15-2023 08:39-0400 Respiratory rate 16 /min Briana Podlogar MAT MAKING MACHINE TENDER.CROWNING INSPECTOR Work Phone: [facility] 03-15-2023 08:39-0400 Systolic blood pressure 130 mm[Hg] Briana Podlogar MAT MAKING MACHINE TENDER.CROWNING INSPECTOR Work Phone: [facility] 03-16-2022 13:42-0400 Body weight 91.44 kg Preeti Marquis MD Work Phone: [facility] 03-16-2022 13:42-0400 Diastolic blood pressure 68 mm[Hg] Preeti Marquis MD Work Phone: [facility] 03-16-2022 13:42-0400 Heart rate 71 /min Preeti Marquis MD Work Phone: [facility] 03-16-2022 13:42-0400 Respiratory rate 16 /min Preeti Marquis MD Work Phone: [facility] 03-16-2022 13:42-0400 SaO2% (BldA) [Mass fraction] 97 % Preeti Marquis MD Work Phone: [facility] 03-16-2022 13:42-0400 Systolic blood pressure 122 mm[Hg] Preeti Marquis MD Work Phone: [facility] NEGATED: Highlighted [id number] 11:38-0400 BMI (Body Mass Index) 32.07 kg/m2 [facility] Work Phone: NEGATED: Highlighted [id number] 11:38-0400 Body weight 89.81 kg [facility] Work Phone: NEGATED: Highlighted [id number] 11:38-0400 Body weight 90 kg Antonella [facility] Work Phone: NEGATED: Highlighted [id number] 11:38-0400 Height 167.64 cm Antonella [facility] Work Phone: NEGATED: Highlighted [id number] 11:38-0400 Height 168 cm Antonella [facility] Work Phone: Encounters Encounter Date Encounter Type Care Provider Facility Start: 03-13-2025 End: 03-13-[address] Howard Liz MD -[facility] Work Phone: Start: 03-13-2025 End: 03-13-2025 ambulatory Howard Liz [facility] Start: 01-31-[address] Maria Del Rosario Marquis MD Work Phone: [facility] Start: 01-24-2025 End: 01-24-2025 Patient encounter procedure Lebron Miller MD Work Phone: [facility] Comment on above: Abnormal stress test (Primary Dx); History of tobacco abuse; Dyslipidemia; Abnormal EKG Start: 01-24-2025 End: 01-24-2025 ambulatory LEBRON MILLER Facility:[id number] Start: 01-10-2025 End: 01-10-[address] Gary Marquis MD Work Phone: [facility] Work Phone: Start: 01-10-2025 End: 01-10-[address] Preeti Marin MD -[facility] Work Phone: Start: 01-10-2025 End: 01-10-2025 ambulatory Preeti Marin Facility:[facility] Start: 01-09-2025 End: 01-15-2025 Telephone encounter Preeti Marquis MD Work Phone: [facility] Comment on above: Results; Patient req uest for Briana to review Stress test done at [facility] Start: 12-31-2024 Non-patient / Non-visit Dr. Gavi DAVID -[facility] Start: 12-31-2024 End: 12-31-[address] Gary Marquis MD Work Phone: [facility] Work Phone: Start: 12-31-2024 End: 12-31-2024 Patient encounter procedure Briana Harris APPLICATIONS SUPPORT SPECIALIST-C -Cardiovascular Services Work Phone: Start: 12-31-2024 End: 12-31-2024 ambulatory Briana Podlogar Facility:[facility] Start: 12-11-2024 End: 12-11-2024 Telephone encounter Briana Harris MAT MAKING MACHINE TENDER.CROWNING INSPECTOR Work Phone: [facility] Comment on above: Insurance Authorizat ion (Stress Echo) Start: 12-10-2024 End: 12-10-2024 ambulatory BRIANA PODLOGAR Facility:[facility] Start: 12-10-2024 Patient encounter procedure BRIANA PODLOGAR [facility] Start: 12-03-2024 End: 12-03-2024 Telephone encounter Preeti Marquis MD Work Phone: [facility] Comment on above: [facility] Start: 11-14-2024 End: 11-14-2024 Telephone encounter Briana Sheikhlogibeth MAT MAKING MACHINE TENDER.CROWNING INSPECTOR Work Phone: [facility] Start: 11-14-2024 Encounter for other preprocedural examination Broderick Merino [facility] Start: 11-14-2024 End: 11-14-2024 Patient encounter procedure Briana Podlogibeth MAT MAKING MACHINE TENDER.CROWNING INSPECTOR Work Phone: [facility] Comment on above: Preop examination (P rimary Dx); Abnormal EKG; Systolic murmur Start: 11-14-2024 End: 11-14-2024 Preprocedural examination done Briana Sheikhlogar MAT MAKING MACHINE TENDER.CROWNING INSPECTOR Work Phone: [facility] Start: 11-14-2024 End: 11-14-2024 ambulatory Briana Podlogar MAT MAKING MACHINE TENDER.CROWNING INSPECTOR Work Phone: [facility] Comment on above: Phone call re: heart tests Start: 11-14-2024 Encounter for other preprocedural examination BRIANA SHEIKHLOGIBETH [facility] Start: 11-12-2024 End: 11-12-2024 Non-patient / Non-visit Dr. Howard Liz MD -[facility] Work Phone: Start: 11-12-2024 End: 11-12-[address] Gary Marquis MD Work Phone: [facility] Work Phone: Start: 11-12-2024 End: 11-12-[address] Broderick Merino DO -Pulmonary Services/Neurology Work Phone: Start: 11-12-2024 End: 11-12-2024 ambulatory Broderick Merino Facility:[facility] Start: 10-03-2024 End: 10-03-2024 Follow-up encounter Obdulia Murphy LPN [facility] Start: 10-01-2024 End: 10-01-2024 Refill Preeti Marquis MD Work Phone: [facility] Comment on above: Refill Request Start: 09-22-2024 End: 09-22-2024 ambulatory BRIANA PODLOGAR Facility:[facility] Start: 09-17-2024 End: 09-17-2024 ambulatory Briana Podlogar MAT MAKING MACHINE TENDER.CROWNING INSPECTOR Work Phone: [facility] Comment on above: Appt on 09/28 Start: 06-01-2024 End: 06-01-2024 ambulatory Preeti Marin Facility:[facility] Start: 04-26-2024 End: 04-26-2024 Refill Preeti Marquis MD Work Phone: [facility] Comment on above: Refill Request Start: 04-19-2024 End: 04-19-2024 ambulatory Howard Liz Facility:[facility] Start: 03-26-2024 End: 03-26-2024 Patient encounter procedure Briana Podlogar MAT MAKING MACHINE TENDER.CROWNING INSPECTOR Work Phone: [facility] Comment on above: Other hyperlipidemia (Primary Dx); Prediabetes; Primary osteoarthritis of both knees; Screening for depression; Encounter for screening examination for other mental health and behavioral disorders; DDD (degenerative disc disease), lumbar; Obesity, Class I, BMI 30-34.9 Start: 03-26-2024 End: 03-26-2024 ambulatory BRIANA PODLOGAR Facility:[facility] Start: 03-21-2024 End: 03-21-2024 ambulatory PREETI MARQUIS Facility:[facility] Start: 03-07-2024 Refill Briana Podlogar MAT MAKING MACHINE TENDER.[facility] Work Phone: [facility] Comment on above: Refill Request Upcoming Visit - Mar Start: 01-13-2024 Refill Briana Podlogar MAT MAKING MACHINE TENDER.CROWNING INSPECTOR Work Phone: [facility] Comment on above: Refill Request Start: 11-06-2023 Refill Briana Podlogar MAT MAKING MACHINE TENDER.[facility] Work Phone: [facility] Comment on above: Refill Request Start: 09-26-2023 End: 09-26-2023 Patient encounter procedure Briana Podlogar MAT MAKING MACHINE TENDER.[facility] Work Phone: [facility] Comment on above: Annual physical exam (Primary Dx); Bilateral carotid artery stenosis; DDD (degenerative disc disease), lumbar; Primary osteoarthritis of both knees; Hyperlipidemia, unspecified hyperlipidemia type; Prediabetes Start: 06-02-2023 End: 06-02-2023 ambulatory [facility] Work Phone: Start: 06-02-2023 End: 06-02-2023 Patient encounter procedure [facility]-Cardiovascul [facility] Services Work Phone: Start: 05-25-2023 End: 05-25-2023 Patient encounter procedure Jon Soto Work Phone: Podiatry Comment on above: Arthritis of right m idfoot (Primary Dx); Right foot pain Start: 05-24-2023 End: 05-24-2023 Orders Only Jon Soto Work Phone: Podiatry Comment on above: Pain in right foot ( Primary Dx) Orders Pain [R52] Start: 05-09-2023 Orders Only Jon kiran Work Phone: [facility] [place] Comment on above: Pain (Primary Dx) Start: 05-05-2023 Refill Briana Podlogar MAT MAKING MACHINE TENDER.CROWNING INSPECTOR Work Phone: [facility] [place] Comment on above: Refill Request Start: 04-08-2023 Refill Preeti Marquis MD Work Phone: [facility] [place] Comment on above: Refill Request Start: 03-22-2023 End: 03-22-2023 Subsequent hospital visit by physician Xr Counts Include [facility] B[facility] [place] Work Phone: Radiology Comment on above: Acute cough [R05.1] Start: 03-16-2023 Telephone encounter Briana mcclendon MAT MAKING MACHINE TENDER.CROWNING INSPECTOR Work Phone: [facility] [place] Comment on above: Results Start: 03-15-2023 End: 03-15-2023 Patient encounter procedure Briana Podlogar MAT MAKING MACHINE TENDER.CROWNING INSPECTOR Work Phone: [facility] [place] Comment on above: Prediabetes (Primary Dx); Primary osteoarthritis of both knees; Other hyperlipidemia Start: 03-04-2023 ambulatory Briana Podlogar MAT MAKING MACHINE TENDER.CROWNING INSPECTOR Work Phone: [facility] [place] Comment on above: Appt with Shabana moyer on 03/15 Start: 12-04-2022 Refill Preeti Marquis MD Work Phone: [facility] [place] Comment on above: Refill Request Start: 07-04-2022 Refill Briana Podlogar MAT MAKING MACHINE TENDER.CROWNING INSPECTOR Work Phone: Family [facility] [place] Comment on above: Refill Request Start: 04-26-2022 Patient encounter status [place] Marquis MD Work Phone: [facility] [place] Start: 04-26-2022 Refill Preeti Marquis MD Work Phone: [facility] [place] Comment on above: Refill Request Start: 03-16-2022 End: 03-16-2022 Patient encounter procedure Preeti Marquis MD Work Phone: [facility] [place] Comment on above: Hyperglycemia (Prima ry Dx); Primary osteoarthritis involving multiple joints; Other hyperlipidemia; External hemorrhoids; Advance directive discussed with patient Start: 02-05-2022 Refill Preeti Marquis MD Work Phone: [facility] [place] Comment on above: Refill Request Start: 03-05-2020 End: 03-05-2020 Patient encounter procedure Selena Gonsalves MD Work Phone: [facility] Work Phone: Procedures Date Procedure Procedure Detail Performing Clinician Start: 01-24-2025 Ecg routine ecg w/le ast 12 lds i&r only Lebron Miller MD Work Phone: Start: 01-10-2025 CT of soft tissues o f neck with contrast Dr. Gary Marquis MD Work Phone: Start: 09-22-2024 Lipid 1996 panel - S tia or Plasma Preeti Marquis MD Work Phone: Start: 03-26-2024 Adult depression screening assessment Briana Harris MAT MAKING MACHINE TENDER.CROWNING INSPECTOR Work Phone: Start: 09-21-2023 Lipid 1996 panel - S tia or Plasma Briana Harris MAT MAKING MACHINE TENDER.CROWNING INSPECTOR Work Phone: Start: 05-24-2023 End: 05-24-2023 Radex ankle complete minimum 3 views Jon Soto Work Phone: Start: 03-22-2023 Radiologic exam ches t 2 views Nemo Bazan MAT MAKING MACHINE TENDER.CROWNING INSPECTOR Work Phone: Start: 09-09-2022 Lipid 1996 panel - S tia or Plasma Briana Harris MAT MAKING MACHINE TENDER.CROWNING INSPECTOR Work Phone: Start: 03-14-2022 Adult depression screening assessment Preeti Marquis MD Work Phone: Start: 09-24-2021 Colonoscopy Gary Marquis MD Work Phone: Start: 03-05-2020 End: 03-05-2020 Blood pressure screening not performed - reason not given Selena Gonsalves MD Work Phone: Start: 03-05-2020 End: 03-05-2020 BMI outside of normal parameters - no follow-up plan/reason not given Selena Gonsalves MD Work Phone: Start: 03-05-2020 End: 03-05-2020 Documentation of current medications Selena Gonsalves MD Work Phone: Start: 03-05-2020 End: 03-05-2020 Injection - betamethasone acetate 3 mg and betamethasone sodium phosphate 3 mg Selena Gonsalves MD Work Phone: Start: 03-05-2020 End: 03-05-2020 Injection 1 tendon sheath/ligament aponeurosis Selena Gonsalves MD Work Phone: Start: 03-05-2020 End: 03-05-2020 Osteoarthritis assess Selena Gonsalves MD Work Phone: Start: 03-05-2020 End: 03-05-2020 Pain assessment documented as negative - follow-up not required Selena Gonsalves MD Work Phone: Start: 03-05-2020 End: 03-05-2020 Tobacco non-user Selena Gonsalves MD Work Phone: Start: 09-03-2019 Adult depression screening assessment Preeti Marquis MD Work Phone: NEGATED: Highlighted rowStart: 03-05-2020 End: 03-05-2020 Documentation of current medications Antonella Allred Plan of Treatment Date Care Activity Detail Author Start: 09-24-2031 Colonoscopy COLONOSCOPY [facility] Start: 09-24-2031 COLORECTAL CANCER SCREENING COLORECTAL CANCER SCREENING [facility] Start: 09-24-2031 Screening for malign ant neoplasm of colon [facility] Start: 09-22-2029 Lipid panel Lipid Screening [facility] Start: 09-21-2028 Lipid [facility] Start: 09-22-2027 Diabetes Screening Diabetes Screenin g [facility] Start: 09-09-2027 Lipid 1996 panel - S tia or Plasma Lipid Screening [facility] Start: 09-09-2027 LIPID SCREEN LIPID SCREEN [facility] Start: 03-21-2027 Diabetes Screening Diabetes Screenin g [facility] Start: 09-21-2026 Diabetes Screening Diabetes Screenin g [facility] Start: 09-04-2026 LIPID SCREEN LIPID SCREEN [facility] Start: 03-15-2026 DIABETES SCREEN DIABETES SCREEN [facility] Start: 03-15-2026 Diabetes Screening Diabetes Screenin g [facility] Start: 09-09-2025 DIABETES SCREEN DIABETES SCREEN [facility] Start: 06-11-2025 End: 06-11-2025 Patient encounter procedure 06/11/2025 9:40 AM EDT Office Visit [facility] [place] [address] [place] [address] Preeti Maqruis MD [address] [place] [address] 6 month follow up [facility] [place] Comment on above: 6 month follow up Start: 03-26-2025 Anxiety Screening Anxiety Screening [facility] Start: 03-26-2025 Depression Screening Depression Scre ening [facility] Start: 03-13-2025 Evaluation of diagno stic study results [facility] Start: 03-12-2025 DIABETES SCREEN DIABETES SCREEN [facility] Start: 01-24-2025 End: 01-24-2025 Patient encounter procedure 01/24/2025 11:30 AM EDT Office Visit [facility] [address] [place] [address] [phone] [id number] Lebron Miller MD [address] [place] [address] , [address] [place] [address] abnormal stress/echo [facility] Comment on above: abnormal stress/echo Start: 12-10-2024 End: 12-10-2024 Patient encounter procedure 12/10/2024 9:20 AM EDT Office Visit [facility] [place] [address] [place] [address] PodBriana emery APRN.CROWNING INSPECTOR [address] [place] [address] Physical [facility] [place] Comment on above: Physical Start: 11-12-2024 End: 11-12-2024 Patient encounter procedure Family [facility] [place] Comment on above: ANNUAL EXAM ANNUAL EXAM/ preop L eft shoulder surgery 12/12/2024 Start: 11-11-2024 Covid-19 Vaccine () Covid-19 Vaccine () [facility] Start: 09-28-2024 End: 09-28-2024 Patient encounter procedure 09/28/2024 9:40 AM EST Office Visit [facility] [place] [address] [place] [address] Briana Harris APRN.CROWNING INSPECTOR [address] [place] [address] Annual Exam [facility] [place] Comment on above: Annual Exam Start: 09-26-2024 End: 09-26-2024 Patient encounter procedure 09/26/2024 8:40 AM EST Office Visit [facility] [place] [address] [place] [address] Briana Harris APRN.CROWNING INSPECTOR [address] [place] [address] Annual Exam [facility] [place] Comment on above: Annual Exam Start: 09-17-2024 End: 12-17-2024 CBC W Auto Differential panel - Blood COMPLETE BLOOD COUNT AND DIFFERENTIAL Lab Routine Prediabetes Expected: 09/17/2024, Expires: 12/17/2024 [facility] Comment on above: Expected: 09/17/2024 , Expires: 12/17/2024 Start: 09-17-2024 End: 12-17-2024 Comprehensive metabolic 2000 panel - Serum or Plasma COMPREHENSIVE METABOLIC PANEL Lab Routine Other hyperlipidemia Expected: 09/17/2024, Expires: 12/17/2024 [facility] Work Phone: Comment on above: Expected: 09/17/2024 , Expires: 12/17/2024 Start: 09-17-2024 End: 12-17-2024 Hemoglobin A1c in Blood HEMOGLOBIN A1C Lab Routine Prediabetes Expected: 09/17/2024, Expires: 12/17/2024 [facility] Comment on above: Expected: 09/17/2024 , Expires: 12/17/2024 Start: 09-17-2024 End: 12-17-2024 Lipid 1996 panel - Serum or Plasma LIPID PANEL BASIC Lab Routine Other hyperlipidemia Expected: 09/17/2024, Expires: 12/17/2024 [facility] Comment on above: Expected: 09/17/2024 , Expires: 12/17/2024 Start: 09-10-2024 DIABETES SCREEN DIABETES SCREEN [facility] Start: 08-15-2024 Advance Directive Discussion Advance Directive Discussion [facility] Start: 08-15-2024 Medicare Advantage A nnual Wellness Visit Medicare Advantage Annual Wellness Visit [facility] Start: 04-15-2024 Covid-19 Vaccine ( season) Covid-19 Vaccine ( season) [facility] Start: 04-15-2024 Covid-19 Vaccine ( season) Covid-19 Vaccine ( season) [facility] Start: 04-15-2024 Influenza vaccination Influenza Vacc ine (#1) [facility] Start: 03-26-2024 End: 03-26-2024 Patient encounter procedure 03/26/2024 9:00 AM EDT Office Visit [facility] [address] [facility] [place] [address] PodlogarBriana APRN.CROWNING INSPECTOR [address] [place] [address] 6 month follow up [facility] [place] Comment on above: 6 month follow up Start: 03-12-2024 End: 06-11-2024 Comprehensive metabolic 2000 panel - Serum or Plasma COMPREHENSIVE METABOLIC PANEL Lab Routine Prediabetes Expected: 03/12/2024, Expires: 06/11/2024 [facility] Work Phone: Comment on above: Expected: 03/12/2024 , Expires: 06/11/2024 Start: 03-12-2024 End: 06-11-2024 Hemoglobin A1c in Blood HEMOGLOBIN A1C Lab Routine Prediabetes Expected: 03/12/2024, Expires: 06/11/2024 [facility] Comment on above: Expected: 03/12/2024 , Expires: 06/11/2024 Start: 09-15-2023 Urine microalbumin profile [facility] Comment on above: Postponed from 01/17 (Declined at this time) Start: 09-08-2023 Covid-19 Vaccine () Covid-19 Vaccine () [facility] Start: 08-15-2023 Advance Directive Discussion Advance Directive Discussion [facility] Start: 08-15-2023 Behavioral Health Screening Behavioral Health Screening [facility] Start: 04-15-2023 Influenza vaccination [facility] Start: 03-14-2023 Adult depression screening assessment DEPRESSION SCREENING [facility] Start: 03-07-2023 End: 05-07-2023 Comprehensive metabolic 2000 panel - Serum or Plasma COMP METABOLIC PANEL Lab Routine Other hyperlipidemia Expected: 03/07/2023, Expires: 05/07/2023 [facility] Work Phone: Comment on above: Expected: 03/07/2023 , Expires: 05/07/2023 Start: 09-16-2022 End: 11-16-2022 CBC panel - Blood by Automated count CBC Lab Routine Other hyperlipidemia Hyperglycemia Expected: 09/16/2022, Expires: 11/16/2022 [facility] Work Phone: Comment on above: Expected: 09/16/2022 , Expires: 11/16/2022 Start: 09-16-2022 End: 11-16-2022 Comprehensive metabolic 2000 panel - Serum or Plasma COMP METABOLIC PANEL Lab Routine Other hyperlipidemia Hyperglycemia Expected: 09/16/2022, Expires: 11/16/2022 [facility] Work Phone: Comment on above: Expected: 09/16/2022 , Expires: 11/16/2022 Start: 09-16-2022 End: 11-16-2022 Hemoglobin A1c in Blood HGB A1C Lab Routine Other hyperlipidemia Hyperglycemia Expected: 09/16/2022, Expires: 11/16/2022 [facility] Work Phone: Comment on above: Expected: 09/16/2022 , Expires: 11/16/2022 Start: 09-16-2022 End: 11-16-2022 Lipid 1996 panel - Serum or Plasma LIPID PANEL BASIC Lab Routine Other hyperlipidemia Hyperglycemia Expected: 09/16/2022, Expires: 11/16/2022 [facility] Work Phone: Comment on above: Expected: 09/16/2022 , Expires: 11/16/2022 Start: 09-10-2022 Urine microalbumin profile DTAP,TDAP,TD (2 - Td or Tdap) [facility] Comment on above: Postponed from 01/17 (Declined at this time) Start: 08-30-2022 COVID-19 VACCINE (6 - Moderna series) COVID-19 VACCINE (6 - Moderna series) [facility] Start: 08-15-2022 ADVANCE DIRECTIVE DISCUSSION ADVANCE DIRECTIVE DISCUSSION [facility] Start: 04-15-2022 Influenza vaccination INFLUENZA (#1) [facility] Start: 01-13-2022 COVID-19 VACCINE (5 - Booster for Moderna series) COVID-19 VACCINE (5 - Booster for Moderna series) [facility] Start: 10-14-2021 COVID-19 VACCINE (4 - Booster for Moderna series) COVID-19 VACCINE (4 - Booster for Moderna series) [facility] Start: 08-15-2021 ADVANCE DIRECTIVE DISCUSSION ADVANCE DIRECTIVE DISCUSSION [facility] Start: 08-15-2021 DEPRESSION ASSESSMENT DEPRESSION ASS ESSMENT [facility] Start: 09-03-2020 Adult depression screening assessment DEPRESSION SCREENING [facility] Start: 03-05-2020 End: 03-05-2020 Appointment Appointment [facility] Work Phone: Start: 03-05-2020 End: 03-05-2020 Radex hand minimum 3 views [facility] Work Phone: Start: 01-17-2019 Urine microalbumin profile DTaP,Tdap,Td Vaccine (2 - Td or Tdap) [facility] Start: 2011 RSV Vaccine (1 - 1-d ose 60+ series) RSV Vaccine (1 - 1-dose 60+ series) [facility] Start: 11-25-1996 COLOGUARD (FIT-DNA) COLOGUARD (FIT-D NA) [facility] Start: 11-25-[address] COLONOGRAPHY [facility] Start: 11-25-1996 FECAL OCCULT BLOOD FECAL OCCULT BLOO D [facility] Start: 11-25-1996 Screening for malign ant neoplasm of colon [facility] Start: 11-25-1996 SIGMOIDOSCOPY SIGMOIDOSCOPY [facility] Start: 11-25-1969 Anxiety Screening Anxiety Screening [facility] Start: 11-25-1969 Depression Screening Depression Scre ening [facility] Basic metabolic 2008 panel with ionized calcium - Serum or Plasma [facility] Cath plmt l hrt & ar ts w/njx & angio img s&i CATH PLMT L HRT & ARTS W/NJX & ANGIO IMG S&I Procedures Routine Abnormal stress test Ordered: 01/24/2025 [facility] Work Phone: Comment on above: Ordered: 01/24/2025 Catheterization of l eft heart [facility] CBC W Auto Different ial panel - Blood [facility] ECG COMPLETE ECG COMPLETE ECG Routine Abnormal stress test 01/24/2025 11:41 AM EDT [facility] End: 11-14-2025 STRESS ECHO DOBUTAMINE STRESS ECHO DOBUTAMINE Cardiology REYES Abnormal EKG Systolic murmur 1 Occurrences starting 11/14/2024 until 11/14/2025 [facility] Work Phone: Comment on above: 1 Occurrences starti ng 11/14/2024 until 11/14/2025 End: 09-26-2024 US Carotid arteries - bilateral US CAROTID ARTERIES [facility] Vascular Lab Routine Bilateral carotid artery stenosis 1 Occurrences starting 09/26/2023 until 09/26/2024 [facility] Work Phone: Comment on above: 1 Occurrences starti ng 09/26/2023 until 09/26/2024 End: 06-07-2024 XR ANKLE GENERAL 3V AP/LAT/OBL RIGHT XR ANKLE GENERAL 3V AP/LAT/OBL RIGHT Radiology Routine Pain 1 Occurrences starting 05/09/2023 until 06/07/2024 [facility] Work Phone: Comment on above: 1 Occurrences starti ng 05/09/2023 until 06/07/2024 XR Chest PA and Lateral Woos [facility] End: 06-22-2024 XR FOOT GENERAL 3V AP/LAT/OBL RIGHT XR FOOT GENERAL 3V AP/LAT/OBL RIGHT Radiology Routine Pain in right foot 1 Occurrences starting 05/24/2023 until 06/22/2024 [facility] Work Phone: Comment on above: 1 Occurrences starti ng 05/24/2023 until 06/22/2024 XR FOOT GENERAL 3V AP/LAT/OBL RIGHT XR FOOT GENERAL 3V AP/LAT/OBL RIGHT Radiology Routine Pain in right foot 05/24/2023 1:[address] [facility] Work Phone: [facility] Immunizations Immunization Date Immunization Notes Care Provider Hawa duncan 05-23-2023 influenza virus vaccine, unspecified formulation Briana Harris APRN.CNP Work Phone: [facility] 05-28-2022 influenza virus vaccine, unspecified formulation Briana Harris MAT MAKING MACHINE TENDER.CROWNING INSPECTOR Work Phone: [facility] 11-04-2020 COVID-19 vaccine, fu ll dose (MODERNA) Preeti Marquis MD Work Phone: [facility] 10-11-2020 COVID-19 vaccine, fu ll dose (MODERNA) Preeti Marquis MD Work Phone: [facility] 05-16-2020 influenza, high dose seasonal, preservative-free Preeti Marquis MD Work Phone: [facility] 01-28-2020 zoster vaccine recombinant Preeti Marquis MD Work Phone: [facility] 10-10-2019 zoster vaccine recombinant Preeti Marquis MD Work Phone: [facility] 05-04-2019 influenza, high dose seasonal, preservative-free Preeti Marquis MD Work Phone: [facility] 09-12-2018 pneumococcal polysaccharide vaccine, 23 valent Preeti Marquis MD Work Phone: [facility] 06-09-2018 influenza, high dose seasonal, preservative-free Preeti Marquis MD Work Phone: [facility] 06-13-2017 influenza, high dose seasonal, preservative-free Preeti Marquis MD Work Phone: [facility] Work Phone: 06-13-2017 pneumococcal conjuga te vaccine, 13 valent Preeti Marquis MD Work Phone: [facility] Work Phone: 05-06-2016 influenza, seasonal, injectable Preeti Marquis MD Work Phone: [facility] 05-15-2015 influenza, seasonal, injectable Preeti Marquis MD Work Phone: [facility] 05-14-2013 influenza virus vaccine, unspecified formulation Preeti Marquis MD Work Phone: [facility] 01-14-2012 zoster vaccine, live Domingo Marquis MD Work Phone: [facility] 06-18-2011 influenza virus vaccine, unspecified formulation Preeti Marquis MD Work Phone: [facility] Work Phone: 08-31-2010 influenza virus vaccine, unspecified formulation Preeti Marquis MD Work Phone: [facility] 01-17-2009 tetanus toxoid, redu gordo diphtheria toxoid, and acellular pertussis vaccine, adsorbed Preeti Marquis MD Work Phone: [facility] Work Phone: 09-09-2008 influenza virus vaccine, unspecified formulation Preeti Marquis MD Work Phone: [facility] 06-14-2005 influenza virus vaccine, unspecified formulation Preeti Maqruis MD Work Phone: [facility] Work Phone: 04-02-1999 pneumococcal polysaccharide vaccine, 23 valent Preeti Marquis MD Work Phone: [facility] Work Phone: Payers Date Payer Category Payer Self-pay [id number] 2021 Medicare AETNA MEDICARE A ETNA MEDICARE PPO [id number] 2021-Present [phone] [address] [place] [address] PPO [id number] 2021 Medicare AETNA MEDICARE A ETNA MEDICARE PPO [id number] 2021-Present [phone] [address] [place] [address] PP [id number] 2021 Medicare (Managed Care) [place] [id number] 2021 Private Health Insurance [id number] 2015 Unknown [facility] [id number] Unknown [id number] Unknown [id number] Unknown [id number] Unknown [id number] Unknown [id number] Unknown [id number] Unknown [id number] Unknown [id number] Social History Date Type Detail Facility Start: 03-05-2020 End: 03-05-2020 Assertion Unknown if ever smoked [facility] Work Phone: Start: 08-02-2011 End: 01-31-2025 Tobacco smoking status NHIS Ex-smoker [facility] Start: 08-15-1969 End: 08-15-1986 History of tobacco use Current smoker [facility] Start: 08-15-1969 End: 08-15-1986 History of tobacco use Cigarette Smoker [facility] Start: 09-24-2021 End: 12-10-2024 Alcohol intake Current drinker of alcohol (finding) [facility] Start: 09-24-2021 End: 03-15-2023 Alcohol intake [facility] Start: 03-08-2020 End: 03-15-2022 History SDOH Alcohol Frequency 5 [facility] Start: 09-05-2019 End: 03-15-2022 History SDOH Alcohol Std Drinks 1 [facility] Start: 09-15-2021 History SDOH Alcohol Comment daily - max 2 per day [facility] Start: 03-08-2020 End: 03-15-2022 History SDOH Social Connections Membership 2 [facility] Start: 03-08-2020 History SDOH Social Connections Meetings 98 [facility] Start: 09-03-2019 End: 03-15-2022 History SDOH Social Connections Living 3 [facility] Start: 03-08-2020 History SDOH Physical Activity DPW 4 [facility] Start: 03-08-2020 History SDOH Physical Activity MPS 9 [facility] Start: 09-03-2019 Education 20 [facility] Start: 08-02-2011 End: 09-15-2022 Tobacco Comment Quit 1987.No one in the household smokes. [facility] Start: 1950 Sex Assigned At Not on file [facility] Start: 03-15-2022 History SDOH Physical Activity MPS 6 [facility] Start: 03-06-2022 End: 03-16-2022 Exposure to SARS-CoV-2 (event) Not sure [facility] Start: 08-02-2011 End: 11-14-2024 Tobacco use and exposure Smokeless tobacco non-user [facility] Start: 03-14-2022 End: 03-15-2023 Social connection and isolation panel [facility] Do you belong to any clubs or organizations such as worship groups, unions, fraternal or athletic groups, or school groups? No [facility] Attends Club or Organization Meetings Not on file [facility] Are you now , , , , never or living with a partner? [facility] How often to you hav e a drink containing alcohol? 4 or more times a week [facility] How many standard dr inks containing alcohol do you have on a typical day? 1 or 2 [facility] How often do you hav e 6 or more drinks on 1 occasion? Never [facility] Do you feel stress - tense, restless, nervous, or anxious, or unable to sleep at night because your mind is troubled all the time - these days [OSQ] Not at all [facility] (I/We) worried wheth er (my/our) food would run out before (I/we) got money to buy more. Never true [facility] Start: 09-03-2019 Gender identity Identifies as male gender (finding) [facility] Start: 09-03-2019 Sexual orientation Heterosexual (finding) [facility] Start: 1950 Sex Assigned At Male [facility] Do you feel stress - tense, restless, nervous, or anxious, or unable to sleep at night because your mind is troubled all the time - these days [OSQ] Only a little [facility] Start: 11-14-2024 Sex Male (finding) [facility] Goals Date Patient Goal Desired Activity /State Personal health goal Functional Status Date Assessment Result Facility 02-03-2015 Are you deaf, or do you have serious difficulty hearing No 02/03/2015 8:42 AM Vikki Waterman RN No [facility] 02-03-2015 Are you blind, or do you have serious difficulty seeing, even when wearing glasses No 02/03/2015 8:42 AM Vikki Waterman RN No [facility] 02-03-2015 Do you have serious difficulty walking or climbing stairs No 02/03/2015 8:42 AM Vikki Waterman RN No [facility] 02-03-2015 Do you have difficul ty dressing or bathing No 02/03/2015 8:42 AM Vikki Waterman RN No [facility] 02-03-2015 Because of a physica l, mental, or emotional condition, do you have difficulty doing errands alone such as visiting a physician's office or shopping No 02/03/2015 8:42 AM Vikki Waterman RN No [facility] Mental Status Date Assessment Result Facility 02-03-2015 Because of a physica l, mental, or emotional condition, do you have serious difficulty concentrating, remembering, or making decisions No 02/03/2015 8:42 AM Vikki Waterman RN No [facility] Clinical Notes 02-03-2015 to 01-24-2025 Lebron Miller MD - 01/24/2025 11:28 AM EDTTelephone Encounter - Obdulia Murphy LPN - 01/15/2025 8:00 AM EDTTelephone Encounter - Janine Rivas RN - 01/10/2025 3:33 PM EDT Note Date & Type Note Facility 01-24-2025 Note HNO ID: [id number] Author: LEBRON MILLER MD Service: ? Author Type: Physician Type: Progress Notes Filed: 01/24/2025 12:33 Note Text: Referring Provider: Briana Harris APRN.C* Date: January 24, 2025 Chief Complaint: New Cardiac Patient (Abnormal stress/echo) HISTORY OF PRESENT ILLNESS: Frank Mckeon presents for New Cardiac Patient (Abnormal stress/echo). 74-year-old gentleman with history of dyslipidemia, prior tobacco abuse, and abnormal electrocardiogram, and a positive stress echo referred for cardiac evaluation and clearance prior to planned left shoulder surgery. Without antecedent cardiac history he was found to have an abnormal electrocardiogram prompting a stress echo. At that time he demonstrated 1-1/[address] segment depression, no anginal cyst symptoms and failure of the anterior wall to thicken coupled with anterior hypokinesis poststress. Looking closely at his risk factors he smoked 1/2-1 pack of cigarettes a day for approximately 17 years having stopped in 1988. He has been on a statin for elevated lipids with September values LDL 103 HDL 47, triglycerides 80. He has dyspnea on exertion but denies chest discomfort 1 might interpret his angina. The baseline EKG abnormalities consists of A pretransitional Q wave and delayed R wave progression. ALLERGIES Allergen Reactions Ibuprofen Rash lips swell and rash all over body Grass Pollen Other: See Comments Allergy symptoms Feldene [Piroxicam] GI Upset PAST MEDICAL HISTORY: PAST MEDICAL HISTORY Diagnosis Date Abdominal pain, epigastric Abnormal stress test Arthritis Chronic lower back pain Has had epidural injections Chronic rhinitis DDD (degenerative disc disease), lumbar Dr. Nam Eczema Encounter for screening for stenosis of carotid artery 09/21/2021 Bilaterally 20-39% stenosis. Encounter for screening for stenosis of carotid artery 10/01/2022 Bilaterally 20-39% stenosis. Encounter for screening for stenosis of carotid artery 10/06/2023 Bilaterally 20-39% stenosis. Erectile dysfunction Esophageal reflux External hemorrhoids History of stress test 09/18/2018 EF 61%. Normal scan Hypogonadism in male Osteoarthritis generalized, Dr. Toribio Other and unspecified hyperlipidemia PMH - PAST MEDICAL HISTORY OF gall bladder malfunction Prediabetes Trigger middle finger of right hand 02/2020 Varicose veins of right lower extremity Dr. Suazo PAST SURGICAL HISTORY Procedure Laterality Date ABDOMINAL SURGERY HX APPENDECTOMY APPENDECTOMY HX ARTHROSCOPY KNEE DIAGNOSTIC W/WO SYNOVIAL BX SPX 05/19/2004 Arthroscopy, knee right x2 CATARACT EXTRACTION HX Bilateral 01/2016 COLONOSCOPY 09/24/2021 repeat in 10 years COLONOSCOPY FLX DX W/COLLJ SPEC WHEN PFRMD 09/08/2001 Colonoscopy COLONOSCOPY FLX DX W/COLLJ SPEC WHEN PFRMD 08/19/2011 Colonoscopy EGD TRANSORAL BIOPSY SINGLE/MULTIPLE 09/08/2007 EYE SURGERY HX HERNIA REPAIR HX LAPS SURG CHOLECYSTECTOMY W/CHOLANGIOGRAPHY 01/11/2008 OPEN REPAIR OF ROTATOR CUFF ACUTE Right 08/21/2012 Rotator cuff repair - right - bone spur and torn bicep tendon - Dr Denis PAST SURGICAL HISTORY OF Sinus surgery December 2006. PAST SURGICAL HISTORY OF Left quadriceps repair PAST SURGICAL HISTORY OF Bilateral 10/2015 sinuplasty PAST SURGICAL HISTORY OF Right 06/2019 laser surgery for varicose veins TONSILLECTOMY HX TONSILLECTOMY PRIMARY/SECONDARY VASCULAR SURGERY PROCEDURE FAMILY HISTORY Problem Relation Age of Onset Heart Mother Arthritis Mother Diabetes Mother other (PVD) Mother Alzheimer's Disease Father Prostate Cancer Father Diabetes Father other (Parkinsons Dz) Father other (Bladder Cancer) Father Diabetes Maternal Grandmother Heart Maternal Grandmother Stroke Paternal Grandmother SOCIAL HISTORY: Tobacco Use: Types: Cigarettes Alcohol Use: Approximately 8.4 oz/week [which includes 14 Standard drinks or equivalent per week] (daily - max 2 per day ) Drug Use: No Employer And Job Title: No employer specified (Retired) Years Of Education Completed: Not specified Marital Status: to goran MEDICATIONS: Current Outpatient Medications Medication Sig atorvastatin (LIPITOR) 10 mg tablet Take 1 tablet by mouth once daily. diclofenac (VOLTAREN) 1 % topical gel Apply moderate amount to painful areas on hands (2g) AND knees (4g) up to three times daily as needed. Don't exceed a total of 32g daily. gabapentin (NEURONTIN) 100 mg capsule Take 200 mg by mouth three times a day. omeprazole (PRILOSEC) 40 mg capsule Take 40 mg by mouth once daily. celecoxib (CELEBREX) 200 mg capsule Take 1 capsule by mouth once daily as needed for pain. hydrocortisone (ANUSOL-HC) 2.5 % rectal cream 1 application by RECTAL route twice daily as needed. turmeric/turmeric ext/pepr ext (TURMERIC-TURMERIC EXT-PEPPER) 500-3 mg cap Take 1 capsule by mouth twice daily. Acetaminophen 500 mg cap Take 1,000 mg by (more content not included)... [facility] 01-24-2025 History of Presen t illness Narrative Referring Provider: Briana Harris APRN.C* Date: January 24, 2025 Chief Complaint: New Cardiac Patient (Abnormal stress/echo) HISTORY OF PRESENT ILLNESS: Frank Mckeon presents for New Cardiac Patient (Abnormal stress/echo). 74-year-old gentleman with history of dyslipidemia, prior tobacco abuse, and abnormal electrocardiogram, and a positive stress echo referred for cardiac evaluation and clearance prior to planned left shoulder surgery. Without antecedent cardiac history he was found to have an abnormal electrocardiogram prompting a stress echo. At that time he demonstrated 1-1/[address] segment depression, no anginal cyst symptoms and failure of the anterior wall to thicken coupled with anterior hypokinesis poststress. Looking closely at his risk factors he smoked 1/2-1 pack of cigarettes a day for approximately 17 years having stopped in 1988. He has been on a statin for elevated lipids with September values LDL 103 HDL 47, triglycerides 80. He has dyspnea on exertion but denies chest discomfort 1 might interpret his angina. The baseline EKG abnormalities consists of A pretransitional Q wave and delayed R wave progression. ALLERGIES Allergen Reactions Ibuprofen Rash lips swell and rash all over body Grass Pollen Other: See Comments Allergy symptoms Feldene [Piroxicam] GI Upset PAST MEDICAL HISTORY: PAST MEDICAL HISTORY Diagnosis Date Abdominal pain, epigastric Abnormal stress test Arthritis Chronic lower back pain Has had epidural injections Chronic rhinitis DDD (degenerative disc disease), lumbar Dr. Nam Eczema Encounter for screening for stenosis of carotid artery 09/21/2021 Bilaterally 20-39% stenosis. Encounter for screening for stenosis of carotid artery 10/01/2022 Bilaterally 20-39% stenosis. Encounter for screening for stenosis of carotid artery 10/06/2023 Bilaterally 20-39% stenosis. Erectile dysfunction Esophageal reflux External hemorrhoids History of stress test 09/18/2018 EF 61%. Normal scan Hypogonadism in male Osteoarthritis generalized, Dr. Toribio Other and unspecified hyperlipidemia PMH - PAST MEDICAL HISTORY OF gall bladder malfunction Prediabetes Trigger middle finger of right hand 02/2020 Varicose veins of right lower extremity Dr. Suazo PAST SURGICAL HISTORY Procedure Laterality Date ABDOMINAL SURGERY HX APPENDECTOMY APPENDECTOMY HX ARTHROSCOPY KNEE DIAGNOSTIC W/WO SYNOVIAL BX SPX 05/19/2004 Arthroscopy, knee right x2 CATARACT EXTRACTION HX Bilateral 01/2016 COLONOSCOPY 09/24/2021 repeat in 10 years COLONOSCOPY FLX DX W/COLLJ SPEC WHEN PFRMD 09/08/2001 Colonoscopy COLONOSCOPY FLX DX W/COLLJ SPEC WHEN PFRMD 08/19/2011 Colonoscopy EGD TRANSORAL BIOPSY SINGLE/MULTIPLE 09/08/2007 EYE SURGERY HX HERNIA REPAIR HX LAPS SURG CHOLECYSTECTOMY W/CHOLANGIOGRAPHY 01/11/2008 OPEN REPAIR OF ROTATOR CUFF ACUTE Right 08/21/2012 Rotator cuff repair - right - bone spur and torn bicep tendon - Dr Denis PAST SURGICAL HISTORY OF Sinus surgery December 2006. PAST SURGICAL HISTORY OF Left quadriceps repair PAST SURGICAL HISTORY OF Bilateral 10/2015 sinuplasty PAST SURGICAL HISTORY OF Right 06/2019 laser surgery for varicose veins TONSILLECTOMY HX TONSILLECTOMY PRIMARY/SECONDARY <AGE 12 VASCULAR SURGERY PROCEDURE FAMILY HISTORY Problem Relation Age of Onset Heart Mother Arthritis Mother Diabetes Mother other (PVD) Mother Alzheimer's Disease Father Prostate Cancer Father Diabetes Father other (Parkinsons Dz) Father other (Bladder Cancer) Father Diabetes Maternal Grandmother Heart Maternal Grandmother Stroke Paternal Grandmother SOCIAL HISTORY: Tobacco Use: Types: Cigarettes Alcohol Use: Approximately 8.4 oz/week [which includes 14 Standard drinks or equivalent per week] (daily - max 2 per day ) Drug Use: No Employer And Job Title: No employer specified (Retired) Years Of Education Completed: Not specified Marital Status: to goran MEDICATIONS: Current Outpatient Medications Medication Sig atorvastatin (LIPITOR) 10 mg tablet Take 1 tablet by mouth once daily. diclofenac (VOLTAREN) 1 % topical gel Apply moderate amount to painful areas on hands (2g) & knees (4g) up to three times daily as needed. Don't exceed a total of 32g daily. gabapentin (NEURONTIN) 100 mg capsule Take 200 mg by mouth three times a day. omeprazole (PRILOSEC) 40 mg capsule Take 40 mg by mouth once daily. celecoxib (CELEBREX) 200 mg capsule Take 1 capsule by mouth once daily as needed for pain. hydrocortisone (ANUSOL-HC) 2.5 % rectal cream 1 application by RECTAL route twice daily as needed. turmeric/turmeric ext/pepr ext (TURMERIC-TURMERIC EXT-PEPPER) 500-3 mg cap Take 1 capsule by mouth twice daily. Acetaminophen 500 mg cap Take 1,000 mg by mouth once daily. fexofenadine HCl (MUCINEX ALLERGY ORAL) Take by mouth once daily. MULTIVITAMIN TAB Take one(1) tablet daily. No current facility-administered medications for this visit. I have personally reviewed the patients past medical history including social, family, surgical, diagnostics, and medications. REVIEW OF SYSTEMS: Review of Systems Constitutional: Negative for chills and fatigue. Respiratory: Negative for chest tightness and shortness of breath. Cardiovascular: Positive for leg swelling. Negative for chest pain and palpitations. Neurological: Positive for light-headedness. Negative for dizziness, syncope and weakness. Hematological: Does not bruise/bleed easily. Psychiatric/Behavioral: Negative for confusion and hallucinations. PHYSICAL EXAMINATION: BP 174/92 (BP Site: Left Arm, BP Position: Sitting, BP Cuff Size: Large Adult) Pulse 71 Ht 172.7 cm (5' 8) Wt 89.3 kg (196 lb 13.9 oz) BMI 29.93 kg/m Patient is in no distress. Normal male balding pattern. EOMs full, sclerae and conjunctiva normal. Thyroid normal palpation. Carotid upstrokes normal without bruit. Chest is clear to auscultation. PMI is normal. S1-S2 normal without murmurs or gallops. No abdominal masses or bruits. Pedal pulses intact and no lower extremity edema. Alert and oriented x 3 and answers questions appropriately. Last 3 Encounter BP Readings: Date: BP: 12/10/2024 145/82[DAMIEN BP average[ 11/14/2024 132/80 03/26/2024 134/82 Last 3 Encounter Pulse Readings: Date: Pulse: 12/10/2024 83 11/14/2024 70 03/26/2024 64 Last 3 Encounter Wt Readings: Date: Wt: 12/10/2024 87.6 kg (193 lb 3.2 oz) 11/14/2024 91.3 kg (201 lb 3.2 oz) 03/26/2024 90.9 kg (200 lb 6.4 oz) LABS: Glucose (mg/dL) Date Value 09/22/2024 116 09/04/2021 120 Potassium (mmol/L) Date Value 09/22/2024 4.6 09/04/2021 4.2 Sodium (mmol/L) Date Value 09/22/2024 141 09/04/2021 140 Chloride (mmol/L) Date Value 09/22/2024 105 09/04/2021 103 CO2 (mmol/L) Date Value 09/22/2024 25 09/04/2021 28 Creatinine (mg/dL) Date Value 09/22/2024 0.89 09/04/2021 0.84 BUN (mg/dL) Date Value 09/22/2024 17 09/04/2021 13 Anion Gap (mmol/L) Date Value 09/22/2024 11 09/04/2021 9 Calcium (mg/dL) Date Value 09/04/2021 9.7 Calcium, Total (mg/dL) Date Value 09/22/2024 9.8 Protein, Total (g/dL) Date Value 09/22/2024 7.0 09/04/2021 7.1 Albumin (g/dL) Date Value 09/22/2024 4.5 09/04/2021 4.4 Bilirubin, Total (mg/dL) Date Value 09/22/2024 0.6 09/04/2021 0.7 Alkaline Phosphatase (U/L) Date Value 09/22/2024 58 09/04/2021 65 AST (U/L) Date Value 09/22/2024 20 09/04/2021 21 ALT (U/L) Date Value 09/22/2024 21 09/04/2021 24 Hemoglobin (g/dL) Date Value 09/22/2024 14.9 09/04/2021 15.7 Hematocrit (%) Date Value 09/22/2024 45.2 09/04/2021 47.9 WBC (k/uL) Date Value 09/22/2024 5.98 09/04/2021 7.04 Cholesterol, Total (mg/dL) Date Value 09/22/2024 166 09/04/2021 159 HDL Cholesterol (mg/dL) Date Value 09/22/2024 47 09/04/2021 49 LDL Cholesterol, Calculated (mg/dL) Date Value 09/22/2024 103 09/04/2021 95 Triglyceride (mg/dL) Date Value 09/22/2024 80 09/04/2021 73 EKG: Normal sinus rhythm with a pretransitional Q waves and poor R wave progression. ASSESSMENT/PLAN: 1. Abnormal stress test - ICD9: 794.39, ICD10: R94.39 (primary diagnosis). Cardiac clearance needed for shoulder surgery. Given his risk factors and the described abnormalities of his stress echo we will refer him for angiographic assessment preoperatively. Discussed with him the rationale behind this recommendation. - ECG COMPLETE - CATH PLMT L HRT & ARTS W/NJX & ANGIO IMG S&I 2. History of tobacco abuse - ICD9: V15.82, ICD10: Z87.891 3. Dyslipidemia - ICD9: 272.4, ICD10: E78.5. Should he be demonstrated to have coronary disease, his LDL target is less than 55 oh which would require upward titration of his statin therapy. 4. Abnormal EKG - ICD9: 794.31, ICD10: R94.31. Anterior wall contracted normally at rest according to the stress echo. Lebron Miller MD documented in this encounter [facility] 01-15-2025 Miscellaneous Notes Stress test, EKG and recent labs faxed to the [facility] for upcoming appointment. Obdulia Murphy LPN Patient calling with the followin) States he was able to get a Cardiology appt made with [facility] for 02/20/[address] Tellez. 2) [facility] requesting Stress test results (and any other pertinent info) be faxed to them. (Stress Test not seen in pt record-if office would please fax to heart group). Janine Rivas RN Stress test shows probable mild mid anterior ischemia with moderate workload. Will need to follow-up with cardiology for further evaluation and cardiac clearance. Briana Harris APRN.MAL Stress test printed from [facility] and given to ordering provider for review. Obdulia Murphy LPN Patient calling in again on status of stress test report from [facility]. States he just spoke with someone from [facility] medical records and they were faxing over. Per Obdulia in Briana Harris's office, no fax received yet. She will see if she can get it through [employer]. Pt wants to be notified when we have the report for Briana to review. Informed him that we are having phone issues and that we will send him a [employer] msg. Pt verbalizes understanding. Patient states he completed his stress test at [facility] on 12/31/24, ordered by Shabana Harris CNP. He states he will request [facility] to send Briana the results. Patient would like Briana to review results once received, and advise him. Janine Rivas RN documented in this encounter [facility] 01-15-2025 Telephone encounter Note Stress test, EKG and recent labs faxed to the [facility] for upcoming appointment. Obdulia Murphy LPN [facility] 01-11-2025 Radiology Diagnostic study note [facility] [address] [place] [address] Soft Tissue Neck WITH Contrast MR#: [id number] Acct: [id number] Name: FRANK MCKEON VALERIE Rep #: [id number] : 1950 M 74 From: Elier Marc MD PCP: Dr. Gary Marquis MD Status: REG CLI Study:Soft Tissue Neck WITH Contrast Date of Exam: 01/10/25 Exam# [id number] Ordering Dr: Preeti Marin MD PROCEDURE: SOFT TISSUE NECK WITH CONTRAST 01/10/2025 REASON FOR EXAM: RETROPHARYNGEAL ABSCESS, GERD TECHNIQUE: CT of the soft tissues of the neck from the orbits to the upper mediastinum withintravenous contrast. CONTRAST: 100 cc Isovue 370 One or more dose reduction techniques were used (e.g., Automated exposure control, adjustment of the mA and/or kV according to patient size, use of iterative reconstruction technique). RADIATION DOSE SUMMARY: CTDlvol: ? MGy DLP: ? MGycm FINDINGS: Normal orbits. Normal nasopharynx. Normal parotid glands. Normal oral cavity. Normal submandibular glands. Minor asymmetry of the vallecula which may be secondary to prominent lymphoid tissue. Symmetricvocal folds. Normal thyroid. No subglottic masses. No prevertebral or retropharyngeal abscess. Lung apices are clear CT/Soft Tissue Neck WITH Contrast IMPRESSION: No acute abnormality Reading Location: [facility] CC: Dr. Gary Marquis MD; Dr. 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 Tellez. 2) [facility] requesting Stress test results (and any other pertinent info) be faxed to them. (Stress Test not seen in pt record-if office would please fax to heart group). Janine Rivas RN [facility] 01-09-2025 Telephone encounter Note Stress test shows probable mild mid anterior ischemia with moderate workload. Will need to follow-up with cardiology for further evaluation and cardiac clearance. Briana Harris APRN.MAL [facility] 01-09-2025 Telephone encounter Note Stress test printed from [facility] and given to ordering provider for review. Obdulia Murphy LPN [facility] 01-09-2025 Telephone encounter Note Patient calling in again on status of stress test report from [facility]. States he just spoke with someone from [facility] medical records and they were faxing over. Per Obdulia in Briana Harris's office, no fax received yet. She will see if she can get it through [facility]. Pt wants to be notified when we have the report for Briana to review. Informed him that we are having phone issues and that we will send him a [employer] msg. Pt verbalizes understanding. [facility] 01-09-2025 Telephone encounter Note Patient states he completed his stress test at [facility] on 12/31/24, ordered by Shabana Harris CNP. He states he will request [facility] to send Briana the results. Patient would like Briana to review results once received, and advise him. Janine Rivas RN [facility] 12-11-2024 Telephone encounter Note Spoke with patient at this time and notified of below. Verbalized understanding. He will contact scheduling today to make appt. Juli So LPN [facility] 12-11-2024 Miscellaneous Notes Spoke with patient at this time and notified of below. Verbalized understanding. He will contact scheduling today to make appt. Juli So LPN Let patient know I just received email approving appeal for the stress ECHO. I know he said he has already received approval so he may reschedule testing if he has not already. Briana Harris APRN.CNP documented in this encounter [facility] 12-11-2024 Telephone encounter Note Let patient know I just received email approving appeal for the stress ECHO. I know he said he has already received approval so he may reschedule testing if he has not already. Briana Harris APRN.CNP [facility] 12-10-2024 Note HNO ID: [id number] Author: BRIANA HARRIS APRN.CNP Service: ? Author Type: Nurse Practitioner Type: Progress Notes Filed: 12/10/2024 10:36 Note Text: 12/06/2024 Patient presents with: Yearly Exam SUBJECTIVE: This is a 74 year old that is here today for Above Complaints. When on his way to [facility] developed a sore throat which progressed to infection for which he needed to be hospitalized for. Since his return he did follow-up with ENT and he reports he has a follow-up CT scheduled HYPERLIPIDEMIA: Patient is taking medications: Yes. Patient is watching diet: Yes. Patient denies myalgias: Yes. Patient denies gi upset: Yes OA: takes Celebrex daily for hx of OA of knees. GERD: taking Omeprazole as prescribed. Works well to control his coughing Prediabetes: reports he outs a lot. Denies visual changes, polyuri or polydipsia Seeing Dr. Nam, pain management, for back pain. Has been epidural injections. Taking Gabapentin as prescribed without side effects Awaiting stress testing to clear for left shoulder surgery. PAST MEDICAL HISTORY Diagnosis Date Abdominal pain, epigastric Arthritis Chronic lower back pain Has had epidural injections Chronic rhinitis DDD (degenerative disc disease), lumbar Dr. Nam Eczema Erectile dysfunction Esophageal reflux External hemorrhoids Hypogonadism in male Osteoarthritis generalized, Dr. Toribio Other and unspecified hyperlipidemia PMH - PAST MEDICAL HISTORY OF gall bladder malfunction Prediabetes Trigger middle finger of right hand 02/2020 Varicose veins of right lower extremity Dr. Suazo ALLERGIES Ibuprofen, Grass Pollen, and Feldene [Piroxicam] MEDICATIONS Current Outpatient Medications Medication Sig atorvastatin (LIPITOR) 10 mg tablet Take 1 tablet by mouth once daily. diclofenac (VOLTAREN) 1 % topical gel Apply moderate amount to painful areas on hands (2g) AND knees (4g) up to three times daily as needed. Don't exceed a total of 32g daily. gabapentin (NEURONTIN) 100 mg capsule Take 100 mg by mouth three times a day. (Patient taking differently: Take 200 mg by mouth three times a day.) omeprazole (PRILOSEC) 40 mg capsule Take 40 mg by mouth once daily. celecoxib (CELEBREX) 200 mg capsule Take 1 capsule by mouth once daily as needed for pain. hydrocortisone (ANUSOL-HC) 2.5 % rectal cream 1 application by RECTAL route twice daily as needed. turmeric/turmeric ext/pepr ext (TURMERIC-TURMERIC EXT-PEPPER) 500-3 mg cap Take 1 capsule by mouth twice daily. Acetaminophen 500 mg cap Take 1,000 mg by mouth once daily. fexofenadine HCl (MUCINEX ALLERGY ORAL) Take by mouth. MULTIVITAMIN TAB Take one(1) tablet daily. No current facility-administered medications for this visit. Medications and allergies reviewed by this provider. SOCIAL HISTORY Social History Tobacco Use Smoking status: Former Current packs/day: 0.00 Average packs/day: 1 pack/day for 17.0 years (17.0 ttl pk-yrs) Types: Cigarettes Start date: 08/15/1969 Quit date: 08/15/1986 Years since quittin.3 Smokeless tobacco: Never Tobacco comments: Quit 1986.No one in the household smokes. Vaping Use Vaping status: Never Used Substance Use Topics Alcohol use: Yes Alcohol/week: 14.0 standard drinks of alcohol Types: 14 Standard drinks or equivalent per week Comment: daily - max 2 per day Drug use: No REVIEW OF SYSTEMS GENERAL: No weight loss, malaise or fevers HEENT: Negative for frequent or significant headaches, No changes in hearing or vision, no nose bleeds or other nasal problems NECK: Negative for lumps, goiter, pain and significant neck swelling RESPIRATORY: Negative for cough, hemoptysis, wheezing, COPD, dyspnea or shortness of breath CARDIOVASCULAR: Negative for chest pain, hypertension, CHF or palpitations GI: No nausea, vomiting, or diarrhea : No history of dysuria, frequency or incontinence MUSCULOSKELETAL: Hx of left shoulder pain, knee pain and back pain- under control with medications SKIN: Negative for lesions, rash, and itching PSYCH: Negative for sleep disturbance, mood disorder and recent psychosocial stressors HEMATOLOGY/LYMPHOLOGY: Negative for prolonged bleeding, bruising easily or swollen nodes ENDOCRINE: Negative for cold or heat intolerance, polyuria, polydipsia and goiter NEURO: No history of headaches, syncope, paralysis, seizures or tremors All other reviewed and negative other than HPI. OBJECTIVE: BP 145/82 Pulse 83 Resp 18 Ht 167 cm (5' 5.75) Wt 87.6 kg (193 lb 3.2 oz) SpO2 98% BMI 31.42 kg/m? . Vital signs reviewed by this provider. APPEARANCE Well appearing, alert, in no acute distress, well-hydrated, well nourished. EYES conjunctiva and sclera normal. EARS External ears normal, canals clear NECK Supple, no adenopathy; thyroid symmetric, normal size, no bruits HEART RRR with normal S1 and S2, no murmurs, no gallops, no JVD appreciated LUNG clear to (more content not included)... [facility] 12-04-2024 Telephone encounter Note Reviewed. [facility] 12-04-2024 Miscellaneous Notes Reviewed. Pt called and is notified of providers message and instructions. Pt voices understanding. He states he will make a copy of the files and bring it to provider office later in the week once they get home. Lidia Mark, RN Called and left a voicemail for the Patient to call back and ask for a nurse to receive the providers message. Lidia Mark RN A CRP is a non-specific inflammatory marker. If he had an infection this is likely why it was elevated. I don't think we need to repeat it, however I prefer to look at the hospital paperwork before making any decisions. Briana Harris APRN.MAL Pt reports he flew to [facility] the day he had an appt with Hoist Operator, 11/14/24, then flew to [place], and ended up in [facility] on November 17,,& , with a bacterial infection in his blood- from an abscess in his throat. He is better now. His leukocytes are normal now. His CRP is 33 and [facility] recommend he get a blood test when returns to [place] on 12/05/24. Pt will arrive to [place] that afternoon. Pt is currently in [place], and the phone connection was difficult communicating as words faded in and out. Pt is scheduled for a stress echo at [facility] on 12/06/24 and will need to be NPO for 6 hours prior to this test. Reports his appt with Briana is 12/10/24, and his surgery is scheduled for 12/12/24. Pt is wondering if Briana will order the CRP and when should he complete it. Pt has copies of [facility]'s records written in [place], he is bringing home with him. Pt can be reached on his mobile: [phone] documented in this encounter [facility] 12-03-2024 Telephone encounter Note Pt called and is notified of providers message and instructions. Pt voices understanding. He states he will make a copy of the files and bring it to provider office later in the week once they get home. Lidia Mark RN [facility] 12-03-2024 Telephone encounter Note Called and left a voicemail for the Patient to call back and ask for a nurse to receive the providers message. Lidia Mark RN [facility] 12-03-2024 Telephone encounter Note A CRP is a non-specific inflammatory marker. If he had an infection this is likely why it was elevated. I don't think we need to repeat it, however I prefer to look at the hospital paperwork before making any decisions. Briana Harris APRN.CROWNING INSPECTOR T [facility] 12-03-2024 Telephone encounter Note Pt reports he flew to [facility] the day he had an appt with Hoist Operator, 11/14/24, then flew to [place], and ended up in [facility] on November 17,,& , with a bacterial infection in his blood- from an abscess in his throat. He is better now. His leukocytes are normal now. His CRP is 33 and [facility] recommend he get a blood test when returns to [place] on 12/05/24. Pt will arrive to [place] that afternoon. Pt is currently in [place], and the phone connection was difficult communicating as words faded in and out. Pt is scheduled for a stress echo at [facility] on 12/06/24 and will need to be NPO for 6 hours prior to this test. Reports his appt with Briana is 12/10/24, and his surgery is scheduled for 12/12/24. Pt is wondering if Braina will order the CRP and when should he complete it. Pt has copies of [facility]'s records written in [place], he is bringing home with him. Pt can be reached on his mobile: [phone] [facility] 11-14-2024 Telephone encounter Note Patient calling in and states he has communicated with [facility] and is requesting his order for Stress Echo Dobutamine be faxed to them, as he would like to have test completed there. Order and facesheet faxed as requested to [facility]- Central Scheduling Dept. Patient aware that [facility] will contact him with next steps, or he may contact them if he does not receive call from them in next 24 hours. Janine Rivas RN [facility] 11-14-2024 Miscellaneous Notes Patient calling in and states he has communicated with [facility] and is requesting his order for Stress Echo Dobutamine be faxed to them, as he would like to have test completed there. Order and facesheet faxed as requested to [facility]- Central Scheduling Dept. Patient aware that [facility] will contact him with next steps, or he may contact them if he does not receive call from them in next 24 hours. Janine Rivas RN Patient calls back and notified of below. Patient voices understanding. Patient transferred to scheduled to scheduled testing. Leeann Ceja RN Telephone call placed to patient. Message left to call office back for update. Obdulia Murphy LPN Please let patient know I spoke with Dr. Marquis and he will need further testing. I have ordered this and he may schedule Briana Harris APRN.CNP documented in this encounter [facility] 11-14-2024 Telephone encounter Note See DERICK Nicolas MA [facility] 11-14-2024 Miscellaneous Notes See DERICK Nicolas MA documented in this encounter [facility] 11-14-2024 Telephone encounter Note Patient calls back and notified of below. Patient voices understanding. Patient transferred to scheduled to scheduled testing. Leeann Ceja RN [facility] 11-14-2024 Telephone encounter Note Telephone call placed to patient. Message left to call office back for update. Obdulia Murphy LPN [facility] 11-14-2024 Telephone encounter Note Please let patient know I spoke with Dr. Marquis and he will need further testing. I have ordered this and he may schedule Briana Harris APRN.MAL [facility] 11-14-2024 History of Presen t illness Narrative CC: Patient presents with: Pre-Op Exam: Left shoulder 12/12 [facility] RUDOLPH Mckeon is a 73 year old male who presents today for pre-op evaluation. Surgical Procedure: left shoulder arthroscopic rotator cuff repair, distal clavicle excision, subacromial decompression, mini open bicep tenodesis Date of Procedure: 12/12/2024 Surgeon: Dr. Broderick LLOYD date: completed on 11/12/2024 Leaving on cruise today and will be gone for three weeks Diabetes No Hypertension requiring medication No Congestive Heart Failure No Current Smoker within 1 Year No COPD/asthma No PEG No Dialysis No Acute renal failure No Steroid use for chronic condition No Disseminated cancer No Patient's with estimated risk of 1 percent or higher may need additional cardiac testing unless METS > or = to 4 METS: Walk indoors, such as around the house (1.75 METs): YES Do light work around the house, such as dusting or washing dishes (2.70 METs): YES Take care of self; that is eating, dressing, bathing, using the toilet (2.75 METs): YES Walk a block or two on level ground (2.75 METs): YES Do moderate work around the house such as vacuuming, sweeping floors, or carrying in groceries (3.50 METs): YES Do yardwork, such as raking leaves, weeding,or pushing a power mower (4.50 METs): limited due to chronic back pain Climb a flight of stairs or walk up a hill (5.50 METs): YES Participate in moderate recreational activities, such as golf, bowling, dancing, doubles tennis, or throwing a baseball or football (6.00 METs): unable due to chronic back pain Participate in strenuous sport, such as swimming, singles tennis, football, basketball, or skiing (7.50 METs): unable to due to chronic back pain Do heavy work around the house, such as scrubbing floors, lifting or moving heavy furniture (8.00 METs): limited due to chronic back pain Run a short distance (8.00 METs): unable due to chronic back pain Patient denies any chest pain or undue shortness of breath with the above physical activity. REVIEW OF SYSTEMS GENERAL: No weight loss, malaise or fevers RESPIRATORY: Negative for cough, hemoptysis, wheezing, COPD, dyspnea or shortness of breath CARDIOVASCULAR: Negative for chest pain, leg swelling, hypertension, CHF or palpitations SKIN: Negative for lesions, rash, and itching PAST MEDICAL HISTORY Diagnosis Date Abdominal pain, epigastric Arthritis Chronic lower back pain Has had epidural injections Chronic rhinitis DDD (degenerative disc disease), lumbar Dr. Nam Eczema Erectile dysfunction Esophageal reflux External hemorrhoids Hypogonadism in male Osteoarthritis generalized, Dr. Toirbio Other and unspecified hyperlipidemia PMH - PAST MEDICAL HISTORY OF gall bladder malfunction Prediabetes Trigger middle finger of right hand 02/2020 Varicose veins of right lower extremity Dr. Suazo PAST SURGICAL HISTORY Procedure Laterality Date ABDOMINAL SURGERY HX APPENDECTOMY APPENDECTOMY HX ARTHROSCOPY KNEE DIAGNOSTIC W/WO SYNOVIAL BX SPX 05/19/2004 Arthroscopy, knee right x2 CATARACT EXTRACTION HX Bilateral 01/2016 COLONOSCOPY 09/24/2021 repeat in 10 years COLONOSCOPY FLX DX W/COLLJ SPEC WHEN PFRMD 09/08/2001 Colonoscopy COLONOSCOPY FLX DX W/COLLJ SPEC WHEN PFRMD 08/19/2011 Colonoscopy EGD TRANSORAL BIOPSY SINGLE/MULTIPLE 09/08/2007 EYE SURGERY HX HERNIA REPAIR HX LAPS SURG CHOLECYSTECTOMY W/CHOLANGIOGRAPHY 01/11/2008 OPEN REPAIR OF ROTATOR CUFF ACUTE Right 08/21/2012 Rotator cuff repair - right - bone spur and torn bicep tendon - Dr Denis PAST SURGICAL HISTORY OF Sinus surgery December 2006. PAST SURGICAL HISTORY OF Left quadriceps repair PAST SURGICAL HISTORY OF Bilateral 10/2015 sinuplasty PAST SURGICAL HISTORY OF Right 06/2019 laser surgery for varicose veins TONSILLECTOMY HX TONSILLECTOMY PRIMARY/SECONDARY <AGE 12 VASCULAR SURGERY PROCEDURE ALLERGIES Ibuprofen, Grass Pollen, and Feldene [Piroxicam] MEDICATIONS atorvastatin (LIPITOR) 10 mg tablet Take 1 tablet by mouth once daily. diclofenac (VOLTAREN) 1 % topical gel Apply moderate amount to painful areas on hands (2g) & knees (4g) up to three times daily as needed. Don't exceed a total of 32g daily. gabapentin (NEURONTIN) 100 mg capsule Take 100 mg by mouth three times a day. omeprazole (PRILOSEC) 40 mg capsule Take 40 mg by mouth once daily. celecoxib (CELEBREX) 200 mg capsule Take 1 capsule by mouth once daily as needed for pain. hydrocortisone (ANUSOL-HC) 2.5 % rectal cream 1 application by RECTAL route twice daily as needed. turmeric/turmeric ext/pepr ext (TURMERIC-TURMERIC EXT-PEPPER) 500-3 mg cap Take 1 capsule by mouth twice daily. Acetaminophen 500 mg cap Take 1,000 mg by mouth once daily. fexofenadine HCl (MUCINEX ALLERGY ORAL) Take by mouth. MULTIVITAMIN TAB Take one(1) tablet daily. FAMILY HISTORY Problem Relation Age of Onset Heart Mother Arthritis Mother Diabetes Mother other (PVD) Mother Alzheimer's Disease Father Prostate Cancer Father Diabetes Father other (Parkinsons Dz) Father other (Bladder Cancer) Father Diabetes Maternal Grandmother Heart Maternal Grandmother Stroke Paternal Grandmother Social History Tobacco Use Smoking status: Former Current packs/day: 0.00 Average packs/day: 1 pack/day for 17.0 years (17.0 ttl pk-yrs) Types: Cigarettes Start date: 08/15/1969 Quit date: 08/15/1986 Years since quittin.2 Smokeless tobacco: Never Tobacco comments: Quit 1986.No one in the household smokes. Vaping Use Vaping status: Never Used Substance Use Topics Alcohol use: Yes Alcohol/week: 14.0 standard drinks of alcohol Types: 14 Standard drinks or equivalent per week Comment: daily - max 2 per day Drug use: No BP 132/80 Pulse 70 Resp 16 Wt 91.3 kg (201 lb 3.2 oz) SpO2 96% BMI 32.57 kg/m PHYSICAL EXAMINATION: General appearance: Well appearing, alert, in no acute distress, well-hydrated, well nourished. Skin: Skin color, texture, turgor normal, no suspicious rashes or lesions Eyes: Anicteric sclera. Oropharynx: Lips, mucosa, and tongue normal, teeth and gums normal, oropharynx normal Neck: Supple, no adenopathy Lungs: Lungs clear to auscultation. No wheezing, rhonchi, rales. Heart: RRR without murmur, gallop, or rubs. No ectopy ASSESSMENT/PLAN: 1. Preop examination - ICD9: V72.84, ICD10: Z01.818 (primary diagnosis) - will need further cardiac testing due to abnormal EKG during preop testing, if normal can clear for surgery 2. Abnormal EKG - ICD9: 794.31, ICD10: R94.31 - patient unable to run on treadmill due to chronic back pain - STRESS ECHO DOBUTAMINE - PERFLUTREN LIPID MICROSPHERES 1.1 MG/ML INJECTION IN NS 10 ML - DOBUTAMINE 250 MG/D5W 250 ML INFUSION CARDIAC STRESS TEST - SODIUM CHLORIDE 0.9 % (FLUSH) INJECTION SYRINGE 3. Systolic murmur - ICD9: 785.2, ICD10: R01.1 - overdue for repeat ECHO - STRESS ECHO DOBUTAMINE Briana Harris APRN.CNP Prescription instructions reviewed with patient as applicable. Patient advised if symptoms do not improve or if symptoms worsen sooner, to contact their primary care physician. Potential red flag symptoms discussed with the patient. Reviewed appropriate action plan to take if red flag symptoms occur. Patient agreeable to treatment plan. I spent a total of 30 minutes on the date of the service which included preparing to see the patient, [id number] patient care, completing clinical documentation, obtaining and/or reviewing separately obtained history, performing a medically appropriate examination, counseling and educating the patient/family/caregiver, ordering medications, tests, or procedures, and communicating with other HCPs (not separately reported). documented in this encounter [facility] 11-14-2024 Note HNO ID: [id number] Author: BRIANA HARRIS APRN.CNP Service: ? Author Type: Nurse Practitioner Type: Progress Notes Filed: 12/05/2024 15:10 Note Text: CC: Patient presents with: Pre-Op Exam: Left shoulder 12/12 [facility] Frank Mckeon is a 73 year old male who presents today for pre-op evaluation. Surgical Procedure: left shoulder arthroscopic rotator cuff repair, distal clavicle excision, subacromial decompression, mini open bicep tenodesis Date of Procedure: 12/12/2024 Surgeon: Dr. Broderick LLOYD date: completed on 11/12/2024 Leaving on cruise today and will be gone for three weeks Diabetes No Hypertension requiring medication No Congestive Heart Failure No Current Smoker within 1 Year No COPD/asthma No PEG No Dialysis No Acute renal failure No Steroid use for chronic condition No Disseminated cancer No Patient's with estimated risk of 1 percent or higher may need additional cardiac testing unless METS > or = to 4 METS: Walk indoors, such as around the house (1.75 METs): YES Do light work around the house, such as dusting or washing dishes (2.70 METs): YES Take care of self; that is eating, dressing, bathing, using the toilet (2.75 METs): YES Walk a block or two on level ground (2.75 METs): YES Do moderate work around the house such as vacuuming, sweeping floors, or carrying in groceries (3.50 METs): YES Do yardwork, such as raking leaves, weeding,or pushing a power mower (4.50 METs): limited due to chronic back pain Climb a flight of stairs or walk up a hill (5.50 METs): YES Participate in moderate recreational activities, such as golf, bowling, dancing, doubles tennis, or throwing a baseball or football (6.00 METs): unable due to chronic back pain Participate in strenuous sport, such as swimming, singles tennis, football, basketball, or skiing (7.50 METs): unable to due to chronic back pain Do heavy work around the house, such as scrubbing floors, lifting or moving heavy furniture (8.00 METs): limited due to chronic back pain Run a short distance (8.00 METs): unable due to chronic back pain Patient denies any chest pain or undue shortness of breath with the above physical activity. REVIEW OF SYSTEMS GENERAL: No weight loss, malaise or fevers RESPIRATORY: Negative for cough, hemoptysis, wheezing, COPD, dyspnea or shortness of breath CARDIOVASCULAR: Negative for chest pain, leg swelling, hypertension, CHF or palpitations SKIN: Negative for lesions, rash, and itching PAST MEDICAL HISTORY Diagnosis Date Abdominal pain, epigastric Arthritis Chronic lower back pain Has had epidural injections Chronic rhinitis DDD (degenerative disc disease), lumbar Dr. Nam Eczema Erectile dysfunction Esophageal reflux External hemorrhoids Hypogonadism in male Osteoarthritis generalized, Dr. Toribio Other and unspecified hyperlipidemia PMH - PAST MEDICAL HISTORY OF gall bladder malfunction Prediabetes Trigger middle finger of right hand 02/2020 Varicose veins of right lower extremity Dr. Suazo PAST SURGICAL HISTORY Procedure Laterality Date ABDOMINAL SURGERY HX APPENDECTOMY APPENDECTOMY HX ARTHROSCOPY KNEE DIAGNOSTIC W/WO SYNOVIAL BX SPX 05/19/2004 Arthroscopy, knee right x2 CATARACT EXTRACTION HX Bilateral 01/2016 COLONOSCOPY 09/24/2021 repeat in 10 years COLONOSCOPY FLX DX W/COLLJ SPEC WHEN PFRMD 09/08/2001 Colonoscopy COLONOSCOPY FLX DX W/COLLJ SPEC WHEN PFRMD 08/19/2011 Colonoscopy EGD TRANSORAL BIOPSY SINGLE/MULTIPLE 09/08/2007 EYE SURGERY HX HERNIA REPAIR HX LAPS SURG CHOLECYSTECTOMY W/CHOLANGIOGRAPHY 01/11/2008 OPEN REPAIR OF ROTATOR CUFF ACUTE Right 08/21/2012 Rotator cuff repair - right - bone spur and torn bicep tendon - Dr Denis PAST SURGICAL HISTORY OF Sinus surgery December 2006. PAST SURGICAL HISTORY OF Left quadriceps repair PAST SURGICAL HISTORY OF Bilateral 10/2015 sinuplasty PAST SURGICAL HISTORY OF Right 06/2019 laser surgery for varicose veins TONSILLECTOMY HX TONSILLECTOMY PRIMARY/SECONDARY VASCULAR SURGERY PROCEDURE ALLERGIES Ibuprofen, Grass Pollen, and Feldene [Piroxicam] MEDICATIONS atorvastatin (LIPITOR) 10 mg tablet Take 1 tablet by mouth once daily. diclofenac (VOLTAREN) 1 % topical gel Apply moderate amount to painful areas on hands (2g) AND knees (4g) up to three times daily as needed. Don't exceed a total of 32g daily. gabapentin (NEURONTIN) 100 mg capsule Take 100 mg by mouth three times a day. omeprazole (PRILOSEC) 40 mg capsule Take 40 mg by mouth once daily. celecoxib (CELEBREX) 200 mg capsule Take 1 capsule by mouth once daily as needed for pain. hydrocortisone (ANUSOL-HC) 2.5 % rectal cream 1 application by RECTAL route twice daily as needed. turmeric/turmeric ext/pepr ext (TURMERIC-TURMERIC EXT-PEPPER) 500-3 mg cap Take 1 capsule by mouth twice daily. Acetaminophen 500 mg cap Take 1,000 mg by mouth once daily. fexofenad (more content not included)... [facility] 10-03-2024 Telephone encounter Note Pt returned call and given provider's message below with verbalized understanding. Pt agreeable. [facility] 10-03-2024 Miscellaneous Notes Pt returned call and given provider's message below with verbalized understanding. Pt agreeable. documented in this encounter [facility] 10-01-2024 Telephone encounter Note Prescription Refill Information The patient has been identified by name and date of : Yes Caregiver verified no other encounters exist for this prescription request: Yes Caregiver confirmed with patient/requestor that no other refills are due, in the near future, with this provider at this time: Yes The last office visit in the department: 03/26/24 Does the patient have a future office visit with this provider/department: Yes 11/12/24 Requested Prescriptions Pending Prescriptions Disp Refills atorvastatin (LIPITOR) 10 mg tablet 90 tablet 1 Sig: Take 1 tablet by mouth once daily. Monique Wilcox LPN October 01, 2024 2:07 PM [facility] 10-01-2024 Miscellaneous Notes Prescription Refill Information The patient has been identified by name and date of : Yes Caregiver verified no other encounters exist for this prescription request: Yes Caregiver confirmed with patient/requestor that no other refills are due, in the near future, with this provider at this time: Yes The last office visit in the department: 03/26/24 Does the patient have a future office visit with this provider/department: Yes 11/12/24 Requested Prescriptions Pending Prescriptions Disp Refills atorvastatin (LIPITOR) 10 mg tablet 90 tablet 1 Sig: Take 1 tablet by mouth once daily. Monique Wilcox LPN October 01, 2024 2:07 PM documented in this encounter [facility] 09-17-2024 Telephone encounter Note Do you want pt to have blood work done before office visit? Wilma Escoto MA [facility] 09-17-2024 Miscellaneous Notes Do you want pt to have blood work done before office visit? Wilma Escoto MA documented in this encounter [facility] 04-26-2024 Telephone encounter Note Prescription Refill Information The patient has been identified by name and date of : Yes Caregiver verified no other encounters exist for this prescription request: Yes Caregiver confirmed with patient/requestor that no other refills are due, in the near future, with this provider at this time: Yes The last office visit in the department: 03/26/24 Does the patient have a future office visit with this provider/department: Yes Requested Prescriptions Pending Prescriptions Disp Refills atorvastatin (LIPITOR) 10 mg tablet 90 tablet 1 Sig: Take 1 tablet by mouth once daily. Ximena Neely April 26, 2024 11:53 AM [facility] 04-26-2024 Miscellaneous Notes Prescription Refill Information The patient has been identified by name and date of : Yes Caregiver verified no other encounters exist for this prescription request: Yes Caregiver confirmed with patient/requestor that no other refills are due, in the near future, with this provider at this time: Yes The last office visit in the department: 03/26/24 Does the patient have a future office visit with this provider/department: Yes Requested Prescriptions Pending Prescriptions Disp Refills atorvastatin (LIPITOR) 10 mg tablet 90 tablet 1 Sig: Take 1 tablet by mouth once daily. Ximena Neely April 26, 2024 11:53 AM documented in this encounter [facility] 03-26-2024 History of Presen t illness Narrative 03/20/2024 Patient presents with: F/U 6 months SUBJECTIVE: This is a 73 year old that is here today for Above Complaints. Since last office appointment has been in good health without ER visits or hospitalizations. HYPERLIPIDEMIA: Patient is taking medications: Yes. Patient is watching diet: reports he eats out a lot . Patient denies myalgias: Yes. Patient denies gi upset: Yes OA: Celebrex daily for OA in knees. Uses Voltaren on knees daily. Is following with ortho and they are ordering his Celebrex GERD: taking Omeprazole as prescribed. Works well to control his coughing Prediabetes: reports he outs a lot. Denies visual changes, polyuri or polydipsia Seeing Dr. Nam, pain management, for back pain. Has been epidural injections. Taking Gabapentin as prescribed without side effects PAST MEDICAL HISTORY No date: Abdominal pain, epigastric No date: Arthritis No date: Chronic lower back pain Comment: Has had epidural injections No date: Chronic rhinitis No date: DDD (degenerative disc disease), lumbar Comment: Dr. Nam No date: Eczema No date: Erectile dysfunction No date: Esophageal reflux No date: External hemorrhoids No date: Hypogonadism in male No date: Osteoarthritis Comment: generalized, Dr. Toribio No date: Other and unspecified hyperlipidemia No date: PMH - PAST MEDICAL HISTORY OF Comment: gall bladder malfunction No date: Prediabetes 02/2020: Trigger middle finger of right hand No date: Varicose veins of right lower extremity Comment: Dr. Suazo ALLERGIES Ibuprofen, Grass Pollen, and Feldene [Piroxicam] MEDICATIONS Current Outpatient Medications Medication Sig diclofenac (VOLTAREN) 1 % topical gel Apply moderate amount to painful areas on hands (2g) & knees (4g) up to three times daily as needed. Don't exceed a total of 32g daily. atorvastatin (LIPITOR) 10 mg tablet Take 1 tablet by mouth once daily. gabapentin (NEURONTIN) 100 mg capsule Take 100 mg by mouth three times a day. omeprazole (PRILOSEC) 40 mg capsule Take 40 mg by mouth once daily. celecoxib (CELEBREX) 200 mg capsule Take 1 capsule by mouth once daily as needed for pain. hydrocortisone (ANUSOL-HC) 2.5 % rectal cream 1 application by RECTAL route twice daily as needed. turmeric/turmeric ext/pepr ext (TURMERIC-TURMERIC EXT-PEPPER) 500-3 mg cap Take 1 capsule by mouth twice daily. Acetaminophen 500 mg cap Take 1,000 mg by mouth once daily. fexofenadine HCl (MUCINEX ALLERGY ORAL) Take by mouth. MULTIVITAMIN TAB Take one(1) tablet daily. No current facility-administered medications for this visit. Medications and allergies reviewed by this provider. SOCIAL HISTORY Social History Tobacco Use Smoking status: Former Packs/day: 1.00 Years: 17.00 Additional pack years: 0.00 Total pack years: 17.00 Types: Cigarettes Quit date: 08/15/1986 Years since quittin.6 Smokeless tobacco: Never Tobacco comments: Quit 1986.No one in the household smokes. Vaping Use Vaping Use: Never used Substance Use Topics Alcohol use: Yes Alcohol/week: 14.0 standard drinks of alcohol Types: 14 Standard drinks or equivalent per week Comment: daily - max 2 per day Drug use: No REVIEW OF SYSTEMS All other reviewed and negative other than HPI. OBJECTIVE: BP 134/82 Pulse 64 Resp 18 Wt 90.9 kg (200 lb 6.4 oz) SpO2 96% BMI 32.44 kg/m . Vital signs reviewed by this provider. APPEARANCE Well appearing, alert, in no acute distress, well-hydrated, well nourished. EYES conjunctiva and sclera normal. HEART RRR with normal S1 and S2, no murmurs, no gallops, no JVD appreciated LUNG clear to auscultation. No wheezes, rhonchi or rales EXTREMITIES Extremities normal, No deformities, No skin discoloration. Mild edema to RLE. LLE WNL SKIN Skin color, texture, turgor normal, no suspicious rashes or lesions to exposed skin Latest Ref Rng 03/21/2024 Protein, Total 6.3 - 8.0 g/dL 6.8 Albumin 3.9 - 4.9 g/dL 4.3 Calcium 8.5 - 10.2 mg/dL 9.9 Bilirubin, Total 0.2 - 1.3 mg/dL 0.6 Alkaline Phosphatase 38 - 113 U/L 59 AST 14 - 40 U/L 20 ALT 10 - 54 U/L 18 Glucose 74 - 99 mg/dL 135 (H) BUN 9 - 24 mg/dL 16 Creatinine 0.73 - 1.22 mg/dL 1.05 Sodium 136 - 144 mmol/L 139 Potassium 3.7 - 5.1 mmol/L 4.4 Chloride 98 - 107 mmol/L 105 CO2 22 - 30 mmol/L 23 Anion Gap 8 - 15 mmol/L 11 eGFR >=60 mL/min/1.73m 75 Hemoglobin A1C 4.3 - 5.6 % 5.3 Estimated Average Glucose mg/dL 105 Latest Ref Rng 09/21/2023 WBC 3.70 - 11.00 k/uL 6.97 RBC 4.20 - 6.00 m/uL 5.06 Hemoglobin 13.0 - 17.0 g/dL 15.3 Hematocrit 39.0 - 51.0 % 45.8 MCV 80.0 - 100.0 fL 90.5 MCH 26.0 - 34.0 pg 30.2 MCHC 30.5 - 36.0 g/dL 33.4 RDW-CV 11.5 - 15.0 % 12.6 Platelet Count 150 - 400 k/uL 258 MPV 9.0 - 12.7 fL 9.5 Neut% % 54.5 Abs Neut (ANC) 1.45 - 7.50 k/uL 3.80 Lymph% % 28.1 Abs Lymph 1.00 - 4.00 k/uL 1.96 [place]% % 8.6 Abs [place] <0.87 k/uL 0.60 Eosin% % 6.9 Abs Eosin <0.46 k/uL 0.48 (H) Baso% % 1.3 Abs Baso <0.11 k/uL 0.09 Immature Gran % % 0.6 IMMATURE GRANS (ABS) <0.10 k/uL 0.04 NRBC /100 WBC 0.0 Absolute nRBC <0.01 k/uL <0.01 DTYPE Auto Latest Ref Rng 09/21/2023 Cholesterol, Total <200 mg/dL 182 Triglyceride <150 mg/dL 86 HDL Cholesterol >39 mg/dL 48 Non HDL Cholesterol <130 mg/dL 134 (H) Fasting Time hrs 12 VLDL Cholesterol <30 mg/dL 17 TC:HDL Ratio <5.10 3.79 LDL Cholesterol <100 mg/dL 117 (H) LDL:HDL Ratio <2.54 2.44 Depression Screening Never done Anxiety Screening Never done DTaP,Tdap,Td Vaccine(2 - Td or Tdap) due on 01/17/2019 Advance Directive Discussion due on 08/15/2023 Covid-19 Vaccine(2022- season) due on 09/08/2023 Influenza Vaccine(1) due on 04/15/2024 Diabetes Screening due on 03/21/2027 Lipid Screening due on 09/21/2028 Colorectal Cancer Screening due on 09/24/2031 Abdominal Aortic Aneurysm Screening Completed RSV Vaccine Completed Hepatitis C Screening Completed Shingrix Vaccine Completed Pneumococcal Vaccine: 65+ Completed ASSESSMENT/PLAN: 1. Other hyperlipidemia - ICD9: 272.4, ICD10: E78.49 (primary diagnosis) - stable on current regime - recommend low saturated fat diet and at least 150 minutes of exercise per week 2. Prediabetes - ICD9: 790.29, ICD10: R73.03 -stable - recommend low saturated fat diet and at least 150 minutes of exercise per week 3. Primary osteoarthritis of both knees - ICD9: 715.16, ICD10: M17.0 - DICLOFENAC 1 % TOPICAL GEL 4. Screening for depression - ICD9: V79.0, ICD10: Z13.31 - DEPRESSION SCREENING 5. Encounter for screening examination for other mental health and behavioral disorders - ICD9: V79.8, ICD10: Z13.39 - ANXIETY SCREENING 6. DDD (degenerative disc disease), lumbar - ICD9: 722.52, ICD10: M51.36 - continue to follow with pain management 7. Obesity, Class I, BMI 30-34.9 - ICD9: 278.00, ICD10: E66.9 - Lengthy discussion in office today regarding diet and exercise. Discussed use of small plate to eat meals from, drink 1 glass of water 10-15 minutes prior to eating meal, drink 8 glasses of water daily, eat fresh fruit and vegetable during meal first then lean protein such as grilled/baked chicken breast or fish, limit carbohydrate intake (less pasta, breads, rice and snack foods) as well as limiting sugars (desserts etc). Important to count / track your calories and exercise as well. Briana Harris APRN.CNP Prescription instructions reviewed with patient as applicable. Patient advised if symptoms do not improve or if symptoms worsen sooner, to contact their primary care physician. Potential red flag symptoms discussed with the patient. Reviewed appropriate action plan to take if red flag symptoms occur. Patient agreeable to treatment plan. Medical Decision Making: Problems: Moderate: 2+ stable chronic illnesses Risk: Moderate: Drug management Medical Decision Making Level: 4 - Moderate documented in this encounter [facility] 03-26-2024 Note HNO ID: [id number] Author: BRIANA HARRIS APRN.CNP Service: ? Author Type: Nurse Practitioner Type: Progress Notes Filed: 03/26/2024 09:17 Note Text: 03/20/2024 Patient presents with: F/U 6 months SUBJECTIVE: This is a 73 year old that is here today for Above Complaints. Since last office appointment has been in good health without ER visits or hospitalizations. HYPERLIPIDEMIA: Patient is taking medications: Yes. Patient is watching diet: reports he eats out a lot . Patient denies myalgias: Yes. Patient denies gi upset: Yes OA: Celebrex daily for OA in knees. Uses Voltaren on knees daily. Is following with ortho and they are ordering his Celebrex GERD: taking Omeprazole as prescribed. Works well to control his coughing Prediabetes: reports he outs a lot. Denies visual changes, polyuri or polydipsia Seeing Dr. Nam, pain management, for back pain. Has been epidural injections. Taking Gabapentin as prescribed without side effects PAST MEDICAL HISTORY No date: Abdominal pain, epigastric No date: Arthritis No date: Chronic lower back pain Comment: Has had epidural injections No date: Chronic rhinitis No date: DDD (degenerative disc disease), lumbar Comment: Dr. Nam No date: Eczema No date: Erectile dysfunction No date: Esophageal reflux No date: External hemorrhoids No date: Hypogonadism in male No date: Osteoarthritis Comment: generalized, Dr. Toribio No date: Other and unspecified hyperlipidemia No date: PMH - PAST MEDICAL HISTORY OF Comment: gall bladder malfunction No date: Prediabetes 02/2020: Trigger middle finger of right hand No date: Varicose veins of right lower extremity Comment: Dr. Suazo ALLERGIES Ibuprofen, Grass Pollen, and Feldene [Piroxicam] MEDICATIONS Current Outpatient Medications Medication Sig diclofenac (VOLTAREN) 1 % topical gel Apply moderate amount to painful areas on hands (2g) AND knees (4g) up to three times daily as needed. Don't exceed a total of 32g daily. atorvastatin (LIPITOR) 10 mg tablet Take 1 tablet by mouth once daily. gabapentin (NEURONTIN) 100 mg capsule Take 100 mg by mouth three times a day. omeprazole (PRILOSEC) 40 mg capsule Take 40 mg by mouth once daily. celecoxib (CELEBREX) 200 mg capsule Take 1 capsule by mouth once daily as needed for pain. hydrocortisone (ANUSOL-HC) 2.5 % rectal cream 1 application by RECTAL route twice daily as needed. turmeric/turmeric ext/pepr ext (TURMERIC-TURMERIC EXT-PEPPER) 500-3 mg cap Take 1 capsule by mouth twice daily. Acetaminophen 500 mg cap Take 1,000 mg by mouth once daily. fexofenadine HCl (MUCINEX ALLERGY ORAL) Take by mouth. MULTIVITAMIN TAB Take one(1) tablet daily. No current facility-administered medications for this visit. Medications and allergies reviewed by this provider. SOCIAL HISTORY Social History Tobacco Use Smoking status: Former Packs/day: 1.00 Years: 17.00 Additional pack years: 0.00 Total pack years: 17.00 Types: Cigarettes Quit date: 08/15/1986 Years since quittin.6 Smokeless tobacco: Never Tobacco comments: Quit 1986.No one in the household smokes. Vaping Use Vaping Use: Never used Substance Use Topics Alcohol use: Yes Alcohol/week: 14.0 standard drinks of alcohol Types: 14 Standard drinks or equivalent per week Comment: daily - max 2 per day Drug use: No REVIEW OF SYSTEMS All other reviewed and negative other than HPI. OBJECTIVE: BP 134/82 Pulse 64 Resp 18 Wt 90.9 kg (200 lb 6.4 oz) SpO2 96% BMI 32.44 kg/m? . Vital signs reviewed by this provider. APPEARANCE Well appearing, alert, in no acute distress, well-hydrated, well nourished. EYES conjunctiva and sclera normal. HEART RRR with normal S1 and S2, no murmurs, no gallops, no JVD appreciated LUNG clear to auscultation. No wheezes, rhonchi or rales EXTREMITIES Extremities normal, No deformities, No skin discoloration. Mild edema to RLE. LLE WNL SKIN Skin color, texture, turgor normal, no suspicious rashes or lesions to exposed skin Latest Ref Rng 03/21/2024 Protein, Total 6.3 - 8.0 g/dL 6.8 Albumin 3.9 - 4.9 g/dL 4.3 Calcium 8.5 - 10.2 mg/dL 9.9 Bilirubin, Total 0.2 - 1.3 mg/dL 0.6 Alkaline Phosphatase 38 - 113 U/L 59 AST 14 - 40 U/L 20 ALT 10 - 54 U/L 18 Glucose 74 - 99 mg/dL 135 (H) BUN 9 - 24 mg/dL 16 Creatinine 0.73 - 1.22 mg/dL 1.05 Sodium 136 - 144 mmol/L 139 Potassium 3.7 - 5.1 mmol/L 4.4 Chloride 98 - 107 mmol/L 105 CO2 22 - 30 mmol/L 23 Anion Gap 8 - 15 mmol/L 11 eGFR >=60 mL/min/1.73m? 75 Hemoglobin A1C 4.3 - 5.6 % 5.3 Estimated Average Glucose mg/dL 105 Latest Ref Rng 09/21/2023 WBC 3.70 - 11.00 k/uL 6.97 RBC 4.20 - 6.00 m/uL 5.06 Hemoglobin 13.0 - 17.0 g/dL 15.3 Hematocrit 39.0 - 51.0 % 45.8 MCV 80.0 - 100.0 fL 90.5 MCH 26.0 - 34.0 pg 30.2 MCHC 30.5 - 36.0 g/dL 33.4 RDW-CV 11.5 - 15.0 % 12.6 Platelet Count 150 - 400 k/uL 258 MPV 9.0 - 12.7 fL 9.5 Neut% % 54.5 Abs Neut (A (more content not included)... [facility] 03-12-2024 Telephone encounter Note Pt notified via [employer] of PCP's response below. Kay Cox MA [facility] 03-12-2024 Miscellaneous Notes Pt notified via [employer] of PCP's response below. Kay Cox MA Non fasting labs ordered to be completed at least 24 hours prior to OV. See mychart message. Wilma Escoto MA documented in this encounter [facility] 03-12-2024 Telephone encounter Note Non fasting labs ordered to be completed at least 24 hours prior to OV. [facility] 03-08-2024 Telephone encounter Note Patient MyChart message requesting the following refill Refill(s) Requested: Requested Prescriptions Pending Prescriptions Disp Refills diclofenac (VOLTAREN) 1 % topical gel 300 g 0 Sig: Apply moderate amount to painful areas on hands (2g) & knees (4g) up to three times daily as needed. Don't exceed a total of 32g daily. ALLERGIES Allergen Reactions Ibuprofen Rash lips swell and rash all over body Grass Pollen Other: See Comments Allergy symptoms Feldene [Piroxicam] GI Upset (home) [phone] (cell) Last Office Visit Date: 09/26/2023 Last Distance Health Visit: Visit date not found Future Appointment: 03/26/2024 The patients preferred pharmacy has been captured for this encounter? yes Request is for script(s) to be escript to pharmacy. Roberta Issa LPN [facility] 03-08-2024 Miscellaneous Notes Patient MyChart message requesting the following refill Refill(s) Requested: Requested Prescriptions Pending Prescriptions Disp Refills diclofenac (VOLTAREN) 1 % topical gel 300 g 0 Sig: Apply moderate amount to painful areas on hands (2g) & knees (4g) up to three times daily as needed. Don't exceed a total of 32g daily. ALLERGIES Allergen Reactions Ibuprofen Rash lips swell and rash all over body Grass Pollen Other: See Comments Allergy symptoms Feldene [Piroxicam] GI Upset (home) [phone] (cell) Last Office Visit Date: 09/26/2023 Last Distance Health Visit: Visit date not found Future Appointment: 03/26/2024 The patients preferred pharmacy has been captured for this encounter? yes Request is for script(s) to be escript to pharmacy. Roberta Issa LPN documented in this encounter [facility] 03-08-2024 Telephone encounter Note See mychart message. Wilma Escoto MA [facility] 01-13-2024 Telephone encounter Note ARYAN: 09/26/23-CPE with [facility] NOV: 03/26/24-6 month F/U with [facility] Last refill: 11/07/23 With 300 G and 0 refills Suki Meraz MA [facility] 01-13-2024 Miscellaneous Notes ARYAN: 09/26/23-CPE with [facility] NOV: 03/26/24-6 month F/U with [facility] Last refill: 11/07/23 With 300 G and 0 refills Suki Meraz MA documented in this encounter [facility] 11-07-2023 Miscellaneous Notes Patient has been identified by name and date of : Yes Patient phones for refill(s): Requested Prescriptions Pending Prescriptions Disp Refills atorvastatin (LIPITOR) 10 mg tablet 90 tablet 1 Sig: Take 1 tablet by mouth once daily. Date of last office visit in primary care: 09/26/2023 Date of next office visit in primary care: 03/26/2024 Please advise. Thank you. Alonso Weber LPN. documented in this encounter [facility] 11-07-2023 Miscellaneous Notes Patient has been identified by name and date of : Yes Patient phones for refill(s): Requested Prescriptions Pending Prescriptions Disp Refills diclofenac (VOLTAREN) 1 % topical gel 300 g 0 Sig: Apply moderate amount to painful areas on hands (2g) & knees (4g) up to three times daily as needed. Don't exceed a total of 32g daily. Date of last office visit in primary care: 09/26/2023 Date of next office visit in primary care: 11/06/2023 Please advise. Thank you. Obdulia Murphy LPN. documented in this encounter [facility] 09-26-2023 History of Presen t illness Narrative 09/26/2023 Patient presents with: Physical SUBJECTIVE: This is a 72 year old that is here today for Above Complaints. Since last office appointment has been in good health without ER visits or hospitalizations. Prediabetes: tires to maintain diet and stays active. Denies visual changes, polyuri or polydipsia HYPERLIPIDEMIA: Patient is taking medications: Yes. Patient is watching diet: Yes. Patient denies myalgias: Yes. Patient denies gi upset: Yes OA: takes Celebrex daily for OA in knees. Uses Voltaren on knees daily. Is following with ortho and they are ordering his Celebrex Starting seeing Dr. Nam again due to right leg pain. Dr. Nam had hi see spine due to pain related to back. Patient unhappy with the doctor he saw and would like referral to different spine doctor for second opinion. Patient reports will be having injection by Dr. Nam PAST MEDICAL HISTORY Diagnosis Date Abdominal pain, epigastric Arthritis Chronic lower back pain Has had epidural injections Chronic rhinitis DDD (degenerative disc disease), lumbar Dr. Nam Eczema Erectile dysfunction Esophageal reflux External hemorrhoids Hypogonadism in male Osteoarthritis generalized, Dr. Toribio Other and unspecified hyperlipidemia PMH - PAST MEDICAL HISTORY OF gall bladder malfunction Prediabetes Trigger middle finger of right hand 02/2020 Varicose veins of right lower extremity Dr. Suazo ALLERGIES Environmental [Other], Feldene [Piroxicam], and Ibuprofen MEDICATIONS Current Outpatient Medications Medication Sig diclofenac (VOLTAREN) 1 % topical gel Apply moderate amount to painful areas on hands (2g) & knees (4g) up to three times daily as needed. Don't exceed a total of 32g daily. gabapentin (NEURONTIN) 100 mg capsule Take 100 mg by mouth three times a day. atorvastatin (LIPITOR) 10 mg tablet Take 1 tablet by mouth once daily. benzonatate (TESSALON PERLES) 100 mg capsule Take 1 capsule by mouth three times daily as needed for cough. (Patient not taking: Reported on 05/25/2023) omeprazole (PRILOSEC) 40 mg capsule Take 40 mg by mouth once daily. celecoxib (CELEBREX) 200 mg capsule Take 1 capsule by mouth once daily as needed for pain. hydrocortisone (ANUSOL-HC) 2.5 % rectal cream 1 application by RECTAL route twice daily as needed. turmeric/turmeric ext/pepr ext (TURMERIC-TURMERIC EXT-PEPPER) 500-3 mg cap Take 1 capsule by mouth twice daily. Acetaminophen 500 mg cap Take 1,000 mg by mouth once daily. fexofenadine HCl (MUCINEX ALLERGY ORAL) Take by mouth. MULTIVITAMIN TAB Take one(1) tablet daily. No current facility-administered medications for this visit. Medications and allergies reviewed by this provider. SOCIAL HISTORY Social History Tobacco Use Smoking status: Former Packs/day: 1.00 Years: 17.00 Additional pack years: 0.00 Total pack years: 17.00 Types: Cigarettes Quit date: 08/15/1986 Years since quittin.1 Smokeless tobacco: Never Tobacco comments: Quit 1986.No one in the household smokes. Vaping Use Vaping Use: Never used Substance Use Topics Alcohol use: Yes Alcohol/week: 14.0 standard drinks of alcohol Types: 14 Standard drinks or equivalent per week Comment: daily - max 2 per day Drug use: No REVIEW OF SYSTEMS GENERAL: No weight loss, malaise or fevers HEENT: Negative for frequent or significant headaches, No changes in hearing or vision, no nose bleeds or other nasal problems NECK: Negative for lumps, goiter, pain and significant neck swelling RESPIRATORY: Negative for cough, hemoptysis, wheezing, COPD, dyspnea or shortness of breath CARDIOVASCULAR: Negative for chest pain, leg swelling, hypertension, CHF or palpitations GI: No nausea, vomiting, or diarrhea : No history of dysuria, frequency or incontinence MUSCULOSKELETAL: See HPI SKIN: Negative for lesions, rash, and itching PSYCH: Negative for sleep disturbance, mood disorder and recent psychosocial stressors HEMATOLOGY/LYMPHOLOGY: Negative for prolonged bleeding, bruising easily or swollen nodes ENDOCRINE: Negative for cold or heat intolerance, polyuria, polydipsia and goiter NEURO: No history of headaches, syncope, paralysis, seizures or tremors All other reviewed and negative other than HPI. OBJECTIVE: BP 136/82 Pulse 75 Resp 18 Ht 167.4 cm (5' 5.91) Wt 92.6 kg (204 lb 3.2 oz) SpO2 98% BMI 33.05 kg/m . Vital signs reviewed by this provider. APPEARANCE Well appearing, alert, in no acute distress, well-hydrated, well nourished. EYES conjunctiva and sclera normal. EARS External ears normal, canals clear NECK Supple, no adenopathy; thyroid symmetric, normal size, no bruits HEART RRR with normal S1 and S2, no murmurs, no gallops, no JVD appreciated LUNG clear to auscultation. No wheezes, rhonchi or rales EXTREMITIES Extremities normal, No deformities, No skin discoloration, and No edema SKIN Skin color, texture, turgor normal, no suspicious rashes or lesions to exposed skin Component Latest Ref Rng & Units 09/21/2023 WBC 3.70 - 11.00 k/uL 6.97 RBC 4.20 - 6.00 m/uL 5.06 Hemoglobin 13.0 - 17.0 g/dL 15.3 Hematocrit 39.0 - 51.0 % 45.8 MCV 80.0 - 100.0 fL 90.5 MCH 26.0 - 34.0 pg 30.2 MCHC 30.5 - 36.0 g/dL 33.4 RDW-CV 11.5 - 15.0 % 12.6 Platelet Count 150 - 400 k/uL 258 MPV 9.0 - 12.7 fL 9.5 Neut% % 54.5 Abs Neut (ANC) 1.45 - 7.50 k/uL 3.80 Lymph% % 28.1 Abs Lymph 1.00 - 4.00 k/uL 1.96 [place]% % 8.6 Abs [place] <0.87 k/uL 0.60 Eosin% % 6.9 Abs Eosin <0.46 k/uL 0.48 (H) Baso% % 1.3 Abs Baso <0.11 k/uL 0.09 Immature Gran % % 0.6 IMMATURE GRANS (ABS) <0.10 k/uL 0.04 NRBC /100 WBC 0.0 Absolute nRBC <0.01 k/uL <0.01 DTYPE Auto Protein, Total 6.3 - 8.0 g/dL 7.1 Albumin 3.9 - 4.9 g/dL 4.4 Calcium 8.5 - 10.2 mg/dL 9.8 Bilirubin, Total 0.2 - 1.3 mg/dL 0.7 Alkaline Phosphatase 38 - 113 U/L 73 AST 14 - 40 U/L 30 ALT 10 - 54 U/L 29 Glucose 74 - 99 mg/dL 125 (H) BUN 9 - 24 mg/dL 17 Creatinine 0.73 - 1.22 mg/dL 0.92 Sodium 136 - 144 mmol/L 141 Potassium 3.7 - 5.1 mmol/L 4.6 Chloride 97 - 105 mmol/L 105 CO2 22 - 30 mmol/L 25 Anion Gap 9 - 18 mmol/L 11 eGFR >=60 mL/min/1.73m 89 Cholesterol, Total <200 mg/dL 182 Triglyceride <150 mg/dL 86 HDL Cholesterol >39 mg/dL 48 Non HDL Cholesterol <130 mg/dL 134 (H) Fasting Time hrs 12 VLDL Cholesterol <30 mg/dL 17 TC:HDL Ratio <5.10 3.79 LDL Cholesterol <100 mg/dL 117 (H) LDL:HDL Ratio <2.54 2.44 Hemoglobin A1C 4.3 - 5.6 % 5.3 Estimated Average Glucose mg/dL 105 DTaP,Tdap,Td Vaccine(2 - Td or Tdap) due on 01/17/2019 Advance Directive Discussion due on 08/15/2023 Depression Assessment due on 08/15/2023 Diabetes Screening due on 09/21/2026 Lipid Screening due on 09/21/2028 Colorectal Cancer Screening due on 09/24/2031 Abdominal Aortic Aneurysm Screening Completed Influenza Vaccine Completed RSV Vaccine Completed Hepatitis C Screening Completed Shingrix Vaccine Completed Covid-19 Vaccine Completed Pneumococcal Vaccine: 65+ Completed ASSESSMENT/PLAN: 1. Annual physical exam - ICD9: V70.0, ICD10: Z00.00 (primary diagnosis) - Counseled on healthy diet and regular exercise - Discussed need for and benefit of weight loss. BMI 33.05 kg/(m^2) - Depression screening tool completed and reviewed with patient. Based on score and interview, patient is not at risk for depression and recommended no further intervention at this time. - Follow up for annual exam in one year 2. Bilateral carotid artery stenosis - ICD9: 433.10, 433.30, ICD10: I65.23 - [place] CAROTID ARTERIES [facility] 3. DDD (degenerative disc disease), lumbar - ICD9: 722.52, ICD10: M51.36 - continue to follow-up with pain management - [facility] 4. Primary osteoarthritis of both knees - ICD9: 715.16, ICD10: M17.0 - follow-up with [facility] as scheduled 5. Hyperlipidemia, unspecified hyperlipidemia type - ICD9: 272.4, ICD10: E78.5 - Worsening control - Continue current medications - Counseled on healthy diet and regular exercise - Discussed need for and benefit of weight loss. BMI 33.05 kg/(m^2) - Follow up in 6 months, sooner should any other issues arise. 6. Prediabetes - ICD9: 790.29, ICD10: R73.03 - stable - continue to aim for at least 150 minutes of exercise per week and low carbohydrate diet Briana Harris APRN.CNP Prescription instructions reviewed with patient as applicable. Patient advised if symptoms do not improve or if symptoms worsen sooner, to contact their primary care physician. Potential red flag symptoms discussed with the patient. Reviewed appropriate action plan to take if red flag symptoms occur. Patient agreeable to treatment plan. Medical Decision Making: Problems: Moderate: 2+ stable chronic illnesses and New problem with uncertain prognosis Risk: Moderate: Drug management and Moderate risk from testing/treatment Medical Decision Making Level: 4 - Moderate documented in this encounter [facility] 05-25-2023 History of Presen t illness Narrative Consultation requested by Dr. Marquis for an opinion regarding foot pain. My final recommendations will be communicated back to the requesting physician by way of shared Medical record or letter to requesting physician via US mail. Initial Podiatric Office Visit: Chief Complaint: This 72 year old male who presents with chief complaint:right foot and ankle pain HPI Patient presents to clinic for evaluation of his right foot Has pain and stiffness in the right foot. He notices when he wakes up in the morning, he will notice pain in the top of his right foot. As he starts walking in the morning, the pain does subside Patient does take celebrex, neurontin and acetaminophen. This combination of medication does provide some relief. He also notics a small lump to the top of his right foot. PAIN EVALUATION 05/25/2023 0812 Pain Level: 4 Pain Location: Foot-Right Description: Aching;Sore Duration Amount of Time: 3 Duration Units: Months Frequency: Continuous Intervention/Comfort measure: Exercise Hemoglobin A1C (%) Date Value 03/15/2023 5.4 09/09/2022 5.4 03/12/2022 5.4 09/04/2020 5.4 09/03/2019 5.2 09/07/2018 5.4 08/31/2017 5.4 09/04/2016 5.8 Hemoglobin A1C (POCT) (%) Date Value 09/10/2021 5.3 PCP: Preeti Marquis MD PAST MEDICAL HISTORY Diagnosis Date Abdominal pain, epigastric Arthritis Chronic lower back pain Has had epidural injections Chronic rhinitis DDD (degenerative disc disease), lumbar Dr. Nam Eczema Erectile dysfunction Esophageal reflux External hemorrhoids Hypogonadism in male Osteoarthritis generalized, Dr. Toribio Other and unspecified hyperlipidemia PMH - PAST MEDICAL HISTORY OF gall bladder malfunction Prediabetes Trigger middle finger of right hand 02/2020 Varicose veins of right lower extremity Dr. Suazo Current Outpatient Medications Medication Sig Acetaminophen 500 mg cap Take 1,000 mg by mouth once daily. atorvastatin (LIPITOR) 10 mg tablet Take 1 tablet by mouth once daily. benzonatate (TESSALON PERLES) 100 mg capsule Take 1 capsule by mouth three times daily as needed for cough. (Patient not taking: Reported on 05/25/2023) celecoxib (CELEBREX) 200 mg capsule Take 1 capsule by mouth once daily as needed for pain. diclofenac (VOLTAREN) 1 % topical gel Apply moderate amount to painful areas on hands (2g) & knees (4g) up to three times daily as needed. Don't exceed a total of 32g daily. fexofenadine HCl (MUCINEX ALLERGY ORAL) Take by mouth. gabapentin (NEURONTIN) 100 mg capsule Take 100 mg by mouth three times a day. hydrocortisone (ANUSOL-HC) 2.5 % rectal cream 1 application by RECTAL route twice daily as needed. MULTIVITAMIN TAB Take one(1) tablet daily. omeprazole (PRILOSEC) 40 mg capsule Take 40 mg by mouth once daily. turmeric/turmeric ext/pepr ext (TURMERIC-TURMERIC EXT-PEPPER) 500-3 mg cap Take 1 capsule by mouth twice daily. No current facility-administered medications for this visit. ALLERGIES Allergen Reactions Environmental [Othe* Unknown Grass, trees, weeds, ragweed, molds, dust mites, cows, dogs, cats. Feldene [Piroxicam] GI Upset Ibuprofen Rash lips swell and rash all over body PAST SURGICAL HISTORY Procedure Laterality Date ABDOMINAL SURGERY HX APPENDECTOMY APPENDECTOMY HX ARTHROSCOPY KNEE DIAGNOSTIC W/WO SYNOVIAL BX SPX 05/19/2004 Arthroscopy, knee right x2 CATARACT EXTRACTION HX Bilateral 01/2016 COLONOSCOPY 09/24/2021 repeat in 10 years COLONOSCOPY FLX DX W/COLLJ SPEC WHEN PFRMD 09/08/2001 Colonoscopy COLONOSCOPY FLX DX W/COLLJ SPEC WHEN PFRMD 08/19/2011 Colonoscopy EGD TRANSORAL BIOPSY SINGLE/MULTIPLE 09/08/2007 EYE SURGERY HX HERNIA REPAIR HX LAPS SURG CHOLECYSTECTOMY W/CHOLANGIOGRAPHY 01/11/2008 OPEN REPAIR OF ROTATOR CUFF ACUTE Right 08/21/2012 Rotator cuff repair - right - bone spur and torn bicep tendon - Dr Denis PAST SURGICAL HISTORY OF Sinus surgery December 2006. PAST SURGICAL HISTORY OF Left quadriceps repair PAST SURGICAL HISTORY OF Bilateral 10/2015 sinuplasty PAST SURGICAL HISTORY OF Right 06/2019 laser surgery for varicose veins TONSILLECTOMY HX TONSILLECTOMY PRIMARY/SECONDARY <AGE 12 VASCULAR SURGERY PROCEDURE FAMILY HISTORY Problem Relation Age of Onset Heart Mother Arthritis Mother Diabetes Mother other (PVD) Mother Alzheimer's Disease Father Prostate Cancer Father Diabetes Father other (Parkinsons Dz) Father other (Bladder Cancer) Father Diabetes Maternal Grandmother Heart Maternal Grandmother Stroke Paternal Grandmother Social History Tobacco Use Smoking status: Former Packs/day: 1.00 Years: 17.00 Additional pack years: 0.00 Total pack years: 17.00 Types: Cigarettes Quit date: 08/15/1986 Years since quittin.8 Smokeless tobacco: Never Tobacco comments: Quit 1986.No one in the household smokes. Vaping Use Vaping Use: Never used Substance Use Topics Alcohol use: Yes Alcohol/week: 14.0 standard drinks of alcohol Types: 14 Standard drinks or equivalent per week Comment: daily - max 2 per day Drug use: No REVIEW OF SYSTEMS GENERAL: Negative for Malaise, significant weight loss, fever RESPIRATORY: Negative for cough, wheezing and shortness of breath CARDIOVASCULAR: Negative for chest pain, leg swelling and palpitations GI: Negative for abdominal discomfort, blood in stools or black stools and change in bowel habits : Negative for dysuria, frequency and incontinence MUSCULOSKELETAL: Negative for joint pain or swelling, back pain, and muscle pain. SKIN: Negative for lesions, rash, and itching. HEMATOLOGY/LYMPHOLOGY Negative for prolonged bleeding, bruising easily, and swollen nodes. ENDOCRINE: Negative for cold or heat intolerance, polyuria, polydipsia and goiter. NEURO: negative Physical Exam: Constitutional: Pt is a well developed 72 year old male who is alert, oriented and cooperative Eyes: Following during examination. No redness or drainage. Respiratory: RR normal and nonlabored. Even breathing. No evidence of distress or shortness of breath. Psychology: Patient is engaged during conversation. Normal affect and mood. Does not appear depressed or anxious during encounter. Vascular: Dorsalis pedis and posterior tibial pulses palpable as b/l Capillary Fill time < 5 seconds to digits 1-5 b/l Skin temperature warm to warm proximal to distal b/l Hair growth present to digits Neurological: intact light touch/epicritic sensation b/l intact protective sensation no significant neurological deficits Dermatological: Nails 1-5 b/l appear normal. Webspaces clean and dry 1-4 b/l. Skin appears well hydrated and supple. good color, texture, turgor. No open lesions present. No callosities present. Musculoskeletal/Orthopaedic: Patient has pain to palpation of right midfoot along navicular cun joint Foot type is neutral structurally AJ ROM is full with knee extended and flexed 1st MPJ is decreased when loaded and no pain or crepitus are noted with ROM. MTJ, STJ are full and free of pain and crepitus. 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 History and physical examination performed. 2. XR reviewed with patient and interpreted today 3. Discussed pain in right foot. Suspect pain is related to arthritis of navicular cun joint and midfoot arthritis. Would continue with inserts and nsaids for pain. If pain worsens, could consider injection. Would also alter shoe laces in shoes to prevent rubbing on dorsal midfoot 4. F/u prn Jon Soto DPM Podiatry [address] [facility] [id number] Dept: [phone] Dept AMB ROOMING INTAKE FLOWSHEET DATA Pain Pain Level: 4 Pain Location: Foot-Right Description: Aching, Sore Duration Amount of Time: 3 Duration Units: Months Frequency: Continuous Intervention/Comfort measure: Exercise Patient reporting pain in the arch of his foot, pain on top of his foot when he wakes up and pain with walking. documented in this encounter [facility] 05-24-2023 Miscellaneous Notes Done. Tish Hernández MA Pt scheduled x-rays for 1:20 today. Asking for x-ray of right foot in addition to right ankle. Please review and advise. Tish Hernández MA documented in this encounter [facility] 05-24-2023 History of Presen t illness Narrative Radiology Service Progress Note PATIENT NAME: Frank Mckeon DATE OF SERVICE: May 24, 2023 TIME: 1:49 PM PATIENT IDENTITY VERIFICATION COMPLETED USING TWO (2) IDENTIFIERS: Name and Date of confirmed by patient verbally. FALL SCREENING: Has the patient had 2 falls in the last year or 1 fall with injury or currently using an Ambulatory Assistive Device (Walker, Cane, Wheelchair, Crutches, etc.)? No PATIENT GENDER DATA: Male PATIENT RELEVANT IMPLANT DATA REVIEWED: Not Applicable RADIOLOGY DEPARTMENT: General X-ray: Exam(s) Completed: Lower Extremity X-Ray(s): Ankle, Right and Foot, Right and Wt. Bearing PERIPHERAL IV DATA: Not applicable SIGNED BY: RT Chasity(R) May 24, 2023 1:49 PM documented in this encounter [facility] 05-06-2023 Miscellaneous Notes Patient returns call. Continues to follow with ortho. Celebrex requested in error. Removed request. Asks PCP to prescribe Voltaren 1%. Malena Watson RN Message left for patient to return call to address provider's questions with him. At last OV with Briana it was noted he was getting Celebrex from ortho. Is he not following up with them any longer? Patient request diclofenac (VOLTAREN) 1 % topical gel [Briana [facility]] Patient Comment: Can this be prescribed with at least 1 refill? Just makes things easier. . . Last OV 03/15/2023 Next V 09/26/2023 documented in this encounter [facility] 04-08-2023 Miscellaneous Notes Patient phones requesting refills as follows: Requested Prescriptions Pending Prescriptions Disp Refills atorvastatin (LIPITOR) 10 mg tablet 90 tablet 1 Sig: Take 1 tablet by mouth once daily. ARYAN-03/15/23 Labs-03/15/23 NOV-09/26/23 Please review and advise. Lynn Card LPN documented in this encounter [facility] 03-22-2023 History of Presen t illness Narrative Radiology Service Progress Note PATIENT NAME: Frank Mckeon DATE OF SERVICE: March 22, 2023 TIME: 4:06 PM PATIENT IDENTITY VERIFICATION COMPLETED USING TWO (2) IDENTIFIERS: Name and Date of confirmed by patient verbally. FALL SCREENING: Has the patient had 2 falls in the last year or 1 fall with injury or currently using an Ambulatory Assistive Device (Walker, Cane, Wheelchair, Crutches, etc.)? No PATIENT GENDER DATA: Male PATIENT RELEVANT IMPLANT DATA REVIEWED: Not Applicable RADIOLOGY DEPARTMENT: General X-ray: Exam(s) Completed: Chest X-Ray PERIPHERAL IV DATA: Not applicable SIGNED BY: RT Donaldo(R) March 22, 2023 4:06 PM documented in this encounter [facility] 03-16-2023 Miscellaneous Notes Patient returned call and went over results, notes from Briana Harris APPLICATIONS SUPPORT SPECIALIST with understanding. Message left for patient to call office back for update. Obdulia Murphy LPN ----- Message from Briana Harris APRN.CROWNING INSPECTOR sent at 03/16/2023 7:30 AM EDT ----- A1c, electrolytes, kidney and liver function in normal range. Briana Podlogar, MAT MAKING MACHINE TENDER.CROWNING INSPECTOR documented in this encounter [facility] 03-15-2023 History of Presen t illness Narrative 03/15/2023 Patient presents with: Follow Up SUBJECTIVE: This is a 72 year old that is here today for Above Complaints. Since last office appointment has been in good health without ER visits or hospitalizations. Prediabetes: tires to maintain diet and stays active. Denies visual changes, polyuri or polydipsia HYPERLIPIDEMIA: Patient is taking medications: Yes. Patient is watching diet: Yes. Patient denies myalgias: Yes. Patient denies gi upset: Yes OA: takes Celebrex daily for OA in knees. Uses Voltaren on knees daily. Is following with ortho and they are ordering his Celebrex PAST MEDICAL HISTORY Diagnosis Date Abdominal pain, epigastric Arthritis Chronic lower back pain Has had epidural injections Chronic rhinitis DDD (degenerative disc disease), lumbar Dr. Nam Eczema Erectile dysfunction Esophageal reflux External hemorrhoids Hypogonadism in male Osteoarthritis generalized, Dr. Toribio Other and unspecified hyperlipidemia PMH - PAST MEDICAL HISTORY OF gall bladder malfunction Prediabetes Trigger middle finger of right hand 02/2020 Varicose veins of right lower extremity Dr. Suazo ALLERGIES Environmental [Other], Feldene [Piroxicam], and Ibuprofen MEDICATIONS Current Outpatient Medications Medication Sig celecoxib (CELEBREX) 200 mg capsule Take 1 capsule by mouth once daily as needed for pain. diclofenac (VOLTAREN) 1 % topical gel Apply moderate amount to painful areas on hands (2g) & knees (4g) up to three times daily as needed. Don't exceed a total of 32g daily. atorvastatin (LIPITOR) 10 mg tablet Take 1 tablet by mouth once daily. hydrocortisone (ANUSOL-HC) 2.5 % rectal cream 1 application by RECTAL route twice daily as needed. peg 3350-Electrolytes (GOLYTELY) 236-22.74-6.74 -5.86 gram suspension Refer to printed prep instructions from your provider. turmeric/turmeric ext/pepr ext (TURMERIC-TURMERIC EXT-PEPPER) 500-3 mg cap Take 1 capsule by mouth twice daily. Acetaminophen 500 mg cap Take 1,000 mg by mouth once daily. fexofenadine HCl (MUCINEX ALLERGY ORAL) Take by mouth. MULTIVITAMIN TAB Take one(1) tablet daily. No current facility-administered medications for this visit. Medications and allergies reviewed by this provider. SOCIAL HISTORY Social History Tobacco Use Smoking status: Former Packs/day: 1.00 Years: 17.00 Total pack years: 17.00 Types: Cigarettes Quit date: 08/15/1986 Years since quittin.6 Smokeless tobacco: Never Tobacco comments: Quit 1986.No one in the household smokes. Substance Use Topics Alcohol use: Yes Alcohol/week: 14.0 standard drinks of alcohol Types: 14 Standard drinks or equivalent per week Comment: daily - max 2 per day Drug use: No REVIEW OF SYSTEMS All other reviewed and negative other than HPI. OBJECTIVE: BP 130/78 Pulse 76 Resp 16 Ht 172.7 cm (5' 8) Wt 91.2 kg (201 lb) BMI 30.56 kg/m . Vital signs reviewed by this provider. APPEARANCE Well appearing, alert, in no acute distress, well-hydrated, well nourished. EYES conjunctiva and sclera normal. HEART RRR with normal S1 and S2, no murmurs, no gallops, no JVD appreciated LUNG clear to auscultation. No wheezes, rhonchi or rales SKIN Skin color, texture, turgor normal, no suspicious rashes or lesions Component Latest Ref Rng & Units 09/09/2022 Protein, Total 6.3 - 8.0 g/dL 6.9 Albumin 3.9 - 4.9 g/dL 4.3 Calcium 8.5 - 10.2 mg/dL 9.7 Bilirubin, Total 0.2 - 1.3 mg/dL 0.6 Alkaline Phosphatase 38 - 113 U/L 58 AST 14 - 40 U/L 24 ALT 10 - 54 U/L 27 Glucose 74 - 99 mg/dL 116 (H) BUN 9 - 24 mg/dL 17 Creatinine 0.73 - 1.22 mg/dL 0.94 Sodium 136 - 144 mmol/L 142 Potassium 3.7 - 5.1 mmol/L 4.3 Chloride 97 - 105 mmol/L 106 (H) CO2 22 - 30 mmol/L 26 Anion Gap 9 - 18 mmol/L 10 eGFR >=60 mL/min/1.73m 87 WBC 3.70 - 11.00 k/uL 6.62 RBC 4.20 - 6.00 m/uL 5.12 Hemoglobin 13.0 - 17.0 g/dL 15.8 Hematocrit 39.0 - 51.0 % 46.5 MCV 80.0 - 100.0 fL 90.8 MCH 26.0 - 34.0 pg 30.9 MCHC 30.5 - 36.0 g/dL 34.0 RDW-CV 11.5 - 15.0 % 12.6 Platelet Count 150 - 400 k/uL 246 MPV 9.0 - 12.7 fL 9.6 Absolute nRBC <0.01 k/uL <0.01 Cholesterol, Total <200 mg/dL 156 Triglyceride <150 mg/dL 82 HDL Cholesterol >39 mg/dL 46 Non HDL Cholesterol <130 mg/dL 110 Fasting Time hrs 10 VLDL Cholesterol <30 mg/dL 16 TC:HDL Ratio <5.10 3.39 LDL Cholesterol <100 mg/dL 94 LDL:HDL Ratio <2.54 2.04 Hemoglobin A1C 4.3 - 5.6 % 5.4 Estimated Average Glucose mg/dL 108 ADVANCE DIRECTIVE DISCUSSION due on 08/15/2022 COVID-19 VACCINE(6 - Moderna series) due on 08/30/2022 DTAP,TDAP,TD(2 - Td or Tdap) due on 09/15/2023 INFLUENZA(1) due on 04/15/2023 DIABETES SCREEN due on 09/09/2025 LIPID SCREEN due on 09/09/2027 COLORECTAL CANCER SCREENING due on 09/24/2031 ABDOMINAL AORTIC ANEURYSM SCREENING Completed DEPRESSION ASSESSMENT Completed HEPATITIS C SCREENING Completed SHINGRIX VACCINE Completed PNEUMOCOCCAL: 65+ Completed ASSESSMENT/PLAN: 1. Prediabetes - ICD9: 790.29, ICD10: R73.03 (primary diagnosis) - A1c is pending - continue lower carbohydrate diet and aim for at least 150 minutes of exercise per week 2. Primary osteoarthritis of both knees - ICD9: 715.16, ICD10: M17.0 - follow-up with ortho as recommended 3. Other hyperlipidemia - ICD9: 272.4, ICD10: E78.49 - good control - continue statin - follow-up in 6 months sooner if needed Briana Podlogar, MAT MAKING MACHINE TENDER.CROWNING INSPECTOR Prescription instructions reviewed with patient as applicable. Patient advised if symptoms do not improve or if symptoms worsen sooner, to contact their primary care physician. Potential red flag symptoms discussed with the patient. Reviewed appropriate action plan to take if red flag symptoms occur. Patient agreeable to treatment plan. I spent a total of 25 minutes on the date of the service which included preparing to see the patient, [id number] patient care, completing clinical documentation, obtaining and/or reviewing separately obtained history, performing a medically appropriate examination, counseling and educating the patient/family/caregiver, and ordering medications, tests, or procedures. documented in this encounter [facility] 03-07-2023 Miscellaneous Notes Pt notified via [employer]. Kay Cox Ma Orders for labs placed. Please let him know he can come complete prior or his appointment. Briana Harris APRN.MAL Briana I have an A1c order in for pt's upcoming appt. Is this all you want. Pt is on Lipitor 10 mg. Advise and update pt via [employer]. Kay Cox Ma documented in this encounter [facility] 12-06-2022 Miscellaneous Notes Patient has been identified by name and date of : Yes Requested Prescriptions Pending Prescriptions Disp Refills celecoxib (CELEBREX) 200 mg capsule 90 capsule 0 Sig: Take 1 capsule by mouth once daily as needed for pain. diclofenac (VOLTAREN) 1 % topical gel 300 g 0 Sig: Apply moderate amount to painful areas on hands (2g) & knees (4g) up to three times daily as needed. Don't exceed a total of 32g daily. RX INSTRUCTIONS: Patient aware RX will be sent to pharmacy. No need to notify patient. Patient last office visit: 09/15/22 Patient next office visit: 03/15/23 Ximena Resendiz MA documented in this encounter [facility] 07-05-2022 Miscellaneous Notes Patient phones requesting refills as follows: Requested Prescriptions Pending Prescriptions Disp Refills celecoxib (CELEBREX) 200 mg capsule 90 capsule 0 Sig: Take 1 capsule by mouth once daily. [facility] 03/16/2022 09/21/2022 Please review and advise. CATHERINE Amado documented in this encounter [facility] 04-27-2022 Miscellaneous Notes Patient phones requesting refills as follows: Requested Prescriptions Pending Prescriptions Disp Refills hydrocortisone (ANUSOL-HC) 2.5 % rectal cream 28 g 2 Si application by RECTAL route twice daily as needed. atorvastatin (LIPITOR) 10 mg tablet 90 tablet 1 Sig: Take 1 tablet by mouth once daily. diclofenac (VOLTAREN) 1 % topical gel 300 g 1 Sig: Apply moderate amount to painful areas on hands (2g) & knees (4g) up to three times daily as needed. Don't exceed a total of 32g daily. celecoxib (CELEBREX) 200 mg capsule 90 capsule 0 Sig: Take 1 capsule by mouth once daily. [facility] 03/16/22 09/21/22 Please review and advise. Obdulia Murphy LPN documented in this encounter [facility] 03-16-2022 History of Presen t illness Narrative Chief Complaint Patient presents with: Follow Up: 6 month HPI Frank Mckeon is a 71 year old male who presents here today for Above Complaints. Has been in good health without hospitalizations or ER visits. No falls in the last 6 months. Had repeat xrays of his hands by Selena Gonsalves On 02/24 which showed worsening arthritis. Patient referred [facility] OA in his hands. Taking Celebrex and voltaren which has been helping with pain in his hands, knees and back. Hemorrhoids have been well controlled with PRN use of Anusol. Needed twice in the last month for itching without bleeding or pain. Glucose continues to be high in the 120's with normal A1c. Patient states that he has met with a straw hat brusher about 3-4 weeks ago to set up his Will, Living Will, and DPOA. FULL CODE. Past medical history, appointments, medications, allergies reviewed. Previous Medical History PAST MEDICAL HISTORY Diagnosis Date Abdominal pain, epigastric Arthritis Chronic lower back pain Has had epidural injections Chronic rhinitis DDD (degenerative disc disease), lumbar Dr. Nam Eczema Elevated prostate specific antigen (PSA) Erectile dysfunction Esophageal reflux External hemorrhoids Hypogonadism in male Osteoarthritis generalized, Dr. Toribio Other and unspecified hyperlipidemia PMH - PAST MEDICAL HISTORY OF gall bladder malfunction Prediabetes Trigger middle finger of right hand 02/2020 Varicose veins of right lower extremity Dr. Suazo Previous Surgical History PAST SURGICAL HISTORY Procedure Laterality Date ABDOMINAL SURGERY HX APPENDECTOMY APPENDECTOMY HX ARTHROSCOPY KNEE DIAGNOSTIC W/WO SYNOVIAL BX SPX 05/19/2004 Arthroscopy, knee right x2 CATARACT EXTRACTION HX Bilateral 01/2016 COLONOSCOPY 09/24/2021 repeat in 10 years COLONOSCOPY FLX DX W/COLLJ SPEC WHEN PFRMD 09/08/2001 Colonoscopy COLONOSCOPY FLX DX W/COLLJ SPEC WHEN PFRMD 08/19/2011 Colonoscopy EGD TRANSORAL BIOPSY SINGLE/MULTIPLE 09/08/2007 EYE SURGERY HX HERNIA REPAIR HX LAPS SURG CHOLECYSTECTOMY W/CHOLANGIOGRAPHY 01/11/2008 OPEN REPAIR OF ROTATOR CUFF ACUTE Right 08/21/2012 Rotator cuff repair - right - bone spur and torn bicep tendon - Dr Denis PAST SURGICAL HISTORY OF Sinus surgery December 2006. PAST SURGICAL HISTORY OF Left quadriceps repair PAST SURGICAL HISTORY OF Bilateral 10/2015 sinuplasty PAST SURGICAL HISTORY OF Right 06/2019 laser surgery for varicose veins TONSILLECTOMY HX TONSILLECTOMY PRIMARY/SECONDARY <AGE 12 VASCULAR SURGERY PROCEDURE Family History FAMILY HISTORY Problem Relation Age of Onset Heart Mother Arthritis Mother Diabetes Mother other (PVD) Mother Alzheimer's Disease Father Prostate Cancer Father Diabetes Father other (Parkinsons Dz) Father other (Bladder Cancer) Father Diabetes Maternal Grandmother Heart Maternal Grandmother Stroke Paternal Grandmother Patient Allergies ALLERGIES Allergen Reactions Environmental [Othe* Unknown Grass, trees, weeds, ragweed, molds, dust mites, cows, dogs, cats. Feldene [Piroxicam] GI Upset Ibuprofen Rash lips swell and rash all over body Current Medications Current Outpatient Medications on File Prior to Visit Medication Sig diclofenac (VOLTAREN) 1 % topical gel Apply moderate amount to painful areas on hands (2g) & knees (4g) up to three times daily as needed. Don't exceed a total of 32g daily. celecoxib (CELEBREX) 200 mg capsule Take 1 capsule by mouth once daily. atorvastatin (LIPITOR) 10 mg tablet Take 1 tablet by mouth once daily. hydrocortisone (ANUSOL-HC) 2.5 % rectal cream 1 application by RECTAL route twice daily as needed. turmeric/turmeric ext/pepr ext (TURMERIC-TURMERIC EXT-PEPPER) 500-3 mg cap Take 1 capsule by mouth twice daily. Acetaminophen 500 mg cap Take 1,000 mg by mouth once daily. fexofenadine HCl (MUCINEX ALLERGY ORAL) Take by mouth. MULTIVITAMIN TAB Take one(1) tablet daily. peg 3350-Electrolytes (GOLYTELY) 236-22.74-6.74 -5.86 gram suspension Refer to printed prep instructions from your provider. Amoxicillin 500 mg tablet take 1 tablet by mouth three times a day until finished (Patient not taking: Reported on 09/15/2021) No current facility-administered medications on file prior to visit. Social History Social History Tobacco Use Smoking status: Former Smoker Packs/day: 1.00 Years: 17.00 Pack years: 17.00 Types: Cigarettes Quit date: 08/15/1986 Years since quittin.6 Smokeless tobacco: Never Used Tobacco comment: Quit 1986.No one in the household smokes. Substance Use Topics Alcohol use: Yes Alcohol/week: 15.0 standard drinks Types: 2 Glasses of Wine (5oz), 1 Cans of Beer (12oz), 3 Mixed Drinks per week Comment: daily - max 2 per day Drug use: No Review of Symptoms REVIEW OF SYSTEMS GENERAL: No weight loss, malaise or fevers RESPIRATORY: Negative for cough, hemoptysis, wheezing, COPD, dyspnea or shortness of breath CARDIOVASCULAR: Negative for chest pain, leg swelling, hypertension, CHF or palpitations GI: No nausea, vomiting, or diarrhea SKIN: Negative for lesions, rash, and itching EXAM: BP 122/68 Pulse 71 Resp 16 Wt 91.4 kg (201 lb 9.6 oz) SpO2 97% BMI 31.27 kg/m General Appearance: Well appearing, alert, in no acute distress, well-hydrated, well nourished.. Skin: Skin color, texture, turgor normal, no suspicious rashes or lesions. Lungs: Lungs clear to auscultation. No wheezing, rhonchi, rales.. Heart: RRR without murmur, gallop, or rubs. No ectopy. Abdomen: Normal abdominal exam, Abdomen soft, non-tender. Bowel sounds normal. No masses, organomegaly. Extremities: No deformities, edema, skin discoloration, clubbing or cyanosis. Good capillary refill. . Health Maintenance List ADVANCE DIRECTIVE DISCUSSION Never done DTAP,TDAP,TD(2 - Td or Tdap) due on 09/10/2022 INFLUENZA(1) due on 04/15/2022 DEPRESSION SCREENING due on 03/14/2023 DIABETES SCREEN due on 03/12/2025 LIPID SCREEN due on 09/04/2026 COLORECTAL CANCER SCREENING due on 09/24/2031 ABDOMINAL AORTIC ANEURYSM SCREENING Completed HEPATITIS C SCREENING Completed SHINGRIX VACCINE Completed COVID-19 VACCINE Completed PNEUMOCOCCAL: 65+ Completed Data reviewed Component Latest Ref Rng & Units 09/04/2021 09/10/2021 03/12/2022 Protein, Total 6.3 - 8.0 g/dL 7.1 7.0 Albumin 3.9 - 4.9 g/dL 4.4 4.2 Calcium 8.5 - 10.2 mg/dL 9.7 10.0 Bilirubin, Total 0.2 - 1.3 mg/dL 0.7 0.7 Alkaline Phosphatase 38 - 113 U/L 65 53 AST 14 - 40 U/L 21 21 Glucose 74 - 99 mg/dL 120 (H) 122 (H) BUN 9 - 24 mg/dL 13 17 Creatinine 0.73 - 1.22 mg/dL 0.84 1.02 Sodium 136 - 144 mmol/L 140 141 Potassium 3.7 - 5.1 mmol/L 4.2 4.4 Chloride 97 - 105 mmol/L 103 104 CO2 22 - 30 mmol/L 28 26 Anion Gap 9 - 18 mmol/L 9 11 ALT 10 - 54 U/L 24 22 eGFR- >60 eGFR-All Other Races . >60 eGFR >=60 mL/min/1.73m 79 WBC 3.70 - 11.00 k/uL 7.04 RBC 4.20 - 6.00 m/uL 5.16 Hemoglobin 13.0 - 17.0 g/dL 15.7 Hematocrit 39.0 - 51.0 % 47.9 MCV 80.0 - 100.0 fL 92.8 MCH 26.0 - 34.0 pG 30.4 MCHC 30.5 - 36.0 g/dL 32.8 RDW-CV 11.5 - 15.0 % 12.7 Platelet Count 150 - 400 k/uL 244 MPV 9.0 - 12.7 fL 9.8 Absolute nRBC <0.01 k/uL <0.01 Cholesterol, Total <200 mg/dL 159 Triglyceride <150 mg/dL 73 HDL Cholesterol >39 mg/dL 49 LDL Cholesterol <100 mg/dL 95 Non HDL Cholesterol <130 mg/dL 110 Fasting Time hrs 12 VLDL Cholesterol <30 mg/dL 15 TC:HDL Ratio <5.10 3.24 LDL:HDL Ratio <2.54 1.94 Hemoglobin A1C 4.3 - 5.6 % 5.4 Estimated Average Glucose mg/dL 108 Hemoglobin A1C (POCT) 4.2 - 5.6 % 5.3 ASSESSMENT/PLAN: 1. Hyperglycemia - ICD9: 790.29, ICD10: R73.9 (primary diagnosis) Glucose remains elevated in the 120's with normal A1c. Recommend low carb diet and exercise as previously discussed. Will recheck in 6 months. 2. Primary osteoarthritis involving multiple joints - ICD9: 715.98, ICD10: M15.9 Worsening OA in hands. Continue treatment with ice/heat and NSAIDs and will follow up with specialist as scheduled. 3. Other hyperlipidemia - ICD9: 272.4, ICD10: E78.49 Controlled on current regimen. 4. External hemorrhoids - ICD9: 455.3, ICD10: K64.4 No significant flares recently. Continue anusol PRN along with pushing PO fluids, high fiber diet, OTC stool softener PRN. 5. Advance directive discussed with patient - ICD9: V65.49, ICD10: Z71.89 Patient working on Living will and DPOA. Will bring in when completed. FULL CODE. Preeti Marquis MD documented in this encounter [facility] 02-05-2022 Miscellaneous Notes Patient phones requesting refills as follows: Pending Prescriptions Disp Refills DICLOFENAC 1 % TOPICAL GEL 300 g 1 Sig: Apply moderate amount to painful areas on hands (2g) & knees (4g) up to three times daily as needed. Don't exceed a total of 32g daily. NANCY: No ARYAN-09/10/21 Labs-09/10/21 NOV-03/16/22 Please review and advise. 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 Contact dermatitis and other eczema, due to unspecified cause 05/25/2013 02/03/2015 Other atopic dermatitis and related conditions 1 02/03/2015 DJD (degenerative joint disease) 04/25/2012 08/05/2015 Meralgia paresthetica 03/23/2012 02/03/2015 SOLAR LENTIGINES///DYSCHROMIA OTHER 12/29/2011 05/25/2013 FOLLICULITIS///HAIR DISEASES NEC 12/29/2011 05/25/2013 Pompholyx eczema 12/29/2011 02/03/2015 Eczematous dermatitis 12/29/2011 02/03/2015 Enthesopathy of unspecified site 11/08/2011 02/03/2015 Foot pain 11/08/2011 02/03/2015 FOLLICULITIS///HAIR DISEASES NEC 11/30/2010 11/30/2010 Solar Lentigines 11/30/2010 02/03/2015 Actinic skin damage 11/30/2010 02/03/2015 Acne rosacea 08/31/2010 02/03/2015 Granulomatous rosacea 08/31/2010 11/30/2010 Folliculitis 08/31/2010 02/03/2015 Excoriation 08/31/2010 02/03/2015 Telangiectasia 08/31/2010 02/03/2015 Recurrent sinusitis 07/25/2009 02/03/2015 Pain in joint, multiple sites 12/23/2008 Unspecified hemorrhoids without mention of compl ication 12/23/2008 02/03/2015 OVERWEIGHT 05/10/2008 02/03/2015 Pain in limb 04/19/2008 02/03/2015 Disturbance of skin sensation 12/26/2007 Abdominal pain, epigastric 09/08/200702/03 Other atopic dermatitis and related conditions 1 10/11/2006 05/25/2013 Unspecified pruritic disorder 08/10/2007 Calcaneal spur 05/19/2007 02/03/2015 ACTINIC KERATOSIS (Premalignant AK) 04/04/2007 11/30/2010 SOLAR LENTIGINES///DYSCHROMIA OTHER 04/04/2007 11/30/2010 SEBORRHEIC KERATOSIS: IRRITATED//INFLAMED 200611/30/2010 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 radiation 04/04/2007 11/30/2010 Other psoriasis 04/04/2007 05/25/2013 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 11/30/2010 Unspecified disorder of prostate 08/02/2006 02/03/2015 HEMATOCHEZIA 01/18/2006 02/03/2015 HYPERGLYCEMIA 10/15/2005 02/03/2015 Contact dermatitis and other eczema, due to unspecified cause 09/16/2005 05/25/2013 Seborrheic dermatitis, unspecified 09/16/2005 05/25/2013 Xerosis/SEBACEOUS GLAND DIS NEC 09/16/2005 11/30/2010 Other specified disorder of penis 08/03/2005 02/03/2015 ERECTILE DYSFUNCTION 07/02/2005 09/05/2019 Prediabetes 09/05/2019 documented as of this encounter (statuses as of 02/05/2022) [facility] History of Past illness Narrative* Problem Noted Date Resolved Date Impaired fasting glucose 02/03/2015 018 Other acne 05/25/2013 02/03/2015 Seborrheic Keratoses 05/25/2013 02/03/2015 Other seborrheic dermatitis 05/25/201301/14 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 Contact dermatitis and other eczema, due to unspecified cause 05/25/2013 02/03/2015 Other atopic dermatitis and related conditions 1 02/03/2015 DJD (degenerative joint disease) 04/25/2012 08/05/2015 Meralgia paresthetica 03/23/2012 02/03/2015 SOLAR LENTIGINES///DYSCHROMIA OTHER 12/29/2011 05/25/2013 FOLLICULITIS///HAIR DISEASES NEC 12/29/2011 05/25/2013 Pompholyx eczema 12/29/2011 02/03/2015 Eczematous dermatitis 12/29/2011 02/03/2015 Enthesopathy of unspecified site 11/08/2011 02/03/2015 Foot pain 11/08/2011 02/03/2015 FOLLICULITIS///HAIR DISEASES NEC 11/30/2010 11/30/2010 Solar Lentigines 11/30/2010 02/03/2015 Actinic skin damage 11/30/2010 02/03/2015 Acne rosacea 08/31/2010 02/03/2015 Granulomatous rosacea 08/31/2010 11/30/2010 Folliculitis 08/31/2010 02/03/2015 Excoriation 08/31/2010 02/03/2015 Telangiectasia 08/31/2010 02/03/2015 Recurrent sinusitis 07/25/2009 02/03/2015 Pain in joint, multiple sites 12/23/2008 Unspecified hemorrhoids without mention of compl ication 12/23/2008 02/03/2015 OVERWEIGHT 05/10/2008 02/03/2015 Pain in limb 04/19/2008 02/03/2015 Disturbance of skin sensation 12/26/2007 Abdominal pain, epigastric 09/08/200702/03 Other atopic dermatitis and related conditions 1 10/11/2006 05/25/2013 Unspecified pruritic disorder 08/10/2007 Calcaneal spur 05/19/2007 02/03/2015 ACTINIC KERATOSIS (Premalignant AK) 04/04/2007 11/30/2010 SOLAR LENTIGINES///DYSCHROMIA OTHER 04/04/2007 11/30/2010 SEBORRHEIC KERATOSIS: IRRITATED//INFLAMED 200611/30/2010 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 radiation 04/04/2007 11/30/2010 Other psoriasis 04/04/2007 05/25/2013 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 11/30/2010 Unspecified disorder of prostate 08/02/2006 02/03/2015 HEMATOCHEZIA 01/18/2006 02/03/2015 HYPERGLYCEMIA 10/15/2005 02/03/2015 Contact dermatitis and other eczema, due to unspecified cause 09/16/2005 05/25/2013 Seborrheic dermatitis, unspecified 09/16/2005 05/25/2013 Xerosis/SEBACEOUS GLAND DIS NEC 09/16/2005 11/30/2010 Other specified disorder of penis 08/03/2005 02/03/2015 ERECTILE DYSFUNCTION 07/02/2005 09/05/2019 Prediabetes 09/05/2019 documented as of this encounter (statuses as of 03/16/2022) [facility] History of Past illness Narrative* Problem Noted Date Resolved Date Impaired fasting glucose 02/03/2015 018 Other acne 05/25/2013 02/03/2015 Seborrheic Keratoses 05/25/2013 02/03/2015 Other seborrheic dermatitis 05/25/201301/14 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 Contact dermatitis and other eczema, due to unspecified cause 05/25/2013 02/03/2015 Other atopic dermatitis and related conditions 1 02/03/2015 DJD (degenerative joint disease) 04/25/2012 08/05/2015 Meralgia paresthetica 03/23/2012 02/03/2015 SOLAR LENTIGINES///DYSCHROMIA OTHER 12/29/2011 05/25/2013 FOLLICULITIS///HAIR DISEASES NEC 12/29/2011 05/25/2013 Pompholyx eczema 12/29/2011 02/03/2015 Eczematous dermatitis 12/29/2011 02/03/2015 Enthesopathy of unspecified site 11/08/2011 02/03/2015 Foot pain 11/08/2011 02/03/2015 FOLLICULITIS///HAIR DISEASES NEC 11/30/2010 11/30/2010 Solar Lentigines 11/30/2010 02/03/2015 Actinic skin damage 11/30/2010 02/03/2015 Acne rosacea 08/31/2010 02/03/2015 Granulomatous rosacea 08/31/2010 11/30/2010 Folliculitis 08/31/2010 02/03/2015 Excoriation 08/31/2010 02/03/2015 Telangiectasia 08/31/2010 02/03/2015 Recurrent sinusitis 07/25/2009 02/03/2015 Pain in joint, multiple sites 12/23/2008 Unspecified hemorrhoids without mention of compl ication 12/23/2008 02/03/2015 OVERWEIGHT 05/10/2008 02/03/2015 Pain in limb 04/19/2008 02/03/2015 Disturbance of skin sensation 12/26/2007 Abdominal pain, epigastric 09/08/200702/03 Other atopic dermatitis and related conditions 1 10/11/2006 05/25/2013 Unspecified pruritic disorder 08/10/2007 Calcaneal spur 05/19/2007 02/03/2015 ACTINIC KERATOSIS (Premalignant AK) 04/04/2007 11/30/2010 SOLAR LENTIGINES///DYSCHROMIA OTHER 04/04/2007 11/30/2010 SEBORRHEIC KERATOSIS: IRRITATED//INFLAMED 200611/30/2010 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 radiation 04/04/2007 11/30/2010 Other psoriasis 04/04/2007 05/25/2013 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 11/30/2010 Unspecified disorder of prostate 08/02/2006 02/03/2015 HEMATOCHEZIA 01/18/2006 02/03/2015 HYPERGLYCEMIA 10/15/2005 02/03/2015 Contact dermatitis and other eczema, due to unspecified cause 09/16/2005 05/25/2013 Seborrheic dermatitis, unspecified 09/16/2005 05/25/2013 Xerosis/SEBACEOUS GLAND DIS NEC 09/16/2005 11/30/2010 Other specified disorder of penis 08/03/2005 02/03/2015 ERECTILE DYSFUNCTION 07/02/2005 09/05/2019 Prediabetes 09/05/2019 documented as of this encounter (statuses as of 04/27/2022) [facility] History of Past illness Narrative* Problem Noted Date Resolved Date Impaired fasting glucose 02/03/2015 018 Other acne 05/25/2013 02/03/2015 Seborrheic Keratoses 05/25/2013 02/03/2015 Other seborrheic dermatitis 05/25/201301/14 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 Contact dermatitis and other eczema, due to unspecified cause 05/25/2013 02/03/2015 Other atopic dermatitis and related conditions 1 02/03/2015 DJD (degenerative joint disease) 04/25/2012 08/05/2015 Meralgia paresthetica 03/23/2012 02/03/2015 SOLAR LENTIGINES///DYSCHROMIA OTHER 12/29/2011 05/25/2013 FOLLICULITIS///HAIR DISEASES NEC 12/29/2011 05/25/2013 Pompholyx eczema 12/29/2011 02/03/2015 Eczematous dermatitis 12/29/2011 02/03/2015 Enthesopathy of unspecified site 11/08/2011 02/03/2015 Foot pain 11/08/2011 02/03/2015 FOLLICULITIS///HAIR DISEASES NEC 11/30/2010 11/30/2010 Solar Lentigines 11/30/2010 02/03/2015 Actinic skin damage 11/30/2010 02/03/2015 Acne rosacea 08/31/2010 02/03/2015 Granulomatous rosacea 08/31/2010 11/30/2010 Folliculitis 08/31/2010 02/03/2015 Excoriation 08/31/2010 02/03/2015 Telangiectasia 08/31/2010 02/03/2015 Recurrent sinusitis 07/25/2009 02/03/2015 Pain in joint, multiple sites 12/23/2008 Unspecified hemorrhoids without mention of compl ication 12/23/2008 02/03/2015 OVERWEIGHT 05/10/2008 02/03/2015 Pain in limb 04/19/2008 02/03/2015 Disturbance of skin sensation 12/26/2007 Abdominal pain, epigastric 09/08/200702/03 Other atopic dermatitis and related conditions 1 10/11/2006 05/25/2013 Unspecified pruritic disorder 08/10/2007 Calcaneal spur 05/19/2007 02/03/2015 ACTINIC KERATOSIS (Premalignant AK) 04/04/2007 11/30/2010 SOLAR LENTIGINES///DYSCHROMIA OTHER 04/04/2007 11/30/2010 SEBORRHEIC KERATOSIS: IRRITATED//INFLAMED 200611/30/2010 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 radiation 04/04/2007 11/30/2010 Other psoriasis 04/04/2007 05/25/2013 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 11/30/2010 Unspecified disorder of prostate 08/02/2006 02/03/2015 HEMATOCHEZIA 01/18/2006 02/03/2015 HYPERGLYCEMIA 10/15/2005 02/03/2015 Contact dermatitis and other eczema, due to unspecified cause 09/16/2005 05/25/2013 Seborrheic dermatitis, unspecified 09/16/2005 05/25/2013 Xerosis/SEBACEOUS GLAND DIS NEC 09/16/2005 11/30/2010 Other specified disorder of penis 08/03/2005 02/03/2015 ERECTILE DYSFUNCTION 07/02/2005 09/05/2019 Prediabetes 09/05/2019 documented as of this encounter (statuses as of 07/05/2022) [facility] History of Past illness Narrative* Problem Noted Date Resolved Date Impaired fasting glucose 02/03/2015 018 Other acne 05/25/2013 02/03/2015 Seborrheic Keratoses 05/25/2013 02/03/2015 Other seborrheic dermatitis 05/25/201301/14 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 Contact dermatitis and other eczema, due to unspecified cause 05/25/2013 02/03/2015 Other atopic dermatitis and related conditions 1 02/03/2015 DJD (degenerative joint disease) 04/25/2012 08/05/2015 Meralgia paresthetica 03/23/2012 02/03/2015 SOLAR LENTIGINES///DYSCHROMIA OTHER 12/29/2011 05/25/2013 FOLLICULITIS///HAIR DISEASES NEC 12/29/2011 05/25/2013 Pompholyx eczema 12/29/2011 02/03/2015 Eczematous dermatitis 12/29/2011 02/03/2015 Enthesopathy of unspecified site 11/08/2011 02/03/2015 Foot pain 11/08/2011 02/03/2015 FOLLICULITIS///HAIR DISEASES NEC 11/30/2010 11/30/2010 Solar Lentigines 11/30/2010 02/03/2015 Actinic skin damage 11/30/2010 02/03/2015 Acne rosacea 08/31/2010 02/03/2015 Granulomatous rosacea 08/31/2010 11/30/2010 Folliculitis 08/31/2010 02/03/2015 Excoriation 08/31/2010 02/03/2015 Telangiectasia 08/31/2010 02/03/2015 Recurrent sinusitis 07/25/2009 02/03/2015 Pain in joint, multiple sites 12/23/2008 Unspecified hemorrhoids without mention of compl ication 12/23/2008 02/03/2015 OVERWEIGHT 05/10/2008 02/03/2015 Pain in limb 04/19/2008 02/03/2015 Disturbance of skin sensation 12/26/2007 Abdominal pain, epigastric 09/08/200702/03 Other atopic dermatitis and related conditions 1 10/11/2006 05/25/2013 Unspecified pruritic disorder 08/10/2007 Calcaneal spur 05/19/2007 02/03/2015 ACTINIC KERATOSIS (Premalignant AK) 04/04/2007 11/30/2010 SOLAR LENTIGINES///DYSCHROMIA OTHER 04/04/2007 11/30/2010 SEBORRHEIC KERATOSIS: IRRITATED//INFLAMED 200611/30/2010 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 radiation 04/04/2007 11/30/2010 Other psoriasis 04/04/2007 05/25/2013 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 11/30/2010 Unspecified disorder of prostate 08/02/2006 02/03/2015 HEMATOCHEZIA 01/18/2006 02/03/2015 HYPERGLYCEMIA 10/15/2005 02/03/2015 Contact dermatitis and other eczema, due to unspecified cause 09/16/2005 05/25/2013 Seborrheic dermatitis, unspecified 09/16/2005 05/25/2013 Xerosis/SEBACEOUS GLAND DIS NEC 09/16/2005 11/30/2010 Other specified disorder of penis 08/03/2005 02/03/2015 ERECTILE DYSFUNCTION 07/02/2005 09/05/2019 Prediabetes 09/05/2019 documented as of this encounter (statuses as of 12/06/2022) [facility] History of Past illness Narrative* Problem Noted Date Diagnosed Date Resolved Date Impaired fasting glucose 02/03/2015 Other acne 05/25/2013 02/03/2015 Seborrheic Keratoses 05/25/2013 015 Other seborrheic dermatitis 05/25/2013 02/03/2015 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 Contact dermatitis and other eczema, due to unspecified cause 05/25/2013 02/03/2015 Other atopic dermatitis and related conditions 05/25/2013 02/03/2015 DJD (degenerative joint disease) 04/25/2012 08/05/2015 Meralgia paresthetica 03/23/20122014 SOLAR LENTIGINES///DYSCHROMIA OTHER 12/29/2011 05/25/2013 FOLLICULITIS///HAIR DISEASES NEC 12/29/2011 05/25/2013 Pompholyx eczema 12/29/2011 02/03/2015 Eczematous dermatitis 12/29/20112014 Enthesopathy of unspecified site 11/08/2011 02/03/2015 Foot pain 11/08/2011 02/03/2015 FOLLICULITIS///HAIR DISEASES NEC 11/30/2010 11/30/2010 Solar Lentigines 11/30/2010 02/03/2015 Actinic skin damage 11/30/2010 02/04/20 15 Acne rosacea 08/31/2010 02/03/2015 Granulomatous rosacea 08/31/20102010 Folliculitis 08/31/2010 02/03/2015 Excoriation 08/31/2010 02/03/2015 Telangiectasia 08/31/2010 02/03/2015 Recurrent sinusitis 07/25/2009 02/04/20 15 Pain in joint, multiple sites 12/23/2008 02/03/2015 Unspecified hemorrhoids with out mention of complication 12/23/2008 02/03/2015 OVERWEIGHT 05/10/2008 02/03/2015 Pain in limb 04/19/2008 02/03/2015 Disturbance of skin sensation 12/26/2007 05/25/2013 Abdominal pain, epigastric 09/08/2007 0 02/03/2015 Other atopic dermatitis and related conditions 08/10/2007 05/25/2013 Unspecified pruritic disorder 08/10/2007 05/25/2013 Calcaneal spur 05/19/2007 02/03/2015 ACTINIC KERATOSIS (Premalignant AK) 04/04/2007 11/30/2010 SOLAR LENTIGINES///DYSCHROMIA OTHER 04/04/2007 11/30/2010 SEBORRHEIC KERATOSIS: IRRITATED//INFLAMED 04/04/2007 11/30/2010 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 radiation 04/04/2007 11/30/2010 Other psoriasis 04/04/2007 05/25/2013 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 11/30/2010 Unspecified disorder of prostate 08/02/2006 02/03/2015 HEMATOCHEZIA 01/18/2006 02/03/2015 HYPERGLYCEMIA 10/15/2005 02/03/2015 Contact dermatitis and other eczema, due to unspecified cause 09/16/2005 05/25/2013 Seborrheic dermatitis, unspecified 09/16/2005 05/25/2013 Xerosis/SEBACEOUS GLAND DIS NEC 09/16/2005 11/30/2010 Other specified disorder of penis 08/03/2005 02/03/2015 ERECTILE DYSFUNCTION 07/02/2005 020 Prediabetes 09/05/2019 documented as of this encounter (statuses as of 03/07/2023) [facility] History of Past illness Narrative* Problem Noted Date Diagnosed Date Resolved Date Impaired fasting glucose 02/03/2015 Other acne 05/25/2013 02/03/2015 Seborrheic Keratoses 05/25/2013 015 Other seborrheic dermatitis 05/25/2013 02/03/2015 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 Contact dermatitis and other eczema, due to unspecified cause 05/25/2013 02/03/2015 Other atopic dermatitis and related conditions 05/25/2013 02/03/2015 DJD (degenerative joint disease) 04/25/2012 08/05/2015 Meralgia paresthetica 03/23/20122014 SOLAR LENTIGINES///DYSCHROMIA OTHER 12/29/2011 05/25/2013 FOLLICULITIS///HAIR DISEASES NEC 12/29/2011 05/25/2013 Pompholyx eczema 12/29/2011 02/03/2015 Eczematous dermatitis 12/29/20112014 Enthesopathy of unspecified site 11/08/2011 02/03/2015 Foot pain 11/08/2011 02/03/2015 FOLLICULITIS///HAIR DISEASES NEC 11/30/2010 11/30/2010 Solar Lentigines 11/30/2010 02/03/2015 Actinic skin damage 11/30/2010 02/04/20 15 Acne rosacea 08/31/2010 02/03/2015 Granulomatous rosacea 08/31/20102010 Folliculitis 08/31/2010 02/03/2015 Excoriation 08/31/2010 02/03/2015 Telangiectasia 08/31/2010 02/03/2015 Recurrent sinusitis 07/25/2009 02/04/20 15 Pain in joint, multiple sites 12/23/2008 02/03/2015 Unspecified hemorrhoids with out mention of complication 12/23/2008 02/03/2015 OVERWEIGHT 05/10/2008 02/03/2015 Pain in limb 04/19/2008 02/03/2015 Disturbance of skin sensation 12/26/2007 05/25/2013 Abdominal pain, epigastric 09/08/2007 0 02/03/2015 Other atopic dermatitis and related conditions 08/10/2007 05/25/2013 Unspecified pruritic disorder 08/10/2007 05/25/2013 Calcaneal spur 05/19/2007 02/03/2015 ACTINIC KERATOSIS (Premalignant AK) 04/04/2007 11/30/2010 SOLAR LENTIGINES///DYSCHROMIA OTHER 04/04/2007 11/30/2010 SEBORRHEIC KERATOSIS: IRRITATED//INFLAMED 04/04/2007 11/30/2010 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 radiation 04/04/2007 11/30/2010 Other psoriasis 04/04/2007 05/25/2013 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 11/30/2010 Unspecified disorder of prostate 08/02/2006 02/03/2015 HEMATOCHEZIA 01/18/2006 02/03/2015 HYPERGLYCEMIA 10/15/2005 02/03/2015 Contact dermatitis and other eczema, due to unspecified cause 09/16/2005 05/25/2013 Seborrheic dermatitis, unspecified 09/16/2005 05/25/2013 Xerosis/SEBACEOUS GLAND DIS NEC 09/16/2005 11/30/2010 Other specified disorder of penis 08/03/2005 02/03/2015 ERECTILE DYSFUNCTION 07/02/2005 020 Prediabetes 09/05/2019 documented as of this encounter (statuses as of 03/15/2023) [facility] History of Past illness Narrative* Problem Noted Date Diagnosed Date Resolved Date Impaired fasting glucose 02/03/2015 Other acne 05/25/2013 02/03/2015 Seborrheic Keratoses 05/25/2013 015 Other seborrheic dermatitis 05/25/2013 02/03/2015 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 Contact dermatitis and other eczema, due to unspecified cause 05/25/2013 02/03/2015 Other atopic dermatitis and related conditions 05/25/2013 02/03/2015 DJD (degenerative joint disease) 04/25/2012 08/05/2015 Meralgia paresthetica 03/23/20122014 SOLAR LENTIGINES///DYSCHROMIA OTHER 12/29/2011 05/25/2013 FOLLICULITIS///HAIR DISEASES NEC 12/29/2011 05/25/2013 Pompholyx eczema 12/29/2011 02/03/2015 Eczematous dermatitis 12/29/20112014 Enthesopathy of unspecified site 11/08/2011 02/03/2015 Foot pain 11/08/2011 02/03/2015 FOLLICULITIS///HAIR DISEASES NEC 11/30/2010 11/30/2010 Solar Lentigines 11/30/2010 02/03/2015 Actinic skin damage 11/30/2010 02/04/20 15 Acne rosacea 08/31/2010 02/03/2015 Granulomatous rosacea 08/31/20102010 Folliculitis 08/31/2010 02/03/2015 Excoriation 08/31/2010 02/03/2015 Telangiectasia 08/31/2010 02/03/2015 Recurrent sinusitis 07/25/2009 02/04/20 15 Pain in joint, multiple sites 12/23/2008 02/03/2015 Unspecified hemorrhoids with out mention of complication 12/23/2008 02/03/2015 OVERWEIGHT 05/10/2008 02/03/2015 Pain in limb 04/19/2008 02/03/2015 Disturbance of skin sensation 12/26/2007 05/25/2013 Abdominal pain, epigastric 09/08/2007 0 02/03/2015 Other atopic dermatitis and related conditions 08/10/2007 05/25/2013 Unspecified pruritic disorder 08/10/2007 05/25/2013 Calcaneal spur 05/19/2007 02/03/2015 ACTINIC KERATOSIS (Premalignant AK) 04/04/2007 11/30/2010 SOLAR LENTIGINES///DYSCHROMIA OTHER 04/04/2007 11/30/2010 SEBORRHEIC KERATOSIS: IRRITATED//INFLAMED 04/04/2007 11/30/2010 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 radiation 04/04/2007 11/30/2010 Other psoriasis 04/04/2007 05/25/2013 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 11/30/2010 Unspecified disorder of prostate 08/02/2006 02/03/2015 HEMATOCHEZIA 01/18/2006 02/03/2015 HYPERGLYCEMIA 10/15/2005 02/03/2015 Contact dermatitis and other eczema, due to unspecified cause 09/16/2005 05/25/2013 Seborrheic dermatitis, unspecified 09/16/2005 05/25/2013 Xerosis/SEBACEOUS GLAND DIS NEC 09/16/2005 11/30/2010 Other specified disorder of penis 08/03/2005 02/03/2015 ERECTILE DYSFUNCTION 07/02/2005 020 Prediabetes 09/05/2019 documented as of this encounter (statuses as of 03/16/2023) [facility] History of Past illness Narrative* Problem Noted Date Diagnosed Date Resolved Date Impaired fasting glucose 02/03/2015 Other acne 05/25/2013 02/03/2015 Seborrheic Keratoses 05/25/2013 015 Other seborrheic dermatitis 05/25/2013 02/03/2015 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 Contact dermatitis and other eczema, due to unspecified cause 05/25/2013 02/03/2015 Other atopic dermatitis and related conditions 05/25/2013 02/03/2015 DJD (degenerative joint disease) 04/25/2012 08/05/2015 Meralgia paresthetica 03/23/20122014 SOLAR LENTIGINES///DYSCHROMIA OTHER 12/29/2011 05/25/2013 FOLLICULITIS///HAIR DISEASES NEC 12/29/2011 05/25/2013 Pompholyx eczema 12/29/2011 02/03/2015 Eczematous dermatitis 12/29/20112014 Enthesopathy of unspecified site 11/08/2011 02/03/2015 Foot pain 11/08/2011 02/03/2015 FOLLICULITIS///HAIR DISEASES NEC 11/30/2010 11/30/2010 Solar Lentigines 11/30/2010 02/03/2015 Actinic skin damage 11/30/2010 02/04/20 15 Acne rosacea 08/31/2010 02/03/2015 Granulomatous rosacea 08/31/20102010 Folliculitis 08/31/2010 02/03/2015 Excoriation 08/31/2010 02/03/2015 Telangiectasia 08/31/2010 02/03/2015 Recurrent sinusitis 07/25/2009 02/04/20 15 Pain in joint, multiple sites 12/23/2008 02/03/2015 Unspecified hemorrhoids with out mention of complication 12/23/2008 02/03/2015 OVERWEIGHT 05/10/2008 02/03/2015 Pain in limb 04/19/2008 02/03/2015 Disturbance of skin sensation 12/26/2007 05/25/2013 Abdominal pain, epigastric 09/08/2007 0 02/03/2015 Other atopic dermatitis and related conditions 08/10/2007 05/25/2013 Unspecified pruritic disorder 08/10/2007 05/25/2013 Calcaneal spur 05/19/2007 02/03/2015 ACTINIC KERATOSIS (Premalignant AK) 04/04/2007 11/30/2010 SOLAR LENTIGINES///DYSCHROMIA OTHER 04/04/2007 11/30/2010 SEBORRHEIC KERATOSIS: IRRITATED//INFLAMED 04/04/2007 11/30/2010 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 radiation 04/04/2007 11/30/2010 Other psoriasis 04/04/2007 05/25/2013 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 11/30/2010 Unspecified disorder of prostate 08/02/2006 02/03/2015 HEMATOCHEZIA 01/18/2006 02/03/2015 HYPERGLYCEMIA 10/15/2005 02/03/2015 Contact dermatitis and other eczema, due to unspecified cause 09/16/2005 05/25/2013 Seborrheic dermatitis, unspecified 09/16/2005 05/25/2013 Xerosis/SEBACEOUS GLAND DIS NEC 09/16/2005 11/30/2010 Other specified disorder of penis 08/03/2005 02/03/2015 ERECTILE DYSFUNCTION 07/02/2005 020 Prediabetes 09/05/2019 documented as of this encounter (statuses as of 04/08/2023) [facility] History of Past illness Narrative* Problem Noted Date Diagnosed Date Resolved Date Impaired fasting glucose 02/03/2015 Other acne 05/25/2013 02/03/2015 Seborrheic Keratoses 05/25/2013 015 Other seborrheic dermatitis 05/25/2013 02/03/2015 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 Contact dermatitis and other eczema, due to unspecified cause 05/25/2013 02/03/2015 Other atopic dermatitis and related conditions 05/25/2013 02/03/2015 DJD (degenerative joint disease) 04/25/2012 08/05/2015 Meralgia paresthetica 03/23/20122014 SOLAR LENTIGINES///DYSCHROMIA OTHER 12/29/2011 05/25/2013 FOLLICULITIS///HAIR DISEASES NEC 12/29/2011 05/25/2013 Pompholyx eczema 12/29/2011 02/03/2015 Eczematous dermatitis 12/29/20112014 Enthesopathy of unspecified site 11/08/2011 02/03/2015 Foot pain 11/08/2011 02/03/2015 FOLLICULITIS///HAIR DISEASES NEC 11/30/2010 11/30/2010 Solar Lentigines 11/30/2010 02/03/2015 Actinic skin damage 11/30/2010 02/04/20 15 Acne rosacea 08/31/2010 02/03/2015 Granulomatous rosacea 08/31/20102010 Folliculitis 08/31/2010 02/03/2015 Excoriation 08/31/2010 02/03/2015 Telangiectasia 08/31/2010 02/03/2015 Recurrent sinusitis 07/25/2009 02/04/20 15 Pain in joint, multiple sites 12/23/2008 02/03/2015 Unspecified hemorrhoids with out mention of complication 12/23/2008 02/03/2015 OVERWEIGHT 05/10/2008 02/03/2015 Pain in limb 04/19/2008 02/03/2015 Disturbance of skin sensation 12/26/2007 05/25/2013 Abdominal pain, epigastric 09/08/2007 0 02/03/2015 Other atopic dermatitis and related conditions 08/10/2007 05/25/2013 Unspecified pruritic disorder 08/10/2007 05/25/2013 Calcaneal spur 05/19/2007 02/03/2015 ACTINIC KERATOSIS (Premalignant AK) 04/04/2007 11/30/2010 SOLAR LENTIGINES///DYSCHROMIA OTHER 04/04/2007 11/30/2010 SEBORRHEIC KERATOSIS: IRRITATED//INFLAMED 04/04/2007 11/30/2010 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 radiation 04/04/2007 11/30/2010 Other psoriasis 04/04/2007 05/25/2013 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 11/30/2010 Unspecified disorder of prostate 08/02/2006 02/03/2015 HEMATOCHEZIA 01/18/2006 02/03/2015 HYPERGLYCEMIA 10/15/2005 02/03/2015 Contact dermatitis and other eczema, due to unspecified cause 09/16/2005 05/25/2013 Seborrheic dermatitis, unspecified 09/16/2005 05/25/2013 Xerosis/SEBACEOUS GLAND DIS NEC 09/16/2005 11/30/2010 Other specified disorder of penis 08/03/2005 02/03/2015 ERECTILE DYSFUNCTION 07/02/2005 020 Prediabetes 09/05/2019 documented as of this encounter (statuses as of 05/07/2023) [facility] History of Past illness Narrative* Problem Noted Date Diagnosed Date Resolved Date Impaired fasting glucose 02/03/2015 Other acne 05/25/2013 02/03/2015 Seborrheic Keratoses 05/25/2013 015 Other seborrheic dermatitis 05/25/2013 02/03/2015 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 Contact dermatitis and other eczema, due to unspecified cause 05/25/2013 02/03/2015 Other atopic dermatitis and related conditions 05/25/2013 02/03/2015 DJD (degenerative joint disease) 04/25/2012 08/05/2015 Meralgia paresthetica 03/23/20122014 SOLAR LENTIGINES///DYSCHROMIA OTHER 12/29/2011 05/25/2013 FOLLICULITIS///HAIR DISEASES NEC 12/29/2011 05/25/2013 Pompholyx eczema 12/29/2011 02/03/2015 Eczematous dermatitis 12/29/20112014 Enthesopathy of unspecified site 11/08/2011 02/03/2015 Foot pain 11/08/2011 02/03/2015 FOLLICULITIS///HAIR DISEASES NEC 11/30/2010 11/30/2010 Solar Lentigines 11/30/2010 02/03/2015 Actinic skin damage 11/30/2010 02/04/20 15 Acne rosacea 08/31/2010 02/03/2015 Granulomatous rosacea 08/31/20102010 Folliculitis 08/31/2010 02/03/2015 Excoriation 08/31/2010 02/03/2015 Telangiectasia 08/31/2010 02/03/2015 Recurrent sinusitis 07/25/2009 02/04/20 15 Pain in joint, multiple sites 12/23/2008 02/03/2015 Unspecified hemorrhoids with out mention of complication 12/23/2008 02/03/2015 OVERWEIGHT 05/10/2008 02/03/2015 Pain in limb 04/19/2008 02/03/2015 Disturbance of skin sensation 12/26/2007 05/25/2013 Abdominal pain, epigastric 09/08/2007 0 02/03/2015 Other atopic dermatitis and related conditions 08/10/2007 05/25/2013 Unspecified pruritic disorder 08/10/2007 05/25/2013 Calcaneal spur 05/19/2007 02/03/2015 ACTINIC KERATOSIS (Premalignant AK) 04/04/2007 11/30/2010 SOLAR LENTIGINES///DYSCHROMIA OTHER 04/04/2007 11/30/2010 SEBORRHEIC KERATOSIS: IRRITATED//INFLAMED 04/04/2007 11/30/2010 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 radiation 04/04/2007 11/30/2010 Other psoriasis 04/04/2007 05/25/2013 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 11/30/2010 Unspecified disorder of prostate 08/02/2006 02/03/2015 HEMATOCHEZIA 01/18/2006 02/03/2015 HYPERGLYCEMIA 10/15/2005 02/03/2015 Contact dermatitis and other eczema, due to unspecified cause 09/16/2005 05/25/2013 Seborrheic dermatitis, unspecified 09/16/2005 05/25/2013 Xerosis/SEBACEOUS GLAND DIS NEC 09/16/2005 11/30/2010 Other specified disorder of penis 08/03/2005 02/03/2015 ERECTILE DYSFUNCTION 07/02/2005 020 Prediabetes 09/05/2019 documented as of this encounter (statuses as of 05/09/2023) [facility] History of Past illness Narrative* Problem Noted Date Diagnosed Date Resolved Date Impaired fasting glucose 02/03/2015 Other acne 05/25/2013 02/03/2015 Seborrheic Keratoses 05/25/2013 015 Other seborrheic dermatitis 05/25/2013 02/03/2015 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 Contact dermatitis and other eczema, due to unspecified cause 05/25/2013 02/03/2015 Other atopic dermatitis and related conditions 05/25/2013 02/03/2015 DJD (degenerative joint disease) 04/25/2012 08/05/2015 Meralgia paresthetica 03/23/20122014 SOLAR LENTIGINES///DYSCHROMIA OTHER 12/29/2011 05/25/2013 FOLLICULITIS///HAIR DISEASES NEC 12/29/2011 05/25/2013 Pompholyx eczema 12/29/2011 02/03/2015 Eczematous dermatitis 12/29/20112014 Enthesopathy of unspecified site 11/08/2011 02/03/2015 Foot pain 11/08/2011 02/03/2015 FOLLICULITIS///HAIR DISEASES NEC 11/30/2010 11/30/2010 Solar Lentigines 11/30/2010 02/03/2015 Actinic skin damage 11/30/2010 02/04/20 15 Acne rosacea 08/31/2010 02/03/2015 Granulomatous rosacea 08/31/20102010 Folliculitis 08/31/2010 02/03/2015 Excoriation 08/31/2010 02/03/2015 Telangiectasia 08/31/2010 02/03/2015 Recurrent sinusitis 07/25/2009 02/04/20 15 Pain in joint, multiple sites 12/23/2008 02/03/2015 Unspecified hemorrhoids with out mention of complication 12/23/2008 02/03/2015 OVERWEIGHT 05/10/2008 02/03/2015 Pain in limb 04/19/2008 02/03/2015 Disturbance of skin sensation 12/26/2007 05/25/2013 Abdominal pain, epigastric 09/08/2007 0 02/03/2015 Other atopic dermatitis and related conditions 08/10/2007 05/25/2013 Unspecified pruritic disorder 08/10/2007 05/25/2013 Calcaneal spur 05/19/2007 02/03/2015 ACTINIC KERATOSIS (Premalignant AK) 04/04/2007 11/30/2010 SOLAR LENTIGINES///DYSCHROMIA OTHER 04/04/2007 11/30/2010 SEBORRHEIC KERATOSIS: IRRITATED//INFLAMED 04/04/2007 11/30/2010 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 radiation 04/04/2007 11/30/2010 Other psoriasis 04/04/2007 05/25/2013 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 11/30/2010 Unspecified disorder of prostate 08/02/2006 02/03/2015 HEMATOCHEZIA 01/18/2006 02/03/2015 HYPERGLYCEMIA 10/15/2005 02/03/2015 Contact dermatitis and other eczema, due to unspecified cause 09/16/2005 05/25/2013 Seborrheic dermatitis, unspecified 09/16/2005 05/25/2013 Xerosis/SEBACEOUS GLAND DIS NEC 09/16/2005 11/30/2010 Other specified disorder of penis 08/03/2005 02/03/2015 ERECTILE DYSFUNCTION 07/02/2005 020 Prediabetes 09/05/2019 documented as of this encounter (statuses as of 05/24/2023) [facility] History of Past illness Narrative* Problem Noted Date Diagnosed Date Resolved Date Impaired fasting glucose 02/03/2015 Other acne 05/25/2013 02/03/2015 Seborrheic Keratoses 05/25/2013 015 Other seborrheic dermatitis 05/25/2013 02/03/2015 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 Contact dermatitis and other eczema, due to unspecified cause 05/25/2013 02/03/2015 Other atopic dermatitis and related conditions 05/25/2013 02/03/2015 DJD (degenerative joint disease) 04/25/2012 08/05/2015 Meralgia paresthetica 03/23/20122014 SOLAR LENTIGINES///DYSCHROMIA OTHER 12/29/2011 05/25/2013 FOLLICULITIS///HAIR DISEASES NEC 12/29/2011 05/25/2013 Pompholyx eczema 12/29/2011 02/03/2015 Eczematous dermatitis 12/29/20112014 Enthesopathy of unspecified site 11/08/2011 02/03/2015 Foot pain 11/08/2011 02/03/2015 FOLLICULITIS///HAIR DISEASES NEC 11/30/2010 11/30/2010 Solar Lentigines 11/30/2010 02/03/2015 Actinic skin damage 11/30/2010 02/04/20 15 Acne rosacea 08/31/2010 02/03/2015 Granulomatous rosacea 08/31/20102010 Folliculitis 08/31/2010 02/03/2015 Excoriation 08/31/2010 02/03/2015 Telangiectasia 08/31/2010 02/03/2015 Recurrent sinusitis 07/25/2009 02/04/20 15 Pain in joint, multiple sites 12/23/2008 02/03/2015 Unspecified hemorrhoids with out mention of complication 12/23/2008 02/03/2015 OVERWEIGHT 05/10/2008 02/03/2015 Pain in limb 04/19/2008 02/03/2015 Disturbance of skin sensation 12/26/2007 05/25/2013 Abdominal pain, epigastric 09/08/2007 0 02/03/2015 Other atopic dermatitis and related conditions 08/10/2007 05/25/2013 Unspecified pruritic disorder 08/10/2007 05/25/2013 Calcaneal spur 05/19/2007 02/03/2015 ACTINIC KERATOSIS (Premalignant AK) 04/04/2007 11/30/2010 SOLAR LENTIGINES///DYSCHROMIA OTHER 04/04/2007 11/30/2010 SEBORRHEIC KERATOSIS: IRRITATED//INFLAMED 04/04/2007 11/30/2010 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 radiation 04/04/2007 11/30/2010 Other psoriasis 04/04/2007 05/25/2013 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 11/30/2010 Unspecified disorder of prostate 08/02/2006 02/03/2015 HEMATOCHEZIA 01/18/2006 02/03/2015 HYPERGLYCEMIA 10/15/2005 02/03/2015 Contact dermatitis and other eczema, due to unspecified cause 09/16/2005 05/25/2013 Seborrheic dermatitis, unspecified 09/16/2005 05/25/2013 Xerosis/SEBACEOUS GLAND DIS NEC 09/16/2005 11/30/2010 Other specified disorder of penis 08/03/2005 02/03/2015 ERECTILE DYSFUNCTION 07/02/2005 020 Prediabetes 09/05/2019 documented as of this encounter (statuses as of 05/25/2023) [facility] History of Past illness Narrative* Problem Noted Date Diagnosed Date Resolved Date Impaired fasting glucose 02/03/2015 Other acne 05/25/2013 02/03/2015 Seborrheic Keratoses 05/25/2013 015 Other seborrheic dermatitis 05/25/2013 02/03/2015 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 Contact dermatitis and other eczema, due to unspecified cause 05/25/2013 02/03/2015 Other atopic dermatitis and related conditions 05/25/2013 02/03/2015 DJD (degenerative joint disease) 04/25/2012 08/05/2015 Meralgia paresthetica 03/23/20122014 SOLAR LENTIGINES///DYSCHROMIA OTHER 12/29/2011 05/25/2013 FOLLICULITIS///HAIR DISEASES NEC 12/29/2011 05/25/2013 Pompholyx eczema 12/29/2011 02/03/2015 Eczematous dermatitis 12/29/20112014 Enthesopathy of unspecified site 11/08/2011 02/03/2015 Foot pain 11/08/2011 02/03/2015 FOLLICULITIS///HAIR DISEASES NEC 11/30/2010 11/30/2010 Solar Lentigines 11/30/2010 02/03/2015 Actinic skin damage 11/30/2010 02/04/20 15 Acne rosacea 08/31/2010 02/03/2015 Granulomatous rosacea 08/31/20102010 Folliculitis 08/31/2010 02/03/2015 Excoriation 08/31/2010 02/03/2015 Telangiectasia 08/31/2010 02/03/2015 Recurrent sinusitis 07/25/2009 02/04/20 15 Pain in joint, multiple sites 12/23/2008 02/03/2015 Unspecified hemorrhoids with out mention of complication 12/23/2008 02/03/2015 OVERWEIGHT 05/10/2008 02/03/2015 Pain in limb 04/19/2008 02/03/2015 Disturbance of skin sensation 12/26/2007 05/25/2013 Abdominal pain, epigastric 09/08/2007 0 02/03/2015 Other atopic dermatitis and related conditions 08/10/2007 05/25/2013 Unspecified pruritic disorder 08/10/2007 05/25/2013 Calcaneal spur 05/19/2007 02/03/2015 ACTINIC KERATOSIS (Premalignant AK) 04/04/2007 11/30/2010 SOLAR LENTIGINES///DYSCHROMIA OTHER 04/04/2007 11/30/2010 SEBORRHEIC KERATOSIS: IRRITATED//INFLAMED 04/04/2007 11/30/2010 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 radiation 04/04/2007 11/30/2010 Other psoriasis 04/04/2007 05/25/2013 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 11/30/2010 Unspecified disorder of prostate 08/02/2006 02/03/2015 HEMATOCHEZIA 01/18/2006 02/03/2015 HYPERGLYCEMIA 10/15/2005 02/03/2015 Contact dermatitis and other eczema, due to unspecified cause 09/16/2005 05/25/2013 Seborrheic dermatitis, unspecified 09/16/2005 05/25/2013 Xerosis/SEBACEOUS GLAND DIS NEC 09/16/2005 11/30/2010 Other specified disorder of penis 08/03/2005 02/03/2015 ERECTILE DYSFUNCTION 07/02/2005 020 Prediabetes 09/05/2019 documented as of this encounter (statuses as of 05/26/2023) [facility] History of Past illness Narrative* Problem Noted Date Diagnosed Date Resolved Date Impaired fasting glucose 02/03/2015 Other acne 05/25/2013 02/03/2015 Seborrheic Keratoses 05/25/2013 015 Other seborrheic dermatitis 05/25/2013 02/03/2015 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 Contact dermatitis and other eczema, due to unspecified cause 05/25/2013 02/03/2015 Other atopic dermatitis and related conditions 05/25/2013 02/03/2015 DJD (degenerative joint disease) 04/25/2012 08/05/2015 Meralgia paresthetica 03/23/20122014 SOLAR LENTIGINES///DYSCHROMIA OTHER 12/29/2011 05/25/2013 FOLLICULITIS///HAIR DISEASES NEC 12/29/2011 05/25/2013 Pompholyx eczema 12/29/2011 02/03/2015 Eczematous dermatitis 12/29/20112014 Enthesopathy of unspecified site 11/08/2011 02/03/2015 Foot pain 11/08/2011 02/03/2015 FOLLICULITIS///HAIR DISEASES NEC 11/30/2010 11/30/2010 Solar Lentigines 11/30/2010 02/03/2015 Actinic skin damage 11/30/2010 02/04/20 15 Acne rosacea 08/31/2010 02/03/2015 Granulomatous rosacea 08/31/20102010 Folliculitis 08/31/2010 02/03/2015 Excoriation 08/31/2010 02/03/2015 Telangiectasia 08/31/2010 02/03/2015 Recurrent sinusitis 07/25/2009 02/04/20 15 Pain in joint, multiple sites 12/23/2008 02/03/2015 Unspecified hemorrhoids with out mention of complication 12/23/2008 02/03/2015 OVERWEIGHT 05/10/2008 02/03/2015 Pain in limb 04/19/2008 02/03/2015 Disturbance of skin sensation 12/26/2007 05/25/2013 Abdominal pain, epigastric 09/08/2007 0 02/03/2015 Other atopic dermatitis and related conditions 08/10/2007 05/25/2013 Unspecified pruritic disorder 08/10/2007 05/25/2013 Calcaneal spur 05/19/2007 02/03/2015 ACTINIC KERATOSIS (Premalignant AK) 04/04/2007 11/30/2010 SOLAR LENTIGINES///DYSCHROMIA OTHER 04/04/2007 11/30/2010 SEBORRHEIC KERATOSIS: IRRITATED//INFLAMED 04/04/2007 11/30/2010 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 radiation 04/04/2007 11/30/2010 Other psoriasis 04/04/2007 05/25/2013 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 11/30/2010 Unspecified disorder of prostate 08/02/2006 02/03/2015 HEMATOCHEZIA 01/18/2006 02/03/2015 HYPERGLYCEMIA 10/15/2005 02/03/2015 Contact dermatitis and other eczema, due to unspecified cause 09/16/2005 05/25/2013 Seborrheic dermatitis, unspecified 09/16/2005 05/25/2013 Xerosis/SEBACEOUS GLAND DIS NEC 09/16/2005 11/30/2010 Other specified disorder of penis 08/03/2005 02/03/2015 ERECTILE DYSFUNCTION 07/02/2005 020 Prediabetes 09/05/2019 documented as of this encounter (statuses as of 06/19/2023) [facility] History of Past illness Narrative* Problem Noted Date Diagnosed Date Resolved Date Impaired fasting glucose 02/03/2015 Other acne 05/25/2013 02/03/2015 Seborrheic Keratoses 05/25/2013 015 Other seborrheic dermatitis 05/25/2013 02/03/2015 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 Contact dermatitis and other eczema, due to unspecified cause 05/25/2013 02/03/2015 Other atopic dermatitis and related conditions 05/25/2013 02/03/2015 DJD (degenerative joint disease) 04/25/2012 08/05/2015 Meralgia paresthetica 03/23/20122014 SOLAR LENTIGINES///DYSCHROMIA OTHER 12/29/2011 05/25/2013 FOLLICULITIS///HAIR DISEASES NEC 12/29/2011 05/25/2013 Pompholyx eczema 12/29/2011 02/03/2015 Eczematous dermatitis 12/29/20112014 Enthesopathy of unspecified site 11/08/2011 02/03/2015 Foot pain 11/08/2011 02/03/2015 FOLLICULITIS///HAIR DISEASES NEC 11/30/2010 11/30/2010 Solar Lentigines 11/30/2010 02/03/2015 Actinic skin damage 11/30/2010 02/04/20 15 Acne rosacea 08/31/2010 02/03/2015 Granulomatous rosacea 08/31/20102010 Folliculitis 08/31/2010 02/03/2015 Excoriation 08/31/2010 02/03/2015 Telangiectasia 08/31/2010 02/03/2015 Recurrent sinusitis 07/25/2009 02/04/20 15 Pain in joint, multiple sites 12/23/2008 02/03/2015 Unspecified hemorrhoids with out mention of complication 12/23/2008 02/03/2015 OVERWEIGHT 05/10/2008 02/03/2015 Pain in limb 04/19/2008 02/03/2015 Disturbance of skin sensation 12/26/2007 05/25/2013 Abdominal pain, epigastric 09/08/2007 0 02/03/2015 Other atopic dermatitis and related conditions 08/10/2007 05/25/2013 Unspecified pruritic disorder 08/10/2007 05/25/2013 Calcaneal spur 05/19/2007 02/03/2015 ACTINIC KERATOSIS (Premalignant AK) 04/04/2007 11/30/2010 SOLAR LENTIGINES///DYSCHROMIA OTHER 04/04/2007 11/30/2010 SEBORRHEIC KERATOSIS: IRRITATED//INFLAMED 04/04/2007 11/30/2010 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 radiation 04/04/2007 11/30/2010 Other psoriasis 04/04/2007 05/25/2013 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 11/30/2010 Unspecified disorder of prostate 08/02/2006 02/03/2015 HEMATOCHEZIA 01/18/2006 02/03/2015 HYPERGLYCEMIA 10/15/2005 02/03/2015 Contact dermatitis and other eczema, due to unspecified cause 09/16/2005 05/25/2013 Seborrheic dermatitis, unspecified 09/16/2005 05/25/2013 Xerosis/SEBACEOUS GLAND DIS NEC 09/16/2005 11/30/2010 Other specified disorder of penis 08/03/2005 02/03/2015 ERECTILE DYSFUNCTION 07/02/2005 020 Prediabetes 09/05/2019 documented as of this encounter (statuses as of 09/26/2023) [facility] History of Past illness Narrative* Problem Noted Date Diagnosed Date Resolved Date Impaired fasting glucose 02/03/2015 Other acne 05/25/2013 02/03/2015 Seborrheic Keratoses 05/25/2013 015 Other seborrheic dermatitis 05/25/2013 02/03/2015 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 Contact dermatitis and other eczema, due to unspecified cause 05/25/2013 02/03/2015 Other atopic dermatitis and related conditions 05/25/2013 02/03/2015 DJD (degenerative joint disease) 04/25/2012 08/05/2015 Meralgia paresthetica 03/23/20122014 SOLAR LENTIGINES///DYSCHROMIA OTHER 12/29/2011 05/25/2013 FOLLICULITIS///HAIR DISEASES NEC 12/29/2011 05/25/2013 Pompholyx eczema 12/29/2011 02/03/2015 Eczematous dermatitis 12/29/20112014 Enthesopathy of unspecified site 11/08/2011 02/03/2015 Foot pain 11/08/2011 02/03/2015 FOLLICULITIS///HAIR DISEASES NEC 11/30/2010 11/30/2010 Solar Lentigines 11/30/2010 02/03/2015 Actinic skin damage 11/30/2010 02/04/20 15 Acne rosacea 08/31/2010 02/03/2015 Granulomatous rosacea 08/31/20102010 Folliculitis 08/31/2010 02/03/2015 Excoriation 08/31/2010 02/03/2015 Telangiectasia 08/31/2010 02/03/2015 Recurrent sinusitis 07/25/2009 02/04/20 15 Pain in joint, multiple sites 12/23/2008 02/03/2015 Unspecified hemorrhoids with out mention of complication 12/23/2008 02/03/2015 OVERWEIGHT 05/10/2008 02/03/2015 Pain in limb 04/19/2008 02/03/2015 Disturbance of skin sensation 12/26/2007 05/25/2013 Abdominal pain, epigastric 09/08/2007 0 02/03/2015 Other atopic dermatitis and related conditions 08/10/2007 05/25/2013 Unspecified pruritic disorder 08/10/2007 05/25/2013 Calcaneal spur 05/19/2007 02/03/2015 ACTINIC KERATOSIS (Premalignant AK) 04/04/2007 11/30/2010 SOLAR LENTIGINES///DYSCHROMIA OTHER 04/04/2007 11/30/2010 SEBORRHEIC KERATOSIS: IRRITATED//INFLAMED 04/04/2007 11/30/2010 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 radiation 04/04/2007 11/30/2010 Other psoriasis 04/04/2007 05/25/2013 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 11/30/2010 Unspecified disorder of prostate 08/02/2006 02/03/2015 HEMATOCHEZIA 01/18/2006 02/03/2015 HYPERGLYCEMIA 10/15/2005 02/03/2015 Contact dermatitis and other eczema, due to unspecified cause 09/16/2005 05/25/2013 Seborrheic dermatitis, unspecified 09/16/2005 05/25/2013 Xerosis/SEBACEOUS GLAND DIS NEC 09/16/2005 11/30/2010 Other specified disorder of penis 08/03/2005 02/03/2015 ERECTILE DYSFUNCTION 07/02/2005 020 Prediabetes 09/05/2019 documented as of this encounter (statuses as of 11/07/2023) [facility] History of Past illness Narrative* Problem Noted Date Diagnosed Date Resolved Date Impaired fasting glucose 02/03/2015 Other acne 05/25/2013 02/03/2015 Seborrheic Keratoses 05/25/2013 015 Other seborrheic dermatitis 05/25/2013 02/03/2015 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 Contact dermatitis and other eczema, due to unspecified cause 05/25/2013 02/03/2015 Other atopic dermatitis and related conditions 05/25/2013 02/03/2015 DJD (degenerative joint disease) 04/25/2012 08/05/2015 Meralgia paresthetica 03/23/20122014 SOLAR LENTIGINES///DYSCHROMIA OTHER 12/29/2011 05/25/2013 FOLLICULITIS///HAIR DISEASES NEC 12/29/2011 05/25/2013 Pompholyx eczema 12/29/2011 02/03/2015 Eczematous dermatitis 12/29/20112014 Enthesopathy of unspecified site 11/08/2011 02/03/2015 Foot pain 11/08/2011 02/03/2015 FOLLICULITIS///HAIR DISEASES NEC 11/30/2010 11/30/2010 Solar Lentigines 11/30/2010 02/03/2015 Actinic skin damage 11/30/2010 02/04/20 15 Acne rosacea 08/31/2010 02/03/2015 Granulomatous rosacea 08/31/20102010 Folliculitis 08/31/2010 02/03/2015 Excoriation 08/31/2010 02/03/2015 Telangiectasia 08/31/2010 02/03/2015 Recurrent sinusitis 07/25/2009 02/04/20 15 Pain in joint, multiple sites 12/23/2008 02/03/2015 Unspecified hemorrhoids with out mention of complication 12/23/2008 02/03/2015 OVERWEIGHT 05/10/2008 02/03/2015 Pain in limb 04/19/2008 02/03/2015 Disturbance of skin sensation 12/26/2007 05/25/2013 Abdominal pain, epigastric 09/08/2007 0 02/03/2015 Other atopic dermatitis and related conditions 08/10/2007 05/25/2013 Unspecified pruritic disorder 08/10/2007 05/25/2013 Calcaneal spur 05/19/2007 02/03/2015 ACTINIC KERATOSIS (Premalignant AK) 04/04/2007 11/30/2010 SOLAR LENTIGINES///DYSCHROMIA OTHER 04/04/2007 11/30/2010 SEBORRHEIC KERATOSIS: IRRITATED//INFLAMED 04/04/2007 11/30/2010 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 radiation 04/04/2007 11/30/2010 Other psoriasis 04/04/2007 05/25/2013 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 11/30/2010 Unspecified disorder of prostate 08/02/2006 02/03/2015 HEMATOCHEZIA 01/18/2006 02/03/2015 HYPERGLYCEMIA 10/15/2005 02/03/2015 Contact dermatitis and other eczema, due to unspecified cause 09/16/2005 05/25/2013 Seborrheic dermatitis, unspecified 09/16/2005 05/25/2013 Xerosis/SEBACEOUS GLAND DIS NEC 09/16/2005 11/30/2010 Other specified disorder of penis 08/03/2005 02/03/2015 ERECTILE DYSFUNCTION 07/02/2005 020 Prediabetes 09/05/2019 documented as of this encounter (statuses as of 11/07/2023) [facility]* Diagnosis Hyperglycemia- Primary Other abnormal glucose Primary osteoarthritis involving multiple joints Other hyperlipidemia External hemorrhoids External hemorrhoids without mention of complication Advance directive discussed with patient Other specified counseling [facility]* Diagnosis General medical exam Unspecified general medical examination Other hyperlipidemia DDD (degenerative disc disease), lumbar Degeneration of lumbar or lumbosacral intervertebral disc [facility] DDD (degenerative disc disease), lumbar Degeneration of lumbar or lumbosacral intervertebral disc [facility] Other hyperlipidemia- Primary [facility] Diagnosis Prediabetes- Primary Other abnormal glucose Primary osteoarthritis of both knees Primary localized osteoarthrosis, lower leg Other hyperlipidemia [facility] Other hyper[facility] Diagnosis DDD (degenerative disc disease), lumbar Degeneration of lumbar or lumbosacral intervertebral disc [facility] Diagnosis Pain- Primary Generalized pain [facility] Diagnosis Pain in right foot- Primary Pain in limb [facility] Diagnosis Arthritis of right midfoot- Primary Right foot pain Pain in limb [facility] noteNo assessment information availableWMercy Health Work Phone: Evaluation note* Diagnosis Pain Generalized pain Pain in right foot Pain in limb [facility] Diagnosis Annual physical exam- Primary Routine general medical examination at a [facility] Bilateral carotid artery stenosis Occlusion and stenosis of carotid artery without mention of cerebral infarction DDD (degenerative disc disease), lumbar Degeneration of lumbar or lumbosacral intervertebral disc Primary osteoarthritis of both knees Primary localized osteoarthrosis, lower leg Hyperlipidemia, unspecified hyperlipidemia type Prediabetes Other abnormal glucose documented in this encounter [facility] note* Diagnosis Prediabetes- Primary Other abnormal glucose [facility]* Diagnosis Other hyperlipidemia- Primary Prediabetes Other abnormal glucose Primary osteoarthritis of both knees Primary localized osteoarthrosis, lower leg Screening for depression Encounter for screening examination for other mental health and behavioral disorders DDD (degenerative disc disease), lumbar Degeneration of lumbar or lumbosacral intervertebral disc Obesity, Class I, BMI 30-34.9 Obesity, unspecified [facility]* Diagnosis Other hyperlipidemia [facility]* Diagnosis Acute cough [facility]* Diagnosis Other hyperlipidemia- Primary Prediabetes Other abnormal glucose [facility]* Diagnosis Other hyperlipidemia [facility]* Diagnosis Preop examination- Primary Preoperative examination, unspecified Abnormal EKG Nonspecific abnormal electrocardiogram (ECG) (EKG) Systolic murmur Undiagnosed cardiac murmurs documented in this encounter [facility] note* Diagnosis Abnormal stress test- Primary Other nonspecific abnormal cardiovascular system function study History of tobacco abuse Personal history of tobacco use, presenting hazards to health Dyslipidemia Other and unspecified hyperlipidemia Abnormal EKG Nonspecific abnormal electrocardiogram (ECG) (EKG) documented [facility] this encounter [facility]* Diagnosis Abnormal stress test- Primary Other nonspecific abnormal cardiovascular system function study documented in this encounter [facility] for referral (narrative)* Diagnostic Procedure Only (Routine) - Authorized Specialty Diagnoses / Procedures Referred By Moisés t Referred To Contact XR IMAGING Diagnoses Pain Procedures XR ANKLE GENERAL 3V AP/LAT/OBL RIGHT RADEX ANKLE COMPLETE MINIMUM [address] [place] [place] [address] [place] [address] Referral ID Status Reason Start Date Expiration Date Visits Requested Visits Authorized [id number] Authorized Auto-Generat ed Referral 05/09/2023 06/07/2024 1 1 [facility] for referral (narrative)* Diagnostic Procedure Only (Routine) - Closed Specialty Diagnoses / Procedures Referred By Contac t Referred To Contact XR IMAGING Diagnoses Pain in right foot Procedures XR FOOT GENERAL 3V AP/LAT/OBL RIGHT RADEX FOOT COMPLETE MINIMUM [address] [place] [address] [place] [address] Referral ID Status Reason Start Date Expiration Date V isits Requested Visits Authorized [id number] Closed Auto-Generate d Referral 05/24/2023 06/22/2024 1 1 [facility] for referral (narrative)* Diagnostic Procedure Only (Routine) - Closed Specialty Diagnoses / Procedures Referred By Contac t Referred To Contact XR IMAGING Diagnoses Pain in right foot Procedures XR FOOT GENERAL 3V AP/LAT/OBL RIGHT RADEX FOOT COMPLETE MINIMUM [address] [address] [place] [address] Referral ID Status Reason Start Date Expiration Date V isits Requested Visits Authorized [id number] Closed Auto-Generate d Referral 05/24/2023 06/22/2024 1 1 * Diagnostic Procedure Only (Routine) - Closed Specialty Diagnoses / Procedures Referred By Contac t Referred To Contact XR IMAGING Diagnoses Pain Procedures XR ANKLE GENERAL 3V AP/LAT/OBL RIGHT RADEX ANKLE COMPLETE MINIMUM [address] [place] [address] [place] [address] Referral ID Status Reason Start Date Expiration Date V isits Requested Visits Authorized [id number] Closed Auto-Generate d Referral 05/09/2023 06/07/2024 1 1 [facility]No reason for referral information availableWMercy Health Work Phone: Reason for visit Narrative* Diagnostic Procedure Only (Routine) - Closed Specialty Diagnoses / Procedures Referred By Contac t Referred To Contact XR IMAGING Diagnoses Pain Procedures XR ANKLE GENERAL 3V AP/LAT/OBL RIGHT RADEX ANKLE COMPLETE MINIMUM [address] [place] [address] [place] [address] Referral ID Status Reason Start Date Expiration Date V isits Requested Visits Authorized [id number] Closed Auto-Generate d Referral 05/09/2023 06/07/2024 1 1 [facility] Summary Purpose Family History Relationship Condition Age at Onset Recorded Date/T heena mother Cardiac disease Unknown Diabetes mellitus Unknown Peripheral vascular disease Unknown father Alzheimer's disease Unknown Malignant neoplasm of prostate Unknown Malignant neoplasm of urinary bladder Unk nown Parkinson's disease Unknown grandmother Cerebrovascular accident (CVA) Unknown Cardiac disease Unknown Advance Directives Documents on File Type Date Recorded 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 Review of System There may be information available, but it has not been provided by the sender. History of Present Illness There may be information available, but it has not been provided by the sender. Chief Complaint and Reason for Visit Chief Complaint VARICOSE VEINS OF RI GHT LOWER EXTREMITY Chief Complaint Admit Date PRE SURGERY November 12, 2024 8:5 3am PREOP November 12, 2024 9:0 5am Chief Complaint Admit Date PRE SURGERY November 12, 2024 8:5 3am PREOP November 12, 2024 9:0 5am ABNORMAL EKG/ SYSTOLIC MURMUR December 31, 2024 1:33pm Chief Complaint Admit Date PRE SURGERY November 12, 2024 8:5 3am PREOP November 12, 2024 9:0 5am ABNORMAL EKG/ SYSTOLIC MURMUR December 31, 2024 1:33pm GERD January 10, 2025 7:53a m Chief Complaint Admit Date ABNORMAL EKG/ SYSTOLIC MURMUR December 31, 2024 1:33pm GERD January 10, 2025 7:53a m EST (SELF) March 13, 2025 9:32 am Reason for Referral Specialty Diagnoses / Procedures Referred By Moisés t Referred To Contact [facility] Diagnoses DDD (degenerative disc disease), lumbar Procedures CONSULT TO [facility] PodlogarBriana APRN.CROWNING INSPECTOR [address] [place] [address] Referral ID Status Reason Start Date Expiration Date Visits Requested Visits Authorized [id number] Ref Not Required PCP Requested Referral 09/26/2023 09/25/2024 1 1 Specialty Diagnoses / Procedures Referred By Moisés day [facility] Diagnoses Bilateral carotid artery stenosis Procedures US CAROTID ARTERIES RADHA [facility] DUPLEX SCAN EXTRACRANIAL ART COMPL BI STUDY PodlogarBriana APRN.CROWNING INSPECTOR [address] [place] [address] [facility] [address] [place] [address] Referral ID Status Reason Start Date Expiration Date Visits Requested Visits Authorized [id number] Authorized Auto-Generat ed Referral 09/26/2023 09/25/2024 1 1 Additional Source Comments (unrecognized sect ion and content) No Status Records FoundNo Status Records FoundNo Status Records FoundNo Status Records Found INFORMATION SOURCE (unrecogn ized section and content) DATE CREATED AUTHOR 05/16/2019 [facility] DATE CREATED AUTHOR AUTHOR'S ORGANIZ ATION 01/15/2025 [facility] DATE CREATED AUTHOR AUTHOR'S ORGANIZ ATION 02/04/2025 [facility] DATE CREATED AUTHOR AUTHOR'S ORGANIZ ATION 03/11/2025 [facility] Reason for Visit (unrecogniz ed section and content) Reason For Visit Description New - 1st visit with practice Preliminary reason f or visit data, not yet signed by the author as of bilateral hand pain Reason Onset Date Comments Refill Request 02/05/2022 Reason Comments Follow Up 6 month Reason Onset Date Comments Refill Request 04/26/2022 Reason Onset Date Comments Refill Request 07/04/2022 Reason Onset Date Comments Refill Request 12/04/2022 Reason Comments Follow Up Reason Comments Results Reason Onset Date Comments Refill Request 04/08/2023 Reason Onset Date Comments Refill Request 05/05/2023 Reason Comments Orders Reason Comments New Pain Reason Comments Physical Reason Onset Date Comments Refill Request 11/06/2023 Reason Onset Date Comments Refill Request 01/13/2024 Reason Onset Date Comments Refill Request 03/07/2024 Reason Comments F/U 6 months Reason Onset Date Comments Refill Request 04/26/2024 Reason Onset Date Comments Refill Request 10/01/2024 Reason Onset Date Comments Results 10/03/2024 Reason Comments Pre-Op Exam Left shoulder 12/12 [facility] Reason Comments [facility] visit Reason Comments Insurance Authorization Stress Echo Reason Comments New Cardiac Patient Abnormal stress/echo Specialty Diagnoses / Procedures Referred By Moisés t Referred To Contact Cardiology Diagnoses Abnormal stress test Procedures CONSULT TO CARDIOLOGY OFFICE/OUTPATIENT NEW HIGH MDM 60 MINUTES PodlogarBriana APRN.CROWNING INSPECTOR [address] [place] [address] Phone: tel: fax: Referral ID Status Reason Start Date Expiration Date V isits Requested Visits Authorized [id number] Closed PCP Requested Referral 01/09/2025 01/09/2026 1 1 Reason Comments Results Patient request for Briana to review Stre ss test done at [facility] Source Comments (unrecognize d section and content) In the event this informatio n is protected by the Federal Confidentiality of Alcohol and Drug Abuse Patient Records regulations: The Federal rules restrict any use of the information to criminally investigate or prosecute any alcohol or drug abuse patient.TrihealthIn the event this information is protected by the Federal Confidentiality of Alcohol and Drug Abuse Patient Records regulations: The Federal rules restrict any use of the information to criminally investigate or prosecute any alcohol or drug abuse patient.TrihealthIn the event this information is protected by the Federal Confidentiality of Alcohol and Drug Abuse Patient Records regulations: The Federal rules restrict any use of the information to criminally investigate or prosecute any alcohol or drug abuse patient.TrihealthIn the event this information is protected by the Federal Confidentiality of Alcohol and Drug Abuse Patient Records regulations: The Federal rules restrict any use of the information to criminally investigate or prosecute any alcohol or drug abuse patient.TrihealthIn the event this information is protected by the Federal Confidentiality of Alcohol and Drug Abuse Patient Records regulations: The Federal rules restrict any use of the information to criminally investigate or prosecute any alcohol or drug abuse patient.TrihealthIn the event this information is protected by the Federal Confidentiality of Alcohol and Drug Abuse Patient Records regulations: The Federal rules restrict any use of the information to criminally investigate or prosecute any alcohol or drug abuse patient.TrihealthIn the event this information is protected by the Federal Confidentiality of Alcohol and Drug Abuse Patient Records regulations: The Federal rules restrict any use of the information to criminally investigate or prosecute any alcohol or drug abuse patient.TrihealthIn the event this information is protected by the Federal Confidentiality of Alcohol and Drug Abuse Patient Records regulations: The Federal rules restrict any use of the information to criminally investigate or prosecute any alcohol or drug abuse patient.TrihealthIn the event this information is protected by the Federal Confidentiality of Alcohol and Drug Abuse Patient Records regulations: The Federal rules restrict any use of the information to criminally investigate or prosecute any alcohol or drug abuse patient.TrihealthIn the event this information is protected by the Federal Confidentiality of Alcohol and Drug Abuse Patient Records regulations: The Federal rules restrict any use of the information to criminally investigate or prosecute any alcohol or drug abuse patient.TrihealthIn the event this information is protected by the Federal Confidentiality of Alcohol and Drug Abuse Patient Records regulations: The Federal rules restrict any use of the information to criminally investigate or prosecute any alcohol or drug abuse patient.TrihealthIn the event this information is protected by the Federal Confidentiality of Alcohol and Drug Abuse Patient Records regulations: The Federal rules restrict any use of the information to criminally investigate or prosecute any alcohol or drug abuse patient.TrihealthIn the event this information is protected by the Federal Confidentiality of Alcohol and Drug Abuse Patient Records regulations: The Federal rules restrict any use of the information to criminally investigate or prosecute any alcohol or drug abuse patient.TrihealthIn the event this information is protected by the Federal Confidentiality of Alcohol and Drug Abuse Patient Records regulations: The Federal rules restrict any use of the information to criminally investigate or prosecute any alcohol or drug abuse patient.TrihealthIn the event this information is protected by the Federal Confidentiality of Alcohol and Drug Abuse Patient Records regulations: The Federal rules restrict any use of the information to criminally investigate or prosecute any alcohol or drug abuse patient.TrihealthIn the event this information is protected by the Federal Confidentiality of Alcohol and Drug Abuse Patient Records regulations: The Federal rules restrict any use of the information to criminally investigate or prosecute any alcohol or drug abuse patient.TrihealthIn the event this information is protected by the Federal Confidentiality of Alcohol and Drug Abuse Patient Records regulations: The Federal rules restrict any use of the information to criminally investigate or prosecute any alcohol or drug abuse patient.TrihealthIn the event this information is protected by the Federal Confidentiality of Alcohol and Drug Abuse Patient Records regulations: The Federal rules restrict any use of the information to criminally investigate or prosecute any alcohol or drug abuse patient.TrihealthIn the event this information is protected by the Federal Confidentiality of Alcohol and Drug Abuse Patient Records regulations: The Federal rules restrict any use of the information to criminally investigate or prosecute any alcohol or drug abuse patient.TrihealthIn the event this information is protected by the Federal Confidentiality of Alcohol and Drug Abuse Patient Records regulations: The Federal rules restrict any use of the information to criminally investigate or prosecute any alcohol or drug abuse patient.TrihealthIn the event this information is protected by the Federal Confidentiality of Alcohol and Drug Abuse Patient Records regulations: The Federal rules restrict any use of the information to criminally investigate or prosecute any alcohol or drug abuse patient.TrihealthIn the event this information is protected by the Federal Confidentiality of Alcohol and Drug Abuse Patient Records regulations: The Federal rules restrict any use of the information to criminally investigate or prosecute any alcohol or drug abuse patient.TrihealthIn the event this information is protected by the Federal Confidentiality of Alcohol and Drug Abuse Patient Records regulations: The Federal rules restrict any use of the information to criminally investigate or prosecute any alcohol or drug abuse patient.TrihealthIn the event this information is protected by the Federal Confidentiality of Alcohol and Drug Abuse Patient Records regulations: The Federal rules restrict any use of the information to criminally investigate or prosecute any alcohol or drug abuse patient.TrihealthIn the event this information is protected by the Federal Confidentiality of Alcohol and Drug Abuse Patient Records regulations: The Federal rules restrict any use of the information to criminally investigate or prosecute any alcohol or drug abuse patient.TrihealthIn the event this information is protected by the Federal Confidentiality of Alcohol and Drug Abuse Patient Records regulations: The Federal rules restrict any use of the information to criminally investigate or prosecute any alcohol or drug abuse patient.TrihealthIn the event this information is protected by the Federal Confidentiality of Alcohol and Drug Abuse Patient Records regulations: The Federal rules restrict any use of the information to criminally investigate or prosecute any alcohol or drug abuse patient.TrihealthIn the event this information is protected by the Federal Confidentiality of Alcohol and Drug Abuse Patient Records regulations: The Federal rules restrict any use of the information to criminally investigate or prosecute any alcohol or drug abuse patient.TrihealthIn the event this information is protected by the Federal Confidentiality of Alcohol and Drug Abuse Patient Records regulations: The Federal rules restrict any use of the information to criminally investigate or prosecute any alcohol or drug abuse patient.TrihealthIn the event this information is protected by the Federal Confidentiality of Alcohol and Drug Abuse Patient Records regulations: The Federal rules restrict any use of the information to criminally investigate or prosecute any alcohol or drug abuse patient.TrihealthIn the event this information is protected by the Federal Confidentiality of Alcohol and Drug Abuse Patient Records regulations: The Federal rules restrict any use of the information to criminally investigate or prosecute any alcohol or drug abuse patient.TrihealthIn the event this information is protected by the Federal Confidentiality of Alcohol and Drug Abuse Patient Records regulations: The Federal rules restrict any use of the information to criminally investigate or prosecute any alcohol or drug abuse patient.TrihealthIn the event this information is protected by the Federal Confidentiality of Alcohol and Drug Abuse Patient Records regulations: The Federal rules restrict any use of the information to criminally investigate or prosecute any alcohol or drug abuse patient.TrihealthIn the event this information is protected by the Federal Confidentiality of Alcohol and Drug Abuse Patient Records regulations: The Federal rules restrict any use of the information to criminally investigate or prosecute any alcohol or drug abuse patient.[facility] Care Teams (unrecognized sec tion and content) Press Manager Relationship Specialty Start Date End Date Preeti Marquis MD [address] [place], [place] [id number] PCP - General Family Practice 08/30/16 Press Manager Relationship Specialty Start Date End Date Preeti Marquis MD [address] [place], [place] [id number] PCP - General Family Practice 08/30/16 Press Manager Relationship Specialty Start Date End Date Preeti Marquis MD [address] [facility] [address] PCP - General Family Practice 08/30/16 Press Manager Relationship Specialty Start Date End Date Preeti Marquis MD [address] [place] [address] PCP - General Family Medicine 08/30/16 Press Manager Relationship Specialty Start Date End Date Preeti Marquis MD [address] [facility] [address] PCP - General Family Medicine 08/30/16 Press Manager Relationship Specialty Start Date End Date Preeti Marquis MD [address] [place] [address] PCP - General Family Medicine 08/30/16 Press Manager Relationship Specialty Start Date End Date Preeti Marquis MD [address] [place] [address] PCP - General Family Medicine 08/30/16 Press Manager Relationship Specialty Start Date End Date Preeti Marquis MD [address] [place] [address] PCP - General Family Medicine 08/30/16 Press Manager Relationship Specialty Start Date End Date Preeti Marquis MD [address] [place] [address] PCP - General Family Medicine 08/30/16 Press Manager Relationship Specialty Start Date End Date Preeti Marquis MD [address] [place] [address] PCP - General Family Medicine 08/30/16 Press Manager Relationship Specialty Start Date End Date Preeti Marquis MD [address] [place] [address] PCP - General Family Medicine 08/30/16 Team Status: Active Member Role Status Dates Dr. Gary Marquis MD Family Provider Active Dr. Gary Marquis MD Primary Care Provider Acti ve Team Status: Inactive Member Role Status Dates Dr. Gary Marquis MD Primary Care Provider Acti ve Dr. Say Suazo MD Attending Provider, Aurelia merrill Active Press Manager Relationship Specialty Start Date End Date Preeti Marquis MD [address] [facility] [place] [address] PCP - General Family Medicine 08/30/16 Press Manager Relationship Specialty Start Date End Date Preeti Marquis MD [address] [place] [address] PCP - General Family Medicine 08/30/16 Press Manager Relationship Specialty Start Date End Date Preeti Marquis MD [address] [facility] [place] [address] PCP - General Family Medicine 08/30/16 Press Manager Relationship Specialty Start Date End Date Preeti Marquis MD [address] [place] [place] [address] PCP - General Family Medicine 08/30/16 Press Manager Relationship Specialty Start Date End Date Preeti Marquis MD [address] [place] [address] PCP - General Family Medicine 08/30/16 Press Manager Relationship Specialty Start Date End Date Preeti Marquis MD [address] [facility] [address] PCP - General Family Medicine 08/30/16 Press Manager Relationship Specialty Start Date End Date Preeti Marquis MD [address] [facility] [address] PCP - General Family Medicine 08/30/16 Podlogar, Briana, MAT MAKING MACHINE TENDER.CROWNING INSPECTOR [address] [place] [address] Global Coordinator Family Medicine 07/21/24 Press Manager Relationship Specialty Start Date End Date Preeti Marquis MD [address] [facility] [place] [address] PCP - General Family Medicine 08/30/16 Podlogar, Briana, MAT MAKING MACHINE TENDER.CROWNING INSPECTOR [address] [place] [address] Global Coordinator Family Medicine 07/21/24 Press Manager Relationship Specialty Start Date End Date Preeti Marquis MD [address] [facility] [place] [address] PCP - General Family Medicine 08/30/16 Podlogar, Briana, MAT MAKING MACHINE TENDER.CROWNING INSPECTOR [address] [place] [address] Global Coordinator Family Medicine 07/21/24 Press Manager Relationship Specialty Start Date End Date Preeti Marquis MD [address] [facility] [address] PCP - General Family Medicine 08/30/16 Podlogar, Briana, MAT MAKING MACHINE TENDER.CROWNING INSPECTOR [address] [place], [place] [address] Global Coordinator Family [facility] 07/21/24 Betty Brody APRN.CROWNING INSPECTOR [address] [place], [place] [address] [facility] 11/05/24 Team Status: Active Member Role Status Dates Dr. Gary Marquis MD Primary Care Provider Acti ve Team Status: Inactive Member Role Status Dates Dr. Gary Marquis MD Primary Care Provider Acti ve Start: November 12, 2024 End: November 12, 2024 Dr. Broderick Merino DO Attending Provider Active Start: November 12, 2024 End: November 12, 2024 Dr. Broderick Merino DO Referring Provider Active Start: November 12, 2024 End: November 12, 2024 Team Status: Active Member Role Status Dates Dr. Gary Marquis MD Primary Care Provider Acti ve Start: November 12, 2024 End: November 12, 2024 Dr. Howard Liz MD Attending Provider Active S tart: November 12, 2024 End: November 12, 2024 Dr. Broderick Merino DO Referring Provider Active Start: November 12, 2024 End: November 12, 2024 Press Manager Relationship Specialty Start Date End Date Preeti Marquis MD [address] [place], [place] [id number] PCP - General Family Medicine 08/30/16 PodlogarBriana MAT MAKING MACHINE TENDER.CROWNING INSPECTOR [address] [place], [place] [address] [facility] 07/21/24 Betty Brody, LOLY.CROWNING INSPECTOR [address] [place], [place] [id number] [facility] 11/05/24 Press Manager Relationship Specialty Start Date End Date Preeti Marquis MD [address] [place], [place] [address] PCP - General Family Medicine 08/30/16 PodlogarBriana APRN.CROWNING INSPECTOR [address] [place], [place] [address] [facility] 07/21/24 Betty Brody MAT MAKING MACHINE TENDER.CROWNING INSPECTOR [address] [place], [place] [address] [facility] 11/05/24 Press Manager Relationship Specialty Start Date End Date Preeti Marquis MD [address] [place], [place] [address] PCP - General Family Medicine 08/30/16 AguilarlogarBriana, MAT MAKING MACHINE TENDER.CROWNING INSPECTOR [address] [place], [place] [address] [facility] Medicine 07/21/24 Betty Brody, MAT MAKING MACHINE TENDER.CROWNING INSPECTOR [address] [place], [place] [address] [facility] 11/05/24 Team Status: Inactive Member Role Status Dates Dr. Gary Marquis MD Primary Care Provider Acti ve Start: December 31, 2024 End: December 31, 2024 Briana Podlogar APPLICATIONS SUPPORT SPECIALIST, APPLICATIONS SUPPORT SPECIALIST-C Attending Provider Active Start: December 31, 2024 End: December 31, 2024 Briana Podlogar APPLICATIONS SUPPORT SPECIALIST, APPLICATIONS SUPPORT SPECIALIST-C Referring Provider Active Start: December 31, 2024 End: December 31, 2024 Team Status: Active Member Role Status Dates Dr. Gary Marquis MD Primary Care Provider Acti ve Start: December 31, 2024 Dr. Howard Liz MD Attending Provider Active S tart: December 31, 2024 Press Manager Relationship Specialty Start Date End Date Preeti Marquis MD [address] [place], [place] [address] PCP - General Family Medicine 08/30/16 PodlogarBriana MAT MAKING MACHINE TENDER.CROWNING INSPECTOR [address] [place], [place] [address] [facility] 07/21/24 Betty Brody MAT MAKING MACHINE TENDER.CROWNING INSPECTOR [address] [place], [place] [address] [facility] 01/24/25 Team Status: Inactive Member Role Status Dates Dr. Gary Marquis MD Primary Care Provider Acti ve Start: January 10, 2025 End: January 10, 2025 Dr. Preeti Marin MD Attending Provider Activ e Start: January 10, 2025 End: January 10, 2025 Dr. Preeti Marin MD Referring Provider Activ e Start: January 10, 2025 End: January 10, 2025 Press Manager Relationship Specialty Start Date End Date Preeti Marquis MD [address] [place], [place] [id number] PCP - General Family Medicine 08/30/16 Podlogar, Briana, MAT MAKING MACHINE TENDER.CROWNING INSPECTOR [address] [place], [place] [address] [facility] 07/21/24 Team Status: Active Member Role/Relationship Status Dates Dr. Gary Marquis MD Primary Care Provider Acti ve Team Status: Inactive Member Role/Relationship Status Dates Dr. Gary Marquis MD Primary Care Provider Acti ve Start: December 31, 2024 End: December 31, 2024 Briana Podlogar APPLICATIONS SUPPORT SPECIALIST, APPLICATIONS SUPPORT SPECIALIST-C Attending Provider Active Start: December 31, 2024 End: December 31, 2024 Briana Harris APPLICATIONS SUPPORT SPECIALIST, APPLICATIONS SUPPORT SPECIALIST-C Referring Provider Active Start: December 31, 2024 End: December 31, 2024 Team Status: Active Member Role/Relationship Status Dates Dr. Gary Marquis MD Primary Care Provider Acti ve Start: December 31, 2024 Dr. Howard Liz MD Attending Provider Active S tart: December 31, 2024 Team Status: Inactive Member Role/Relationship Status Dates Dr. Gary Marquis MD Primary Care Provider Acti ve Start: January 10, 2025 End: January 10, 2025 Dr. Preeti Marin MD Attending Provider Activ e Start: January 10, 2025 End: January 10, 2025 Dr. Preeti Marin MD Referring Provider Activ e Start: January 10, 2025 End: January 10, 2025 Team Status: Inactive Member Role/Relationship Status Dates Dr. Gary Marquis MD Primary Care Provider Acti ve Start: March 13, 2025 End: March 13, 2025 Dr. Gary Marquis MD Referring Provider Active Start: March 13, 2025 End: March 13, 2025 Dr. Howard Liz MD Attending Provider Active S tart: March 13, 2025 End: March 13, 2025 Goals (unrecognized section and content) Goals may be documented in a n alternate sectionGoals may be documented in an alternate sectionGoals may be documented in an alternate sectionGoals may be documented in an alternate sectionGoals may be documented in an alternate section FOR RECORDS PERTAINING TO PATIENTS WHO ARE OR HAVE BEEN ENROLLED IN A CHEMICAL DEPENDENCY/SUBSTANCEABUSE PROGRAM, SOME INFORMATION MAY BE OMITTED. This clinical summary was aggregated from multiple sources. Caution should be exercised in using it in the provision of clinical care. This summary normalizes information from multiple sources, and as a consequence, information in this document may materially change the coding, format and clinical context of patient data. In addition, data may be omitted in some cases. CLINICAL DECISIONS SHOULD BE BASED ON THE PRIMARY CLINICAL RECORDS. [facility]. provides no warranty or guarantee of the accuracy or completeness of information in this document.
== END | disposition home or self-care (01) ==
LOC: LAB 10:25
PROVIDERS: PCP Family Medicine; Referring Provider Internal Medicine Cardiovascular Disease; Visit Provider Internal Medicine Cardiovascular Disease
DX: Z01.810 Encounter for preprocedural cardiovascular examination (principal); R94.39 Abnormal result of other cardiovascular function study
CPT/HCPCS: 36415; 71046; 80048; 85025

== ENCOUNTER 2025-03-18 07:29 | Day surgery (SDC) | payer MEDICARE, SELFPAY ==
[2025-03-15 08:46] VITALS: BMI 29.9
--- OUTSIDE RECORDS SUMMARY | 2025-03-18 07:34 | XMS RPT_ITS | CCD ---
Author Organization [facility] ion Partnership [facility] Care Team Providers Care Pattern Cutter Name Role Phone Selena Gonsalves MD Unavailable Preeti Marquis MD Primary Care Provider Preeti Marquis MD Primary Care Provider Preeti Marquis MD Primary Care Provider Preeti Marquis MD Primary Care Provider Podlogar FITNESS CENTRE MANAGER.Briana RESENDEZ Unavailable Ronn FITNESS CENTRE MANAGER.CRUSHER LOADER OPERATOR, Betty Unavailable Dr. Gary Marquis MD Primary Care Provider Dr. Broderick Merino DO Attending Provider Dr. Broderick Merino DO Referring Provider Dr. Howard Liz MD Attending Provider Podlogar COMMUNICATIONS PROFESSIONAL-Briana Mix Attending Provider Podlogar COMMUNICATIONS PROFESSIONAL-CBriana Referring Provider PODLOGAR, BRIANA Attending Unavailable PREETI MARQUIS Referring Unavailab le PREETI MARQUIS Primary Care Unavailab le PODLOGBRIANA CRISTINA Referring Unavailable PREETI MARQUIS Primary Care Unavailab le PREETI MARQUIS Referring Unavailab le PREETI MARQUIS Primary Care Unavailab le PODLOGAR, BRIANA Attending Unavailable PREETI MARQUIS Primary Care Unavailab le PODLOGAR, BRIANA Attending Unavailable SELF Referring Unavailable BURSLEY, CHRISTOPHER B Primary Care Unavailab le [place]le FITNESS CENTRE MANAGER.CRUSHER LOADER OPERATOR, Betty Unavailable Tania DAVID, Dr. Melgoza Attending Provider Tania DAVID, Dr. Melgoza Referring Provider LEBRON MILLER Attending Unavailable PODLOGAR, BRIANA Referring Unavailable PREETI MARQUIS B Primary Care Unavailab arcenio Marquis MD, Dr. Vega Primary Care Provider Agusto DAVID, Dr. Lawrence Attending Provider Benitez DAVID, Dr. Vega Referring Provider Preeti Marin Referring Unavailabl e Wartmann, Preeti Attending Unavailabl e Bursley, Gary Primary Care Unavailable Bursley, Gary Primary Care Unavailable Agusto, Pass Christian Attending Unavailable Spittle, Broderick Referring Unavailable Bursley, Gary Primary Care Unavailable Agusto, Pass Christian Attending Unavailable Bursley, Gary Primary Care Unavailable Agusto, Pass Christian Attending Unavailable Agusto, Pass Christian Attending Unavailable Bursley, Gray Primary Care Unavailable BursleyGary Referring Unavailable Wartmann, Preeti Referring Unavailabl e Wartmann, Preeti Attending Unavailabl e Bursley, Gary Primary Care Unavailable Podlogar COMMUNICATIONS PROFESSIONAL, Briana Referring Unavailable Podlogar COMMUNICATIONS PROFESSIONAL, Briana Attending Unavailable Bursley, Gary Primary Care Unavailable Agusto, Howard Attending Unavailable Agusto, Pass Christian Referring Unavailable Bursley, Gary Primary Care Unavailable Agusto, Howard Referring Unavailable Agusto, Pass Christian Attending Unavailable Bursley, Gary Primary Care Unavailable Spittle, Broderick Referring Unavailable Spittle, Broderick Attending Unavailable Bursley, Gary Primary Care Unavailable Allergies Allergy Classification Reported Allergen(s) Allergy Type Date of Onset Reaction(s) Facility NSAIDs (2 sources) Piroxicam Drug Allergy 06-30-20 07 GI Upset, Rash [facility] Work Phone: Pollen (1 source) Grass pollen Substance Allergy 09-26-19 24 Other: See Comments [facility] (1 source) House dust mite; Translations: [DUST MITES] allergy to substance 02-28-20 [place] [facility] Work Phone: (20 sources) Ibuprofen; Translations: [IBUPROFEN] Drug Allergy 08-21-[address] [facility] Work Phone: (1 source) Ibuprofen Drug Allergy 02-28-20 [facility] Work Phone: (1 source) Kingdom Animalia; Translations: [ANIMALS] allergy to substance 02-28-20 [facility] Work Phone: (1 source) Mold Extract; Translations: [MOLD] Drug Allergy 02-28-20 [facility] Work Phone: (1 source) PLANT POLLENS drug allergy 02-28-20 [facility] Work Phone: (6 sources) Griseofulvin Drug Allergy 06-11-20 05 Unknown [facility] Work Phone: (20 sources) Piroxicam; Translations: [PIROXICAM] Drug Allergy 06-30-20 07 GI Upset [facility] Work Phone: (15 sources) Environmental [Other] Propensity to adverse reactions 06-11-20 05 Unknown [facility] (20 sources) Grass pollen; Translations: [GRASS POLLEN] Drug Allergy 09-26-19 24 Other: See Comments [facility] Work Phone: (1 source) Griseofulvin Drug Allergy 03-13-20 25 [facility] Repository (1 source) Ibuprofen Drug Allergy 03-13-20 25 [facility] Repository (1 source) Piroxicam Drug Allergy 03-13-20 25 [facility] Repository Medications Current Medications Medication Drug Class(es) Dates Sig (Normalized) Sig (Original) acetaminophen 500 mg oral tablet (20 sources) Start: 01-31-2025 take 2 tablets by mouth once daily Acetaminophen 500 mg tablet Active 1000 mg PO DAILY January 31, 2025 12:00am Start: 02-28-2020 ACETAMINOPHEN 500 MG TABS as directed as needed ACETAMINOPHEN [id number] Rosemary Bazan LPN take 2 capsules by [...] Comment on above: Take 1 tablet by dexter th once daily. celecoxib 200 mg oral capsule (20 sources) Nonsteroidal Anti-inflammatory Drug Start: 01-31-2025 End: 03-13-2025 take 1 capsule by mouth once daily Celecoxib 200 mg capsule Active 200 mg PO daily March 13, 2025 9:38am Start: 12-06-2022 take 1 capsule by mo uth once daily as needed for pain celecoxib [...] M G CAPS 1 capsule daily CELECOXIB [id number] Rosemary Bazan LPN Start: 08-16-2015 End: 01-31-2025 take 1 capsule by mouth once daily Celecoxib 100 MG capsule Discontinued 100 mg PO DAILY August 16, 2015 1:00am January 31, 2025 2:15pm Comment on above: Take 1 capsule by mo uth once daily. Take 1 capsule by mo uth once daily as needed for pain. diclofenac [...] 2025 12:00am Start: 02-28-2020 MUCINEX 600 MG [id number] 1 tablet daily GUAIFENESIN [id number] Rosemary Bazan LPN Hydrocortisone (20 sources) Corticosteroid Start: 01-31-2025 Hydrocortisone Acetate 1 % cream Active 1 NMA RC TWICE A DAY as needed January 31, 2025 12:00am Start: 02-05-2021 End: 04-26-2022 hydrocortisone (ANUSOL-HC) 2 .5 % rectal cream 1 application by RECTAL route twice daily as needed. 28 g 2 04/27/2022 Active Start: 02-28-2020 HYDROCORTISONE 1 % CREA daily as directed HYDROCORTISONE [id number] Rosemary Bazan LPN Comment on above: 1 application by REC RICHARD route twice daily as needed. Multivitamin (Daily Multiple Vitamin) 1 EACH tablet (5 sources) Start: take 1 tablet by mouth once daily [...] on above: Take 1 capsule by mo ut twice daily. Completed/Discontinued Medications Medication Drug Class(es) [...] 08-16-2015 take 1 tablet by dexter th every four hours as needed Oxycodone-Acetaminophen Active [...] on above: take 1 tablet by dexter th three times a day until finished benzonatate [...] above: Take 1 capsule by mo uth three times daily as needed for cough. diphenhydrAMINE hydrochloride 25 mg oral tablet (1 source) Histamine-1 Receptor Antagonist Start: 02-28-2020 DIPHENHYDRAMINE HCL 25 MG TABS as directed as needed DIPHENHYDRAMINE HCL [id number] Rosemary Bazan LPN MULTIPLE VITAMINS-MINERALS (1 source) Start: 02-28-2020 MULTIVITAMIN ADULT TABS 1 tablet daily MULTIPLE VITAMINS-MINERALS [id number] Rosemary Bazan LPN polyethylene glycol 3350 201657 mg / potassium chloride 2970 mg / sodium bicarbonate 6740 mg / sodium chloride 5860 mg / sodium sulfate 79651 mg powder for oral solution (7 sources) [...] MG TABS 1 tablet twice daily TURMERIC [id number] Rosemary Bazan LPN Problems Active Problems Problem [...] Episodic Occlusion or stenosis of precerebral arteries (3 sources) Bilateral stenosis of carotid arteries; Translations: [Occlusion and stenosis of bilateral carotid arteries] Onset: 03-13-2025 09-26-2023 Chronic Osteoarthritis (20 sources) Primary osteoarthritis, [...] Test Name Value Interpretation Reference Range Facility Basic Metabolic Profile (BMP )on 03-13-2025 BUN/CRE 21.0 RATIO High - [facility] Comment on above: Performed By: #### L 100.0100, L500.2500 #### [facility] [address] [place], [address] Calcium [Mass/Vol] 10.4 mg/dL Normal 7.6-11.0 [facility] Comment on above: Performed By: #### L 100.0100, L500.2500 #### [facility] [address] [place], [address] Chloride [Moles/Vol] 103 mmol/L Normal 98-108 [facility] Comment on above: Performed By: #### L 100.0100, L500.2500 #### [facility] [address] [place], [address] CO2 [Moles/Vol] 25.1 mmol/L Normal 21.0-32.0 [facility] Comment on above: Performed By: #### L 100.0100, L500.2500 #### [facility] [address] [place], [address] Creatinine [Mass/Vol] 0.86 mg/dL Normal 0.70-1.20 [facility] Comment on above: Performed By: #### L 100.0100, L500.2500 #### [facility] [address] [place], [address] GAP 11 Normal 5-15 [facility] Comment on above: Performed By: #### L 100.0100, L500.2500 #### [facility] [address] [place], [address] GFR/1.73 sq M.predicted among non-blacks MDRD (S/P/Bld) [Vol rate/Area] 92 mL/min/{1.73_m2} Normal >60 [facility] Comment on above: Result Comment: mL/m in/1.73m2 CKD-EPI Creatinine Equation (2020) Performed By: #### L 100.0100, L500.2500 #### [facility] [address] [place], [address] Glucose [Mass/Vol] 121 mg/dL High 70-99 [facility] Comment on above: Performed By: #### L 100.0100, L500.2500 #### [facility] [address] [place], [address] Potassium [Moles/Vol] 4.6 mmol/L Normal 3.3-5.1 [facility] Comment on above: Result Comment: Hemo lysis present, Results??could be affected. ?? Performed By: #### L 100.0100, L500.2500 #### [facility] [address] [place], [address] Sodium [Moles/Vol] 140 mmol/L Normal 133-145 [facility] Comment on above: Performed By: #### L 100.0100, L500.2500 #### [facility] [address] [place], [address] Urea nitrogen [Mass/Vol] 18 mg/dL Normal 4-19 [facility] Comment on above: Performed By: #### L 100.0100, L500.2500 #### [facility] [address] [place], [address] CBC W/Diff, Automatedon 07-3 0-2024 Absolute Lymph 1.70 X10 3/uL Normal 0.83-4.51 [facility] Comment on above: Performed By: #### L 100.0100, L500.2500 #### [facility] [address] [place], [address] Absolute Neut 4.3 X10 3/uL Normal 2.0-7.7 [facility] Comment on above: Performed By: #### L 100.0100, L500.2500 #### [facility] [address] [place], [address] Basophils/100 WBC (Bld) 1.1 % High 0-1 [facility] Comment on above: Performed By: #### L 100.0100, L500.2500 #### [facility] [address] [place], [address] Eosinophils/100 WBC (Bld) 6.3 % High 0-5 [facility] Comment on above: Performed By: #### L 100.0100, L500.2500 #### [facility] [address] [place], [address] Erythrocyte distribution width (RBC) [Ratio] 12.3 % Normal 11.6-14.6 [facility] Comment on above: Performed By: #### L 100.0100, L500.2500 #### [facility] [address] [place], [address] Hematocrit (Bld) [Volume fraction] 43.4 % Normal 40-54 [facility] Comment on above: Performed By: #### L 100.0100, L500.2500 #### [facility] [address] [place], [address] Hemoglobin (Bld) [Mass/Vol] 14.6 g/dL Normal 13.0-16.5 [facility] Comment on above: Performed By: #### L 100.0100, L500.2500 #### [facility] [address] [place], [address] IG% 0.800 Normal 0.0-0.9 [facility] Comment on above: Result Comment: IG% - Immature Granulocytes (promyelocytes, myelocytes and metamyelocytes) > 1% indicates that a LEFT SHIFT is Present. Performed By: #### L 100.0100, L500.2500 #### [facility] [address] [place], [address] Lymphocytes/100 WBC (Bld) 23.7 % Normal 19-41 [facility] Comment on above: Performed By: #### L 100.0100, L500.2500 #### [facility] [address] [place], [address] MCH (RBC) [Entitic mass] 30.7 pg Normal 27.0-32.0 [facility] Comment on above: Performed By: #### L 100.0100, L500.2500 #### [facility] [address] [place], [address] MCHC (RBC) [Mass/Vol] 33.6 g/dL Normal 32-36 [facility] Comment on above: Performed By: #### L 100.0100, L500.2500 #### [facility] [address] [place], [address] MCV (RBC) [Entitic vol] 91.2 fL Normal 80-94 [facility] Comment on above: Performed By: #### L 100.0100, L500.2500 #### [facility] [address] [place], [address] Monocytes/100 WBC (Bld) 8.4 % Normal 0-10 [facility] Comment on above: Performed By: #### L 100.0100, L500.2500 #### [facility] [address] [place], [address] Neutrophils/100 WBC (Bld) 59.7 % Normal 47-70 [facility] Comment on above: Performed By: #### L 100.0100, L500.2500 #### [facility] [address] [place], [address] Nucleated RBC (Bld) [#/Vol] 0 10*3/uL Normal 0-5 [facility] Comment on above: Performed By: #### L 100.0100, L500.2500 #### [facility] [address] [place], [address] Platelet mean volume (Bld) [Entitic vol] 9.6 fL Normal 6.2-12.0 [facility] Comment on above: Performed By: #### L 100.0100, L500.2500 #### [facility] [address] [place], [address] Platelets (Bld) [#/Vol] 231 10*3/uL Normal 150-450 [facility] Comment on above: Performed By: #### L 100.0100, L500.2500 #### [facility] [address] [place], [address] RBC (Bld) [#/Vol] 4.76 10*6/uL Normal 4.6-6.2 [facility] Comment on above: Performed By: #### L 100.0100, L500.2500 #### [facility] [address] [place], [address] RDW SD 41.1 fl Normal 35.1-43.9 [facility] Comment on above: Performed By: #### L 100.0100, L500.2500 #### [facility] [address] [place], [address] WBC (Bld) [#/Vol] 7.2 10*3/uL Normal 4.4-11.0 [facility] Comment on above: Performed By: #### L 100.0100, L500.2500 #### [facility] [address] [place], [address] Cardiology Visit Reporton Cardiology Visit Report [facility] [address] [place], [place] [address] OFFICE VISIT Date of Service: 03/13/25 MR#: [id number] Acct: [id number] Name: FRANK MCKEON Rep #: [id number] : 1950 Provider: Dr. Howard Liz MD Age/Sex: 74/M Location: [facility] Status: Signed HPI HPI History of Present Illness Details: Pleasant 74-year-old man with no previous cardiac history other than mild hyperlipidemia who has been scheduled to undergo shoulder and back surgery. As part of his workup he underwent a stress echocardiogram where he exercised for 6 minutes attaining 7 metabolic equivalents and was noted to have anterior changes on the echocardiogram. He denies any chest pain he does have some palpitations occasionally has some shortness of breath going up stairs. He has had no dizziness or diaphoresis no near-syncope or syncope. He was sent to us for reevaluation and risk assessment. His physical exam appears to be unremarkable his electrocardiogram does demonstrate normal sinus rhythm with a rate of 67 bpm and poor R wave progression. Intake Vital Signs 03/13/25 09:34 Height 5 ft 8 in Weight: 197 lb BMI 29.9 BP 144/82 H Blood Pressure Location Lt brachial Position Sitting Respiration 16 Pulse 72 Pulse Source Monitor Intake Visit Reasons: EST (SELF) Pool Nurse Required: No Accompanied by: Self Is patient in pain?: No Allergies grass pollen Allergy (Unknown, Verified 03/13/25 09:38) Itching ibuprofen Allergy (Verified 03/13/25 09:38) Swelling piroxicam (From Feldene) Allergy (Verified 03/13/25 09:38) Nausea/Vom/Diarrhea griseofulvin Adverse Reaction (Verified 03/13/25 09:38) Unknown Medications ???Medication ???Instructions ???Recorded ???Confirmed ???Type multivitamin (Daily Multiple 1 ea PO DAILY 08/16/15 03/13/25 Hi story tablet) acetaminophen 500 mg tablet 1,000 mg PO DAILY 01/31/25 5 History atorvastatin 10 mg tablet 10 mg PO QHS 01/31/25 03/13/25 His tory diclofenac sodium 1 % topical gel 2 g topical TID PRN 01/31/2502/14 History gabapentin 100 mg capsule 200 mg PO TID 01/31/25 03/13/25 Hi story hydrocortisone acetate 1 % rectal 1 applic [place] BID PRN 01/31/2502/14 History cream omeprazole 40 mg capsule,delayed 40 mg PO QDAY 01/31/25 03/13/25 Hi story release turmeric root extract 500 mg 500 mg PO BID 01/31/25 03/13/25 Hi story capsule celecoxib 200 mg capsule 200 mg PO QDAY 03/13/25 03/13/25 H istory fexofenadine 180 mg tablet 180 mg PO QDAY PRN 03/13/25 History guaifenesin 600 mg tablet, 600 mg PO DAILY 03/13/25 03/13/25 History extended release 12 hr (Mucinex) Have you fallen in the past year?: No PFSH Medical History Preop cardiovascular exam Abnormal stress test Hyperlipidemia GERD (gastroesophageal reflux disease) Hypogonadism in male Prediabetes Osteoarthritis Eczema Carotid artery stenosis DDD (degenerative disc disease), lumbar Surgical History Varicose vein of leg History of sinus surgery History of tonsillectomy History of hernia repair History of shoulder surgery History of arthroscopic knee surgery History of cholecystectomy History of bilateral cataract extraction History of appendectomy Family History Mother Heart disease Diabetes PVD (peripheral vascular disease) Father Alzheimer's disease Prostate CA Diabetes Bladder cancer Parkinson disease Grandmother CVA (cerebral vascular accident) Diabetes Heart disease Social History Smoking Status: Former smoker how long ago did patient quit smokin alcohol intake: current alcohol intake frequency: a few times a month substance use type: does not use ROS Const Const: Negative for fatigue, weakness, headache(s), daytime sleepiness or difficulty sleeping ENT ENT: Negative for headache(s), dizziness or Nosebleed/epistaxis Cardio Chest Pain: No Palpitations: Yes (2 episodes a couple of months ago) Edema: Right (RLE d/t vein ablation) Resp Respiratory: Positive for SOB with activity (climbing stairs); Negative for SOB at rest, SOB orthopnea SOB lying down or Cough GI GI: Negative nausea, vomiting or heartburn Neuro Neuro: Negative for dizziness, lightheadedness, near syncope, headache(s) or weakness Endo Endo: Negative for fatigue Cardiology Exam Const Appearance: cooperative, healthy appearing, no acute distress, well developed and well groomed Nutritional Appearance: average body habitus and well nourished Orientation: alert, awake and oriented x3 Head Head: normal t (more content not included)... Normal [facility] Chest PA and Lateralon 03-13 Chest PA and Lateral [facility] Services [address] [place] [address] Chest PA and Lateral MR#: [id number] Acct: [id number] Name: FRANK MCKEON Rep #: [id number] : 1950 M 74 From: Lilian Razo PCP: Dr. Gary Marquis MD Status: REG CLI Study: Chest PA and Lateral Date of Exam: 03/13/25 Exam# [id number] Ordering Dr: Howard Liz MD PROCEDURE: CHEST PA AND LATERAL 03/13/2025 REASON FOR EXAM: PREOP TECHNIQUE: CHEST PA AND LATERAL COMPARISON: none FINDINGS: No focal consolidation. Bibasilar subsegmental atelectasis. No pleural effusion or pneumothorax. Cardiac silhouette is within normal limits. No acute fractures. RAD/Chest PA and Lateral IMPRESSION: No focal consolidation. Reading Location: [facility] CC: Dr. Gary Marquis MD; Dr. Howard Liz MD Snuff Grinder And Screener: Signed Normal [facility] CNOVon 01-24-2025 CNOV Office Visit (CAUNDO ) FRANK MCKEON ([id number]) 1950 Date Time Provider Department 01/24/25 11:30 AM [...] for brandon (more content not included)... Normal [facility] ECG COMPLETEon 01-24-2025 ECG COMPLETE Ventricular Rate : 7 1 BPM Atrial Rate : 71 BPM P-R Interval : 154 ms QRS Duration : 84 ms Q-T Interval : 368 ms QTC Calculation(Bazett) : 399 ms Calculated P Liberty : 73 degrees Calculated R Liberty : 63 degrees Calculated T Liberty : 34 degrees Normal sinus rhythm with sinus arrhythmia Confirmed by HANNAH BARNES DO ([id number]) on 02/03/2025 7:04:17 AM NAME : FRANK MCKEON PID : [id number] : 1950 Gender : Male Race : ORD : [id number] Procedure Date : Jan 24 2025 11:41:12 Edit Date : Feb 03 2025 07:04:19 Diagnosis: Normal sinus rhythm with sinus arrhythmia Confirmed by HANNAH BARNES DO ([id number]) on 02/03/2025 7:04:17 AM Test Reason : HCS Location : 2 : [place] Overread By : HANNAH BARNES DO Edited By : HANNAH BARNES DO Referred By : BRIANA HARRIS Acquired by : , [facility] Soft Tissue Neck WITH Contra ston 01-10-2025 Soft Tissue Neck WITH Contrast [facility] Imaging Services [address] [place] [address] Soft Tissue Neck WITH Contrast MR#: [id number] Acct: [id number] Name: FRANK MCKEON Rep #: [id number] : 1950 M 74 From: John Marc MD PCP: Dr. Gary Marquis MD Status: REG CLI Study: Soft Tissue Neck WITH Contrast Date of Exam: 0 01/10/25 Exam# [id number] Ordering Dr: Preeti Marin MD PROCEDURE: SOFT [...] Contrast IMPRESSION: No acute abnormality [facility] CC: Dr. Gary Marquis MD; Dr. Preeti Marin MD Snuff Grinder And Screener: Signed Normal [facility] 01-09-2025 CNPN Telephone (FAMPWS) FRANK MCKEON ([id number]) 1950 M Date Time Provider Department 01/09/25 PREETI MARQUIS During your visit today, we recorded the following information about you: Janine Rivas RN 01/09/2025 3:00 PM Signed Patient states he completed his stress test at [facility] on 12/31/24, ordered by Shabana Harris CNP. He states he will request [facility] to send Briana the results. Patient would like Briana to review results once received, and advise him. ADI Bull Barbara, RN 01/09/2025 3:51 PM Signed Patient calling in again on status of stress test report from [facility]. States he just spoke with someone from [facility] medical records and they were faxing over. Per Obdulia in Briana Harris's office, no fax received yet. She will see if she can get it through [employer]. Pt wants to be notified when we have the report for Briana to review. Informed him that we are having phone issues and that we will send him a [employer] msg. Pt verbalizes understanding. Obdulia Murphy LPN 01/09/2025 4:16 PM Signed Stress test printed from [facility] [employer] and given to ordering provider for review. RADHA Richardson Julie, APRN.MAL 01/09/2025 4:23 PM Signed Stress test shows probable mild mid anterior ischemia with moderate workload. Will need to follow-up with cardiology for further evaluation and cardiac clearance. Briana Harris APRN.Janine Garcia RN 01/10/2025 3:37 PM Signed Patient calling with the followin) States he was able to get a Cardiology appt made with [facility] for 02/20/[address] Tellez. 2) [facility] requesting Stress test results (and any other pertinent info) be faxed to them. (Stress Test not seen in pt record-if office would please fax to heart group). ADI Bull Michelle, LPN 01/15/2025 8:00 AM Signed Stress test, EKG and recent labs faxed to the [facility] for upcoming appointment. Obdulia Murphy LPN [...] Briana to review Stress test done at [facility] [Other] Primary Visit Diagnosis:Abnormal stress test [R94.39] Order(s):CONSULT TO CARDIOLOGY [9004] Order #: [id number]: 1 FUTURE Prescriptions as of 01/15/2025 - [...] in limb (more content not included)... Normal [facility] Stress Test Echo W/Contrasto n 12-31-2024 Stress Test Echo W/Contrast [facility] [address] [place] [address] Stress Test Echo W/Contrast MR#: [id number] Acct: [id number] Name: FRANK MCKEON Rep #: [id number] : 1950 74 From: Howard Liz MD Primary Care: Dr. Gary Marquis MD Status: REG CLI Ordering Dr: Briana Harris NP COMMUNICATIONS PROFESSIONAL-C Sex: M C Reason For Study Reason [...] ischemia at a moderate workload. Ordering Physician: Podlogar, Briana Referring Physician: Briana Harris Performed By: Kathrine Angel, AIXA 12/31/24 1530 Date Howard Liz MD CC: COMMUNICATIONS PROFESSIONAL-C Briana Harris; Dr. Gary Marquis MD Date Dictated: 12/31/24 1409 Date Transcribed: 12/31/24 1530 Snuff Grinder And Screener: Signed Normal [facility] Stress echocardiogram study reportOrdered By: Howard Liz on 12-31-2024 Stress cardiac echo study report [facility] [address] [place] [address] Stress Test Echo W/Contrast MR#: [id number] Acct: [id number] Name: FRANK MCKEON Rep #: [id number] : 1950 74 From: Howard Liz MD Primary Care: Dr. Gary Marquis MD Status: REG CLI Ordering Dr: Briana Harris COMMUNICATIONS PROFESSIONAL COMMUNICATIONS PROFESSIONAL-C Sex: M C Reason For Study Reason [...] Physician: Briana Harris Performed By: Kathrine Angel, [facility] 12/31/24 1530 Date _ Hoawrd Liz MD CC: BOLA Harris; Dr. Gary Marquis MD ~ Date Dictated: 12/31/24 1409 Date Transcribed: 12/31/241529 Snuff Grinder And Screener: Signed [facility] Work Phone: Radha 12-11-2024 [facility] Telephone (FAMPWS) FRANK MCKEON ([id number]) 1950 M Date Time Provider Department 12/11/24 [...] Fully Assessed Reason for Visit: Insurance Authorization [[id number]] Cmt: Stress Echo Prescriptions as of 12/11/2024 [...] 02/03/2015 Cont (more content not included)... Normal [facility] CNOVon 12-10-2024 CNOV Office Visit (FAMPWS ) FRANK MCKEON ([id number]) 1950 M Date Time Provider Department 12/10/24 [...] Above Complaints. When on his way to [facility] developed a sore throat which progressed to [...] acute distr (more content not included)... Normal [facility] Radha 12-05-2024 [facility] Telephone ([place]) FRANK MCKEON ([id number]) 1950 M Date Time Provider Department 12/05/24 PODLOGARBRIANA During your visit today, we recorded the following information about you: Joelle Lagunas LPN 12/05/2024 9:14 AM Signed Patient calling he had gotten word from his [employer] insurance that the stress test scheduled at [facility] for 12/06 was denied, he was told no diagnosis for why scheduled. [facility] called him and cancelled the stress test, said next available was on December 21, his surgery is scheduled for 12/12/2024. Patient said his insurance was faxing denial to the office. Not sure if appeal can be done? Please advise PodlogarBriana APRN.MAL 12/05/2024 9:19 AM Signed Can we get his EKG that was completed at [facility]? Briana SheikhlogLOLY cristina.Obdulia Ochoa LPN 12/05/2024 1:05 PM Signed EKG placed in inbox for review. ARDHA Richardson Julie, APRN.MAL 12/05/2024 1:19 PM Signed Have we received denial letter? Briana Harris APRN.Obdulia Ochoa LPN 12/05/2024 2:03 PM Signed Nothing received at this time. RADHA Richardson Julie, APRN.MAL 12/05/2024 3:34 PM Signed Please fax last office note and EKGs I have in my out box to [phone]. Please let patient know I filed and expedited appeal. Briana Harris APRN.Obdulia Ochoa LPN 12/05/2024 5:11 PM Signed Paperwork faxed to [phone]. Patient telephoned and made aware. Obdulia Murphy [...] Reason for Visit: stress test scheduled at [facility] was denied [Other] Prescriptions as of [...] DISEASES NEC (more content not included)... Normal [facility] Radha 12-03-2024 [facility] Telephone (FAMPWS) FRANK MCKEON ([id number]) 1950 M Date Time Provider Department 12/03/24 PREETI MARQUIS During your visit today, we recorded the following information about you: Brian Orozco RN 12/03/2024 2:33 PM Signed Pt reports he flew to [facility] the day he had an appt with Card Doffer, 11/14/24, then flew to [place], and ended up in [facility] on November 17,,AND , with a bacterial infection in his blood- from an abscess in his throat. He is better now. His leukocytes are normal now. His CRP is 33 and [facility] recommend he get a blood test when returns to [place] on 12/05/24. Pt will arrive to [place] that afternoon. Pt is currently in [place], and the phone connection was difficult communicating as words faded in and out. Pt is scheduled for a stress echo at [facility] on 12/06/24 and will need to be NPO for 6 hours prior to this test. Reports his appt with Briana is 12/10/24, and his surgery is scheduled for 12/12/24. Pt is wondering if Briana will order the CRP and when should he complete it. Pt has copies of [facility]'s records written in Armenian, he is bringing home with him. Pt can be reached on his mobile: [phone] Briana Harris APRN.MAL 12/03/2024 2:39 PM Signed A CRP is a non-specific inflammatory marker. If he had an infection this is likely why it was elevated. I don't think we need to repeat it, however I prefer to look at the hospital paperwork before making any decisions. Briana Podlogibeth, FITNESS CENTRE MANAGER.Lidia Bowman RN 12/03/2024 4:44 PM Signed Called and left a voicemail for the Patient to call back and ask for a nurse to receive the providers message. ADI Hannah Amanda, RN 12/03/2024 5:11 PM Signed Pt called and [...] LPN - Fully Assessed Reason for Visit: [place] [facility] visit [Other] Prescriptions as of 12/04/2024 [...] OSTEOARTHROSIS [M15.9] (more content not included)... Normal [facility] Radha 11-22-2024 CNPN Telephone (FAMPWS) FRANK MCKEON ([id number]) 1950 M Date Time Provider Department 11/22/24 PREETI MARQUIS During your visit today, we recorded the following information about you: Malena Watson RN 11/22/2024 12:24 PM Signed [facility] calls to request pre-certification be submitted for Stress ECHO with Dobutamine that patient plans to have completed with them. Submitted information to pre-access and Julianne as requested. ADI Hinojosa Stephanie, RN 12/04/2024 12:19 PM Signed Patient calls and states that ECHO was cancelled at [facility] because insurance did not approve procedure. [...] 05/25/2013 02/03/2015 (more content not included)... Normal [facility] CNOVon 11-14-2024 CNOV Office Visit (FAMPWS ) FRANK MCKEON ([id number]) 1950 M Date Time Provider Department 11/14/24 8:20 AM BRIANA HARRIS During your visit today, we recorded the following information about you: Pulse Respiration Blood pressure Weight 70/minute 16/minute 132/80 91.3 kg Briana Harris APRN.CNP 12/05/2024 3:10 PM Addendum CC: Patient presents with: Pre-Op Exam: Left shoulder 12/12 [facility] HPI Frank Mckeon is a 73 year old [...] hydrocortisone (ANUSOL-HC) (more content not included)... [facility] ([place] FRANK MCKEON ([id number]) 1950 M Date Time Provider Department 11/14/24 BRIANA HARRIS During your visit today, we recorded the following information about you: Briana Harris APRN.MAL 11/14/2024 8:43 AM Signed Please let patient [...] in and states he has communicated with [facility] and is requesting his order for Stress Echo Dobutamine be faxed to them, as he would like to have test completed there. Order and facesheet faxed as requested to [facility]- Central Scheduling Dept. Patient aware that [facility] will contact him with next steps, [...] 05/25/2013 FOLLICULIT (more content not included)... Normal [facility] 12 Lead EKGon 11-12-2024 12 Lead EKG [facility] Services [address] [place] [address] 12 Lead EKG 11/12/24 0905 MR#: [id number] Acct: [id number] Name: FRANK MCKEON Rep #: [id number] : 1950 73 From: Howard Liz MD Attending Dr: Dr. Broderick Merino DO Status: REG CLI Ordering Dr: Broderick Merino DO Date: 11/12/24 Location: PSN Sex: M C Admitted: Test Reason : [...] Abnormal ECG Confirmed by AGUSTO DAVID, HOWARD ([id number]), video tape editor KIM PLEITEZ ([id number]) on 11/12/2024 11:42:42 AM Referred By: Broderick Merino Confirmed By: HOWARD LIZ MD 11/12/24 1142 Date Howard Liz MD CC: Dr. Gary Marquis MD; Dr. Broderick Merino, DO Signed Normal [facility] Absolute lymphocyte countOrd ered By: Broderick Merino on 11-12-2024 Lymphocytes Auto (Unsp spec) [#/Vol] 1.74 10*3/uL 0.83-4.51 [facility] Absolute neutrophil countOrd ered By: Broderick Merino on 11-12-2024 Neutrophils (Bld) [#/Vol] 4.6 10*3/uL 2.0-7.7 [facility] Anion gap in Serum or Plasma Ordered By: Broderick Merino on 11-12-2024 Anion gap [Moles/Vol] 13 mmol/L 5- [facility] Automated lymphocyte count a s percentage of total leukocytesOrdered By: Broderick Merino on 11-12-2024 Lymphocytes/100 WBC Auto (Unsp spec) 24.3 % - [facility] BUN/creatinine ratioOrdered By: Broderick Merino on 11-12-2024 Urea nitrogen/Creatinine [Mass ratio] 17.0 mg/mg - [facility] Basic Metabolic Profile (BMP )on 11-12-2024 BUN/CRE 17.0 RATIO Normal 06-03 [facility] Comment on above: Performed By: #### L 100.0100, L500.2500 ####[facility] [address] [place], [address] Calcium [Mass/Vol] 10.1 mg/dL Normal 7.6-11.0 [facility] Comment on above: Performed By: #### L 100.0100, L500.2500 ####[facility] [address] [place], [address] Chloride [Moles/Vol] 102 mmol/L Normal 98-108 [facility] Comment on above: Performed By: #### L 100.0100, L500.2500 ####[facility] [address] [place], [address] CO2 [Moles/Vol] 21.8 mmol/L Normal 21.0-32.0 [facility] Comment on above: Performed By: #### L 100.0100, L500.2500 ####[facility] [address] [place], [address] Creatinine [Mass/Vol] 0.96 mg/dL Normal 0.70-1.20 [facility] Comment on above: Performed By: #### L 100.0100, L500.2500 ####[facility] [address] [place], [address] GAP 13 Normal 5-15 [facility] Comment on above: Performed By: #### L 100.0100, L500.2500 ####[facility] [address] [place], [address] GFR/1.73 sq M.predicted among non-blacks MDRD (S/P/Bld) [Vol rate/Area] 84 mL/min/{1.73_m2} Normal >60 [facility] Comment on above: Result Comment: mL/m in/1.73m2 CKD-EPI Creatinine Equation (2020) Performed By: #### L 100.0100, L500.2500 ####[facility] [address] [place], [address] Glucose [Mass/Vol] 133 mg/dL High 70-99 [facility] Comment on above: Performed By: #### L 100.0100, L500.2500 ####[facility] [address] [place], [address] Potassium [Moles/Vol] 4.4 mmol/L Normal 3.3-5.1 [facility] Comment on above: Performed By: #### L 100.0100, L500.2500 ####[facility] [address] [place], [address] Sodium [Moles/Vol] 136 mmol/L Normal 133-145 [facility] Comment on above: Performed By: #### L 100.0100, L500.2500 ####[facility] [address] [place], [address] Urea nitrogen [Mass/Vol] 16 mg/dL Normal 4-19 [facility] Comment on above: Performed By: #### L 100.0100, L500.2500 ####[facility] [address] [place], [address] Basophil percentageOrdered B y: Broderick Merino on 11-12-2024 Basophils/100 WBC (Bld) 0.7 % 0-1 [facility] CBC W/Diff, Automatedon 10-15 Absolute Lymph 1.74 X10 3/uL Normal 0.83-4.51 [facility] Comment on above: Performed By: #### L 100.0100, L500.2500 #### [facility] [address] [place], [address] Absolute Neut 4.6 X10 3/uL Normal 2.0-7.7 [facility] Comment on above: Performed By: #### L 100.0100, L500.2500 #### [facility] [address] [place], [address] Basophils/100 WBC (Bld) 0.7 % Normal 0-1 [facility] Comment on above: Performed By: #### L 100.0100, L500.2500 #### [facility] [address] [place], [address] Eosinophils/100 WBC (Bld) 3.8 % Normal 0-5 [facility] Comment on above: Performed By: #### L 100.0100, L500.2500 #### [facility] [address] [place], [address] Erythrocyte distribution width (RBC) [Ratio] 12.4 % Normal 11.6-14.6 [facility] Comment on above: Performed By: #### L 100.0100, L500.2500 #### [facility] [address] [place], [address] Hematocrit (Bld) [Volume fraction] 41.3 % Normal 40-54 [facility] Comment on above: Performed By: #### L 100.0100, L500.2500 #### [facility] [address] [place], [address] Hemoglobin (Bld) [Mass/Vol] 14.4 g/dL Normal 13.0-16.5 [facility] Comment on above: Performed By: #### L 100.0100, L500.2500 #### [facility] [address] [place], [address] IG% 0.400 Normal 0.0-0.9 [facility] Comment on above: Result Comment: IG% - Immature Granulocytes (promyelocytes, myelocytes and metamyelocytes) > 1% indicates that a LEFT SHIFT is Present. Performed By: #### L 100.0100, L500.2500 #### [facility] [address] [place], [address] Lymphocytes/100 WBC (Bld) 24.3 % Normal 19-41 [facility] Comment on above: Performed By: #### L 100.0100, L500.2500 #### [facility] [address] [place], [address] MCH (RBC) [Entitic mass] 31.4 pg Normal 27.0-32.0 [facility] Comment on above: Performed By: #### L 100.0100, L500.2500 #### [facility] [address] [place], [address] MCHC (RBC) [Mass/Vol] 34.9 g/dL Normal 32-36 [facility] Comment on above: Performed By: #### L 100.0100, L500.2500 #### [facility] [address] [place], [address] MCV (RBC) [Entitic vol] 90.2 fL Normal 80-94 [facility] Comment on above: Performed By: #### L 100.0100, L500.2500 #### [facility] [address] [place], [address] Monocytes/100 WBC (Bld) 7.0 % Normal 0-10 [facility] Comment on above: Performed By: #### L 100.0100, L500.2500 #### [facility] [address] [place], [address] Neutrophils/100 WBC (Bld) 63.8 % Normal 47-70 [facility] Comment on above: Performed By: #### L 100.0100, L500.2500 #### [facility] [address] [place], [address] Nucleated RBC (Bld) [#/Vol] 0 10*3/uL Normal 0-5 [facility] Comment on above: Performed By: #### L 100.0100, L500.2500 #### [facility] [address] [place], [address] Platelet mean volume (Bld) [Entitic vol] 9.3 fL Normal 6.2-12.0 [facility] Comment on above: Performed By: #### L 100.0100, L500.2500 #### [facility] [address] [place], [address] Platelets (Bld) [#/Vol] 219 10*3/uL Normal 150-450 [facility] Comment on above: Performed By: #### L 100.0100, L500.2500 #### [facility] [address] [place], [address] RBC (Bld) [#/Vol] 4.58 10*6/uL Low 4.6-6.2 [facility] Comment on above: Performed By: #### L 100.0100, L500.2500 #### [facility] [address] [place], [address] RDW SD 40.6 fl Normal 35.1-43.9 [facility] Comment on above: Performed By: #### L 100.0100, L500.2500 #### [facility] [address] [place], [address] WBC (Bld) [#/Vol] 7.2 10*3/uL Normal 4.4-11.0 [facility] Comment on above: Performed By: #### L 100.0100, L500.2500 #### [facility] [address] [place], [address] Carbon dioxide, total [Moles /volume] in Central venous bloodOrdered By: Broderick Merino on 11-12-2024 CO2 [Moles/Vol] 21.8 mmol/L 21.0-32.0 [facility] Chloride assayOrdered By: Layla Merino on 11-12-2024 Chloride [Moles/Vol] 102 mmol/L 98-108 [facility] Electrocardiogram reportOrde red By: Howard Liz on 11-12-2024 EKG study [facility] Cardi[facility] Services [address] [place] [address] 12 Lead EKG 11/12/24 0905 MR#: [id number] Acct: [id number] Name: FRANK MCKEON Rep #:[id number] : 1950 73 From: Howard Liz MD Attending Dr: Dr. Broderick Merino DO Status: REG CLI Ordering Dr: Broderick Merino DO Date: 11/12/24 Location: [facility] Sex: M C Admitted: Test Reason [...] Abnormal ECG Confirmed by HOWARD LIZ MD ([id number]), video tape editor KIM PLEITEZ ([id number]) on 11/12/2024 11:42:42 AM Referred By: Broderick Merino Confirmed By: HOWARD LIZ MD 11/12/24 1142 Date _ Howard Liz MD CC: Dr. Gary Marquis MD; Dr. Broderick Merino DO ~ Signed [facility] Work Phone: Eosinophil percentageOrdered By: Broderick Merino on 11-12-2024 Eosinophils/100 WBC (Bld) 3.8 % 0-5 [facility] Erythrocyte distribution wid th (RBC) [Ratio]Ordered By: Broderick Merino on 11-12-2024 Erythrocyte distribution width (RBC) [Entitic vol] 40.6 fL 35.1-43.9 [facility] Erythrocyte distribution wid th ratioOrdered By: Broderick Merino on 11-12-2024 Erythrocyte distribution width (RBC) [Ratio] 12.4 % 11.6-14.6 [facility] Erythrocyte distribution wid th standard deviationOrdered By: Broderick Merino on 11-12-2024 Erythrocyte distribution width (RBC) [Ratio] 40.6 fl 35.1-43.9 [facility] GFR/1.73 sq M.predicted saira g non-blacks MDRD (S/P/Bld) [Vol rate/Area]Ordered By: Broderick Merino on 11-12-2024 Estimated GFR (MDRD) Non-Af Amer 84 >60 [facility] Comment on above: mL/min/1.73m2 CKD-EP I Creatinine Equation (2020) Glomerular filtration rate ( GFR) estimation/1.73 sq m using serum, plasma, or whole bOrdered By: Broderick Merino on 11-12-2024 GFR/1.73 sq M.predicted among non-blacks MDRD (S/P/Bld) [Vol rate/Area] 84 mL/min/{1.73_m2} >60 [facility] Comment on above: mL/min/1.73m2 CKD-EP I Creatinine Equation (2020) Hematocrit Auto (Bld) [Volum e fraction]Ordered By: Broderick Merino on 11-12-2024 Hematocrit (Bld) [Volume fraction] 41.3 % 40-54 [facility] Hemoglobin measurementOrdere d By: Broderick Merino on 11-12-2024 Hemoglobin (Bld) [Mass/Vol] 14.4 g/dL 13.0-16.5 [facility] Immature granulocytes/100 WB C Auto (Bld)Ordered By: Broderick Merino on 11-12-2024 Immature granulocytes/100 WBC (Bld) 0.400 % 0.0-0.9 [facility] Comment on above: IG% - Immature Granu locytes (promyelocytes, myelocytes and metamyelocytes) > 1% indicates that a LEFT SHIFT is Present. Lymphocytes Auto (Unsp spec) [#/Vol]Ordered By: Broderick Merino on 11-12-2024 Lymphocytes (Bld) [#/Vol] 1.74 10*3/uL 0.83-4.51 [facility] Lymphocytes/100 WBC Auto (Un sp spec)Ordered By: Broderick Merino on 11-12-2024 Lymphocytes/100 WBC (Bld) 24.3 % 19-41 [facility] MCV (mean corpuscular volume ) determinationOrdered By: Broderick Merino on 11-12-2024 MCV (RBC) [Entitic vol] 90.2 fL 80-94 [facility] Mean corpuscular hemoglobin (MCH) determinationOrdered By: Broderick Merino on 11-12-2024 MCH (RBC) [Entitic mass] 31.4 pg 27.0-32.0 [facility] Mean corpuscular hemoglobin concentration (MCHC) determinationOrdered By: Broderick Merino on 11-12-2024 MCHC (RBC) [Mass/Vol] 34.9 g/dL 32-36 [facility] Mean platelet volume determi nationOrdered By: Broderick Merino on 11-12-2024 Platelet mean volume (Bld) [Entitic vol] 9.3 fL 6.2-12.0 [facility] Monocyte percentageOrdered B y: Broderick Merino on 11-12-2024 Monocytes/100 WBC (Bld) 7.0 % 0-10 [facility] Neutrophil percentageOrdered By: Broderick Merino on 11-12-2024 Neutrophils/100 WBC (Bld) 63.8 % 47-70 [facility] Nucleated red blood cell per centageOrdered By: Broderick Merino on 11-12-2024 Nucleated RBC/100 WBC (Bld) [Ratio] 0 % 0-5 [facility] Platelet countOrdered By: Layla Merino on 11-12-2024 Platelets (Bld) [#/Vol] 219 10*3/uL 150-450 [facility] Potassium (Unsp spec) [Mass/ Vol]Ordered By: Broderick Merino on 11-12-2024 Potassium [Moles/Vol] 4.4 mmol/L 3.3-5.1 [facility] Potassium measurement (mass/ volume)Ordered By: Broderick Merino on 11-12-2024 Potassium (Unsp spec) [Mass/Vol] 4.4 mmol/L 3.3-5.1 [facility] RBC Auto (Bld) [#/Vol]Ordere d By: Broderick Merino on 11-12-2024 RBC (Bld) [#/Vol] 4.58 10*6/uL Low 4.6-6.2 [facility] Serum creatinine measurement (mass/volume)Ordered By: Broderick Merino on 11-12-2024 Creatinine [Mass/Vol] 0.96 mg/dL 0.70-1.20 [facility] Serum glucose measurement (m ass/volume)Ordered By: Broderick Merino on 11-12-2024 Glucose [Mass/Vol] 133 mg/dL High 70-99 [facility] Serum or plasma calcium galen urement (mass/volume)Ordered By: Broderick Merino on 11-12-2024 Calcium [Mass/Vol] 10.1 mg/dL 7.6-11.0 [facility] Serum or plasma urea nitroge n measurement (mass/volume)Ordered By: Broderick Merino on 11-12-2024 Urea nitrogen [Mass/Vol] 16 mg/dL 4-19 [facility] Sodium levelOrdered By: Caesar Merino on 11-12-2024 Sodium [Moles/Vol] 136 mmol/L 133-145 [facility] White blood cell (WBC) count Ordered By: Broderick Merino on 11-12-2024 WBC (Bld) [#/Vol] 7.2 10*3/uL 4.4-11.0 [facility] CBC W Auto Differential pane l (Bld)on 09-22-2024 Basophils (Bld) [#/Vol] 0.06 10*3/uL Normal <0.11 [facility] Comment on above: Order Comment: Speci men Type: BLOOD SPECIMENOrdering Facility: [facility] Address: [address] [place] [address] Performed By: #### 5 7021-8 ####[facility] LABCLIA [id number] [place] [address] [place] Basophils/100 WBC (Bld) 1.0 % Normal [facility] Comment on above: Order Comment: Speci men Type: BLOOD SPECIMENOrdering Facility: [facility] Address: [address] [place] [address] Performed By: #### 5 7021-8 ####[facility] LABCLIA [id number] [place] [address] [place] Differential cell count method Nom (Bld) Auto Normal [facility] Comment on above: Order Comment: Speci men Type: BLOOD SPECIMENOrdering Facility: [facility] Address: [address] [place] [address] Performed By: #### 5 7021-8 ####[facility] LABCLIA [id number] [place] [address] [place] Eosinophils (Bld) [#/Vol] 0.49 10*3/uL High <0.46 [facility] Comment on above: Order Comment: Speci men Type: BLOOD SPECIMENOrdering Facility: [facility] Address: [address] [place] [address] Performed By: #### 5 7021-8 ####[facility] LABCLIA [id number] [place] [address] [place] Eosinophils/100 WBC (Bld) 8.2 % Normal [facility] Comment on above: Order Comment: Speci men Type: BLOOD SPECIMENOrdering Facility: [facility] Address: [address] [place] [address] Performed By: #### 5 7021-8 ####[facility] LABCLIA [id number] [place] [address] [place] Erythrocyte distribution width (RBC) [Ratio] 12.8 % Normal 11.5-15.0 [facility] Comment on above: Order Comment: Speci men Type: BLOOD SPECIMENOrdering Facility: [facility] Address: [address] [place] [address] Performed By: #### 5 7021-8 ####[facility] LABCLIA [id number] [place] [address] [place] Hematocrit (Bld) [Volume fraction] 45.2 % Normal 39.0-51.0 [facility] Comment on above: Order Comment: Speci men Type: BLOOD SPECIMENOrdering Facility: [facility] Address: [address] [place] [address] Performed By: #### 5 7021-8 ####[facility] LABCLIA [id number] [place] [address] [place] Hemoglobin (Bld) [Mass/Vol] 14.9 g/dL Normal 13.0-17.0 [facility] Comment on above: Order Comment: Speci men Type: BLOOD SPECIMENOrdering Facility: [facility] Address: [address] [place] [address] Performed By: #### 5 7021-8 ####[facility] LABCLIA [id number] [place] [address] [place] Immature granulocytes (Bld) [#/Vol] 10*3/uL Normal <0.10 [facility] Comment on above: Order Comment: Speci men Type: BLOOD SPECIMENOrdering Facility: [facility] Address: [address] [place] [address] Performed By: #### 5 7021-8 ####[facility]CLIA [id number] [place] [address] [place] Immature granulocytes/100 WBC (Bld) 0.3 % Normal [facility] Comment on above: Order Comment: Speci men Type: BLOOD SPECIMENOrdering Facility: [facility] Address: [address] [place] [address] Performed By: #### 5 7021-8 ####[facility] LABCLIA [id number] [place] [address] [place] Lymphocytes (Bld) [#/Vol] 1.64 10*3/uL Normal 1.00-4.00 [facility] Comment on above: Order Comment: Speci men Type: BLOOD SPECIMENOrdering Facility: [facility] Address: [address] [place] [address] Performed By: #### 5 7021-8 ####[facility] LABIA [id number] [place] [address] [place] Lymphocytes/100 WBC (Bld) 27.4 % Normal [facility] Comment on above: Order Comment: Speci men Type: BLOOD SPECIMENOrdering Facility: [facility] Address: [address] [place] [address] Performed By: #### 5 7021-8 ####[facility] LABIA [id number] [place] [address] [place] MCH (RBC) [Entitic mass] 30.7 pg Normal 26.0-34.0 [facility] Comment on above: Order Comment: Speci men Type: BLOOD SPECIMENOrdering Facility: [facility] Address: [address] [place] [address] Performed By: #### 5 7021-8 ####[facility] [id number] [place] [address] [place] MCHC (RBC) [Mass/Vol] 33.0 g/dL Normal 30.5-36.0 [facility] Comment on above: Order Comment: Speci men Type: BLOOD SPECIMENOrdering Facility: [facility] Address: [address] [place] [address] Performed By: #### 5 7021-8 ####[facility] LABIA [id number] [place] [address] [place] MCV (RBC) [Entitic vol] 93.2 fL Normal 80.0-100.0 [facility] Comment on above: Order Comment: Speci men Type: BLOOD SPECIMENOrdering Facility: [facility] Address: [address] [place] [address] Performed By: #### 5 7021-8 ####[facility] LABIA [id number] [place] [address] [place] Monocytes (Bld) [#/Vol] 0.48 10*3/uL Normal <0.87 [facility] Comment on above: Order Comment: Speci men Type: BLOOD SPECIMENOrdering Facility: [facility] Address: [address] [place] [address] Performed By: #### 5 7021-8 ####[facility] LABCLIA [id number] [place] [address] [place] Monocytes/100 WBC (Bld) 8.0 % Normal [facility] Comment on above: Order Comment: Speci men Type: BLOOD SPECIMENOrdering Facility: [facility] Address: [address] [place] [address] Performed By: #### 5 7021-8 ####[facility] LABCLIA [id number] [place] [address] [place] Neutrophils (Bld) [#/Vol] 3.29 10*3/uL Normal 1.45-7.50 [facility] Comment on above: Order Comment: Speci men Type: BLOOD SPECIMENOrdering Facility: [facility] Address: [address] [place] [address] Performed By: #### 5 7021-8 ####[facility] LABCLIA [id number] [place] [address] [place] Neutrophils/100 WBC (Bld) 55.1 % Normal [facility] Comment on above: Order Comment: Speci men Type: BLOOD SPECIMENOrdering Facility: [facility] Address: [address] [place] [address] Performed By: #### 5 7021-8 ####[facility] LABCLIA [id number] [place] [address] [place] Nucleated RBC (Bld) [#/Vol] 10*3/uL Normal <0.01 [facility] Comment on above: Order Comment: Speci men Type: BLOOD SPECIMENOrdering Facility: [facility] Address: [address] [place] [address] Performed By: #### 5 7021-8 ####[facility] LABCLIA [id number] [place] [address] [place] Nucleated RBC/100 WBC (Bld) [Ratio] 0.0 /100 WBC Normal [facility] Comment on above: Order Comment: Speci men Type: BLOOD SPECIMENOrdering Facility: [facility] Address: [address] [place] [address] Performed By: #### 5 7021-8 ####[facility] LABCLIA [id number] [place] [address] [place] Platelet mean volume (Bld) [Entitic vol] 10.1 fL Normal 9.0-12.7 [facility] Comment on above: Order Comment: Speci men Type: BLOOD SPECIMENOrdering Facility: [facility] Address: [address] [place] [address] Performed By: #### 5 7021-8 ####[facility] LABCLIA [id number] [place] [address] [place] Platelets (Bld) [#/Vol] 247 10*3/uL Normal 150-400 [facility] Comment on above: Order Comment: Speci men Type: BLOOD SPECIMENOrdering Facility: [facility] Address: [address] [place] [address] Performed By: #### 5 7021-8 ####[facility] LABCLIA [id number] [place] [address] [place] RBC (Bld) [#/Vol] 4.85 10*6/uL Normal 4.20-6.00 [facility] Comment on above: Order Comment: Speci men Type: BLOOD SPECIMENOrdering Facility: [facility] Address: [address] [place] [address] Performed By: #### 5 7021-8 ####[facility] LABCLIA [id number] [place] [address] [place] WBC (Bld) [#/Vol] 5.98 10*3/uL Normal 3.70-11.00 [facility] Comment on above: Order Comment: Speci men Type: BLOOD SPECIMENOrdering Facility: [facility] Address: [address] [place] [address] Performed By: #### 5 7021-8 ####[facility] LABIA [id number] [place] [address] [place] [facility] Comprehensive metabolic 2000 panelon 09-22-2024 Albumin [Mass/Vol] 4.5 g/dL Normal 3.9-4.9 [facility] Comment on above: Order Comment: Speci men Type: BLOOD SPECIMENOrdering Facility: [facility] Address: [address] [place] [address] Performed By: #### 2 4323-8, 33733-3 ####[facility] LABIA [id number] [place] [address] [place] ALP [Catalytic activity/Vol] 58 U/L Normal 38-113 [facility] Comment on above: Order Comment: Speci men Type: BLOOD SPECIMENOrdering Facility: [facility] Address: [address] [place] [address] Performed By: #### 2 4323-8, 35089-0 ####[facility] LABIA [id number] [place] [address] [place] ALT [Catalytic activity/Vol] 21 U/L Normal 10-54 [facility] Comment on above: Order Comment: Speci men Type: BLOOD SPECIMENOrdering Facility: [facility] Address: [address] [place] [address] Performed By: #### 2 4323-8, 68688-5 ####[facility] LABIA [id number] [place] [address] [place] Anion gap [Moles/Vol] 11 mmol/L Normal 8-15 [facility] Comment on above: Order Comment: Speci men Type: BLOOD SPECIMENOrdering Facility: [facility] Address: [address] [place] [address] Performed By: #### 2 4323-8, 89115-5 ####[facility] LABCLIA [id number] [place] [address] [place] AST [Catalytic activity/Vol] 20 U/L Normal 14-40 [facility] Comment on above: Order Comment: Speci men Type: BLOOD SPECIMENOrdering Facility: [facility] Address: [address] [place] [address] Performed By: #### 2 4323-8, 71405-7 ####[facility] LABCLIA [id number] [place] [address] [place] Bilirubin [Mass/Vol] 0.6 mg/dL Normal 0.2-1.3 [facility] Comment on above: Order Comment: Speci men Type: BLOOD SPECIMENOrdering Facility: [facility] Address: [address] [place] [address] Performed By: #### 2 4323-8, 49740-1 ####[facility] LABCLIA [id number] [place] [address] [place] Calcium [Mass/Vol] 9.8 mg/dL Normal 8.5-10.2 [facility] Comment on above: Order Comment: Speci men Type: BLOOD SPECIMENOrdering Facility: [facility] Address: [address] [place] [address] Performed By: #### 2 4323-8, 43524-3 ####[facility] LABCLIA [id number] [place] [address] [place] Chloride [Moles/Vol] 105 mmol/L Normal 98-107 [facility] Comment on above: Order Comment: Speci men Type: BLOOD SPECIMENOrdering Facility: [facility] Address: [address] [place] [address] Performed By: #### 2 4323-8, 04973-6 ####[facility] LABCLIA [id number] [place] [address] [place] CO2 [Moles/Vol] 25 mmol/L Normal 22-30 [facility] Comment on above: Order Comment: Speci men Type: BLOOD SPECIMENOrdering Facility: [facility] Address: [address] [place] [address] Performed By: #### 2 4323-8, 11426-3 ####[facility] LABIA [id number] [place] [address] [place] Creatinine [Mass/Vol] 0.89 mg/dL Normal 0.73-1.22 [facility] Comment on above: Order Comment: Speci men Type: BLOOD SPECIMENOrdering Facility: [facility] Address: [address] [place] [address] Performed By: #### 2 4323-8, 42148-5 ####[facility] LABIA [id number] [place] [address] [place] Creatinine and Glomerular filtration rate.predicted panel (S/P/Bld) 91 mL/min/1.73m??? Normal >=60 [facility] Comment on above: Order Comment: Speci men Type: BLOOD SPECIMENOrdering Facility: [facility] Address: [address] [place] [address] Result Comment: Katy mated Glomerular Filtration Rate [...] actual GFR. Performed By: #### 2 4323-8, 94680-8 ####[facility] LABCLIA [id number] [place] [address] [place] Glucose [Mass/Vol] 116 mg/dL High 74-99 [facility] Comment on above: Order Comment: Speci men Type: BLOOD SPECIMENOrdering Facility: [facility] Address: [address] [place] [address] Result Comment: The [place] Diabetes Association (ADA) provides guidance for cutoff [...] Standards of Medical Care in Diabetes 2016, [place] Diabetes Association. Diabetes Care. 2016.39(Suppl 1). Performed By: #### 2 4323-8, 20158-9 ####[facility] LABCLIA [id number] [place] [address] [place] Potassium [Moles/Vol] 4.6 mmol/L Normal 3.7-5.1 [facility] Comment on above: Order Comment: Speci men Type: BLOOD SPECIMENOrdering Facility: [facility] Address: [address] [place] [address] Performed By: #### 2 4323-8, 54828-7 ####[facility] LABCLIA [id number] [place] [address] [place] Protein [Mass/Vol] 7.0 g/dL Normal 6.3-8.0 [facility] Comment on above: Order Comment: Speci men Type: BLOOD SPECIMENOrdering Facility: [facility] Address: [address] [place] [address] Performed By: #### 2 4323-8, 24844-4 ####[facility] LABCLIA [id number] [place] [address] [place] Sodium [Moles/Vol] 141 mmol/L Normal 136-144 [facility] Comment on above: Order Comment: Marileei men Type: BLOOD SPECIMENOrdering Facility: [facility] Address: [address] [place] [address] Performed By: #### 2 4323-8, 41415-9 ####[facility] LABIA [id number] [place] [address] [place] Urea nitrogen [Mass/Vol] 17 mg/dL Normal 9-24 [facility] Comment on above: Order Comment: Marileei men Type: BLOOD SPECIMENOrdering Facility: [facility] Address: [address] [place] [address] Performed By: #### 2 4323-8, 67750-2 ####[facility] [id number] [place] [address] [place] HbA1c (Bld)on 09-22-2024 Average glucose Estimated from glycated hemoglobin (Bld) [Mass/Vol] 111 mg/dL Normal [facility] Comment on above: Order Comment: Marileei men Type: BLOOD SPECIMENOrdering Facility: [facility] Address: [address] [place] [address] Result Comment: eAG: (Estimated average glucose) is a calculated value from HgbA1c and is marketing sales representative of the average blood glucose level in the last 2-3 month period. Performed By: #### 5 5454-3 ####[facility] LABIA [id number] [place] [address] [place] HbA1c (Bld) [Mass fraction] 5.5 % Normal 4.3-5.6 [facility] Comment on above: Order Comment: Kathi men Type: BLOOD SPECIMENOrdering Facility: [facility] Address: [address] [place] [address] Result Comment: Amer ican Diabetes Association guidelines indicate that patients with HgbA1c in the range 5.7-6.4% are at increased risk for development of diabetes, and intervention by lifestyle modification may be beneficial. HgbA1c greater or equal to 6.5% is considered diagnostic of diabetes. Performed By: #### 5 5454-3 ####[facility] LABCLIA [id number] [place] [address] [place] Lipid 1996 panelon 5 Cholesterol [Mass/Vol] 166 mg/dL Normal <200 [facility] Comment on above: Order Comment: Marileei men Type: BLOOD SPECIMENOrdering Facility: [facility] Address: [address] [place] [address] Result Comment: <200 mg/dL, Desirable 200-239 mg/dL, Borderline high >239 mg/dL, High Performed By: #### 2 4323-8, 85066-4 ####[facility] LABCLIA [id number] [place] Cholesterol in HDL [Mass/Vol] 47 mg/dL Normal >39 [facility] Comment on above: Order Comment: Kathi knight Type: BLOOD SPECIMENOrdering Facility: [facility] Address: [address] [place] [address] Result Comment: 40-5 9 mg/dL, Acceptable >59 mg/dL, High: Negative risk factor for coronary heart disease <40 mg/dL, Low: Positive risk factor for coronary heart disease Performed By: #### 2 4323-8, 21500-2 ####[facility]CLIA [id number] [address] [place] Cholesterol in LDL [Mass/Vol] 103 mg/dL High <100 [facility] Comment on above: Order Comment: Kathi men Type: BLOOD SPECIMENOrdering Facility: [facility] Address: [address] [place] [address] Result Comment: <100 mg/dL, Optimal 100-129 mg/dL, Near optimal/above optimal 130-159 mg/dL, Borderline high 160-189 mg/dL, High >189 mg/dL, Very high Secondary prevention optimal LDL Cholesterol levels are recommended to be < 70 mg/dL Performed By: #### 2 4323-8, 73736-3 ####[facility] LABCLIA [id number] [place] [address] [place] Cholesterol in LDL/Cholesterol in HDL [Mass ratio] 2.19 {ratio} Normal <2.54 [facility] Comment on above: Order Comment: Speci men Type: BLOOD SPECIMENOrdering Facility: [facility] Address: [address] [place] [address] Result Comment: Refe rence: 1. National Cholesterol Education Program ATP III Guideline At-A-Glance Quick Desk Reference: National Heart, Lung, and Blood [place]. National Institutes of Health. 2001: NIH Publication No. 01-3305. 2. An International Atherosclerosis Society position paper: global recommendations for the management of dyslipidemia: executive summary, Atherosclerosis. 2014: 232(2):410-413. Performed By: #### 2 4323-8, 67806-0 ####[facility] LABCLIA [id number] [place] [address] [place] Cholesterol in VLDL [Mass/Vol] 16 mg/dL Normal <30 [facility] Comment on above: Order Comment: Speci men Type: BLOOD SPECIMENOrdering Facility: [facility] Address: [address] [place] [address] Performed By: #### 2 4323-8, 83500-5 ####[facility] LABCLIA [id number] [place] [address] [place] Cholesterol non HDL [Mass/Vol] 119 mg/dL Normal <130 [facility] Comment on above: Order Comment: Speci men Type: BLOOD SPECIMENOrdering Facility: [facility] Address: [address] [place] [address] Result Comment: <130 mg/dL, Optimal 130-159 mg/dL, Near optimal/above optimal 160-189 mg/dL, Borderline high 190-219 mg/dL, High >219 mg/dL, Very high Secondary prevention optimal non HDL Cholesterol levels are recommended to be <100 mg/dL Performed By: #### 2 4323-8, 72691-3 ####[facility] LABCLIA [id number] [place] [address] [place] Cholesterol.total/Cho lesterol in HDL [Mass ratio] 3.53 {ratio} Normal <5.10 [facility] Comment on above: Order Comment: Speci men Type: BLOOD SPECIMENOrdering Facility: [facility] Address: [address] [place] [address] Performed By: #### 2 4323-8, 63823-0 ####[facility] LABIA [id number] [place] [address] [place] FASTING TIME 12 hrs Normal [facility] Comment on above: Order Comment: Speci men Type: BLOOD SPECIMENOrdering Facility: [facility] Address: [address] [place] [address] Performed By: #### 2 4323-8, 04352-0 ####[facility] LABCLIA [id number] [place] [address] [place] Triglyceride [Mass/Vol] 80 mg/dL Normal <150 [facility] Comment on above: Order Comment: Speci men Type: BLOOD SPECIMENOrdering Facility: [facility] Address: [address] [place] [address] Result Comment: <150 mg/dL, Normal 150-199 mg/dL, Borderline high 200-499 mg/dL, High >499 mg/dL, Very high Performed By: #### 2 4323-8, 08303-1 ####[facility] LABIA [id number] [place] [address] [place] Sinus/Facial Boneon 06-01-20 Sinus/Facial Bone [facility] [address] [place], [place] [address] Sinus/Facial Bone MR#: [id number] Acct: [id number] Name: FRANK MCKEON VALERIE Rep #: [id number] : 1950 M 73 From: Alfredo escobar DO PCP: Dr. Gary Marquis MD Status: REG CLI Study: Sinus/Facial Bone Date of Exam: 06/01/24 Exam# [id number] Ordering Dr: Preeti Marin MD [id number] EXAM: CT MAXILLOFACIAL WITHOUT INTRAVENOUS CONTRAST CLINICAL [...] Gary Marquis MD; Dr. Preeti Marin MD Snuff Grinder And Screener: Signed Normal [facility] HIP, UNI W/ Pelvis 2-3 Views on 04-19-2024 HIP, UNI W/ Pelvis 2-3 Views [facility] [address] [place] [address] HIP, UNI W/ Pelvis 2-3 Views MR#: [id number] Acct: [id number] Name: FRANK MCKEON Rep #: [id number] : 1950 M 73 From: Lonnie hammer MD PCP: Dr. Gary Marquis MD Status: DEP AMB Study: HIP, UNI W/ Pelvis 2-3 Views Date of Exam: 01/05 Exam# [id number] Ordering Dr: Moody Patricia MD [id number] STUDY: X-RAY - PELVIS AND RIGHT HIP [...] Gary Marquis MD; Dr. Moody Patricia MD Snuff Grinder And Screener: Signed Normal [facility] CNOVon 03-26-2024 CN Office Visit (FAMPWS ) FRANK MCKEON ([id number]) 1950 M Date Time Provider Department 03/26/24 9:00 AM BRIANA HARRIS During your visit today, we recorded the following information about you: Pulse Respiration Blood pressure Weight 64/minute 18/minute 134/82 90.9 kg Briana Harris APRN.CRUSHER LOADER OPERATOR 03/26/2024 9:17 AM Signed 03/20/2024 Patient presents [...] m/uL 5.06 (more content not included)... Normal [facility] Comprehensive metabolic 2000 panelon 03-21-2024 Albumin [Mass/Vol] 4.3 g/dL Normal 3.9-4.9 [facility] Comment on above: Order Comment: Speci men Type: BLOOD SPECIMENOrdering Facility: [facility] Address: [address] [place] [address] Performed By: #### 2 4323-8 ####[facility] LABCL[facility] [id number] [facility] [place] [address] [place] ALP [Catalytic activity/Vol] 59 U/L Normal 38-113 [facility] Comment on above: Order Comment: Speci men Type: BLOOD SPECIMENOrdering Facility: [facility] Address: [address] [place] [id number] Performed By: #### 2 4323-8 ####[facility] LABCLIA [id number] [place] [address] [place] ALT [Catalytic activity/Vol] 18 U/L Normal 10-54 [facility] Comment on above: Order Comment: Speci men Type: BLOOD SPECIMENOrdering Facility: [facility] Address: [address] [place] [address] Performed By: #### 2 4323-8 ####[facility] LABCLIA [id number] [place] [address] [place] Anion gap [Moles/Vol] 11 mmol/L Normal 8-15 [facility] Comment on above: Order Comment: Speci men Type: BLOOD SPECIMENOrdering Facility: [facility] Address: [address] [place] [address] Performed By: #### 2 4323-8 ####[facility] LABCLIA [id number] [place] [address] [place] AST [Catalytic activity/Vol] 20 U/L Normal 14-40 [facility] Comment on above: Order Comment: Speci men Type: BLOOD SPECIMENOrdering Facility: [facility] Address: [address] [place], [place] [address] Performed By: #### 2 4323-8 ####[facility] LABCLIA [id number] [place] [address] [place] Bilirubin [Mass/Vol] 0.6 mg/dL Normal 0.2-1.3 [facility] Comment on above: Order Comment: Speci men Type: BLOOD SPECIMENOrdering Facility: [facility] Address: [address] [place], [place] [address] Performed By: #### 2 4323-8 ####[facility] LABCLIA [id number] [place] [address] [place] Calcium [Mass/Vol] 9.9 mg/dL Normal 8.5-10.2 [facility] Comment on above: Order Comment: Speci men Type: BLOOD SPECIMENOrdering Facility: [facility] Address: [address] [place] [address] Performed By: #### 2 4323-8 ####[facility] LABCLIA [id number] [place] [address] [place] Chloride [Moles/Vol] 105 mmol/L Normal 98-107 [facility] Comment on above: Order Comment: Speci men Type: BLOOD SPECIMENOrdering Facility: [facility] Address: [address] [place] [address] Performed By: #### 2 4323-8 ####[facility] LABCLIA [id number] [place] [address] [place] CO2 [Moles/Vol] 23 mmol/L Normal 22-30 [facility] Comment on above: Order Comment: Speci men Type: BLOOD SPECIMENOrdering Facility: [facility] Address: [address] [place] [address] Performed By: #### 2 4323-8 ####[facility] LABCLIA [id number] [place] [address] [place] Creatinine [Mass/Vol] 1.05 mg/dL Normal 0.73-1.22 [facility] Comment on above: Order Comment: Speci men Type: BLOOD SPECIMENOrdering Facility: [facility] Address: [address] [place] [address] Performed By: #### 2 4323-8 ####[facility] LABCLIA [id number] [place] [address] [place] Creatinine and Glomerular filtration rate.predicted panel (S/P/Bld) 75 mL/min/1.73m??? Normal >=60 [facility] Comment on above: Order Comment: Speci men Type: BLOOD SPECIMENOrdering Facility: [facility] Address: [address] [place] [address] Result Comment: Katy mated Glomerular Filtration Rate [...] actual GFR. Performed By: #### 2 4323-8 ####[facility] LABCLIA [id number] [place] [address] [place] Glucose [Mass/Vol] 135 mg/dL High 74-99 [facility] Comment on above: Order Comment: Speci men Type: BLOOD SPECIMENOrdering Facility: [facility] Address: [address] [place] [address] Result Comment: The [place] Diabetes Association (ADA) provides guidance for cutoff [...] Standards of Medical Care in Diabetes 2016, [place] Diabetes Association. Diabetes Care. 2016.39(Suppl 1). Performed By: #### 2 4323-8 ####[facility] LABCLIA [id number] [place] [id number] [place] Potassium [Moles/Vol] 4.4 mmol/L Normal 3.7-5.1 [facility] Comment on above: Order Comment: Speci men Type: BLOOD SPECIMENOrdering Facility: [facility] Address: [address] [place] [address] Performed By: #### 2 4323-8 ####[facility] LABCLIA [id number] [place] [address] [place] Protein [Mass/Vol] 6.8 g/dL Normal 6.3-8.0 [facility] Comment on above: Order Comment: Speci men Type: BLOOD SPECIMENOrdering Facility: [facility] Address: [address] [place] [address] Performed By: #### 2 4323-8 ####[facility] LABCLIA [id number] [place] [address] [place] Sodium [Moles/Vol] 139 mmol/L Normal 136-144 [facility] Comment on above: Order Comment: Speci men Type: BLOOD SPECIMENOrdering Facility: [facility] Address: [address] [place] [address] Performed By: #### 2 4323-8 ####[facility] LABIA [id number] [place] [address] [place] Urea nitrogen [Mass/Vol] 16 mg/dL Normal 9-24 [facility] Comment on above: Order Comment: Speci men Type: BLOOD SPECIMENOrdering Facility: [facility] Address: [address] [place] [address] Performed By: #### 2 4323-8 ####[facility] LABIA [id number] [place] [address] [place] HbA1c (Bld)on 03-21-2024 Average glucose Estimated from glycated hemoglobin (Bld) [Mass/Vol] 105 mg/dL Normal [facility] Comment on above: Order Comment: Speci men Type: BLOOD SPECIMENOrdering Facility: [facility] Address: [address] [place] [address] Result Comment: eAG: (Estimated average glucose) is a calculated value from HgbA1c and is marketing sales representative of the average blood glucose level in the last 2-3 month period. Performed By: #### 5 5454-3 ####[facility] LABCLIA [id number] [place] [address] [place] HbA1c (Bld) [Mass fraction] 5.3 % Normal 4.3-5.6 [facility] Comment on above: Order Comment: Speci men Type: BLOOD SPECIMENOrdering Facility: [facility] Address: [address] [place] [address] Result Comment: Amer [place] Diabetes Association guidelines indicate that patients with HgbA1c in the range 5.7-6.4% are at increased risk for development of diabetes, and intervention by lifestyle modification may be beneficial. HgbA1c greater or equal to 6.5% is considered diagnostic of diabetes. Performed By: #### 5 5454-3 ####[facility] LABCLIA [id number] [address] STATES OF [facility] XR ANKLE GENERAL 3V AP/LAT/O BL RIGHTon 05-24-2023 [facility] XR FOOT GENERAL 3V AP/LAT/OB L RIGHTon 05-24-2023 [facility] XR Chest PA and Lateralon IMPRESSION: No acute radiographic abnormality. Snuff Grinder And Screener: PSCB Transcribe Date/Time: Mar 22 2023 4:13P Dictated by : KARL BURTON MD This examination was interpreted and the report reviewed and electronically signed by: KARL BURTON MD on Mar 22 2023 4:14PM [facility] DIVISION OF RADIOLOGY * * *Final Report* [...] thoracic spine. DIVISION OF RADIOLOGY Provider, John Francisco [facility] - 03/22/2023 * * *Final Report* * [...] spine. 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 Snuff Grinder And Screener: FELISHA Transcribe Date/Time: Mar 22 2023 4:13P Dictated by : KARL BURTON MD This examination was interpreted and the report reviewed and electronically signed by: KARL BURTON MD on Mar 22 2023 4:14PM EST [facility] Radiology Study observation (narrative) [facility] XR Chest PA and LateralOrder ed By: Ccf Provider on 03-22-2023 [facility] Clinical Summary: HMSPatient IDon 03-05-2020 SOP [facility] Work Phone: Clinical Lists Update: Prelo ad Extendedon 02-28-2020 Tobacco smoking status NHIS Tobacco smoking status NHIS Linda [facility] Work Phone: Clinical Summary: Outcome Mckeon mmaryon 02-27-2020 QuickDASH Assessment Final Score 25 [facility] Work Phone: QuickDASH Assessment item 1 3 [facility] Work Phone: QuickDASH Assessment item 10 2 [facility] Work Phone: QuickDASH Assessment item 11 3 [facility] Work Phone: QuickDASH Assessment item 2 2 [facility] Work Phone: QuickDASH Assessment item 3 2 [facility] Work Phone: QuickDASH Assessment item 4 2 [facility] Work Phone: QuickDASH Assessment item 5 1 [facility] Work Phone: QuickDASH Assessment item 6 1 [facility] Work Phone: QuickDASH Assessment item 7 1 [facility] Work Phone: QuickDASH Assessment item 8 2 [facility] Work Phone: QuickDASH Assessment item 9 3 [facility] Work Phone: diagnostic criteria for SLE #1 4 [facility] Work Phone: diagnostic criteria for SLE #10 4 [facility] Work Phone: diagnostic criteria for SLE #11 12 [facility] Work Phone: diagnostic criteria for SLE #12 15 [facility] Work Phone: diagnostic criteria for SLE #13 39.8 [facility] Work Phone: diagnostic criteria for SLE #14 50.8 [facility] Work Phone: diagnostic criteria for SLE #15 0.43641 [facility] Work Phone: diagnostic criteria for SLE #2 4 [facility] Work Phone: diagnostic criteria for SLE #3 3 [facility] Work Phone: diagnostic criteria for SLE #4 4 [facility] Work Phone: diagnostic criteria for SLE #[address] [facility] Work Phone: diagnostic criteria for SLE #[address] [facility] Work Phone: diagnostic criteria for SLE #[address] [facility] Work Phone: diagnostic criteria for SLE #[address] [facility] Work Phone: diagnostic criteria for SLE #[address] [facility] Work Phone: Clinical Summary: Scanned Hi story Summaryon 02-27-2020 adl form etoh alcohol performance beer, wine, liquor [facility] Work Phone: Beta HCG ( test) Ql (U) Never [facility] Work Phone: cause of , father Heart failure [facility] Work Phone: cause of , mother Multiple/aging - age 89 [facility] Work Phone: Cholesterol [Mass/Vol] ArthritisHigh cholesterol [facility] Work Phone: comments about allergies Ibuprofen [facility] Work Phone: consumes three or more drinks of alcohol (beer, wine, liquor) daily or almost daily [address] [facility] Work Phone: data entered by patient, alcohol (ethanol or ETOH) use Yes [facility] Work Phone: Data entered by patient, allergy list NSAIDsAnimalsDust mitesMoldPlant pollens (Hay Fever)I don't have any Food Allergies [facility] Work Phone: data entered by patient, drug (of abuse) use No [facility] Work Phone: data entered by patient, Employer Name retired [facility] Work Phone: data entered by patient, exercise history No [facility] Work Phone: data entered by patient, father's medical history AlzheimerArthritisDiabetes - non-insulin dependentHeart diseaseHigh blood pressure [facility] Work Phone: Data entered by patient, history of past surgeries AppendectomyCataract surgeryGallbladder surgeryHernia repairKnee surgery otherShoulder surgery otherTonsillectomy [facility] Work Phone: Data entered by patient, medication list hwmsbfh-77hy-4-1x/daycelebr ns-639af-0-1x/daymulti vitamin-Unknown Okrrfmmr-7-2n/daymucinex-60 0mg-1-1x/dayacetaminophen-5 00mg-2-1x/day and as neededdiphenhydramine-25mg- 1-1x/day, as neededvoltaren-As noted per area-Unknown Dosage-1x/dayhydrocortisone cream-1%-Unknown Dosage-1x/dayturmeric-500mg -1-2x/day [facility] Work Phone: data entered by patient, mother's medical history ArthritisHigh blood pressureOsteoporosis [facility] Work Phone: data entered by patient, social history, current smoker former smoker [facility] Work Phone: data entered by patient, social history, former smoker 1986 [facility] Work Phone: data entered by patient, social history, marital status [facility] Work Phone: father of patient is alive or [facility] Work Phone: Housing Type: apartment, house, jail, trailer, none house [facility] Work Phone: housing unit size (asthma environmental history, housing) (from single family to don't know) [address] [facility] Work Phone: medical history of patient's brother(s) My brother's health history is unknown [facility] Work Phone: medical history of patient's sister My sister's health history is unknown [facility] Work Phone: mother of patient is alive or [facility] Work Phone: Number of dependent children No [facility] Work Phone: Web entered surgical history comments Repair torn Left Quad; Repair torn right bicep [facility] Work Phone: CNTHERAPYon 05-15-2019 CNTHERAPY [facility] MIKEFRANK Irving ([id number]) 1950 M Date Time Provider Department 05/15/19 2:30 PM DARLENE ESPINOSA (OT) [facility] Date Time Provider Department Center 05/15/2019 2:30 PM [id number] [facility]OS[facility]: [facility] EVAL [748] [...] Date Reviewed: 05/04/2019 Reviewed by: Elyssa Torres (Patternmaker) RADHA Rodriguez - Fully Assessed Prescriptions as [...] TABLET Take one(1) tablet daily. Progress Notes: Darlene Espinosa OT/Irving 05/15/2019 3:19 PM Signed Episode Visit Count: 1 Therapist That Will Oversee The Plan Of Care: Ac Colon Start of Care Date: 05/15/19 Onset Date: 05/02/19 Plan of Care Certification Date: 05/15/19 Patient Identified by Name and Date of : Yes [facility] OCCUPATIONAL THERAPY EVALUATION [...] Duration: 1 visit Planned Treatment Interventions: Therapeutic exercise;Self-fci management PLAN FOR NEXT VISIT: discharge Patient [...] Hand AROM: WFL Thumb AROM: WFL Strength: Distribution Center Administrator Position 2;Pinch Meter Provocative Testing: Tinel's;Grind test Clinical Presentation: Falguni's nodes Tinel's Sign: Left negative;Right negative Grind test: Right positive;Left positive Hand Strength R Distribution Center Administrator Position 2 (lbs): 55 lbs L Distribution Center Administrator Position 2 (lbs): 49 lbs R Lateral Pinch (lbs): 15 lbs R Tripod/ 3 Jaw Ian (lbs): 15 lbs R Tip Pinch (lbs): 12 lbs L Lateral Pinch (lbs): 13 lbs L Tripod/ 3 Jaw Ian (lbs): 14 lbs L Tip Pinch (lbs): 12 lbs UE and Cervical Strength R Distribution Center Administrator Position 2 (lbs): 55 lbs R Lateral Pinch (lbs): 15 lbs R Tripod/ 3 Jaw Ian (lbs): 15 lbs R Tip Pinch (lbs): 12 lbs L Distribution Center Administrator Position 2 (lbs): 49 lbs L Lateral [...] proper exercise technique and purpose for exercises. Self-Residential Management: 1: educated on diagnosis 2: provided [...] on clinical presentation, deficits, and needs. Billing: [place]: Evaluation - Low Complexity ( [id number]) Self Care / Home Management (80904): 1:1 time:15 minutes (1 unit: 8-22 mins) Therapeutic Exercise (94860): 1:1 time:15 minutes (1 unit: 8-22 mins) Total time: 45 minutes Darlene Espinosa OT/ELLE Annotated image of OT HAND TENDON GLIDING FINGER EX'S last updated by Darlene Espinosa on 05/15/2019 3:01 PM Annotated image of OT HAND POST-OP EX'S [id number] last updated by Darlene Espinosa on 05/15/2019 3:01 PM [facility] PROGRESSon 05-15-2019 PROGRESS HNO ID: [id number] Author: Darlene Espinosa Service: ? Author Type: Occupational Therapist Type: Progress Notes Filed: 05/15/2019 3:19 PM Note Text: Episode Visit Count: 1 Therapist That Will Oversee The Plan Of Care: Ac Colon Start of Care Date: 05/15/19 Onset Date: 05/02/19 Plan of Care Certification Date: 05/15/19 Patient Identified by Name and Date of : Yes [facility] OCCUPATIONAL THERAPY EVALUATION [...] Duration: 1 visit Planned Treatment Interventions: Therapeutic exercise;Self-fci management PLAN FOR NEXT VISIT: discharge Patient [...] Hand AROM: WFL Thumb AROM: WFL Strength: Distribution Center Administrator Position 2;Pinch Meter Provocative Testing: Tinel's;Grind test Clinical Presentation: Falguni's nodes Tinel's Sign: Left negative;Right negative Grind test: Right positive;Left positive Hand Strength R Distribution Center Administrator Position 2 (lbs): 55 lbs L Distribution Center Administrator Position 2 (lbs): 49 lbs R Lateral Pinch (lbs): 15 lbs R Tripod/ 3 Jaw Ian (lbs): 15 lbs R Tip Pinch (lbs): 12 lbs L Lateral Pinch (lbs): 13 lbs L Tripod/ 3 Jaw Ian (lbs): 14 lbs L Tip Pinch (lbs): 12 lbs UE and Cervical Strength R Distribution Center Administrator Position 2 (lbs): 55 lbs R Lateral Pinch (lbs): 15 lbs R Tripod/ 3 Jaw Ian (lbs): 15 lbs R Tip Pinch (lbs): 12 lbs L Distribution Center Administrator Position 2 (lbs): 49 lbs L Lateral [...] proper exercise technique and purpose for exercises. Self-Residential Management: 1: educated on diagnosis 2: provided [...] Billing: [place]: Evaluation - Low Complexity ( [id number]) Self Care / Home Management (20834): 1:1 time:15 minutes (1 unit: 8-22 mins) Therapeutic Exercise (17564): 1:1 time:15 minutes (1 unit: 8-22 mins) Total time: 45 minutes Darlene Espinosa OT/ELLE Normal [facility] Vital Signs Date Time Vital Sign Value Performing Clinician Facility 03-13-2025 09:34-0400 Body height 172.[address] Gary Marquis MD Work Phone: [facility] 03-13-2025 09:34-0400 Body mass index (BMI) [Ratio] 29.9 kg/m2 Dr. Gary Marquis MD Work Phone: [facility] 03-13-2025 09:34-0400 Body weight 89.[address] Gary Marquis MD Work Phone: [facility] 03-13-2025 09:34-0400 Diastolic blood pressure 82 mm[Hg] Dr. Gary Marquis MD Work Phone: [facility] 03-13-2025 09:34-0400 Heart rate 72 /min Dr. Gary Marquis MD Work Phone: [facility] 03-13-2025 09:34-0400 Respiratory rate 16 /min Dr. Gary Marquis MD Work Phone: [facility] 03-13-2025 09:34-0400 Systolic blood pressure 144 mm[Hg] Dr. Gary Marquis MD Work Phone: [facility] 01-24-2025 11:38-0400 Diastolic blood pressure 92 mm[Hg] Lebron Miller MD Work Phone: [facility] 01-24-2025 11:38-0400 Systolic blood pressure 174 mm[Hg] Lebron Miller MD Work Phone: [facility] 01-24-2025 11:33-0400 Body height 172.7 cm Lebron Miller MD Work Phone: [facility] 01-24-2025 11:33-0400 Body mass index (BMI) [Ratio] 29.93 kg/m2 Lebron Miller MD Work Phone: [facility] 01-24-2025 11:33-0400 Body weight 89.3 kg Lebron Miller MD Work Phone: [facility] 01-24-2025 11:33-0400 Heart rate 71 /min Lebron Miller MD Work Phone: [facility] 11-14-2024 08:12-0400 Body mass index (BMI) [Ratio] 32.57 kg/m2 Briana Podlogar FITNESS CENTRE MANAGER.CRUSHER LOADER OPERATOR Work Phone: [facility] 11-14-2024 08:12-0400 Body weight 91.26 kg Briana Podlogar FITNESS CENTRE MANAGER.CRUSHER LOADER OPERATOR Work Phone: [facility] 11-14-2024 08:12-0400 Diastolic blood pressure 80 mm[Hg] Briana Podlogar FITNESS CENTRE MANAGER.CRUSHER LOADER OPERATOR Work Phone: [facility] 11-14-2024 08:12-0400 Heart rate 70 /min Briana Podlogar FITNESS CENTRE MANAGER.CRUSHER LOADER OPERATOR Work Phone: [facility] 11-14-2024 08:12-0400 Respiratory rate 16 /min Briana Podlogar FITNESS CENTRE MANAGER.CRUSHER LOADER OPERATOR Work Phone: [facility] 11-14-2024 08:12-0400 SaO2% (BldA) [Mass fraction] 96 % Briana Podlogar FITNESS CENTRE MANAGER.CRUSHER LOADER OPERATOR Work Phone: [facility] 11-14-2024 08:12-0400 Systolic blood pressure 132 mm[Hg] Briana Podlogar FITNESS CENTRE MANAGER.CRUSHER LOADER OPERATOR Work Phone: [facility] 03-26-2024 08:51-0400 Body mass index (BMI) [Ratio] 32.44 kg/m2 Briana Podlogar FITNESS CENTRE MANAGER.CRUSHER LOADER OPERATOR Work Phone: [facility] 03-26-2024 08:51-0400 Body weight 90.9 kg Briana Podlogar FITNESS CENTRE MANAGER.CRUSHER LOADER OPERATOR Work Phone: [facility] 03-26-2024 08:51-0400 Diastolic blood pressure 82 mm[Hg] Briana Podlogar FITNESS CENTRE MANAGER.CRUSHER LOADER OPERATOR Work Phone: [facility] 03-26-2024 08:51-0400 Heart rate 64 /min Briana Podlogar FITNESS CENTRE MANAGER.CRUSHER LOADER OPERATOR Work Phone: [facility] 03-26-2024 08:51-0400 Respiratory rate 18 /min Briana Podlogar FITNESS CENTRE MANAGER.CRUSHER LOADER OPERATOR Work Phone: [facility] 03-26-2024 08:51-0400 SaO2% (BldA) [Mass fraction] 96 % Briana Podlogar FITNESS CENTRE MANAGER.CRUSHER LOADER OPERATOR Work Phone: [facility] 03-26-2024 08:51-0400 Systolic blood pressure 134 mm[Hg] Briana Podlogar FITNESS CENTRE MANAGER.CRUSHER LOADER OPERATOR Work Phone: [facility] 09-26-2023 08:50-0500 Body height 167.4 cm Briana Podlogar FITNESS CENTRE MANAGER.CRUSHER LOADER OPERATOR Work Phone: [facility] 09-26-2023 08:50-0500 Body weight 92.63 kg Briana Podlogar FITNESS CENTRE MANAGER.CRUSHER LOADER OPERATOR Work Phone: [facility] 09-26-2023 08:50-0500 Diastolic blood pressure 82 mm[Hg] Briana Podlogar FITNESS CENTRE MANAGER.CRUSHER LOADER OPERATOR Work Phone: [facility] 09-26-2023 08:50-0500 Heart rate 75 /min Briana Podlogar FITNESS CENTRE MANAGER.CRUSHER LOADER OPERATOR Work Phone: [facility] 09-26-2023 08:50-0500 Respiratory rate 18 /min Briana Podlogar FITNESS CENTRE MANAGER.CRUSHER LOADER OPERATOR Work Phone: [facility] 09-26-2023 08:50-0500 SaO2% (BldA) [Mass fraction] 98 % Briana Podlogar FITNESS CENTRE MANAGER.CRUSHER LOADER OPERATOR Work Phone: [facility] 09-26-2023 08:50-0500 Systolic blood pressure 136 mm[Hg] Briana Podlogar FITNESS CENTRE MANAGER.CRUSHER LOADER OPERATOR Work Phone: [facility] 03-15-2023 08:39-0400 Body height 172.7 cm Briana Podlogar FITNESS CENTRE MANAGER.CRUSHER LOADER OPERATOR Work Phone: [facility] 03-15-2023 08:39-0400 Body weight 91.17 kg Briana Podlogar FITNESS CENTRE MANAGER.CRUSHER LOADER OPERATOR Work Phone: [facility] 03-15-2023 08:39-0400 Diastolic blood pressure 78 mm[Hg] Briana Podlogar FITNESS CENTRE MANAGER.CRUSHER LOADER OPERATOR Work Phone: [facility] 03-15-2023 08:39-0400 Heart rate 76 /min Briana Podlogar FITNESS CENTRE MANAGER.CRUSHER LOADER OPERATOR Work Phone: [facility] 03-15-2023 08:39-0400 Respiratory rate 16 /min Briana Podlogar FITNESS CENTRE MANAGER.CRUSHER LOADER OPERATOR Work Phone: [facility] 03-15-2023 08:39-0400 Systolic blood pressure 130 mm[Hg] Briana Podlogar FITNESS CENTRE MANAGER.CRUSHER LOADER OPERATOR Work Phone: [facility] 03-16-2022 13:42-0400 Body weight 91.44 kg Preeti Marquis MD Work Phone: [facility] 03-16-2022 13:42-0400 Diastolic blood pressure 68 mm[Hg] Preeti Marquis MD Work Phone: [facility] 03-16-2022 13:42-0400 Heart rate 71 /min Preeti Marquis MD Work Phone: [facility] 03-16-2022 13:42-0400 Respiratory rate 16 /min Preeti Marquis MD Work Phone: [facility] 03-16-2022 13:42-0400 SaO2% (BldA) [Mass fraction] 97 % Preeti Marquis MD Work Phone: [facility] 03-16-2022 13:42-0400 Systolic blood pressure 122 mm[Hg] Preeti Marquis MD Work Phone: [facility] NEGATED: Highlighted [id number] 11:38-0400 BMI (Body Mass Index) 32.07 kg/m2 [facility] Work Phone: NEGATED: Highlighted [id number] 11:38-0400 Body weight 89.81 kg [facility] Work Phone: NEGATED: Highlighted [id number] 11:38-0400 Body weight 90 kg [facility] Work Phone: NEGATED: Highlighted [id number] 11:38-0400 Height 167.64 cm Antonella Allred [facility] Work Phone: NEGATED: Highlighted [id number] 11:38-0400 Height 168 cm Antonella [facility] Work Phone: Encounters Encounter Date Encounter Type Care Provider Facility Start: 03-18-2025 ambulatory [facility] Facility:[facility] Start: 03-13-2025 Encounter for preprocedural cardiovascular examination [facility] Start: 03-13-2025 End: 03-13-[address] Howard Liz MD -[facility] Work Phone: Start: 03-13-2025 End: 03-13-[address] Gary Marquis MD Work Phone: -[facility] Start: 01-31-[address] Maria Del Rosario Marquis MD Work Phone: [facility] Start: 01-24-2025 End: 01-24-2025 Patient encounter procedure Lebron Miller MD Work Phone: [facility] Comment on above: Abnormal stress test (Primary Dx); History of tobacco abuse; Dyslipidemia; Abnormal EKG Start: 01-24-2025 End: 01-24-2025 ambulatory LEBRON MILLER Facility:[id number] Start: 01-10-2025 End: 01-10-[address] Gary Marquis MD Work Phone: [facility] Work Phone: Start: 01-10-2025 End: 01-10-[address] Preeti Marin MD -[facility] Work Phone: Start: 01-10-2025 End: 01-10-2025 ambulatory Preeti Marin Facility:[facility] Start: 01-09-2025 End: 01-15-2025 Telephone encounter Preeti Marquis MD Work Phone: [facility] Comment on above: Results; Patient req uest for Briana to review Stress test done at [facility] Start: 12-31-2024 Non-patient / Non-visit Dr. Gavi DAVID -[facility] Start: 12-31-2024 End: 12-31-[address] Gary Marquis MD Work Phone: [facility] Work Phone: Start: 12-31-2024 End: 12-31-2024 Patient encounter procedure Briana Harris COMMUNICATIONS PROFESSIONAL-C -Cardiovascular Services Work Phone: Start: 12-31-2024 End: 12-31-2024 ambulatory Briana Podlogibeth COMMUNICATIONS PROFESSIONAL Facility:[facility] Start: 12-11-2024 End: 12-11-2024 Telephone encounter Briana Harris APRN.CRUSHER LOADER OPERATOR Work Phone: [facility] Comment on above: Insurance Authorizat ion (Stress Echo) Start: 12-10-2024 End: 12-10-2024 ambulatory BRIANA PODLOGIBETH Facility:[facility] Start: 12-10-2024 Patient encounter procedure BRIANA PODLOGAR [facility] Start: 12-03-2024 End: 12-03-2024 Telephone encounter Preeti Marquis MD Work Phone: [facility] Comment on above: [facility] Start: 11-14-2024 End: 11-14-2024 Telephone encounter Briana Harris APRN.CRUSHER LOADER OPERATOR Work Phone: [facility] Start: 11-14-2024 Encounter for other preprocedural examination Broderick Merino [facility] Start: 11-14-2024 End: 11-14-2024 Patient encounter procedure Briana Sheikhlogibeth MORALESCRUSHER LOADER OPERATOR Work Phone: [facility] Comment on above: Preop examination (P rimary Dx); Abnormal EKG; Systolic murmur Start: 11-14-2024 End: 11-14-2024 Preprocedural examination done Briana Podlogar FITNESS CENTRE MANAGER.CRUSHER LOADER OPERATOR Work Phone: [facility] Start: 11-14-2024 End: 11-14-2024 ambulatory Briana Podlogar FITNESS CENTRE MANAGER.CRUSHER LOADER OPERATOR Work Phone: [facility] Comment on above: Phone call re: heart tests Start: 11-14-2024 Encounter for other preprocedural examination BRIANA PODLOGAR [facility] Start: 11-12-2024 End: 11-12-2024 Non-patient / Non-visit Dr. Howard Liz MD -[facility] Work Phone: Start: 11-12-2024 End: 11-12-[address] Gary Marquis MD Work Phone: [facility] Work Phone: Start: 11-12-2024 End: 11-12-[address] Broderick Merino DO -Pulmonary Services/Neurology Work Phone: Start: 11-12-2024 End: 11-12-2024 ambulatory Broderick Merino Facility:[facility] Start: 10-03-2024 End: 10-03-2024 Follow-up encounter Obdulia Murphy LPN [facility] Start: 10-01-2024 End: 10-01-2024 Refill Preeti Marquis MD Work Phone: [facility] Comment on above: Refill Request Start: 09-22-2024 End: 09-22-2024 ambulatory BRIANA PODLOGAR Facility:[facility] Start: 09-17-2024 End: 09-17-2024 ambulatory Briana Podlogar FITNESS CENTRE MANAGER.CRUSHER LOADER OPERATOR Work Phone: [facility] Comment on above: Appt on 09/28 Start: 06-01-2024 End: 06-01-2024 ambulatory Preeti Marin Facility:[facility] Start: 04-26-2024 End: 04-26-2024 Refhua Marquis MD Work Phone: [facility] Comment on above: Refill Request Start: 04-19-2024 End: 04-19-2024 ambulatory Gary Marquis Facility:[facility] Start: 03-26-2024 End: 03-26-2024 Patient encounter procedure Briana Podlogar FITNESS CENTRE MANAGER.CRUSHER LOADER OPERATOR Work Phone: [facility] Comment on above: Other hyperlipidemia (Primary Dx); Prediabetes; Primary osteoarthritis of both knees; Screening for depression; Encounter for screening examination for other mental health and behavioral disorders; DDD (degenerative disc disease), lumbar; Obesity, Class I, BMI 30-34.9 Start: 03-26-2024 End: 03-26-2024 ambulatory BRIANA PODLOGAR Facility:[facility] Start: 03-21-2024 End: 03-21-2024 ambulatory [facility] Facility:[facility] Start: 03-07-2024 Refill Briana Podlogar FITNESS CENTRE MANAGER.CRUSHER LOADER OPERATOR Work Phone: [facility] Comment on above: Refill Request Upcoming Visit - Mar Start: 01-13-2024 Refill Briana Podlogar FITNESS CENTRE MANAGER.CRUSHER LOADER OPERATOR Work Phone: [facility] Comment on above: Refill Request Start: 11-06-2023 Refill Briana Podlogar FITNESS CENTRE MANAGER.CRUSHER LOADER OPERATOR Work Phone: [facility] Comment on above: Refill Request Start: 09-26-2023 End: 09-26-2023 Patient encounter procedure Briana Podlogar FITNESS CENTRE MANAGER.CRUSHER LOADER OPERATOR Work Phone: [facility] Comment on above: Annual physical exam (Primary Dx); Bilateral carotid artery stenosis; DDD (degenerative disc disease), lumbar; Primary osteoarthritis of both knees; Hyperlipidemia, unspecified hyperlipidemia type; Prediabetes Start: 06-02-2023 End: 06-02-2023 ambulatory [facility] Work Phone: Start: 06-02-2023 End: 06-02-2023 Patient encounter procedure [facility]-Cardiovascul ar Services Work Phone: Start: 05-25-2023 [...] Jon kiran Work Phone: [facility] [place] Comment on above: Pain (Primary Dx) Start: 05-05-2023 Refill Briana Podlogar FITNESS CENTRE MANAGER.CRUSHER LOADER OPERATOR Work Phone: [facility] [place] Comment on above: Refill Request Start: 04-08-2023 Refill Preeti Marquis MD Work Phone: [facility] [place] Comment on above: Refill Request Start: 03-22-2023 End: 03-22-2023 Subsequent hospital visit by physician Xr [facility] [place] Work Phone: Radiology Comment on above: Acute cough [R05.1] Start: 03-16-2023 Telephone encounter Briana mcclendon FITNESS CENTRE MANAGER.CRUSHER LOADER OPERATOR Work Phone: [facility] [place] Comment on above: Results Start: 03-15-2023 End: 03-15-2023 Patient encounter procedure Briana Podlogar FITNESS CENTRE MANAGER.CRUSHER LOADER OPERATOR Work Phone: [facility] [place] Comment on above: Prediabetes (Primary Dx); Primary osteoarthritis of both knees; Other hyperlipidemia Start: 03-04-2023 ambulatory Briana Podlogar FITNESS CENTRE MANAGER.CRUSHER LOADER OPERATOR Work Phone: [facility] [place] Comment on above: Appt with Shabana moyer on 03/15 Start: 12-04-2022 Refill Preeti Marquis MD Work Phone: [facility] [place] Comment on above: Refill Request Start: 07-04-2022 Refill Briana Podlogar FITNESS CENTRE MANAGER.CRUSHER LOADER OPERATOR Work Phone: [facility] [place] Comment on above: Refill Request Start: 04-26-2022 Patient encounter status Michoacano Marquis MD Work Phone: [facility] [place] Start: 04-26-2022 Refill Preeti Marquis MD Work Phone: [facility] [place] Comment on above: Refill Request Start: 03-16-2022 End: 03-16-2022 Patient encounter procedure Preeti Marquis MD Work Phone: [facility] [place] Comment on above: Hyperglycemia (Prima ry Dx); Primary osteoarthritis involving multiple joints; Other hyperlipidemia; External hemorrhoids; Advance directive discussed with patient Start: 02-05-2022 Refill Preeti Marquis MD Work Phone: [facility] [place] Comment on above: Refill Request Start: 03-05-2020 End: 03-05-2020 Patient encounter procedure Selena Gonsalves MD Work Phone: [facility] Work Phone: Procedures Date Procedure [...] 03-26-2024 Adult depression screening assessment Briana Harris FITNESS CENTRE MANAGER.CRUSHER LOADER OPERATOR Work Phone: Start: 09-21-2023 Lipid 1996 panel - S tia or Plasma Briana Harris FITNESS CENTRE MANAGER.CRUSHER LOADER OPERATOR Work Phone: Start: 05-24-2023 End: 05-24-2023 Radex ankle complete minimum 3 views Jon Soto Work Phone: Start: 03-22-2023 Radiologic exam ches t 2 views Nemo Bazan FITNESS CENTRE MANAGER.CRUSHER LOADER OPERATOR Work Phone: Start: 09-09-2022 Lipid 1996 panel - S tia or Plasma Briana Harris FITNESS CENTRE MANAGER.CRUSHER LOADER OPERATOR Work Phone: Start: 03-14-2022 Adult depression screening [...] Activity Detail Author Start: 09-24-2031 Colonoscopy COLONOSCOPY [facility] Start: 09-24-2031 COLORECTAL CANCER SCREENING COLORECTAL CANCER SCREENING [facility] Start: 02-10-2032 Screening for malign ant neoplasm of colon [facility] Start: 09-22-2029 Lipid panel Lipid Screening [facility] Start: 09-21-2028 Lipid panel [facility] Start: 09-22-2027 Diabetes Screening Diabetes Screenin g [facility] Start: 09-09-2027 Lipid 1996 panel - S tia or Plasma Lipid Screening [facility] Start: 09-09-2027 LIPID SCREEN LIPID SCREEN [facility] Start: 03-21-2027 Diabetes Screening Diabetes Screenin g [facility] Start: 09-21-2026 Diabetes Screening Diabetes Screenin g [facility] Start: 09-04-2026 LIPID SCREEN LIPID SCREEN [facility] Start: 03-15-2026 DIABETES SCREEN DIABETES SCREEN [facility] Start: 03-15-2026 Diabetes Screening Diabetes Screenin g [facility] Start: 09-09-2025 DI[address]ES SCREEN DIABETES SCREEN [facility] Start: 06-11-2025 End: 06-11-2025 Patient encounter procedure 06/11/2025 9:40 AM EDT Office Visit [facility] [place] [address] [place] [address] Preeti Marquis MD [address] [place] [address] 6 month follow up [facility] [place] Comment on above: 6 month follow up Start: 03-26-2025 Anxiety Screening Anxiety Screening [facility] Start: 03-26-2025 Depression Screening Depression Scre ening [facility] Start: 03-13-2025 Evaluation of diagno stic study results [facility] Start: 03-12-2025 DIABETES SCREEN DIABETES SCREEN [facility] Start: 01-24-2025 End: 01-24-2025 Patient encounter procedure 01/24/2025 11:30 AM EDT Office Visit [facility] [address] [place] [address] Lebron Miller MD [address] [place] [address] , [address] [place] [address] abnormal stress/echo [facility] Comment on above: abnormal stress/echo Start: 12-10-2024 End: 12-10-2024 Patient encounter procedure 12/10/2024 9:20 AM EDT Office Visit [facility] [place] [address] [place] [address] PodBriana emery APRN.CRUSHER LOADER OPERATOR [address] [place] [address] Physical [facility] [place] Comment on above: Physical Start: 11-12-2024 End: 11-12-2024 Patient encounter procedure [facility] [place] Comment on above: ANNUAL EXAM ANNUAL EXAM/ preop L eft shoulder surgery 12/12/2024 Start: 11-11-2024 Covid-19 Vaccine () Covid-19 Vaccine () [facility] Start: 09-28-2024 End: 09-28-2024 Patient encounter procedure 09/28/2024 9:40 AM EST Office Visit Family [facility] [place] [address] [place] [address] Briana Harris APRN.CRUSHER LOADER OPERATOR [address] [place] [address] Annual Exam [facility] [place] Comment on above: Annual Exam Start: 09-26-2024 End: 09-26-2024 Patient encounter procedure 09/26/2024 8:40 AM EST Office Visit [facility] [place] [address] [place] [address] Briana Harris APRN.CRUSHER LOADER OPERATOR [address] [place] [address] Annual Exam [facility] [place] Comment on above: Annual Exam Start: 09-17-2024 End: 12-17-2024 CBC W Auto Differential panel - Blood COMPLETE BLOOD COUNT AND DIFFERENTIAL Lab Routine Prediabetes Expected: 09/17/2024, Expires: 12/17/2024 [facility] Comment on above: Expected: 09/17/2024 , Expires: 12/17/2024 Start: 09-17-2024 End: 12-17-2024 Comprehensive metabolic 2000 panel - Serum or Plasma COMPREHENSIVE METABOLIC PANEL Lab Routine Other hyperlipidemia Expected: 09/17/2024, Expires: 12/17/2024 [facility] Work Phone: Comment on above: Expected: 09/17/2024 , Expires: 12/17/2024 Start: 09-17-2024 End: 12-17-2024 Hemoglobin A1c in Blood HEMOGLOBIN A1C Lab Routine Prediabetes Expected: 09/17/2024, Expires: 12/17/2024 [facility] Comment on above: Expected: 09/17/2024 , Expires: 12/17/2024 Start: 09-17-2024 End: 12-17-2024 Lipid 1996 panel - Serum or Plasma LIPID PANEL BASIC Lab Routine Other hyperlipidemia Expected: 09/17/2024, Expires: 12/17/2024 [facility] Comment on above: Expected: 09/17/2024 , Expires: 12/17/2024 Start: 09-10-2024 DI[address]ETES SCREEN DIABETES SCREEN [facility] Start: 08-15-2024 Advance Directive Discussion Advance Directive Discussion [facility] Start: 08-15-2024 Medicare Advantage A nnual Wellness Visit Medicare Advantage Annual Wellness Visit [facility] Start: 04-15-2024 Covid-19 Vaccine ( season) Covid-19 Vaccine ( season) [facility] Start: 04-15-2024 Covid-19 Vaccine ( season) Covid-19 Vaccine ( season) [facility] Start: 04-15-2024 Influenza vaccination Influenza Vacc ine (#1) [facility] Start: 03-26-2024 End: 03-26-2024 Patient encounter procedure 03/26/2024 9:00 AM EDT Office Visit [facility] [place] [address] [place] [address] PodsharitaarBriana APRN.CRUSHER LOADER OPERATOR [address] [place] [address] 6 month follow up [facility] [place] Comment on above: 6 month follow up Start: 03-12-2024 End: 06-11-2024 Comprehensive metabolic 2000 panel - Serum or Plasma COMPREHENSIVE METABOLIC PANEL Lab Routine Prediabetes Expected: 03/12/2024, Expires: 06/11/2024 [facility] Work Phone: Comment on above: Expected: 03/12/2024 , Expires: 06/11/2024 Start: 03-12-2024 End: 06-11-2024 Hemoglobin A1c in Blood HEMOGLOBIN A1C Lab Routine Prediabetes Expected: 03/12/2024, Expires: 06/11/2024 [facility] Comment on above: Expected: 03/12/2024 , Expires: 06/11/2024 Start: 09-15-2023 Urine microalbumin profile [facility] Comment on above: Postponed from 01/17 (Declined at this time) Start: 09-08-2023 Covid-19 Vaccine () Covid-19 Vaccine () [facility] Start: 08-15-2023 Advance Directive Discussion Advance Directive Discussion [facility] Start: 08-15-2023 Behavioral Health Screening Behavioral Health Screening [facility] Start: 04-15-2023 Influenza vaccination [facility] Start: 03-14-2023 Adult depression screening assessment DEPRESSION SCREENING [facility] Start: 03-07-2023 End: 05-07-2023 Comprehensive metabolic 2000 panel - Serum or Plasma COMP METABOLIC PANEL Lab Routine Other hyperlipidemia Expected: 03/07/2023, Expires: 05/07/2023 [facility] Work Phone: Comment on above: Expected: 03/07/2023 , Expires: 05/07/2023 Start: 09-16-2022 End: 11-16-2022 CBC panel - Blood by Automated count CBC Lab Routine Other hyperlipidemia Hyperglycemia Expected: 09/16/2022, Expires: 11/16/2022 [facility] Work Phone: Comment on above: Expected: 09/16/2022 , Expires: 11/16/2022 Start: 09-16-2022 End: 11-16-2022 Comprehensive metabolic 2000 panel - Serum or Plasma COMP METABOLIC PANEL Lab Routine Other hyperlipidemia Hyperglycemia Expected: 09/16/2022, Expires: 11/16/2022 [facility] Work Phone: Comment on above: Expected: 09/16/2022 , Expires: 11/16/2022 Start: 09-16-2022 End: 11-16-2022 Hemoglobin A1c in Blood HGB A1C Lab Routine Other hyperlipidemia Hyperglycemia Expected: 09/16/2022, Expires: 11/16/2022 [facility] Work Phone: Comment on above: Expected: 09/16/2022 , Expires: 11/16/2022 Start: 09-16-2022 End: 11-16-2022 Lipid 1996 panel - Serum or Plasma LIPID PANEL BASIC Lab Routine Other hyperlipidemia Hyperglycemia Expected: 09/16/2022, Expires: 11/16/2022 [facility] Work Phone: Comment on above: Expected: 09/16/2022 , Expires: 11/16/2022 Start: 09-10-2022 Urine microalbumin profile DTAP,TDAP,TD (2 - Td or Tdap) [facility] Comment on above: Postponed from 01/17 (Declined at this time) Start: 08-30-2022 COVID-19 VACCINE (6 - Moderna series) COVID-19 VACCINE (6 - Moderna series) [facility] Start: 08-15-2022 ADVANCE DIRECTIVE DISCUSSION ADVANCE DIRECTIVE DISCUSSION [facility] Start: 04-15-2022 Influenza vaccination INFLUENZA (#1) [facility] Start: 01-13-2022 COVID-19 VACCINE (5 - Booster for Moderna series) COVID-19 VACCINE (5 - Booster for Moderna series) [facility] Start: 10-14-2021 COVID-19 VACCINE (4 - Booster for Moderna series) COVID-19 VACCINE (4 - Booster for Moderna series) [facility] Start: 08-15-2021 ADVANCE DIRECTIVE DISCUSSION ADVANCE DIRECTIVE DISCUSSION [facility] Start: 08-15-2021 DEPRESSION ASSESSMENT DEPRESSION ASS ESSMENT [facility] Start: 09-03-2020 Adult depression screening assessment DEPRESSION SCREENING [facility] Start: 03-05-2020 End: 03-05-2020 Appointment Appointment [facility] Work Phone: Start: 03-05-2020 End: 03-05-2020 Radex hand minimum 3 views [facility] Work Phone: Start: 01-17-2019 Urine microalbumin profile DTaP,Tdap,Td Vaccine (2 - Td or Tdap) [facility] Start: 2011 RSV Vaccine (1 - 1-d ose 60+ series) RSV Vaccine (1 - 1-dose 60+ series) [facility] Start: 11-25-1996 COLOGUARD (FIT-DNA) COLOGUARD (FIT-D NA) [facility] Start: 11-25-[address] [facility] Start: 11-25-1996 FECAL OCCULT BLOOD FECAL OCCULT BLOO D [facility] Start: 11-25-1996 Screening for malign ant neoplasm of colon [facility] Start: 11-25-[address] [facility] Start: 11-25-1969 Anxiety Screening Anxiety Screening [facility] Start: 11-25-1969 Depression Screening Depression Scre ening [facility] Basic metabolic 2008 panel with ionized calcium - Serum or Plasma [facility] Cath plsd l hrt & ar ts w/njx & angio img s&i CATH PLMT L HRT & ARTS W/NJX & ANGIO IMG S&I Procedures Routine Abnormal stress test Ordered: 01/24/2025 [facility] Work Phone: Comment on above: Ordered: 01/24/2025 Catheterization of l eft heart [facility] CBC W Auto Different ial panel - Blood [facility] ECG COMPLETE ECG COMPLETE ECG Routine Abnormal stress test 01/24/2025 11:41 AM EDT [facility] End: 11-14-2025 STRESS ECHO DOBUTAMINE STRESS ECHO DOBUTAMINE Cardiology REYES Abnormal EKG Systolic murmur 1 Occurrences starting 11/14/2024 until 11/14/2025 [facility] Work Phone: Comment on above: 1 Occurrences starti ng 11/14/2024 until 11/14/2025 End: 09-26-2024 US Carotid arteries - bilateral US CAROTID ARTERIES [facility] Lab Routine Bilateral carotid artery stenosis 1 Occurrences starting 09/26/2023 until 09/26/2024 [facility] Work Phone: Comment on above: 1 Occurrences starti ng 09/26/2023 until 09/26/2024 End: 06-07-2024 XR ANKLE GENERAL 3V AP/LAT/OBL RIGHT XR ANKLE GENERAL 3V AP/LAT/OBL RIGHT Radiology Routine Pain 1 Occurrences starting 05/09/2023 until 06/07/2024 [facility] Work Phone: Comment on above: 1 Occurrences starti ng 05/09/2023 until 06/07/2024 XR Chest PA and Lateral [facility] End: 06-22-2024 XR FOOT GENERAL 3V AP/LAT/OBL RIGHT XR FOOT GENERAL 3V AP/LAT/OBL RIGHT Radiology Routine Pain in right foot 1 Occurrences starting 05/24/2023 until 06/22/2024 [facility] Work Phone: Comment on above: 1 Occurrences starti ng 05/24/2023 until 06/22/2024 XR FOOT GENERAL 3V AP/LAT/OBL RIGHT XR FOOT GENERAL 3V AP/LAT/OBL RIGHT Radiology Routine Pain in right foot 05/24/2023 1:44 PM EDT [facility] Work Phone: [facility] Immunizations Immunization Date Immunization Notes Care Provider Hawa duncan 05-23-2023 influenza virus vaccine, unspecified formulation Briana Harris APRN.CNP Work Phone: [facility] 05-28-2022 influenza virus vaccine, unspecified formulation Briana Harris FITNESS CENTRE MANAGERYOGI Work Phone: [facility] 11-04-2020 COVID-19 vaccine, fu ll dose (MODERNA) Preeti Marquis MD Work Phone: [facility] 10-11-2020 COVID-19 vaccine, fu ll dose (MODERNA) Preeti Marquis MD Work Phone: [facility] 05-16-2020 influenza, high dose seasonal, preservative-free Preeti Marquis MD Work Phone: [facility] 01-28-2020 zoster vaccine recombinant Preeti Marquis MD Work Phone: [facility] 10-10-2019 zoster vaccine recombinant Preeti Marquis MD Work Phone: [facility] 05-04-2019 influenza, high dose seasonal, preservative-free Preeti Marquis MD Work Phone: [facility] 09-12-2018 pneumococcal polysaccharide vaccine, 23 valent Preeti Marquis MD Work Phone: [facility] 06-09-2018 influenza, high dose seasonal, preservative-free Preeti Marquis MD Work Phone: [facility] 06-13-2017 influenza, high dose seasonal, preservative-free Preeti Marquis MD Work Phone: [facility] Work Phone: 06-13-2017 pneumococcal conjuga te vaccine, 13 valent Preeti Marquis MD Work Phone: [facility] Work Phone: 05-06-2016 influenza, seasonal, injectable Preeti Marquis MD Work Phone: [facility] 05-15-2015 influenza, seasonal, injectable Preeti Marquis MD Work Phone: [facility] 05-14-2013 influenza virus vaccine, unspecified formulation Preeti Marquis MD Work Phone: [facility] 01-14-2012 zoster vaccine, live Domingo Marquis MD Work Phone: [facility] 06-18-2011 influenza virus vaccine, unspecified formulation Preeti Marquis MD Work Phone: [facility] Work Phone: 08-31-2010 influenza virus vaccine, unspecified formulation Preeti Marquis MD Work Phone: [facility] 01-17-2009 tetanus toxoid, redu gordo diphtheria toxoid, and acellular pertussis vaccine, adsorbed Preeti Marquis MD Work Phone: [facility] Work Phone: 09-09-2008 influenza virus vaccine, unspecified formulation Preeti Marquis MD Work Phone: [facility] 06-14-2005 influenza virus vaccine, unspecified formulation Preeti Marquis MD Work Phone: [facility] Work Phone: 04-02-1999 pneumococcal polysaccharide vaccine, 23 valent Preeti Marquis MD Work Phone: [facility] Work Phone: Payers Date Payer Category Payer Self-pay [id number] 2021 Medicare [employer] MEDICARE A ETNA MEDICARE PPO [id number] 2021-Present [phone] [address] [place] [address] PP [id number] 2021 Medicare [employer] MEDICARE A ETNA MEDICARE PPO [id number] 2021-Present [phone] [address] [place] [address] [facility] [id number] 2021 Medicare (Managed Care) [facility] [id number] 2021 Private Health Insurance [facility] [id number] 2015 Unknown [facility] [id number] Unknown [id number] Unknown [id number] Unknown [id number] 462 Unknown [id number] Unknown [id number] Unknown [id number] Unknown [id number] 462 Unknown [id number] 462 Unknown [id number] 462 Unknown [id number] Social History Date Type Detail Facility Start: 03-05-2020 End: 03-05-2020 Assertion Unknown if ever smoked [facility] Work Phone: Start: 08-02-2011 End: 01-31-2025 Tobacco smoking status NHIS Ex-smoker [facility] Start: 08-15-1969 End: 08-15-1986 History of tobacco use Current smoker [facility] Start: 08-15-1969 End: 08-15-1986 History of tobacco use Cigarette Smoker [facility] Start: 09-24-2021 End: 12-10-2024 Alcohol intake Current drinker of alcohol (finding) [facility] Start: 09-24-2021 End: 03-15-2023 Alcohol intake [facility] Start: 03-08-2020 End: 03-15-2022 History SDOH Alcohol Frequency 5 [facility] Start: 09-05-2019 End: 03-15-2022 History SDOH Alcohol Std Drinks 1 [facility] Start: 09-15-2021 History SDOH Alcohol Comment daily - max 2 per day [facility] Start: 03-08-2020 End: 03-15-2022 History SDOH Social Connections Membership 2 [facility] Start: 03-08-2020 History SDOH Social Connections Meetings 98 [facility] Start: 09-03-2019 End: 03-15-2022 History SDOH Social Connections Living 3 [facility] Start: 03-08-2020 History SDOH Physical Activity DPW 4 [facility] Start: 03-08-2020 History SDOH Physical Activity MPS 9 [facility] Start: 09-03-2019 Education 20 [facility] Start: 08-02-2011 End: 09-15-2022 Tobacco Comment Quit 1986.No one in the household smokes. [facility] Start: 1950 Sex Assigned At Not on file [facility] Start: 03-15-2022 History SDOH Physical Activity MPS 6 [facility] Start: 03-06-2022 End: 03-16-2022 Exposure to SARS-CoV-2 (event) Not sure [facility] Start: 08-02-2011 End: 11-14-2024 Tobacco use and exposure Smokeless tobacco non-user [facility] Start: 03-14-2022 End: 03-15-2023 Social connection and isolation panel [facility] Do you belong to any clubs or organizations such as yazidism groups, unions, fraternal or athletic groups, or school groups? No [facility] Attends Club or Organization Meetings Not on file [facility] Are you now , , , , never or living with a partner? [facility] How often to you hav e a drink containing alcohol? 4 or more times a week [facility] How many standard dr inks containing alcohol do you have on a typical day? 1 or 2 [facility] How often do you hav e 6 or more drinks on 1 occasion? Never [facility] Do you feel stress - tense, restless, nervous, or anxious, or unable to sleep at night because your mind is troubled all the time - these days [OSQ] Not at all [facility] (I/We) worried denny er (my/our) food would run out before (I/we) got money to buy more. Never true [facility] Start: 09-03-2019 Gender identity Identifies as male gender (finding) [facility] Start: 09-03-2019 Sexual orientation Heterosexual (finding) [facility] Start: 1950 Sex Assigned At Male [facility] Do you feel stress - tense, restless, nervous, or anxious, or unable to sleep at night because your mind is troubled all the time - these days [OSQ] Only a little [facility] Start: 11-14-2024 Sex Male (finding) [facility] Goals Date Patient Goal Desired Activity /State Personal health goal Functional Status Date Assessment Result Facility 02-03-2015 Are you deaf, or do you have serious difficulty hearing No 02/03/2015 8:42 AM Vikki Waterman RN No [facility] 02-03-2015 Are you blind, or do you have serious difficulty seeing, even when wearing glasses No 02/03/2015 8:42 AM Vikki Waterman RN No [facility] 02-03-2015 Do you have serious difficulty walking or climbing stairs No 02/03/2015 8:42 AM Vikki Waterman RN No [facility] 02-03-2015 Do you have difficul ty dressing or bathing No 02/03/2015 8:42 AM Vikki Waterman RN No [facility] 02-03-2015 Because of a physica l, mental, or emotional condition, do you have difficulty doing errands alone such as visiting a physician's office or shopping No 02/03/2015 8:42 AM Vikki Waterman RN No [facility] Mental Status Date Assessment Result Facility 02-03-2015 Because of a physica l, mental, or emotional condition, do you have serious difficulty concentrating, remembering, or making decisions No 02/03/2015 8:42 AM Vikki Waterman RN No [facility] Clinical Notes 02-03-2015 to 01-24-2025 Lebron Miller MD - 01/24/2025 11:28 AM EDTTelephone Encounter - Obdulia Murphy LPN - 01/15/2025 8:00 AM EDTTelephone Encounter - Janine Rivas RN - 01/10/2025 3:33 PM EDT Note Date & Type Note Facility 01-24-2025 Note HNO ID: [id number] Author: LEBRON MILLER MD Service: ? Author [...] 1,000 mg by (more content not included)... [facility] 01-24-2025 History of Presen t illness Narrative Referring Provider: AguilarlogBriana cristina APRN.C* Date: January 24, 2025 Chief Complaint: [...] Lebron Miller MD documented in this encounter [facility] 01-15-2025 Miscellaneous Notes Stress test, EKG and recent labs faxed to the [facility] for upcoming appointment. Obdulia Murphy LPN Patient calling with the followin) States he was able to get a Cardiology appt made with [facility] for 02/20/[address] Tellez. [...] Briana Harris APRN.MAL Stress test printed from [facility] and given to ordering provider for review. Obdulia Murphy LPN Patient calling in again on status of stress test report from [facility]. States he just spoke with someone from [facility] medical records and they were faxing over. Per Obdulia in Briana Harris's office, no fax received yet. She will see if she can get it through [employer]. Pt wants to be notified when we have the report for Briana to review. Informed him that we are having phone issues and that we will send him a [employer] msg. Pt verbalizes understanding. Patient states he completed his stress test at [facility] on 12/31/24, ordered by Shabana Harris CNP. He states he will request [facility] to send Briana the results. Patient would like Briana to review results once received, and advise him. Janine Rivas RN documented in this encounter [facility] 01-15-2025 Telephone encounter Note Stress test, EKG and recent labs faxed to the [facility] for upcoming appointment. Obdulia Murphy LPN [facility] 01-11-2025 Radiology Diagnostic study note [facility] Imaging Services [address], [place] [address] Soft Tissue Neck WITH Contrast MR#: [id number] Acct: [id number] Name: FRANK MCKEON Rep #: [id number] 2 : 1950 M 74 From: Elier Marc MD PCP: Dr. Gary Marquis MD Status: REG CLI Study:Soft Tissue Neck WITH Contrast Date of Exam: 01/10/25 Exam# [id number] Ordering Dr: Preeti Marin MD PROCEDURE: SOFT [...] Contrast IMPRESSION: No acute abnormality Reading Location: [facility] CC: Dr. Gary Marquis MD; Dr. Preeti Marin MD ~ Snuff Grinder And Screener: Signed [facility] 01-10-2025 Telephone encounter Note Patient calling with the followin) States he was able to get a Cardiology appt made with [facility] for 02/20/[address] Tellez. 2) [facility] requesting Stress test results (and any other pertinent info) be faxed to them. (Stress Test not seen in pt record-if office would please fax to heart group). Janine Rivas RN [facility] 01-09-2025 Telephone encounter Note Stress test shows probable mild mid anterior ischemia with moderate workload. Will need to follow-up with cardiology for further evaluation and cardiac clearance. Briana Harris APRN.MAL [facility] 01-09-2025 Telephone encounter Note Stress test printed from [facility] and given to ordering provider for review. Obdulia Murphy LPN [facility] 01-09-2025 Telephone encounter Note Patient calling in again on status of stress test report from [facility]. States he just spoke with someone from [facility] medical records and they were faxing over. Per Obdulia in Briana Harris's office, no fax received yet. She will see if she can get it through [employer]. Pt wants to be notified when we have the report for Briana to review. Informed him that we are having phone issues and that we will send him a [employer] msg. Pt verbalizes understanding. [facility] 01-09-2025 Telephone encounter Note Patient states he completed his stress test at [facility] on 12/31/24, ordered by Shabana Harris CNP. He states he will request [facility] to send Briana the results. Patient would like Briana to review results once received, and advise him. Janine Rivas RN [facility] 12-11-2024 Telephone encounter Note Spoke with patient at this time and notified of below. Verbalized understanding. He will contact scheduling today to make appt. Juli So LPN [facility] 12-11-2024 Miscellaneous Notes Spoke with patient at this time and notified of below. Verbalized understanding. He will contact scheduling today to make appt. Juli So LPN Let patient know I just received email approving appeal for the stress ECHO. I know he said he has already received approval so he may reschedule testing if he has not already. Briana Harris APRN.MAL documented in this encounter [facility] 12-11-2024 Telephone encounter Note Let patient know I just received email approving appeal for the stress ECHO. I know he said he has already received approval so he may reschedule testing if he has not already. Briana Harris APRN.MAL [facility] 12-10-2024 Note HNO ID: [id number] Author: BRIANA HARRIS APRN.CNP Service: ? Author Type: Nurse Practitioner Type: Progress Notes Filed: 12/10/2024 10:36 Note Text: 12/06/2024 Patient presents with: Yearly Exam SUBJECTIVE: This is a 74 year old that is here today for Above Complaints. When on his way to [facility] developed a sore throat which progressed to [...] LUNG clear to (more content not included)... [facility] 12-04-2024 Telephone encounter Note Reviewed. [facility] 12-04-2024 Miscellaneous Notes Reviewed. Pt called and is notified of providers message and instructions. Pt voices understanding. He states he will make a copy of the files and bring it to provider office later in the week once they get home. Lidia Mark RN Called and left a voicemail for [...] Harris APRN.MAL Pt reports he flew to [facility] the day he had an appt with [place], 11/14/24, then flew to [place], and ended up in [facility] on November 17,,& , with a bacterial infection in his blood- from an abscess in his throat. He is better now. His leukocytes are normal now. His CRP is 33 and [facility] recommend he get a blood test when returns to [place] on 12/05/24. Pt will arrive to [place] that afternoon. Pt is currently in [place], and the phone connection was difficult communicating as words faded in and out. Pt is scheduled for a stress echo at [facility] on 12/06/24 and will need to be NPO for 6 hours prior to this test. Reports his appt with Briana is 12/10/24, and his surgery is scheduled for 12/12/24. Pt is wondering if Briana will order the CRP and when should he complete it. Pt has copies of [facility]'s records written in Armenian, he is bringing home with him. Pt can be reached on his mobile: [phone] documented in this encounter [facility] 12-03-2024 Telephone encounter Note Pt called and is notified of providers message and instructions. Pt voices understanding. He states he will make a copy of the files and bring it to provider office later in the week once they get home. Lidia Mark RN [facility] 12-03-2024 Telephone encounter Note Called and left a voicemail for the Patient to call back and ask for a nurse to receive the providers message. Lidia Mark RN [facility] 12-03-2024 Telephone encounter Note A CRP is a non-specific inflammatory marker. If he had an infection this is likely why it was elevated. I don't think we need to repeat it, however I prefer to look at the hospital paperwork before making any decisions. Briana Harris APRN.CRUSHER LOADER OPERATOR [facility] 12-03-2024 Telephone encounter Note Pt reports he flew to [facility] the day he had an appt with Card Doffer, 11/14/24, then flew to [place], and ended up in [facility] on November 17,,& , with a bacterial infection in his blood- from an abscess in his throat. He is better now. His leukocytes are normal now. His CRP is 33 and [facility] recommend he get a blood test when returns to [place] on 12/05/24. Pt will arrive to [place] that afternoon. Pt is currently in [place], and the phone connection was difficult communicating as words faded in and out. Pt is scheduled for a stress echo at [facility] on 12/06/24 and will need to be NPO for 6 hours prior to this test. Reports his appt with Briana is 12/10/24, and his surgery is scheduled for 12/12/24. Pt is wondering if Briana will order the CRP and when should he complete it. Pt has copies of [facility]'s records written in Armenian, he is bringing home with him. Pt can be reached on his mobile: [phone] [facility] 11-14-2024 Telephone encounter Note Patient calling in and states he has communicated with [facility] and is requesting his order for Stress Echo Dobutamine be faxed to them, as he would like to have test completed there. Order and facesheet faxed as requested to [facility]- Central Scheduling Dept. Patient aware that [facility] will contact him with next steps, or he may contact them if he does not receive call from them in next 24 hours. Janine Rivas RN [facility] 11-14-2024 Miscellaneous Notes Patient calling in and states he has communicated with [facility] and is requesting his order for Stress Echo Dobutamine be faxed to them, as he would like to have test completed there. Order and facesheet faxed as requested to [facility]- Central Scheduling Dept. Patient aware that [facility] will contact him with next steps, [...] this and he may schedule Briana Harris APRN.CRUSHER LOADER OPERATOR documented in this encounter [facility] 11-14-2024 Telephone encounter Note See DERICK Nicolas MA [facility] 11-14-2024 Miscellaneous Notes See DERICK Nicolas MA documented in this encounter [facility] 11-14-2024 Telephone encounter Note Patient calls back and notified of below. Patient voices understanding. Patient transferred to scheduled to scheduled testing. Leeann Ceja RN [facility] 11-14-2024 Telephone encounter Note Telephone call placed to patient. Message left to call office back for update. Obdulia Murphy LPN [facility] 11-14-2024 Telephone encounter Note Please let patient know I spoke with Dr. Marquis and he will need further testing. I have ordered this and he may schedule Briana Harris APRN.CRUSHER LOADER OPERATOR [facility] 11-14-2024 History of Presen t illness Narrative CC: Patient presents with: Pre-Op Exam: Left shoulder 12/12 [facility] HPI Frank Mckeon is a 73 year old [...] which included preparing to see the patient, [id number] patient care, completing clinical documentation, obtaining and/or reviewing separately obtained history, performing a medically appropriate examination, counseling and educating the patient/family/caregiver, ordering medications, tests, or procedures, and communicating with other HCPs (not separately reported). documented in this encounter [facility] 11-14-2024 Note HNO ID: [id number] Author: BRIANA HARRIS APRN.MAL Service: ? Author Type: Nurse Practitioner Type: Progress Notes Filed: 12/05/2024 15:10 Note Text: CC: Patient presents with: Pre-Op Exam: Left shoulder 12/12 [facility] Frank Mckeon is a 73 year old [...] once daily. fexofenad (more content not included)... [facility] 10-03-2024 Telephone encounter Note Pt returned call and given provider's message below with verbalized understanding. Pt agreeable. [facility] 10-03-2024 Miscellaneous Notes Pt returned call and given provider's message below with verbalized understanding. Pt agreeable. documented in this encounter [facility] 10-01-2024 Telephone encounter Note Prescription Refill Information [...] Wilcox LPN October 01, 2024 2:07 PM [facility] 10-01-2024 Miscellaneous Notes Prescription Refill Information The [...] 2024 2:07 PM documented in this encounter [facility] 09-17-2024 Telephone encounter Note Do you want pt to have blood work done before office visit? Wilma Escoto MA [facility] 09-17-2024 Miscellaneous Notes Do you want pt to have blood work done before office visit? Wilma Escoto MA documented in this encounter [facility] 04-26-2024 Telephone encounter Note Prescription Refill Information [...] Ximena Neely April 26, 2024 11:53 AM [facility] 04-26-2024 Miscellaneous Notes Prescription Refill Information The [...] 2024 11:53 AM documented in this encounter [facility] 03-26-2024 History of Presen t illness Narrative [...] or lesions to exposed skin Latest Ref Rn 03/21/2024 Protein, Total 6.3 - 8.0 g/dL [...] Abs Lymph 1.00 - 4.00 k/uL 1.96 [place]% % 8.6 Abs [place] <0.87 k/uL 0.60 Eosin% % 6.9 Abs [...] Advance Directive Discussion due on 08/15/2023 Covid-19 Vaccine( season) due on 09/08/2023 Influenza Vaccine(1) due [...] 4 - Moderate documented in this encounter [facility] 03-26-2024 Note HNO ID: [id number] Author: BRIANA HARRIS APRN.CRUSHER LOADER OPERATOR Service: ? Author Type: Nurse Practitioner Type: [...] Abs Neut (A (more content not included)... [facility] 03-12-2024 Telephone encounter Note Pt notified via [employer] of PCP's response below. Kay Cox MA [facility] 03-12-2024 Miscellaneous Notes Pt notified via [employer] of PCP's response below. Kay Cox MA Non fasting labs ordered to be completed at least 24 hours prior to OV. See mychart message. Wilma Escoto MA documented in this encounter [facility] 03-12-2024 Telephone encounter Note Non fasting labs ordered to be completed at least 24 hours prior to OV. [facility] 03-08-2024 Telephone encounter Note Patient MyChart message [...] Allergy symptoms Feldene [Piroxicam] [facility] (home) [phone] (cell) Last Office Visit Date: 09/26/2023 Last Distance Health Visit: Visit date not found Future Appointment: 03/26/2024 The patients preferred pharmacy has been captured for this encounter? yes Request is for script(s) to be escript to pharmacy. Roberta Issa LPN [facility] 03-08-2024 Miscellaneous Notes Patient MyChart message requesting [...] Allergy symptoms Feldene [Piroxicam] [facility] (home) [phone] (cell) Last Office Visit Date: 09/26/2023 Last [facility] Visit: Visit date not found Future Appointment: 03/26/2024 The patients preferred pharmacy has been captured for this encounter? yes Request is for script(s) to be escript to pharmacy. Roberta Issa LPN documented in this encounter [facility] 03-08-2024 Telephone encounter Note See mychart message. Wilma Escoto MA [facility] 01-13-2024 Telephone encounter Note ARYAN: 09/26/23-CPE with [facility] NOV: 03/26/24-6 month F/U with [facility] Last refill: 11/07/23 With 300 G and 0 refills Suki Meraz MA [facility] 01-13-2024 Miscellaneous Notes ARYAN: 09/26/23-CPE with [facility] NOV: 03/26/24-6 month F/U with [facility] Last refill: 11/07/23 With 300 G and 0 refills Suki Meraz MA documented in this encounter [facility] 11-07-2023 Miscellaneous Notes Patient has been identified [...] Alonso Weber LPN. documented in this encounter [facility] 11-07-2023 Miscellaneous Notes Patient has been identified [...] Obdulia Murphy LPN. documented in this encounter [facility] 09-26-2023 History of Presen t illness Narrative [...] Abs Lymph 1.00 - 4.00 k/uL 1.96 [place]% % 8.6 Abs [place] <0.87 k/uL 0.60 Eosin% % 6.9 Abs [...] ICD9: 715.16, ICD10: M17.0 - follow-up with [facility] as scheduled 5. Hyperlipidemia, unspecified hyperlipidemia [...] 4 - Moderate documented in this encounter [facility] 05-25-2023 History of Presen t illness Narrative [...] Soto DPM Podiatry [address] [facility] [address] Dept: [phone] Dept AMB ROOMING INTAKE FLOWSHEET DATA Pain Pain Level: 4 Pain Location: Foot-Right Description: Aching, Sore Duration Amount of Time: 3 Duration Units: Months Frequency: Continuous Intervention/Comfort measure: Exercise Patient reporting pain in the arch of his foot, pain on top of his foot when he wakes up and pain with walking. documented in this encounter [facility] 05-24-2023 Miscellaneous Notes Done. Tish Hernández MA Pt scheduled x-rays for 1:20 today. Asking for x-ray of right foot in addition to right ankle. Please review and advise. Tish Hernández MA documented in this encounter [facility] 05-24-2023 History of Presen t illness Narrative [...] 2023 1:49 PM documented in this encounter [facility] 05-06-2023 Miscellaneous Notes Patient returns call. Continues [...] Next V 09/26/2023 documented in this encounter [facility] 04-08-2023 Miscellaneous Notes Patient phones requesting refills as follows: Requested Prescriptions Pending Prescriptions Disp Refills atorvastatin (LIPITOR) 10 mg tablet 90 tablet 1 Sig: Take 1 tablet by mouth once daily. ARYAN-03/15/23 Labs-03/15/23 NOV-09/26/23 Please review and advise. Lynn Card LPN documented in this encounter [facility] 03-22-2023 History of Presen t illness Narrative [...] 2023 4:06 PM documented in this encounter [facility] 03-16-2023 Miscellaneous Notes Patient returned call and went over results, notes from Briana Harris COMMUNICATIONS PROFESSIONAL with understanding. Message left for patient to call office back for update. Obdulia Murphy LPN ----- Message from Briana Harris APRN.CRUSHER LOADER OPERATOR sent at 03/16/2023 7:30 AM EDT ----- A1c, electrolytes, kidney and liver function in normal range. Briana Harris APRN.CRUSHER LOADER OPERATOR documented in this encounter [facility] 03-15-2023 History of Presen t illness Narrative [...] in 6 months sooner if needed Briana Harris APRN.CNP Prescription instructions reviewed with [...] which included preparing to see the patient, [id number] patient care, completing clinical documentation, obtaining and/or reviewing separately obtained history, performing a medically appropriate examination, counseling and educating the patient/family/caregiver, and ordering medications, tests, or procedures. documented in this encounter [facility] 03-07-2023 Miscellaneous Notes Pt notified via [employer]. Kay Cox Ma Orders for labs placed. Please let him know he can come complete prior or his appointment. Briana Harris APRN.MAL Briana I have an A1c order in for pt's upcoming appt. Is this all you want. Pt is on Lipitor 10 mg. Advise and update pt via [employer]. Kay Cox Ma documented in this encounter [facility] 12-06-2022 Miscellaneous Notes Patient has been identified [...] Ximena Resendiz MA documented in this encounter [facility] 07-05-2022 Miscellaneous Notes Patient phones requesting refills as follows: Requested Prescriptions Pending Prescriptions Disp Refills celecoxib (CELEBREX) 200 mg capsule 90 capsule 0 Sig: Take 1 capsule by mouth once daily. ARYAN 03/16/2022 09/21/2022 Please review and advise. CATHERINE Amado documented in this encounter [facility] 04-27-2022 Miscellaneous Notes Patient phones requesting refills [...] Take 1 capsule by mouth once daily. [facility] 03/16/22 09/21/22 Please review and advise. Obdulia Murphy LPN documented in this encounter [facility] 03-16-2022 History of Presen t illness Narrative [...] states that he has met with a reheat furnace operator about 3-4 weeks ago to set up [...] Preeti Marquis MD documented in this encounter [facility] 02-05-2022 Miscellaneous Notes Patient phones requesting refills [...] Lynn Card LPN documented in this encounter [facility] 02-03-2015 History of Past i llness Narrative [...] of this encounter (statuses as of 02/05/2022) [facility] Narrative* Problem Noted [...] of this encounter (statuses as of 03/16/2022) [facility] Narrative* Problem Noted [...] of this encounter (statuses as of 04/27/2022) [facility] Narrative* Problem Noted [...] of this encounter (statuses as of 07/05/2022) [facility] Narrative* Problem Noted [...] of this encounter (statuses as of 12/06/2022) [facility] N[facility]ative* Problem Noted [...] of this encounter (statuses as of 03/07/2023) [facility] N[facility]* Problem Noted [...] of this encounter (statuses as of 03/15/2023) [facility] N[facility]* Problem Noted [...] of this encounter (statuses as of 03/16/2023) [facility] N[facility]* Problem Noted [...] of this encounter (statuses as of 04/08/2023) [facility] N[facility]* Problem Noted [...] of this encounter (statuses as of 05/07/2023) [facility] N[facility]* Problem Noted [...] of this encounter (statuses as of 05/09/2023) [facility] N[facility]ative* Problem Noted [...] of this encounter (statuses as of 05/24/2023) [facility] N[facility]* Problem Noted [...] of this encounter (statuses as of 05/25/2023) [facility] N[facility]* Problem Noted [...] of this encounter (statuses as of 05/26/2023) [facility] N[facility]* Problem Noted [...] of this encounter (statuses as of 06/19/2023) [facility] N[facility]* Problem Noted [...] of this encounter (statuses as of 09/26/2023) [facility] N[facility]* Problem Noted [...] of this encounter (statuses as of 11/07/2023) [facility] Narrative* Problem Noted [...] of this encounter (statuses as of 11/07/2023) [facility] Hyperglycemia- Primary Other abnormal glucose Primary osteoarthritis involving multiple joints Other hyperlipidemia External hemorrhoids External hemorrhoids without mention of complication Advance directive discussed with patient Other specified counseling [facility] General medical exam Unspecified general medical examination Other hyperlipidemia DDD (degenerative disc disease), lumbar Degeneration of lumbar or lumbosacral intervertebral disc [facility] Diagnosis DDD (degenerative disc disease), lumbar Degeneration of lumbar or lumbosacral intervertebral disc [facility] Diagnosis Other hyperlipidemia- Primary [facility] Diagnosis Prediabetes- Primary Other abnormal glucose Primary osteoarthritis of both knees Primary localized osteoarthrosis, lower leg Other hyperlipidemia [facility] Diagnosis Other hyperlipidemia [facility] Diagnosis DDD (degenerative disc disease), lumbar Degeneration of lumbar or lumbosacral intervertebral disc [facility] Diagnosis Pain- Primary Generalized pain [facility] Diagnosis Pain in right foot- Primary Pain in limb [facility] Diagnosis Arthritis of right midfoot- Primary Right foot pain Pain in limb [facility] noteNo assessment information availableWChillic[facility] Work Phone: Evaluation note* Diagnosis Pain Generalized pain Pain in right foot Pain in limb [facility] Diagnosis Annual physical exam- Primary Routine general medical examination at a [facility] care facility Bilateral carotid artery stenosis Occlusion and stenosis of carotid artery without mention of cerebral infarction DDD (degenerative disc disease), lumbar Degeneration of lumbar or lumbosacral intervertebral disc Primary osteoarthritis of both knees Primary localized osteoarthrosis, lower leg Hyperlipidemia, unspecified hyperlipidemia type Prediabetes Other abnormal glucose documented in this encounter [facility] note* Diagnosis Prediabetes- Primary Other abnormal glucose documented in this encounter [facility] note* Diagnosis Other hyperlipidemia- Primary Prediabetes Other abnormal glucose Primary osteoarthritis of both knees Primary localized osteoarthrosis, lower leg Screening for depression Encounter for screening examination for other mental health and behavioral disorders DDD (degenerative disc disease), lumbar Degeneration of lumbar or lumbosacral intervertebral disc Obesity, Class I, BMI 30-34.9 Obesity, unspecified [facility] Diagnosis Other hyperlipidemia [facility] Diagnosis Acute cough [facility] Diagnosis Other hyperlipidemia- Primary Prediabetes Other abnormal glucose [facility] Diagnosis Other hyperlipidemia [facility]* Diagnosis Preop examination- Primary Preoperative examination, unspecified Abnormal EKG Nonspecific abnormal electrocardiogram (ECG) (EKG) Systolic murmur Undiagnosed cardiac murmurs [facility] Diagnosis Abnormal stress test- Primary Other nonspecific abnormal cardiovascular system function study History of tobacco abuse Personal history of tobacco use, presenting hazards to health Dyslipidemia Other and unspecified hyperlipidemia Abnormal EKG Nonspecific abnormal electrocardiogram (ECG) (EKG) [facility] Diagnosis Abnormal stress test- Primary Other nonspecific abnormal cardiovascular system function study documented in this encounter [facility] for referral (narrative)* Diagnostic Procedure Only (Routine) - Authorized Specialty Diagnoses / Procedures Referred By Contac t Referred To Contact XR IMAGING Diagnoses Pain Procedures XR ANKLE GENERAL 3V AP/LAT/OBL RIGHT RADEX ANKLE COMPLETE MINIMUM 3 VIEWS Jon Soto [address] [place] [address] [place] [address] Referral ID Status Reason Start Date Expiration Date Visits Requested Visits Authorized [id number] Authorized Auto-Generat ed Referral 05/09/2023 06/07/2024 1 1 [facility] for referral (narrative)* Diagnostic Procedure Only (Routine) - Closed Specialty Diagnoses / Procedures Referred By Contac t Referred To Contact XR IMAGING Diagnoses Pain in right foot Procedures XR FOOT GENERAL 3V AP/LAT/OBL RIGHT RADEX FOOT COMPLETE MINIMUM 3 VIEWS Jon Soto [address] [place] [address] [place] [address] Referral ID Status Reason Start Date Expiration Date V isits Requested Visits Authorized [id number] Closed Auto-Generate d Referral 05/24/2023 06/22/2024 1 1 [facility] for referral (narrative)* Diagnostic Procedure Only (Routine) - Closed Specialty Diagnoses / Procedures Referred By Contac t Referred To Contact XR IMAGING Diagnoses Pain in right foot Procedures XR FOOT GENERAL 3V AP/LAT/OBL RIGHT RADEX FOOT COMPLETE MINIMUM 3 VIEWS Jon [place] [place] [address] [place] [address] Referral ID Status Reason Start Date Expiration Date V isits Requested Visits Authorized [id number] Closed Auto-Generate d Referral 05/24/2023 06/22/2024 1 1 * Diagnostic Procedure Only (Routine) - Closed Specialty Diagnoses / Procedures Referred By Contac t Referred To Contact XR IMAGING Diagnoses Pain Procedures XR ANKLE GENERAL 3V AP/LAT/OBL RIGHT RADEX ANKLE COMPLETE MINIMUM 3 VIEWS Jon Soto [address] [place] [address] [place] [address] Referral ID Status Reason Start Date Expiration Date V isits Requested Visits Authorized [id number] Closed Auto-Generate d Referral 05/09/2023 06/07/2024 1 1 [facility] ([facility])No reason for referral information availableWChillicothe [facility] Work Phone: Reason for visit Narrative* Diagnostic Procedure Only (Routine) - Closed Specialty Diagnoses / Procedures Referred By Contac t Referred To Contact XR IMAGING Diagnoses Pain Procedures XR ANKLE GENERAL 3V AP/LAT/OBL RIGHT RADEX ANKLE COMPLETE MINIMUM 3 VIEWS Jon Soto [address] [place] [address] [place] [address] Referral ID Status Reason Start Date Expiration Date V isits Requested Visits Authorized [id number] Closed Auto-Generate d Referral 05/09/2023 06/07/2024 1 1 [facility] Summary Purpose Family History No Family History Records Found Relationship Condition Age at Onset Recorded Date/T heena mother Cardiac disease Unknown Diabetes mellitus Unknown Peripheral vascular disease Unknown father Alzheimer's disease Unknown Malignant neoplasm of prostate Unknown Malignant neoplasm of urinary bladder Unk nown Parkinson's disease Unknown grandmother Cerebrovascular accident (CVA) Unknown Cardiac disease Unknown Advance Directives No Advanced Directives Records FoundDocuments on File Type Date Recorded 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 Advance Directive(s) 09/24/2021 10:20 AM Advance Directive(s) 09/18/2021 3:52 PM Advance Directive Response Recorded Date/ Time Living Will No December 04, 2014 3:28pm Power of Latin American Studies Director No December 04 15 3:28pm Chief Complaint [...] Referral Specialty Diagnoses / Procedures Referred By Contac t Referred To Contact [facility] Diagnoses DDD (degenerative disc disease), lumbar Procedures [facility] PodlogarBriana APRN.CRUSHER LOADER OPERATOR [address] [place] [address] Referral ID Status Reason Start Date Expiration Date Visits Requested Visits Authorized [id number] Ref Not Required PCP Requested Referral 09/26/2023 09/25/2024 1 1 Specialty Diagnoses / Procedures Referred By Contac t [facility]erred [facility] Diagnoses Bilateral carotid artery stenosis Procedures US CAROTID ARTERIES RADHA VAS LAB DUPLEX SCAN EXTRACRANIAL ART COMPL BI STUDY PodlogarBriana APRN.CRUSHER LOADER OPERATOR [address] [place] [address] [facility] [address] [place] [address] Referral ID Status Reason Start Date Expiration Date Visits Requested Visits Authorized [id number] Authorized Auto-Generat ed Referral 09/26/2023 09/25/2024 1 1 Additional Source Comments (unrecognized sect ion and content) No Status Records FoundNo Status Records FoundNo Status Records FoundNo Status Records Found INFORMATION SOURCE (unrecogn ized section and content) DATE CREATED AUTHOR 05/16/2019 [facility] DATE CREATED AUTHOR AUTHOR'S ORGANIZ ATION 01/15/2025 [facility] DATE CREATED AUTHOR AUTHOR'S ORGANIZ ATION 02/04/2025 [facility] DATE CREATED AUTHOR AUTHOR'S ORGANIZ ATION 03/17/2025 [facility] Reason for Visit (unrecogniz ed section and [...] 10/03/2024 Reason Comments Pre-Op Exam Left shoulder 4/30 [facility] Reason Comments [facility] visit Reason Comments Insurance Authorization Stress Echo Reason Comments New Cardiac Patient Abnormal stress/echo Specialty Diagnoses / Procedures Referred By Contac t Referred To Contact Cardiology Diagnoses Abnormal stress test Procedures CONSULT TO CARDIOLOGY OFFICE/OUTPATIENT NEW HIGH MDM 60 MINUTES PodlogarBriana APRN.CRUSHER LOADER OPERATOR [address] [place] [address] Phone: tel: fax: Referral ID Status Reason Start Date Expiration Date V isits Requested Visits Authorized [id number] Closed PCP Requested Referral 01/09/2025 01/09/2026 1 1 Reason Comments Results Patient request for Briana to review Stre ss test done at [facility] Source Comments (unrecognize d section and content) In the event this informatio n is protected by the Federal Confidentiality of Alcohol and Drug Abuse Patient Records regulations: The Federal rules restrict any use of the information to criminally investigate or prosecute any alcohol or drug abuse patient.[facility] the event this information is protected by the Federal Confidentiality of Alcohol and Drug Abuse Patient Records regulations: The Federal rules restrict any use of the information to criminally investigate or prosecute any alcohol or drug abuse patient.[facility] the event this information is protected by the Federal Confidentiality of Alcohol and Drug Abuse Patient Records regulations: The Federal rules restrict any use of the information to criminally investigate or prosecute any alcohol or drug abuse patient.[facility] the event this information is protected by the Federal Confidentiality of Alcohol and Drug Abuse Patient Records regulations: The Federal rules restrict any use of the information to criminally investigate or prosecute any alcohol or drug abuse patient.[facility] the event this information is protected by the Federal Confidentiality of Alcohol and Drug Abuse Patient Records regulations: The Federal rules restrict any use of the information to criminally investigate or prosecute any alcohol or drug abuse patient.[facility] the event this information is protected by the Federal Confidentiality of Alcohol and Drug Abuse Patient Records regulations: The Federal rules restrict any use of the information to criminally investigate or prosecute any alcohol or drug abuse patient.[facility]In the event this information is protected by the Federal Confidentiality of Alcohol and Drug Abuse Patient Records regulations: The Federal rules restrict any use of the information to criminally investigate or prosecute any alcohol or drug abuse patient.[facility] the event this information is protected by the Federal Confidentiality of Alcohol and Drug Abuse Patient Records regulations: The Federal rules restrict any use of the information to criminally investigate or prosecute any alcohol or drug abuse patient.[facility] the event this information is protected by the Federal Confidentiality of Alcohol and Drug Abuse Patient Records regulations: The Federal rules restrict any use of the information to criminally investigate or prosecute any alcohol or drug abuse patient.[facility] the event this information is protected by the Federal Confidentiality of Alcohol and Drug Abuse Patient Records regulations: The Federal rules restrict any use of the information to criminally investigate or prosecute any alcohol or drug abuse patient.[facility] the event this information is protected by the Federal Confidentiality of Alcohol and Drug Abuse Patient Records regulations: The Federal rules restrict any use of the information to criminally investigate or prosecute any alcohol or drug abuse patient.[facility] the event this information is protected by the Federal Confidentiality of Alcohol and Drug Abuse Patient Records regulations: The Federal rules restrict any use of the information to criminally investigate or prosecute any alcohol or drug abuse patient.[facility] the event this information is protected by the Federal Confidentiality of Alcohol and Drug Abuse Patient Records regulations: The Federal rules restrict any use of the information to criminally investigate or prosecute any alcohol or drug abuse patient.[facility]In the event this information is protected by the Federal Confidentiality of Alcohol and Drug Abuse Patient Records regulations: The Federal rules restrict any use of the information to criminally investigate or prosecute any alcohol or drug abuse patient.[facility] the event this information is protected by the Federal Confidentiality of Alcohol and Drug Abuse Patient Records regulations: The Federal rules restrict any use of the information to criminally investigate or prosecute any alcohol or drug abuse patient.[facility] the event this information is protected by the Federal Confidentiality of Alcohol and Drug Abuse Patient Records regulations: The Federal rules restrict any use of the information to criminally investigate or prosecute any alcohol or drug abuse patient.[facility] the event this information is protected by the Federal Confidentiality of Alcohol and Drug Abuse Patient Records regulations: The Federal rules restrict any use of the information to criminally investigate or prosecute any alcohol or drug abuse patient.[facility]In the event this information is protected by the Federal Confidentiality of Alcohol and Drug Abuse Patient Records regulations: The Federal rules restrict any use of the information to criminally investigate or prosecute any alcohol or drug abuse patient.[facility] HospitalIn the event this information is protected by the Federal Confidentiality of Alcohol and Drug Abuse Patient Records regulations: The Federal rules restrict any use of the information to criminally investigate or prosecute any alcohol or drug abuse patient.[facility]In the event this information is protected by the Federal Confidentiality of Alcohol and Drug Abuse Patient Records regulations: The Federal rules restrict any use of the information to criminally investigate or prosecute any alcohol or drug abuse patient.[facility]In the event this information is protected by the Federal Confidentiality of Alcohol and Drug Abuse Patient Records regulations: The Federal rules restrict any use of the information to criminally investigate or prosecute any alcohol or drug abuse patient.[facility]In the event this information is protected by the Federal Confidentiality of Alcohol and Drug Abuse Patient Records regulations: The Federal rules restrict any use of the information to criminally investigate or prosecute any alcohol or drug abuse patient.[facility]In the event this information is protected by the Federal Confidentiality of Alcohol and Drug Abuse Patient Records regulations: The Federal rules restrict any use of the information to criminally investigate or prosecute any alcohol or drug abuse patient.[facility]In the event this information is protected by the Federal Confidentiality of Alcohol and Drug Abuse Patient Records regulations: The Federal rules restrict any use of the information to criminally investigate or prosecute any alcohol or drug abuse patient.[facility]In the event this information is protected by the Federal Confidentiality of Alcohol and Drug Abuse Patient Records regulations: The Federal rules restrict any use of the information to criminally investigate or prosecute any alcohol or drug abuse patient.[facility]In the event this information is protected by the Federal Confidentiality of Alcohol and Drug Abuse Patient Records regulations: The Federal rules restrict any use of the information to criminally investigate or prosecute any alcohol or drug abuse patient.[facility]In the event this information is protected by the Federal Confidentiality of Alcohol and Drug Abuse Patient Records regulations: The Federal rules restrict any use of the information to criminally investigate or prosecute any alcohol or drug abuse patient.[facility]In the event this information is protected by the Federal Confidentiality of Alcohol and Drug Abuse Patient Records regulations: The Federal rules restrict any use of the information to criminally investigate or prosecute any alcohol or drug abuse patient.[facility]In the event this information is protected by the Federal Confidentiality of Alcohol and Drug Abuse Patient Records regulations: The Federal rules restrict any use of the information to criminally investigate or prosecute any alcohol or drug abuse patient.[facility]In the event this information is protected by the Federal Confidentiality of Alcohol and Drug Abuse Patient Records regulations: The Federal rules restrict any use of the information to criminally investigate or prosecute any alcohol or drug abuse patient.[facility]In the event this information is protected by the Federal Confidentiality of Alcohol and Drug Abuse Patient Records regulations: The Federal rules restrict any use of the information to criminally investigate or prosecute any alcohol or drug abuse patient.[facility]In the event this information is protected by the Federal Confidentiality of Alcohol and Drug Abuse Patient Records regulations: The Federal rules restrict any use of the information to criminally investigate or prosecute any alcohol or drug abuse patient.[facility]In the event this information is protected by the Federal Confidentiality of Alcohol and Drug Abuse Patient Records regulations: The Federal rules restrict any use of the information to criminally investigate or prosecute any alcohol or drug abuse patient.[facility] HospitalIn the event this information is protected by the Federal Confidentiality of Alcohol and Drug Abuse Patient Records regulations: The Federal rules restrict any use of the information to criminally investigate or prosecute any alcohol or drug abuse patient.[facility] Care Teams (unrecognized sec tion and content) Pattern Cutter Relationship Specialty Start Date End Date Preeti Marquis MD [address] [place] [address] PCP - General Family Practice 08/30/16 Pattern Cutter Relationship Specialty Start Date End Date Preeti Marquis MD [address] [facility] [place] [address] PCP - General Family Practice 08/30/16 Pattern Cutter Relationship Specialty Start Date End Date Preeti Marquis MD [address] [place] [address] PCP - General Family Practice 08/30/16 Pattern Cutter Relationship Specialty Start Date End Date Preeti Marquis MD [address] [place] [address] PCP - General Family Medicine 08/30/16 Pattern Cutter Relationship Specialty Start Date End Date Preeti Marquis MD [address] [place] [address] PCP - General Family Medicine 08/30/16 Pattern Cutter Relationship Specialty Start Date End Date Preeti Marquis MD [address] [place] [address] PCP - General Family Medicine 08/30/16 Pattern Cutter Relationship Specialty Start Date End Date Preeti Marquis MD [address] [place] [address] PCP - General Family Medicine 08/30/16 Pattern Cutter Relationship Specialty Start Date End Date Preeti Marquis MD [address] [place] [address] PCP - General Family Medicine 08/30/16 Pattern Cutter Relationship Specialty Start Date End Date Preeti Marquis MD [address] [place] [address] PCP - General Family Medicine 08/30/16 Pattern Cutter Relationship Specialty Start Date End Date Preeti Marquis MD [address] [facility] [place] [address] PCP - General Family Medicine 08/30/16 Pattern Cutter Relationship Specialty Start Date End Date Preeti Marquis MD [address] [place] [address] PCP - General Family Medicine 08/30/16 Team Status: Active Member Role Status Dates Dr. Gary Marquis MD Family Provider Active Dr. Gary Marquis MD Primary Care Provider Acti ve Team Status: Inactive Member Role Status Dates Dr. Gary Marquis MD Primary Care Provider Acti ve Dr. Say Suazo MD Attending Provider, Referring Yoselyn merrill Active Pattern Cutter Relationship Specialty Start Date End Date Preeti Marquis MD [address] [place] [address] PCP - General Family Medicine 08/30/16 Pattern Cutter Relationship Specialty Start Date End Date Preeti Marquis MD [address] [place] [address] PCP - General Family Medicine 08/30/16 Pattern Cutter Relationship Specialty Start Date End Date Preeti Marquis MD [address] [place] [address] PCP - General Family Medicine 08/30/16 Pattern Cutter Relationship Specialty Start Date End Date Preeti Marquis MD [address] [place] [address] PCP - General Family Medicine 08/30/16 Pattern Cutter Relationship Specialty Start Date End Date Preeti Marquis MD [address] [facility] [place] [address] PCP - General Family Medicine 08/30/16 Pattern Cutter Relationship Specialty Start Date End Date Preeti Marquis MD [address] [facility] [place] [address] PCP - General Family Medicine 08/30/16 Pattern Cutter Relationship Specialty Start Date End Date Preeti Marquis MD [address] [facility] [place] [address] PCP - General Family Medicine 08/30/16 PodlogarBriana APRN.CRUSHER LOADER OPERATOR [address] [facility] [place] [address] Wash Box Operator Family Medicine 07/21/24 Pattern Cutter Relationship Specialty Start Date End Date Preeti Marquis MD [address] [facility] [place] [address] PCP - General Family Medicine 08/30/16 PodlogarBriana, FITNESS CENTRE MANAGER.CRUSHER LOADER OPERATOR [address] [facility] [place] [address] Wash Box Operator Family Medicine 07/21/24 Pattern Cutter Relationship Specialty Start Date End Date Preeti Marquis MD [address] [facility] [place] [address] PCP - General Family Medicine 08/30/16 Podlogar, Briana, FITNESS CENTRE MANAGER.CRUSHER LOADER OPERATOR [address] [facility] [place] [address] Wash Box Operator Family Medicine 07/21/24 Pattern Cutter Relationship Specialty Start Date End Date Preeti Marquis MD [address] [facility], [place] [address] PCP - General Family Medicine 08/30/16 PodlogBriana cristina APRN.CRUSHER LOADER OPERATOR [address] [facility], [place] [address] Wash Box Operator Family [facility] 07/21/24 Betty Brody APRN.CRUSHER LOADER OPERATOR [address] [facility], [place] [address] [facility] Team Status: Active Member Role Status [...] November 12, 2024 End: November 12, 2024 Pattern Cutter Relationship Specialty Start Date End Date Preeti Marquis MD [address] [facility], [place] [id number] PCP - General Family Medicine 08/30/16 Podlogar, Briana, LOLY.CRUSHER LOADER OPERATOR [address] [facility], [place] [address] [facility] 07/21/24 Betty Brody APRN.CRUSHER LOADER OPERATOR [address] [place], [place] [address] [facility] 11/05/24 Pattern Cutter Relationship Specialty Start Date End Date Preeti Marquis MD [address] [place], [place] [address] PCP - General Family Medicine 08/30/16 PodlogarBriana APRN.CRUSHER LOADER OPERATOR [address] [place] [address] [facility] 07/21/24 Betty Brody APRN.CRUSHER LOADER OPERATOR [address] [place], [place] [address] [facility] 11/05/24 Pattern Cutter Relationship Specialty Start Date End Date Preeti Marquis MD [address] [place], [place] [address] PCP - General Family Medicine 08/30/16 PodlogarBriana APRN.CRUSHER LOADER OPERATOR [address] [place] [address] [facility] 07/21/24 Betty Brody APRN.CRUSHER LOADER OPERATOR [address] [place], [place] [address] [facility] 11/05/24 Team Status: Inactive Member Role Status Dates Dr. Gary Marquis MD Primary Care Provider Acti ve Start: December 31, 2024 End: December 31, 2024 Briana Podlogar COMMUNICATIONS PROFESSIONAL, COMMUNICATIONS PROFESSIONAL-C Attending Provider Active Start: December 31, 2024 End: December 31, 2024 Briana Podlogar COMMUNICATIONS PROFESSIONAL, COMMUNICATIONS PROFESSIONAL-C Referring Provider Active Start: December 31, 2024 End: December 31, 2024 Team Status: Active Member Role Status Dates Dr. Gary Marquis MD Primary Care Provider Acti ve Start: December 31, 2024 Dr. Howard Liz MD Attending Provider Active S tart: December 31, 2024 Pattern Cutter Relationship Specialty Start Date End Date Preeti Marquis MD [address] [facility], [place] [address] PCP - General Family Medicine 08/30/16 PodlogarBriana APRN.CRUSHER LOADER OPERATOR [address] [facility], [place] [address] [facility] 07/21/24 Betty Brody APRN.CRUSHER LOADER OPERATOR [address] [facility], [place] [address] [facility] 01/24/25 Team Status: Inactive Member Role Status Dates Dr. Gary Marquis MD Primary Care Provider Acti ve Start: January 10, 2025 End: January 10, 2025 Dr. Preeti Marin MD Attending Provider Activ e Start: January 10, 2025 End: January 10, 2025 Dr. Preeti Marin MD Referring Provider Activ e Start: January 10, 2025 End: January 10, 2025 Pattern Cutter Relationship Specialty Start Date End Date Preeti Marquis MD [address] [facility], [place] [address] PCP - General Family Medicine 08/30/16 AguilarlogBriana cristina, LOLY.CRUSHER LOADER OPERATOR [address] [facility], [place] [address] [facility] 07/21/24 Team Status: Active Member Role/Relationship Status Dates Dr. Gary Marquis MD Primary Care Provider Acti ve Team Status: Inactive Member Role/Relationship Status Dates Dr. Gary Marquis MD Primary Care Provider Acti ve Start: December 31, 2024 End: December 31, 2024 Briana Sheikhlogibeth COMMUNICATIONS PROFESSIONAL, COMMUNICATIONS PROFESSIONAL-C Attending Provider Active Start: December 31, 2024 End: December 31, 2024 Briana Sheikhlogibeth COMMUNICATIONS PROFESSIONAL, COMMUNICATIONS PROFESSIONAL-C Referring Provider Active Start: December 31, 2024 [...] BE BASED ON THE PRIMARY CLINICAL RECORDS. [facility]. provides no warranty or guarantee of the accuracy or completeness of information in this document.
--- NOTE | 2025-03-25 09:47 | CL.D_ITS ---
Patient Name: FRANK MCKEON Study Date: 03/18/2025 Performing: Howard Liz MD Ht: 68 inches 172.72 cm : 1950 Wt: 197.01 lbs 89.36 kg Age: 74 Gender: male BSA: 2.03 PROCEDURE(S) PERFORMED [id number])LHC/COR/LV CLINICAL PROFILE AND INDICATIONS Indications: Suspected CAD Heart Failure: None Stress/Imaging Stress Echocardiogram: Yes Result: Positive Low RiskStress Echocardiogram: Positive Low Risk CAD Presentations: No Sxs, no angina. CONCLUSIONS No significant atherosclerotic plaquing or stenosis noted. Proximal luminal irregularities noted in the left anterior descending artery. Mildly dilated aortic root. RECOMMENDATIONS Medical therapy DESCRIPTION OF PROCEDURE The patient arrived to the procedure lab. The risks and benefits of the procedure as well as a full description of our services here and current unavailability of surgical backup were fully explained to the patient and/or their significant other prior to the catheterization. The Timeout was completed, verifying the correct patient and procedure. The patient's procedural site was prepped and draped in the usual fashion. Local anesthetic was given subcutaneously to right radial region with Lidocaine 2%. Using a modified Seldinger technique, arterial access was obtained via the right radial artery, a 6Fr sheath was inserted. Right Coronary Artery selective angiography was then performed in multiple views using a 5 Fr. 4.0 [place] catheter. Left Coronary Artery selective angiography was performed in multiple views using a 5 Fr. 4.0 [place] catheter. Left Ventriculography was performed in WHELAN projection using a 5 Fr. Pigtail catheter. LV to AO pullback pressures were then recorded.The arterial sheath was pulled and a TR Band was applied for hemostasis 10 ml of air CORONARY ANGIOGRAPHY DOMINANCE: Left Dominant LEFT HEART ASSESSMENT Left Ventricular Ejection Fraction: by LV Gram 60 % Normal LV wall motion Normal Left Ventricular systolic function LEFT MAIN: Angiographically normal LEFT ANTERIOR DESCENDING ARTERY: Mild luminal irregularities less than 30% CIRCUMFLEX ARTERY: Large vessel with 3 obtuse marginal branches and a posterior descending artery with no significant atherosclerotic plaquing noted. RIGHT CORONARY ARTERY: Nondominant with no significant stenosis present AORTIC ROOT: Dilated COMPLICATIONS No Complications PROCEDURE MEDICATIONS Fentanyl 50 mcg IV Versed 1 mg IV Oxygen: 2 L/min via nasal cannula Aspirin (325mg) 1 Tabs PO @ 03/18/2025 07:50:17 Heparin given IA 03/18/2025 08:57:24 Verapamil 2.5mg, Ntg 100mcgs, 3000 units of Heparin given IA 03/18/2025 08:57:24 SUMMARY OF HEMODYNAMIC DATA Time AIR REST ECG 07:55:00 Art 131/66 (87) 09:01:36 AO 143/79 (107) SA 09:09:33 LV 169/8, 23 09:14:42 LV 135/11, 19 09:14:51 LV 146/12, 18 09:16:01 LV 145/11, 18 09:16:09 LVp 144/9, 18 09:16:13 AOp 150/74 (106) 09:16:20 Signed By Howard Liz MD On 03/18/2025 09:26:34 Howard Liz MD
== END 2025-03-18 11:05 | disposition home or self-care (01) ==
PROVIDERS: PCP Family Medicine; Referring Provider Internal Medicine Cardiovascular Disease; Visit Provider Internal Medicine Cardiovascular Disease
DX: R94.39 Abnormal result of other cardiovascular function study (principal); E78.5 Hyperlipidemia, unspecified; I77.810 Thoracic aortic ectasia; Z79.899 Other long term (current) drug therapy; Z87.891 Personal history of nicotine dependence
CPT/HCPCS: 93458; 99152; 99153; Q9967; C1769; C1894

== ENCOUNTER → 2025-05-20 | Outpatient (CLI) | payer MEDICARE, SELFPAY ==
[2025-05-20 11:16] LABS: Hematocrit 41.6 % (40-54); Hemoglobin 14.9 g/dL (13.0-16.5); Immature Granulocytes Count 0.040 X10^3/uL (0.0-0.0); Mean Corp Hgb Conc 35.8 g/dL (32-36); Mean Corpuscular Volume 87.0 fL (80-94); Mean Platelet Vol. 8.8 fl (6.2-12.0); NRBC Flagged by Analyzer 0 % (0-5); Platelet Count 233 K/mm3 (150-450); RBC Distribution Width CV 12.7 % (11.6-14.6); RBC Distribution Width SD 40.7 fl (35.1-43.9); Red Blood Count 4.78 M/mm3 (4.6-6.2); White Blood Count 7.2 K/mm3 (4.4-11.0)
[2025-05-20 11:47] LABS: Anion Gap 10 (5-15); BUN 17 mg/dL (4-19); BUN/Creat Ratio 17.9 RATIO (10-20); Calcium,Total 10.1 mg/dL (7.6-11.0); Carbon Dioxide 25.3 mmol/L (21.0-32.0); Chloride 105 mmol/L (98-108); Glucose 100 mg/dL (70-99); Potassium 4.7 mmol/L (3.3-5.1)
== END | disposition home or self-care (01) ==
LOC: LAB 11:00
PROVIDERS: PCP Family Medicine; Referring Provider Student in an Organized Health Care Education/Training Program; Visit Provider Student in an Organized Health Care Education/Training Program
DX: Z01.818 Encounter for other preprocedural examination (principal)
CPT/HCPCS: 36415; 80048; 85025

== ENCOUNTER → 2025-05-28 | Outpatient (CLI) | payer MEDICARE, SELFPAY ==
[2025-05-28 15:31] LABS: Hematocrit 42.5 % (40-54); Hemoglobin 14.6 g/dL (13.0-16.5); Immature Granulocytes Count 0.040 X10^3/uL (0.0-0.0); Mean Corp Hgb Conc 34.4 g/dL (32-36); Mean Corpuscular Volume 89.9 fL (80-94); Mean Platelet Vol. 10.1 fl (6.2-12.0); NRBC Flagged by Analyzer 0 % (0-5); Platelet Count 227 K/mm3 (150-450); RBC Distribution Width CV 12.8 % (11.6-14.6); RBC Distribution Width SD 42.2 fl (35.1-43.9); Red Blood Count 4.73 M/mm3 (4.6-6.2); White Blood Count 6.7 K/mm3 (4.4-11.0)
[2025-05-28 16:02] LABS: AST(SGOT) 25 U/L (<=37); Alanine Aminotransfer ALT/SGPT 26 U/L (<=46); Albumin, Serum 4.5 g/dL (3.4-4.8); Alkaline Phosphatase 68 U/L (40-129); Anion Gap 11 (5-15); BUN 16 mg/dL (4-19); BUN/Creat Ratio 18.3 RATIO (10-20); Calcium,Total 10.5 mg/dL (7.6-11.0); Carbon Dioxide 26.1 mmol/L (21.0-32.0); Chloride 103 mmol/L (98-108); Cholesterol 184 mg/dL (<=200); Globulin 2.9 g/dL (2.2-4.2); Glucose 106 mg/dL (70-99); Low Density Lipoprotein Calc. 102 mg/dL; Potassium 4.3 mmol/L (3.3-5.1); Triglycerides 124 mg/dL; Very Low Density Lipoprotein 25 mg/dL (5-40); Vitamin D,25 Hydroxy 31.9 ng/mL (30-100); cholesterol:hdl ratio screen 3.22
== END | disposition home or self-care (01) ==
LOC: MTLAB 12:43
PROVIDERS: PCP Family Medicine; Referring Provider Family Medicine; Visit Provider Family Medicine
DX: R73.09 Other abnormal glucose (principal); R53.83 Other fatigue; E78.5 Hyperlipidemia, unspecified
CPT/HCPCS: 36415; 80053; 80061; 82306; 83036; 84439; 84443; 85025

== ENCOUNTER → 2025-06-05 | Outpatient (CLI) | payer MEDICARE, SELFPAY | END | disposition home or self-care (01) | LOC: LABSPEC 15:04 | PROVIDERS: PCP Family Medicine; Referring Provider Otolaryngology; Visit Provider Otolaryngology | DX: J32.9 Chronic sinusitis, unspecified (principal) | CPT/HCPCS: 87070; 87077; 87205 ==